=== PATIENT | female | born 1960 | race Caucasian/White ===

== ENCOUNTER 2020-08-06 12:26 | Outpatient (REF) | payer BC, SELFPAY ==
[2020-08-06 14:00] LABS: Hematocrit 36.1 % (37-47); Hemoglobin 11.4 g/dl (12.0-16.0); Mean Corpuscular HGB Conc 31.6 g/dl (31.0-35.0); Mean Corpuscular Hemoglobin 28.4 pg (27.0-33.0); Mean Corpuscular Volume 89.8 fL (80-98); Mean Platelet Volume 11.4 fL (9.4-12.3); Platelet Count 251 X10*3/uL (160-400); Red Blood Count 4.02 X10*6/uL (4.20-5.50); Red Cell Distribution Width 13.4 % (11.0-16.0); White Blood Count 7.4 X10*3/uL (4.8-10.8)
[2020-08-06 14:21] LABS: Estimated Average Glucose 189 mg/dL; Hemoglobin A1c % 8.2 %
[2020-08-06 14:30] LABS: Alanine Aminotransferase 15 U/L (0-31); Albumin Level 4.4 g/dL (3.5-5.0); Alkaline Phosphatase 100 U/L (39-117); Anion Gap 13 (12-20); Aspartate Amino Transferase 14 U/L (5-31); Bilirubin Total 0.3 mg/dL (0.0-1.0); Blood Urea Nitrogen 22 mg/dL (9-16); Calcium 9.3 mg/dL (8.4-10.2); Carbon Dioxide 27 mmol/L (22-29); Chloride 105 mmol/L (96-108); Cholesterol 132 mg/dL; Estimated Glomerular Filt Rate > 60; Glucose Fasting 103 mg/dL (60-99); HDL Cholesterol 49 mg/dL; LDL Cholesterol Calculated 54 mg/dl; Potassium 4.3 mmol/l (3.3-5.1); Sodium 141 mmol/L (135-145); Triglycerides 145 mg/dL
[2020-08-06 14:49] LABS: Thyroid Stimulating Hormone 0.94 uIU/mL (0.32-4.0)
== END 2020-08-06 12:27 | disposition home or self-care (01) ==
LOC: HO.HMGCLDS 12:26
PROVIDERS: PCP Internal Medicine; Visit Provider Internal Medicine
DX: E11.9 Type 2 diabetes mellitus without complications (principal); I10 Essential (primary) hypertension; E78.5 Hyperlipidemia, unspecified
CPT/HCPCS: 36415; 80053; 80061; 83036; 84443; 85027

== ENCOUNTER → 2020-08-10 12:59 | Outpatient (BNVA) | payer BC, SELFPAY | PROVIDERS: PCP Internal Medicine; Visit Provider Internal Medicine Cardiovascular Disease | DX: I10 Essential (primary) hypertension (principal) | CPT/HCPCS: 93005 ==

== ENCOUNTER 2020-09-11 12:36 | Outpatient (REF) | payer BC, SELFPAY ==
[2020-09-11 12:50] VITALS: BMI 29.7
[2020-09-11 12:53] VITALS: BP 139/72; PULSE 97; RESP 16; TEMP 37.1; O2SAT 97
[2020-09-11 13:34] VITALS: BP 112/67; PULSE 81; RESP 16; O2SAT 96
--- NOTE | 2020-09-11 13:40 | PM.OP ---
Brief Operative Note Date of Service: 09/11/20 Pre-op diagnosis: CVA Post-op diagnosis: same Procedure: Placement of implantable loop recorder Implants: Saint Sean confirm device. Patient brought to the minor surgery suite and laid on the examination table in supine position. The patient's precordial area was then prepped and draped in a sterile fashion. Patient was then given 2% lidocaine with epinephrine intradermally and subcutaneously. A [employer] Sean implantable loop recorder was then implanted using Seldinger technique in the subcutaneous tissue. Measured R-wave of 0.2 mV at the end Surgeon: Say Stovall MD Anesthesia: local Estimated blood loss (mL): 1 Pathology: none sent Condition: stable Disposition: same day
== END 2020-09-11 12:37 | disposition home or self-care (01) ==
LOC: HO.MS 12:36
PROVIDERS: PCP Internal Medicine; Visit Provider Internal Medicine Cardiovascular Disease
PROC: (CPT 33285; principal; 2020-09-11 13:00)
DX: I63.9 Cerebral infarction, unspecified (principal); I10 Essential (primary) hypertension; E11.9 Type 2 diabetes mellitus without complications; G47.33 Obstructive sleep apnea (adult) (pediatric); J45.909 Unspecified asthma, uncomplicated
CPT/HCPCS: 33285; C1764

== ENCOUNTER → 2020-09-21 10:03 | Outpatient (BNVA) | payer BC, SELFPAY | PROVIDERS: PCP Internal Medicine; Visit Provider Nurse Practitioner Family ==

== ENCOUNTER → 2020-10-26 15:09 | Outpatient (BNVA) | payer BC, SELFPAY | PROVIDERS: Visit Provider Internal Medicine Cardiovascular Disease ==

== ENCOUNTER 2020-12-07 10:38 | Outpatient (REF) | payer BC, SELFPAY ==
[2020-12-07 14:09] LABS: Alanine Aminotransferase 18 U/L (0-31); Albumin Level 4.5 g/dL (3.5-5.0); Alkaline Phosphatase 102 U/L (39-117); Anion Gap 16 (12-20); Aspartate Amino Transferase 17 U/L (5-31); Bilirubin Total 0.5 mg/dL (0.0-1.0); Blood Urea Nitrogen 24 mg/dL (9-16); Calcium 9.7 mg/dL (8.4-10.2); Carbon Dioxide 26 mmol/L (22-29); Chloride 103 mmol/L (96-108); Cholesterol 132 mg/dL; Estimated Glomerular Filt Rate > 60; Glucose Fasting 134 mg/dL (60-99); HDL Cholesterol 46 mg/dL; LDL Cholesterol Calculated 53 mg/dl; Potassium 4.1 mmol/L (3.3-5.1); Sodium 141 mmol/L (135-145); Triglycerides 168 mg/dL
[2020-12-07 14:21] LABS: Estimated Average Glucose 177 mg/dL; Hemoglobin A1c % 7.8 %
[2020-12-07 14:40] LABS: Creatinine Urine 233.71 mg/dL
[2020-12-07 14:52] LABS: Microalbum/Creatinine Ratio Ur 809.5 ug/mg cr
== END 2020-12-07 10:39 | disposition home or self-care (01) ==
LOC: HO.HMGCLDS 10:38
PROVIDERS: PCP Internal Medicine; Visit Provider Internal Medicine
DX: I10 Essential (primary) hypertension (principal); E11.9 Type 2 diabetes mellitus without complications; E78.5 Hyperlipidemia, unspecified
CPT/HCPCS: 36415; 80053; 80061; 82043; 83036

== ENCOUNTER 2021-02-17 08:27 | Outpatient (REF) | payer BC, SELFPAY ==
[2021-02-17 11:26] LABS: Hematocrit 35.8 % (37-47); Mean Corpuscular HGB Conc 30.7 g/dl (31.0-35.0); Mean Corpuscular Hemoglobin 27.6 pg (27.0-33.0); Mean Corpuscular Volume 89.9 fL (80-98); Mean Platelet Volume 11.9 fL (9.4-12.3); Platelet Count 213 X10*3/uL (160-400); Red Blood Count 3.98 X10*6/uL (4.20-5.50); Red Cell Distribution Width 13.7 % (11.0-16.0); White Blood Count 7.3 X10*3/uL (4.8-10.8)
[2021-02-17 11:32] LABS: Alanine Aminotransferase 17 U/L (0-31); Albumin Level 4.2 g/dL (3.5-5.0); Alkaline Phosphatase 102 U/L (39-117); Anion Gap 12 (12-20); Aspartate Amino Transferase 17 U/L (5-31); Bilirubin Total 0.4 mg/dL (0.0-1.0); Blood Urea Nitrogen 17 mg/dL (9-16); Calcium 9.6 mg/dL (8.4-10.2); Carbon Dioxide 27 mmol/L (22-29); Chloride 105 mmol/L (96-108); Cholesterol 134 mg/dL; Estimated Glomerular Filt Rate > 60; Glucose Fasting 192 mg/dL (60-99); HDL Cholesterol 47 mg/dL; LDL Cholesterol Calculated 51 mg/dl; Potassium 4.4 mmol/L (3.3-5.1); Sodium 140 mmol/L (135-145); Total Protein 6.6 g/dL (6.5-8.0); Triglycerides 180 mg/dL
[2021-02-17 11:35] LABS: Estimated Average Glucose 177 mg/dL; Hemoglobin A1c % 7.8 %
[2021-02-17 11:44] LABS: Microalbum/Creatinine Ratio Ur 259.3 ug/mg cr
== END 2021-02-17 08:28 | disposition home or self-care (01) ==
LOC: HO.HMGCLDS 08:27
PROVIDERS: PCP Internal Medicine; Visit Provider Internal Medicine
DX: E11.9 Type 2 diabetes mellitus without complications (principal); E78.5 Hyperlipidemia, unspecified; I10 Essential (primary) hypertension
CPT/HCPCS: 36415; 80053; 80061; 82043; 83036; 85027

== ENCOUNTER → 2021-02-18 15:10 | Outpatient (BNVA) | payer BC, SELFPAY | PROVIDERS: PCP Internal Medicine; Referring Provider Internal Medicine; Visit Provider Internal Medicine Cardiovascular Disease ==

== ENCOUNTER 2021-04-05 15:11 | Outpatient (REF) | payer BC, SELFPAY ==
[2021-04-05 16:30] LABS: Hematocrit 33.9 % (37-47); Hemoglobin 10.8 g/dl (12.0-16.0); Mean Corpuscular HGB Conc 31.9 g/dl (31.0-35.0); Mean Corpuscular Hemoglobin 28.3 pg (27.0-33.0); Mean Platelet Volume 11.6 fL (9.4-12.3); Platelet Count 248 X10*3/uL (160-400); Red Blood Count 3.81 X10*6/uL (4.20-5.50); Red Cell Distribution Width 13.9 % (11.0-16.0); White Blood Count 8.1 X10*3/uL (4.8-10.8)
[2021-04-05 16:36] LABS: INTERNATIONAL NORM RATIO 0.9 (0.9-1.1); Prothrombin Time 10.7 SEC (9.9-13.0)
[2021-04-05 16:38] LABS: Partial Thromboplastin Time 34.6 SEC (24.1-38.0)
[2021-04-05 16:50] LABS: Alanine Aminotransferase 20 U/L (0-31); Albumin Level 4.3 g/dL (3.5-5.0); Alkaline Phosphatase 109 U/L (39-117); Anion Gap 14 (12-20); Aspartate Amino Transferase 21 U/L (5-31); Bilirubin Total 0.3 mg/dL (0.0-1.0); Blood Urea Nitrogen 23 mg/dL (9-16); Calcium 9.6 mg/dL (8.4-10.2); Carbon Dioxide 24 mmol/L (22-29); Chloride 106 mmol/L (96-108); Estimated Glomerular Filt Rate > 60; Glucose Random 84 mg/dL (60-115); Potassium 4.1 mmol/L (3.3-5.1); Sodium 140 mmol/L (135-145); Total Protein 6.9 g/dL (6.5-8.0)
== END 2021-04-05 15:12 | disposition home or self-care (01) ==
LOC: HO.HMGCLDS 15:11
PROVIDERS: PCP Internal Medicine; Visit Provider Internal Medicine
DX: E78.5 Hyperlipidemia, unspecified (principal); I10 Essential (primary) hypertension; E11.9 Type 2 diabetes mellitus without complications
CPT/HCPCS: 36415; 80053; 85027; 85610; 85730

== ENCOUNTER 2021-04-22 08:32 | Outpatient (REF) | payer BC, SELFPAY ==
[2021-04-26 04:11] LABS: SARS COV2 IgG Negative (Negative)
== END 2021-04-22 08:33 | disposition home or self-care (01) ==
LOC: HO.HMGCLDS 08:32
PROVIDERS: PCP Internal Medicine; Visit Provider Internal Medicine
DX: Z01.84 Encounter for antibody response examination (principal)
CPT/HCPCS: 36415; 86769

== ENCOUNTER → 2021-09-20 08:13 | Outpatient (BNVA) | payer BC, SELFPAY | PROVIDERS: PCP Internal Medicine; Referring Provider Internal Medicine; Visit Provider Internal Medicine Cardiovascular Disease ==

== ENCOUNTER 2021-09-29 11:19 | Outpatient (REF) | payer BC, SELFPAY ==
[2021-09-29 13:59] LABS: Hematocrit 35.8 % (37.0-47.0); Mean Corpuscular HGB Conc 30.7 g/dl (31.0-35.0); Mean Corpuscular Volume 91.1 fL (80.0-98.0); Mean Platelet Volume 11.5 fL (9.4-12.3); Platelet Count 229 X10*3/uL (160-400); Red Blood Count 3.93 X10*6/uL (4.20-5.50); Red Cell Distribution Width 15.6 % (11.0-16.0); White Blood Count 9.6 X10*3/uL (4.8-10.8)
[2021-09-29 14:12] LABS: Anion Gap 13 (12-20); Blood Urea Nitrogen 17 mg/dL (9-16); Carbon Dioxide 28 mmol/L (22-29); Chloride 105 mmol/L (96-108); Estimated Glomerular Filt Rate > 60; Glucose Random 83 mg/dL (60-115); Potassium 4.4 mmol/L (3.3-5.1); Sodium 142 mmol/L (135-145)
== END 2021-09-29 11:20 | disposition home or self-care (01) ==
LOC: HO.HMGCLDS 11:19
PROVIDERS: PCP Internal Medicine; Visit Provider Internal Medicine Cardiovascular Disease
DX: I48.0 Paroxysmal atrial fibrillation (principal)
CPT/HCPCS: 36415; 80048; 85027

== ENCOUNTER → 2021-10-28 07:38 | Outpatient (REF) | payer BC, SELFPAY ==
--- NOTE | 2021-10-28 07:42 | CA_ITS ---
Transthoracic Echocardiogram Patient (Last, First, Middle): Galilea Hilton A Gender: Female Date of : 1960 Age: 61 Procedure Date: 10/28/2021 Procedure Type: Transthoracic Echocardiogram Location: OP Height: 170.18 cm Weight: 89.81 kg BSA: 2.01 m2 Heart Rate: bpm BP: 120 / 76 mmHg Box Sealing Machine Catcher: JUAN Referring MD: Say Stovall MD Dumpster Operator: Say Stovall MD Symptoms: I48.0 - Paroxysmal atrial fibrillation Study Quality: Fair ECG Rhythm: Sinus Conclusions: - 1. Normal LV systolic function with grade 1 diastolic dysfunction 2. Trivial aortic regurgitation 3. Mild mitral regurgitation 4. Normal RV systolic pressure 5. No gross pericardial effusion Findings Left Ventricle Normal left ventricular size, thickness, and systolic function. The visually estimated ejection fraction is between 60-65%. Spectral Doppler is indicative of an impaired relaxation filling pattern. E/E prime ratio is <8, consistent with normal filling pressures. Right Ventricle Normal right ventricular cavity size and systolic function. Atria Both atria are normal in size. Interatrial shunt cannot be excluded. Aortic Valve Normal aortic valve structure and function. There is no aortic valve stenosis. There is trace (trivial) aortic valve regurgitation. Mitral Valve Normal mitral valve structure and function. There is mild mitral valve regurgitation. There is no mitral valve stenosis. Pulmonic Valve The pulmonic valve was not well visualized. Tricuspid Valve Likely normal tricuspid valve structure and function. There is trace tricuspid valve regurgitation. The right ventricular systolic pressure is normal. The right ventricular systolic pressure is 28 mmHg. Normal right atrial pressure. There is no evidence of pulmonary hypertension. Great Vessels All visible segments of the aorta are normal in size. The pulmonary artery was not well visualized. Venous The inferior vena cava is normal in size and collapses greater than 50% with inspiration. Pericardium/Pleural There is no evidence of pericardial effusion. Prior Study Comparison Changes noted compared to prior study dated: 03/12/2019. RV systolic pressure appears to be normal Measurements 2D Linear Measurements IVSd: 1.00 0.6-0.9/0.6-1.0 cm LVIDd: 4.97 3.9-5.3/4.2-5.9 cm LVIDd Index: 2.47 2.4-3.2/2.2-3.1 cm/m2 LVIDs: 3.24 2.0-3.6 cm LVPWd: 0.92 0.7-1.1 cm LA Diam: 3.40 2.7-3.8/3.0-4.0 cm LAIDs Index: 1.69 1.5-2.3 cm/m2 LV Mass: 212.49 67-162/88-224 g LV Mass Index: 105.72 43-95/49-115 g/m2 LVOT Diam: 2.00 3.0+(-)1.3 cm 2D Systolic Function EF 4C: 58.20 >55% EF 2C: 68.00 >55% EF BiP: 63.40 >55% Mitral Valve MV Pk E: 0.83 MV PK A: 0.81 MV Decel Time: 212.00 E/A: 1.00 E'Lateral: 12.80 E'Medial: 8.27 E/E' Med: 10.00 E/E' Lat: 6.50 PHT: 62.00 MVA PHT: 3.55 Decel Charles: 3.89 Aortic Valve AoV Pk Zen: 1.37 AoV Mn Zen: 0.99 AoV VTI: 0.32 AoV Pk Grad: 8.00 Aov Mn Grad: 4.00 CRYS Cont.VTI: 2.02 LVOT LVOT Pk Zen: 0.91 LVOT Mn Zen: 0.65 LVOT VTI: 0.20 LVOT Pk Grad: 3.00 LVOT Mn Grad: 2.00 LVOT Diam: 2.00 LVOT Area: 3.14 Diastolic Function MV Pk E: 0.83 MV Pk A: 0.81 E/A: 1.00 E'Medial: 8.27 E/E' Med: 10.00 E' Laterial: 12.80 E/E' Lat: 6.50 Right Ventricle TAPSE (mm): 21.70 TVS' Zen: 11.70 Tricuspid Valve TR Pk Zen: 2.51 TR Pk Grad: 25.00 RA Press: 3.00 RVSP: 28.00 Great Vessels Aorta Sinus of Valsalva: 2.74 2.0-3.[address] Ridge: 1.97 1.7-3.4 cm Ao Asc: 3.10 2.1-3.4 cm Ao Arch: 3.00 Updated in Other Vendor System with Status of Final Say Wilman MD electronically signed on 10/29/2021 5:22:46 PM with status of Final
== END ==
LOC: HO.CARD 07:38
PROVIDERS: Visit Provider Internal Medicine Cardiovascular Disease
DX: I48.0 Paroxysmal atrial fibrillation (principal)
CPT/HCPCS: 93306

== ENCOUNTER 2021-12-29 17:02 | Outpatient (REF) | payer BC, SELFPAY ==
--- NOTE | ~2021-12-29 | XR_ITS ---
EXAMINATION: CHEST 2 VIEWS CLINICAL INFORMATION: Positioning choke reamer. . COMPARISON: 08/10/2018. TECHNIQUE: PA and lateral views of the chest obtained. FINDINGS: The lungs are well expanded. No focal infiltrate, effusion, edema, or pneumothorax. Cardiac and mediastinal silhouettes are within normal limits for size. Interval placement of a loop recorder device overlying the left anterior chest. No acute bony abnormality. Bone anchors in the left humeral head noted.. No acute bony abnormality seen XR/XR chest 2V IMPRESSION: New loop recorder device overlying the left anterior chest.
== END 2021-12-29 17:03 | disposition home or self-care (01) ==
LOC: HO.XRAY 17:02
PROVIDERS: PCP Internal Medicine; Visit Provider Radiology Diagnostic Radiology
DX: Z95.818 Presence of other cardiac implants and grafts (principal)
CPT/HCPCS: 71046

== ENCOUNTER 2022-01-06 09:35 | Outpatient (REF) | payer BC, SELFPAY ==
--- NOTE | ~2022-01-06 | MR_ITS ---
EXAMINATION: MR LUMBAR SPINE WITHOUT CONTRAST CLINICAL INFORMATION: 61-year-old with self-reported right-sided the radicular symptoms and difficulty standing. Evaluate for disc herniation, L4 nerve root impingement. COMPARISON: 04/16/2018 MRI. TECHNIQUE: MRI of the lumbar spine was obtained using routine sequences without contrast. FINDINGS: Coronal Alignment: Very slight lower lumbar dextrocurvature noted with slight gwbi-lh-mbjmk lateral listhesis at L4-L5, stable in appearance. Sagittal Alignment: There is 2.5 mm of grade 1 degenerative spondylolisthesis at L3-L4, slightly progressed from the previous exam without spondylolysis. There is slight retrolisthesis at L5-S1 stable in appearance. Lumbosacral Junction: Normal. 5 nft-kbp-pebalvy lumbar-type vertebral bodies. Vertebral Bodies: Vertebral body heights are well maintained. No interval compression fractures. Disc Spaces and Endplates: Natvsrgg-rs-difwnh intervertebral disc space height loss with tiny Schmorl's nodes and disc desiccation at L5-S1 with moderate spondylosis stable in appearance. Ehvr-yd-ttnuqeqn disc space height loss and disc desiccation at L4-L5, with mild spondylosis stable in appearance. Slight disc space height loss at L3-L4 with disc desiccation, noted with mild progression of disc space height loss at this level since previous exam and mild anterolateral spondylosis, similar to the previous study. Small Schmorl's node along the inferior endplate of L1 stable in appearance. Spinal Canal: Mildly prominent epidural fat throughout the lumbar canal similar to the previous exam. Bone Marrow: No significant marrow-replacing process or bone marrow edema. Minor degenerative endplate marrow signal changes along the endplates at L5-S1, stable in appearance. Conus Medullaris: Terminates at L1. Morphology and signal is normal. Intradural Nerve Roots: Crowding of the intradural nerve roots at L3-L4 consistent with spinal stenosis, progressed from previous study. L5-S1: Concentric disc osteophyte complex asymmetric to the right, similar to the previous exam with ctem-dk-vpkspeej bilateral facet hypertrophic degenerative change, right more than left stable in appearance. No significant canal stenosis. Severe right-sided and ablj-km-nngqqjpd left-sided neural foraminal stenosis, stable in appearance, with impingement on the exiting right L5 nerve root unchanged. L4-L5: Concentric disc bulging with bilateral paravertebral/posterolateral disc osteophyte complexes, similar to the previous exam with ligamentum flavum thickening and moderate right-sided and severe left-sided facet arthropathy, unchanged in appearance. No significant central spinal canal stenosis. Mild narrowing of the subarticular zones noted bilaterally, stable in appearance. Moderate right-sided and uhxjiuzn-fd-osiusf left-sided neural foraminal stenosis, stable in appearance, with encroachment on the L4 nerve roots bilaterally, similar to prior study. L3-L4: Slight progression of grade 1 degenerative spondylolisthesis, with unroofing of the posterior disc margin, with superimposed diffuse disc bulging. There is a superimposed broad-based left paracentral to subarticular extruded disc herniation with mild cephalad migration also encroaching on the left neural foramen, increased in size from the previous exam with increased encroachment on the ventral dural sac asymmetric to the left. Ligamentum flavum thickening and severe bilateral facet arthropathy is stable. There is severe central spinal canal stenosis which has progressed from the previous study with marked crowding of the intradural nerve roots and there is severe left subarticular recess stenosis, progressed from previous study. There is rdkd-ik-oinipttw right and moderate left-sided neural foraminal stenosis, progressed bilaterally from previous study, with impingement on the exiting right L3 nerve root on current exam. L2-L3: Minor annular bulging stable in appearance. Minor facet arthrosis noted. No canal or neuroforaminal stenosis. L1-L2: Normal disc contour. No facet arthrosis, canal or neural foraminal stenosis. T12-L1: Small central to left paramedian disc protrusion stable in appearance without canal compromise or cord impingement. No canal or neural foraminal stenosis. Paraspinal/Retroperitoneal: The paravertebral soft tissues appear grossly unremarkable. There is a 1.9 cm simple-appearing exophytic cortical cyst arising from the lower pole of the right kidney, stable in appearance. Other smaller cysts are seen in both kidneys, stable on the right and a new or enlarged one in the mid left kidney. Limited evaluation.?No specific follow up recommended based on the current ACR Best Practice Guidelines.? MR/MR lumbar spine wo con IMPRESSION: 1. Slight progression of grade 1 degenerative spondylolisthesis at L3-L4 with progression of left paramedian to subarticular/foraminal disc herniation at this level and progression of spinal canal stenosis, now severe in degree with progression of left subarticular recess stenosis. Progression of bilateral neural foraminal stenosis also noted with encroachment on the exiting right L3 nerve root with stable severe bilateral facet arthropathy at this level. 2. Disc bulging at L4-L5 is stable in appearance and disc osteophyte complex at L5-S1 also stable in appearance with stable facet arthropathy at these levels and stable severe right-sided neural foraminal stenosis at L5-S1 with right L5 nerve root impingement. Stable neural foraminal stenosis bilaterally at L4-L5, left more than right with encroachment on the exiting L4 nerve root unchanged.
== END 2022-01-06 09:36 | disposition home or self-care (01) ==
LOC: HO.MRI 09:35
PROVIDERS: Visit Provider Physical Medicine & Rehabilitation
DX: M54.16 Radiculopathy, lumbar region (principal)
CPT/HCPCS: 72148

== ENCOUNTER 2022-02-21 06:13 | Outpatient (REF) | payer BC, SELFPAY ==
[2022-02-21 12:08] LABS: Anion Gap 15 (12-20); Blood Urea Nitrogen 24 mg/dL (9-16); Calcium 9.4 mg/dL (8.4-10.2); Carbon Dioxide 26 mmol/L (22-29); Chloride 104 mmol/L (96-108); Cholesterol 128 mg/dL; Estimated Glomerular Filt Rate 50; Glucose Random 99 mg/dL (60-115); HDL Cholesterol 44 mg/dL; LDL Cholesterol Calculated 52 mg/dl; Potassium 3.9 mmol/L (3.3-5.1); Sodium 141 mmol/L (135-145); Triglycerides 163 mg/dL
[2022-02-21 12:25] LABS: Estimated Average Glucose 148 mg/dL; Hemoglobin A1c % 6.8 %
[2022-02-21 12:33] LABS: Creatinine Urine 127.83 mg/dL; Microalbum/Creatinine Ratio Ur 336.3 ug/mg cr
== END 2022-02-21 06:14 | disposition home or self-care (01) ==
LOC: HO.HMGCLDS 06:13
PROVIDERS: PCP Internal Medicine; Visit Provider Internal Medicine
DX: E78.5 Hyperlipidemia, unspecified (principal); I10 Essential (primary) hypertension; E11.9 Type 2 diabetes mellitus without complications
CPT/HCPCS: 36415; 80048; 80061; 82043; 83036

== ENCOUNTER 2022-03-05 13:05 | Outpatient (REF) | payer BC, SELFPAY ==
[2022-03-05 15:35] LABS: Total Volume 24 Hour Urine 1075 mL
[2022-03-05 15:47] LABS: Creatinine, 24Hr Urine 0.9 G/Day (1.0-2.0); Creatinine, mg/dL 87.81; Protein 24 Hr Urine 1387 mg/Day (<150); Protein mg/dL 129 mg/dL
== END 2022-03-05 13:06 | disposition home or self-care (01) ==
LOC: HO.HMGCLDS 13:05
PROVIDERS: PCP Internal Medicine; Visit Provider Internal Medicine
DX: R80.9 Proteinuria, unspecified (principal)
CPT/HCPCS: 84156

== ENCOUNTER → 2022-03-18 08:29 | Outpatient (BNVA) | payer BC, SELFPAY | PROVIDERS: PCP Internal Medicine; Visit Provider Internal Medicine Cardiovascular Disease | DX: I48.0 Paroxysmal atrial fibrillation (principal); I63.9 Cerebral infarction, unspecified | CPT/HCPCS: 93005 ==

== ENCOUNTER 2022-03-22 10:13 | Outpatient (REF) | payer BC, SELFPAY ==
[2022-03-22 14:11] LABS: Anion Gap 15 (12-20); Blood Urea Nitrogen 13 mg/dL (9-16); Calcium 8.9 mg/dL (8.4-10.2); Carbon Dioxide 27 mmol/L (22-29); Chloride 106 mmol/L (96-108); Estimated Glomerular Filt Rate > 60; Glucose Random 89 mg/dL (60-115); Potassium 3.8 mmol/L (3.3-5.1); Sodium 144 mmol/L (135-145)
[2022-03-22 14:50] LABS: Creatinine Urine 93.37 mg/dL; Total Protein Urine Random 65 mg/dL (<12)
[2022-03-24 10:51] LABS: Complement C3 146 mg/dL (83-193)
[2022-03-24 14:56] LABS: Anti Glomerular Basement Memb <1.0 AI
[2022-03-25 10:03] LABS: Prot Elec - Albumin 3.5 g/dL (3.8-4.8); Prot Elec - Alpha1 0.3 g/dL (0.2-0.3); Prot Elec - Alpha2 0.8 g/dL (0.5-0.9); Prot Elec - Beta 1 0.6 g/dL (0.4-0.6); Prot Elec - Beta 2 0.4 g/dL (0.2-0.5); Prot Elec - Gamma 0.7 g/dL (0.8-1.7); Prot Elec - Total Protein 6.2 g/dL (6.1-8.1)
[2022-03-25 12:06] LABS: PEU-Protein Creat Ratio Rand 0.823 (0.024-0.184); PEU-Rand. Prot/Creat Ratio 823 mg/g creat (24-184); PEU-Random Ur. Gamma Globulin 12 %; PEU-Random Urine A1 Globulin 7 %; PEU-Random Urine A2 Globulin 20 %; PEU-Random Urine Albumin 41 %; PEU-Random Urine Beta Globulin 20 %; PEU-Random Urine Creatinine 96 mg/dL (20-275); PEU-Random Urine Protein 79 mg/dL (5-24)
[2022-03-27 11:32] LABS: Anti Nuclear Antibody Screen NEGATIVE (NEGATIVE)
== END 2022-03-22 10:14 | disposition home or self-care (01) ==
LOC: HO.10HDL 10:13
PROVIDERS: Visit Provider Internal Medicine Hypertension Specialist
DX: E11.22 Type 2 diabetes mellitus with diabetic chronic kidney disease (principal); N18.31 Chronic kidney disease, stage 3a
CPT/HCPCS: 80048; 82570; 83520; 84156; 84165; 84166; 84443; 86038; 86039; 86160

== ENCOUNTER 2022-05-25 08:14 | Outpatient (REF) | payer BC, SELFPAY ==
[2022-05-25 12:05] LABS: MANUAL DIFF FLAG NO
[2022-05-25 12:06] LABS: Basophils Percent Auto 0.5 % (0-2); Eosinophils Absolute Auto 0.3 X10*3/uL (0.0-0.4); Eosinophils Percent Auto 5.3 % (0-4); Hematocrit 34.2 % (37.0-47.0); Hemoglobin 10.3 g/dl (12.0-16.0); Imm Gran Abs Auto 0.01 X10*3/uL (0.00-0.03); Imm Gran Pct Auto 0.2 % (0.0-0.4); Lymphocytes Absolute Auto 1.6 X10*3/uL (1.2-4.9); Lymphocytes Percent Auto 27.5 % (20-40); Mean Corpuscular HGB Conc 30.1 g/dl (31.0-35.0); Mean Corpuscular Hemoglobin 27.4 pg (27.0-33.0); Mean Platelet Volume 11.5 fL (9.4-12.3); Monocytes Absolute Auto 0.3 X10*3/uL (0.1-1.2); Monocytes Percent Auto 5.1 % (2-11); Neutrophils Absolute Auto 3.6 x10*3/uL (2.0-8.3); Neutrophils Percent Auto 61.4 % (45-73); Platelet Count 212 X10*3/uL (160-400); Red Blood Count 3.76 X10*6/uL (4.20-5.50); Red Cell Distribution Width 14.6 % (11.0-16.0); White Blood Count 5.9 X10*3/uL (4.8-10.8)
[2022-05-25 12:33] LABS: Creatinine Urine 74.61 mg/dL; Microalbum/Creatinine Ratio Ur 167.5 ug/mg cr
[2022-05-25 12:38] LABS: Estimated Average Glucose 128 mg/dL; Hemoglobin A1c % 6.1 %
[2022-05-25 12:49] LABS: TSH reflex Free T4 1.02 uIU/mL (0.32-4.0)
[2022-05-25 13:16] LABS: Alanine Aminotransferase 16 U/L (0-31); Alkaline Phosphatase 83 U/L (39-117); Anion Gap 16 (12-20); Aspartate Amino Transferase 17 U/L (5-31); Bilirubin Total < 0.2 mg/dL (0.0-1.0); Blood Urea Nitrogen 12 mg/dL (9-16); Calcium 9.2 mg/dL (8.4-10.2); Carbon Dioxide 26 mmol/L (22-29); Chloride 106 mmol/L (96-108); Estimated Glomerular Filt Rate > 60; Glucose Fasting 98 mg/dL (60-99); Potassium 3.7 mmol/L (3.3-5.1); Sodium 144 mmol/L (135-145); Total Protein 6.3 g/dL (6.5-8.0)
== END 2022-05-25 08:15 | disposition home or self-care (01) ==
LOC: HO.HMGCLDS 08:14
PROVIDERS: PCP Internal Medicine; Visit Provider Internal Medicine
DX: E78.5 Hyperlipidemia, unspecified (principal); I10 Essential (primary) hypertension; E11.9 Type 2 diabetes mellitus without complications
CPT/HCPCS: 36415; 80053; 82043; 83036; 84443; 85025

== ENCOUNTER 2022-06-10 09:18 | Outpatient (REF) | payer BC, SELFPAY ==
[2022-06-10 09:43] VITALS: BMI 29.9
[2022-06-10 09:44] VITALS: BP 123/75; PULSE 84; RESP 16; TEMP 37.1; O2SAT 98
[2022-06-10 10:31] VITALS: BP 133/66; PULSE 87; RESP 16; O2SAT 97
--- NOTE | 2022-06-10 11:48 | PM.OP ---
Brief Operative Note Date of Service: 06/10/22 Pre-op diagnosis: Implantable loop recorder in place Post-op diagnosis: same Procedure: After obtaining full informed consent patient was brought to the minor surgery suite. Patient was then laid on the operating table in supine position. Patient's implantable loop recorder was identified and surgical site marked. Patient's area was then prepped and draped in sterile fashion. Patient was then given local anesthesia intradermally and subcutaneously. A small incision was then made over the head of the implantable loop recorder. The implantable loop recorder was then removed with blunt dissection. The wound was then closed with Steri-Strip and pressure dressing applied. Surgeon: Say Stovall MD Anesthesia: local Was an Agronomy Specialist used for this Procedure?: No Estimated blood loss (mL): 2 Pathology: none sent Condition: stable Disposition: same day
== END 2022-06-10 09:19 | disposition home or self-care (01) ==
LOC: HO.MS 09:18
PROVIDERS: PCP Internal Medicine; Visit Provider Internal Medicine Cardiovascular Disease
PROC: (CPT 33286; principal; 2022-06-10 10:00)
DX: Z45.09 Encounter for adjustment and management of other cardiac device (principal); Z95.818 Presence of other cardiac implants and grafts; I48.0 Paroxysmal atrial fibrillation; Z79.01 Long term (current) use of anticoagulants; Z86.73 Personal history of transient ischemic attack (TIA), and cerebral infarction without residual deficits
CPT/HCPCS: 33286

== ENCOUNTER 2022-07-05 08:39 | Outpatient (REF) | payer BC, SELFPAY ==
--- NOTE | ~2022-07-05 | MM_ITS ---
EXAMINATION: BONE DENSITOMETRY CLINICAL INDICATION: Asymptomatic menopausal state. COMPARISON: Baseline BD dated 11/15/2016. TECHNIQUE: Using a [employer] DXA System (software version: 13.1) manufactured by [employer], dual-energy x-ray absorptiometry was performed of the spine and left hip. The images are of good technical quality. Summary results are attached. FINDINGS: AP SPINE L1-L2 (excluding L3 and L4): The data of L1-L4 has been changed to exclude the L3 and L4 vertebral bodies, because mild degenerative changes at these levels may cause overestimation of lumbar spine density. Current: BMD 1.037 g/cm2, Z-score -0.1, T-score -1.1, osteopenia, 1.7% increase from baseline (<5% change is not significant). Baseline: BMD 1.020 g/cm2. LEFT FEMUR, NECK: Current: BMD 0.650 g/cm2, Z-score -1.7, T-score -2.8, osteoporosis. Baseline: BMD 0.981 g/cm2. LEFT FEMUR, TOTAL: Current: BMD 0.737 g/cm2, Z-score -1.4, T-score -2.1, osteopenia, 29.2% decrease from baseline (<5% change is not significant). Baseline: BMD 1.041 g/cm2. IDENTIFIED RISK FACTORS: Early menopause, secondary osteoporosis, low calcium intake. HISTORY OF FRACTURE: None listed. MEDICATIONS: Vitamin D. MM/XR DEXA axial skeleton IMPRESSION: 1. DIAGNOSIS: Osteoporosis based on the lowest T-score value of -2.8 in the femoral neck applying World Health Organization criteria. 2. 10-YEAR FRACTURE RISK PREDICTION, FRAX: According to the guidelines, FRAX calculation should only be performed on patients in the osteopenia bone density category. Therefore, FRAX was not performed on this patient. 3. Treatment Recommendations: NOF guidelines recommend consideration for treatment in postmenopausal women and men age 50 and older presenting with the following: -A hip or vertebral (clinical or morphometric) fracture. -T-score less than or equal to -2.5 at the femoral neck or spine after appropriate evaluation to exclude secondary causes. -Low bone mass at the hip or spine and a 10-year fracture probability by FRAX of greater than or equal to 3% for hip fracture or greater than or equal to 20% for major osteoporotic fracture based on the [place] adapted WHO algorithm. 4. Other Recommendations: All treatment decisions require clinical judgment and consideration of individual patient factors, including patient preferences, comorbidities, previous drug use, risk factors not captured in the FRAX model (e.g. frailty, falls, vitamin D deficiency, increased bone turnover, interval significant decline in bone density) and possible under or overestimation of fracture risk by FRAX. Additional medical evaluation for secondary cause of low bone mineral density may be appropriate. FUTURE SCAN RECOMMENDATION: People with diagnosed cases of osteoporosis or at high risk for fracture should have regular bone mineral density tests. For patients eligible for Medicare, routine testing is allowed once every 2 years. The testing frequency can be increased to one year for patients who have rapidly progressing disease, those who are receiving or discontinuing medical therapy to restore bone mass, or have additional risk factors.
== END 2022-07-05 08:40 | disposition home or self-care (01) ==
LOC: HO.MAMMO 08:39
PROVIDERS: Absent Provider Internal Medicine Hypertension Specialist; PCP Internal Medicine; Visit Provider Internal Medicine
DX: Z13.820 Encounter for screening for osteoporosis (principal); Z78.0 Asymptomatic menopausal state; R80.9 Proteinuria, unspecified
CPT/HCPCS: 77080; 86335

== ENCOUNTER 2022-08-23 08:31 | Outpatient (REF) | payer BC, SELFPAY ==
[2022-08-23 12:20] LABS: Alanine Aminotransferase 15 U/L (0-31); Alkaline Phosphatase 89 U/L (39-117); Anion Gap 14 (12-20); Aspartate Amino Transferase 19 U/L (5-31); Bilirubin Total 0.4 mg/dL (0.0-1.0); Blood Urea Nitrogen 16 mg/dL (9-16); Carbon Dioxide 26 mmol/L (22-29); Chloride 107 mmol/L (96-108); Cholesterol 128 mg/dL; Estimated Glomerular Filt Rate > 60; Glucose Fasting 112 mg/dL (60-99); HDL Cholesterol 42 mg/dL; LDL Cholesterol Calculated 62 mg/dl; Potassium 4.1 mmol/L (3.3-5.1); Sodium 143 mmol/L (135-145); Total Protein 6.3 g/dL (6.5-8.0); Triglycerides 121 mg/dL
[2022-08-23 12:32] LABS: Estimated Average Glucose 128 mg/dL; Hemoglobin A1c % 6.1 %
[2022-08-23 12:41] LABS: Vitamin D 25-OH Total 64.5 ng/mL (>30)
[2022-08-23 12:47] LABS: Creatinine Urine 199.43 mg/dL; Microalbum/Creatinine Ratio Ur 150.9 ug/mg cr
== END 2022-08-23 08:32 | disposition home or self-care (01) ==
LOC: HO.HMGCLDS 08:31
PROVIDERS: PCP Internal Medicine; Visit Provider Internal Medicine
DX: E78.5 Hyperlipidemia, unspecified (principal); I10 Essential (primary) hypertension; I48.0 Paroxysmal atrial fibrillation; E11.21 Type 2 diabetes mellitus with diabetic nephropathy
CPT/HCPCS: 36415; 80053; 80061; 82043; 82306; 83036

== ENCOUNTER 2022-12-01 08:33 | Outpatient (REF) | payer BC, SELFPAY ==
[2022-12-01 11:47] LABS: Hematocrit 36.4 % (37.0-47.0); Hemoglobin 11.5 g/dl (12.0-16.0); Mean Corpuscular HGB Conc 31.6 g/dl (31.0-35.0); Mean Corpuscular Hemoglobin 27.3 pg (27.0-33.0); Mean Corpuscular Volume 86.3 fL (80.0-98.0); Mean Platelet Volume 11.2 fL (9.4-12.3); Platelet Count 240 X10*3/uL (160-400); Red Blood Count 4.22 X10*6/uL (4.20-5.50); Red Cell Distribution Width 15.3 % (11.0-16.0); White Blood Count 5.3 X10*3/uL (4.8-10.8)
[2022-12-01 11:55] LABS: Alanine Aminotransferase 14 U/L (0-31); Albumin Level 4.1 g/dL (3.5-5.0); Alkaline Phosphatase 105 U/L (39-117); Anion Gap 12 (12-20); Aspartate Amino Transferase 18 U/L (5-31); Bilirubin Total 0.5 mg/dL (0.0-1.0); Blood Urea Nitrogen 15 mg/dL (9-16); Calcium 9.4 mg/dL (8.4-10.2); Carbon Dioxide 28 mmol/L (22-29); Chloride 107 mmol/L (96-108); Estimated Glomerular Filt Rate > 60; Glucose Fasting 131 mg/dL (60-99); Potassium 4.3 mmol/L (3.3-5.1); Sodium 143 mmol/L (135-145); Total Protein 6.4 g/dL (6.5-8.0)
[2022-12-01 12:15] LABS: Creatinine Urine 234.04 mg/dL; Microalbum/Creatinine Ratio Ur 135.4 ug/mg cr
[2022-12-01 12:22] LABS: Estimated Average Glucose 134 mg/dL; Hemoglobin A1c % 6.3 %
== END 2022-12-01 08:34 | disposition home or self-care (01) ==
LOC: HO.HMGCLDS 08:33
PROVIDERS: PCP Internal Medicine; Visit Provider Internal Medicine
DX: E11.9 Type 2 diabetes mellitus without complications (principal); I10 Essential (primary) hypertension; E78.5 Hyperlipidemia, unspecified
CPT/HCPCS: 36415; 80053; 82043; 83036; 85027

== ENCOUNTER 2023-03-09 07:06 | Outpatient (REF) | payer BC, SELFPAY ==
[2023-03-09 11:41] LABS: Estimated Average Glucose 131 mg/dL; Hemoglobin A1c % 6.2 %
[2023-03-09 11:57] LABS: Alanine Aminotransferase 16 U/L (0-31); Albumin Level 3.9 g/dL (3.5-5.0); Alkaline Phosphatase 97 U/L (39-117); Anion Gap 12 (12-20); Aspartate Amino Transferase 18 U/L (5-31); Bilirubin Total 0.3 mg/dL (0.0-1.0); Blood Urea Nitrogen 15 mg/dL (9-16); Calcium 9.6 mg/dL (8.4-10.2); Carbon Dioxide 27 mmol/L (22-29); Chloride 108 mmol/L (96-108); Cholesterol 108 mg/dL; Estimated Glomerular Filt Rate > 60; Glucose Fasting 97 mg/dL (60-99); HDL Cholesterol 44 mg/dL; LDL Cholesterol Calculated 44 mg/dl; Potassium 3.5 mmol/L (3.3-5.1); Sodium 143 mmol/L (135-145); Total Protein 6.6 g/dL (6.5-8.0); Triglycerides 103 mg/dL
== END 2023-03-09 07:07 | disposition home or self-care (01) ==
LOC: HO.HMGCLDS 07:06
PROVIDERS: PCP Internal Medicine; Visit Provider Internal Medicine
DX: E11.9 Type 2 diabetes mellitus without complications (principal); I10 Essential (primary) hypertension; E78.5 Hyperlipidemia, unspecified
CPT/HCPCS: 36415; 80053; 80061; 83036

== ENCOUNTER 2023-03-17 08:27 | Outpatient (AMB) | payer BC, SELFPAY ==
--- NOTE | 2023-03-17 08:42 | A.OFFPC_ITS ---
Vital Signs 03/17/23 08:45 Height 5 ft 7 in Weight 171 lb BMI 26.8 BP 108/66 Blood Pressure Location Lt brachial Position Sitting Pulse 86 Pulse Source Pulse Oximeter Pulse Oximetry (%) 98 Oxygen Delivery Method Room Air Intake Visit Reasons: PE Intake Note: Pt is here today for PE. Allergies vancomycin [VANCOMYCIN] Allergy (Intermediate, Verified 03/17/23 08:46) ITCHING empagliflozin [Jardiance] Allergy (Unknown, Verified 03/17/23 08:46) yeast infection levofloxacin Allergy (Unknown, Verified 03/17/23 08:46) tendon rupture linagliptin [Tradjenta] Allergy (Unknown, Verified 03/17/23 08:46) yeast infection penicillin G [Penicillin G] Allergy (Unknown, Verified 03/17/23 08:46) HIVES penicillin V Allergy (Unknown, Verified 03/17/23 08:46) unknown Tobacco use date assessed: 08/24/22 Dental Screening Dental Screen Date: 03/17/23 Did you have a dental visit in the last 12 months?: Yes Did you have a dental problem in the last 6 months where you did not have access to dental care?: No Was dental information given to patient?: Patient has dentist HPI PE HPI Details Pt presents for PE. Pt will have R knee replacement surgery in May in [place]. [facility] Medical History Annual physical exam Asthma Carotid stenosis Cataract Cornea disorder CVA (cerebral vascular accident) DM type 2 (diabetes mellitus, type 2) Hammertoe of right foot HTN (hypertension) Hyperlipidemia JERICHO (obstructive sleep apnea) Paroxysmal atrial fibrillation Ptosis of both upper eyelids Status post placement of implantable loop recorder Surgical History H/O bilateral breast reduction surgery H/O rotator cuff surgery H/O shoulder surgery History of arthroscopic knee surgery Family History Father No problems noted. Mother No problems noted. Social History Housing: House Alcohol intake: current Alcohol intake frequency: a few times a month Patient Tobacco Use Status: Former Tobacco user Quit Date: 32 years ago e-Cigarette/Vaping Use: Never Used Current occupational status: employed Cognitive needs: No Hearing needs: No Vision needs: No Questionnaire Thrive Questionnaire Date Thrive assessed: 08/24/22 JEZ-7 AMB Questionnaire JEZ-7 Date JEZ - 7 assessed: 08/24/22 Source: Developed by Drs. Hadley Arshad, Adwoa Hayes, Jelani Jackson and colleagues, with an educational shaji from [employer]. Review of Systems Const All systems reviewed & are unremarkable except as noted in HPI and below Reports no additional complaints Eyes Reports no additional complaints ENT Reports no additional complaints Card Reports no additional complaints Resp Reports no additional complaints GI Reports no additional complaints Physical exam (Primary Care) Vital Signs: Last Vital Signs Pulse 86 03/17/23 08:45 BP 108/66 03/17/23 08:45 Pulse Ox 98 03/17/23 08:45 Oxygen Delivery Method Room Air 03/17/23 08:45 BMI result Body Mass Index 26.8 Tobacco/Smoking Status: Tobacco use Status Tobacco use date assessed 08/24/22 03/17/23 08:43 Patient Tobacco Use Status Former Tobacco user 03/17/23 08:43 e-Cigarette/Vaping Use Never Used 03/17/23 08:43 Thrive Assessment: Date of Thrive Assessment Date Thrive assessed 08/24/22 03/17/23 08:43 Const General: no acute distress HENMT Head: Yes normal to inspection Ears: hearing grossly normal bilaterally Mouth: Normal oral and palatal mucosa present Eyes General: appearance normal, both eyes and all related structures Neck Neck: Yes supple Resp Effort & Inspection: normal respiratory effort Auscultation: clear to auscultation bilaterally Cardio Rhythm: regular rhythm Heart sounds: S1 normal heart sound present and S2 normal heart sound present GI Inspection: Yes normal to inspection Palpation (GI): Soft to palpation Percussion: Yes normal to percussion Auscultation: normal bowel sounds Extrem Other: Diabetic foot exam: skin is intact monofilament and vibration sensation intact bilaterally Assessment and Plan Assessment & Plan (1) Diabetic nephropathy associated with type 2 diabetes mellitus: Code(s): E11.21 - Type 2 diabetes mellitus with diabetic nephropathy Plan: Add Farxiga 5 mg a day continue losartan (2) HTN (hypertension): Code(s): I10 - Essential (primary) hypertension (3) Hyperlipidemia: Code(s): E78.5 - Hyperlipidemia, unspecified Plan: Continue statin (4) Paroxysmal atrial fibrillation: Comment: Infrequent paroxysmal AFib asymptomatic Code(s): I48.0 - Paroxysmal atrial fibrillation Plan: Continue Eliquis (5) Annual physical exam: Code(s): Z00.00 - Encounter for general adult medical examination without abnormal findings Plan: Well-balanced diet and regular physical activity discussed with the patient. she is up to date with mammogram and colonoscopy (6) DM type 2 (diabetes mellitus, type 2): Code(s): E11.9 - Type 2 diabetes mellitus without complications Plan: A1c is 6.2, ADA diet eating regular 3 meals with snacks in between discussed with the patient. She will try Ozempic instead of Trulicity will continue insulin and metformin. Farxiga will be added. If fasting blood glucose drops below 70 patient was advised to decrease Lantus by 6 units. Follow-up in 3 months with a fasting labs before Orders: Orders Microalbumin, Random (w Creat) Today E11.21 - Type 2 diabetes mellitus with diabetic nephropathy Comprehensive [place]. Panel Fast 3 Months E11.21 - Type 2 diabetes mellitus with diabetic nephropathy, E78.5 - Hyperlipidemia, unspecified, I10 - Essential (primary) hypertension Hemoglobin A1c 3 Months E11.21 - Type 2 diabetes mellitus with diabetic nephropathy, E78.5 - Hyperlipidemia, unspecified, I10 - Essential (primary) hypertension Lipid Panel 3 Months E11.21 - Type 2 diabetes mellitus with diabetic nephropathy, E78.5 - Hyperlipidemia, unspecified, I10 - Essential (primary) hypertension Microalbumin, Random (w Creat) 3 Months E11.21 - Type 2 diabetes mellitus with diabetic nephropathy, E78.5 - Hyperlipidemia, unspecified, I10 - Essential (primary) hypertension Complete Blood Count Auto Diff 3 Months E11.21 - Type 2 diabetes mellitus with d iabetic nephropathy, E78.5 - Hyperlipidemia, unspecified, I10 - Essential (primary) hypertension Medications: New semaglutide (Ozempic) 2 mg (0.75 mL) subcut QWEEK 9 mL 3RF dapagliflozin propanediol (Farxiga) 5 mg PO DAILY 90 tabs 1RF Coding Level of Care Code Est Pt Prev Care [id number]([id number]) Diagnoses Diabetic nephropathy associated with type 2 diabetes mellitus E11.21 HTN (hypertension) I10 Hyperlipidemia E78.5 Paroxysmal atrial fibrillation I48.0 Annual physical exam Z00.00 DM type 2 (diabetes mellitus, type 2) E11.9
[2023-03-17 08:45] VITALS: BP 108/66; PULSE 86; O2SAT 98; BMI 26.8
== END 2023-03-17 09:30 | disposition home or self-care (01) ==
PROVIDERS: Visit Provider Internal Medicine
DX: Z00.00 Encounter for general adult medical examination without abnormal findings (principal); E11.21 Type 2 diabetes mellitus with diabetic nephropathy; I10 Essential (primary) hypertension; I48.0 Paroxysmal atrial fibrillation; E78.5 Hyperlipidemia, unspecified
CPT/HCPCS: 99396

== ENCOUNTER 2023-03-17 09:22 | Outpatient (REF) | payer BC, SELFPAY ==
[2023-03-17 13:09] LABS: Creatinine Urine 99.77 mg/dL; Microalbum/Creatinine Ratio Ur 484.1 ug/mg cr (<30)
== END 2023-03-17 09:23 | disposition home or self-care (01) ==
LOC: HO.HMGCLDS 09:22
PROVIDERS: PCP Internal Medicine; Visit Provider Internal Medicine
DX: E11.21 Type 2 diabetes mellitus with diabetic nephropathy (principal)
CPT/HCPCS: 82043

== ENCOUNTER 2023-05-27 09:13 | Outpatient (REF) | payer BC, SELFPAY ==
[2023-05-27 11:06] LABS: MANUAL DIFF FLAG NO
[2023-05-27 11:18] LABS: Basophils Percent Auto 0.6 % (0-2); Eosinophils Absolute Auto 0.3 X10*3/uL (0.0-0.4); Eosinophils Percent Auto 5.1 % (0-4); Hematocrit 36.7 % (37.0-47.0); Hemoglobin 11.6 g/dl (12.0-16.0); Imm Gran Abs Auto 0.02 X10*3/uL (0.00-0.03); Imm Gran Pct Auto 0.3 % (0.0-0.4); Lymphocytes Absolute Auto 1.8 X10*3/uL (1.2-4.9); Lymphocytes Percent Auto 26.8 % (20-40); Mean Corpuscular HGB Conc 31.6 g/dl (31.0-35.0); Mean Corpuscular Hemoglobin 29.1 pg (27.0-33.0); Mean Platelet Volume 11.5 fL (9.4-12.3); Monocytes Absolute Auto 0.4 X10*3/uL (0.1-1.2); Monocytes Percent Auto 5.5 % (2-11); Neutrophils Absolute Auto 4.2 x10*3/uL (2.0-8.3); Neutrophils Percent Auto 61.7 % (45-73); Platelet Count 213 X10*3/uL (160-400); Red Blood Count 3.99 X10*6/uL (4.20-5.50); Red Cell Distribution Width 13.6 % (11.0-16.0); White Blood Count 6.7 X10*3/uL (4.8-10.8)
[2023-05-27 11:28] LABS: Estimated Average Glucose 120 mg/dL; Hemoglobin A1c % 5.8 % (<6.0)
[2023-05-27 11:43] LABS: Alanine Aminotransferase 16 U/L (0-31); Albumin Level 4.1 g/dL (3.5-5.0); Alkaline Phosphatase 77 U/L (39-117); Anion Gap 11 (12-20); Aspartate Amino Transferase 17 U/L (5-31); Bilirubin Total 0.3 mg/dL (0.0-1.0); Blood Urea Nitrogen 17 mg/dL (9-16); Calcium 9.9 mg/dL (8.4-10.2); Carbon Dioxide 27 mmol/L (22-29); Chloride 106 mmol/L (96-108); Cholesterol 94 mg/dL (<200); Estimated Glomerular Filt Rate > 60; Glucose Fasting 110 mg/dL (60-99); HDL Cholesterol 38 mg/dL (>40); LDL Cholesterol Calculated 40 mg/dL (<100); Potassium 3.4 mmol/L (3.3-5.1); Sodium 141 mmol/L (135-145); Total Protein 6.6 g/dL (6.5-8.0); Triglycerides 83 mg/dL (<150)
[2023-05-27 11:55] LABS: Creatinine Urine 134.02 mg/dL
[2023-05-27 12:08] LABS: Microalbum/Creatinine Ratio Ur 419.3 ug/mg cr (<30)
== END 2023-05-27 09:14 | disposition home or self-care (01) ==
LOC: HO.HMGCLDS 09:13
PROVIDERS: PCP Internal Medicine; Visit Provider Internal Medicine
DX: E11.21 Type 2 diabetes mellitus with diabetic nephropathy (principal); I10 Essential (primary) hypertension; E78.5 Hyperlipidemia, unspecified
CPT/HCPCS: 36415; 80053; 80061; 82043; 82570; 83036; 85025

== ENCOUNTER 2023-05-30 11:56 | Outpatient (AMB) | payer BC, SELFPAY ==
--- NOTE | 2023-05-30 12:08 | A.OFFPC_ITS ---
Vital Signs 05/30/23 12:10 Weight 164 lb BP 116/70 Blood Pressure Location Lt brachial Position Sitting Pulse 73 Pulse Source Pulse Oximeter Pulse Oximetry (%) 97 Oxygen Delivery Method Room Air Intake Visit Reasons: Pre op 06/27/23, Right knee replacement Allergies vancomycin [VANCOMYCIN] Allergy (Intermediate, Verified 05/30/23 12:12) ITCHING empagliflozin [Jardiance] Allergy (Unknown, Verified 05/30/23 12:12) yeast infection levofloxacin Allergy (Unknown, Verified 05/30/23 12:12) tendon rupture linagliptin [Tradjenta] Allergy (Unknown, Verified 05/30/23 12:12) yeast infection penicillin G [Penicillin G] Allergy (Unknown, Verified 05/30/23 12:12) HIVES penicillin V Allergy (Unknown, Verified 05/30/23 12:12) unknown Medication List - Last Reconciled 05/30/23 by Valarie Hudson MD albuterol sulfate 90 mcg/actuation 1 inh inhalation QID apixaban (Eliquis) 5 mg PO BID 90 days flash glucose sensor (FreeStyle Reid 2 Sensor kit) As directed fluconazole 150 mg PO Q3D 2 doses fluticasone propion-salmeterol 250-50 mcg/dose (Advair Diskus) 1 inh inhalation BID insulin degludec (Tresiba FlexTouch U-100 insulin) 20 units (0.2 mL) subcut BEDTIME 90 days losartan 50 mg PO DAILY metformin 1,000 mg PO BID pantoprazole 40 mg PO DAILY pen needle, diabetic (BD Ultra-Fine Short Pen Needle) Use to inject insulin once daily rosuvastatin 40 mg PO DAILY semaglutide (Ozempic) 2 mg (0.75 mL) subcut QWEEK sertraline 25 mg PO DAILY Tobacco use date assessed: 08/24/22 HPI Pre op 06/27/23, Right knee replacement HPI Details Patient presents for a preop for right knee replacement surgery. Type 2 diabetes hypertension paroxysmal AFib and hyperlipidemia, are stable on current medications. She reports fasting glucose readings between 90-120 occasionally gets lows at night to 60's. [facility] Medical History Paroxysmal atrial fibrillation Ptosis of both upper eyelids Hammertoe of right foot Annual physical exam Cornea disorder Carotid stenosis Status post placement of implantable loop recorder Cataract JERICHO (obstructive sleep apnea) CVA (cerebral vascular accident) Asthma Hyperlipidemia HTN (hypertension) DM type 2 (diabetes mellitus, type 2) Surgical History H/O rotator cuff surgery H/O bilateral breast reduction surgery History of arthroscopic knee surgery H/O shoulder surgery Family History Father No problems noted. Mother No problems noted. Social History Housing: House Alcohol intake: current Alcohol intake frequency: a few times a month Patient Tobacco Use Status: Former Tobacco user Quit Date: 32 years ago e-Cigarette/Vaping Use: Never Used Current occupational status: employed Cognitive needs: No Hearing needs: No Vision needs: No Questionnaire Thrive Questionnaire Date Thrive assessed: 08/24/22 AUDIT C Alcohol Use Questionnaire (AUDIT-C) 1. How often do you have a drink containing alcohol?: Monthly or less 2. How many drinks containing alcohol do you have on a typical day when you are drinking?: 1 or 2 3. How often do you have six or more drinks on one occasion?: Never Total Score: 1 JEZ-7 AMB Questionnaire JEZ-7 Date JEZ - 7 assessed: 08/24/22 Feeling nervous, anxious, or on edge: 0 = Not at all Not being able to stop or control worryin = Not at all Worrying too much about different things: 0 = Not at all Trouble relaxin = Not at all Being so restless that it is hard to sit still: 0 = Not at all Becoming easily annoyed or irritable: 0 = Not at all Feeling afraid as if something awful might happen: 0 = Not at all Total JEZ-7 score (0-4 normal; 5-9 mild; 10-14 moderate; 15-21 severe): 0 Source: Developed by Drs. Hadley Arshad, Adwoa Hayes, Jelani Jackson and colleagues, with an educational shaji from [employer] Review of Systems Const All systems reviewed & are unremarkable except as noted in HPI and below Reports no additional complaints Eyes Reports no additional complaints ENT Reports no additional complaints Card Reports no additional complaints Resp Reports no additional complaints GI Reports no additional complaints Reports no additional complaints Physical exam (Primary Care) Vital Signs: Last Vital Signs Pulse 73 05/30/23 12:10 BP 116/70 05/30/23 12:10 Pulse Ox 97 05/30/23 12:10 Oxygen Delivery Method Room Air 05/30/23 12:10 Tobacco/Smoking Status: Tobacco use Status Tobacco use date assessed 08/24/22 05/30/23 12:09 Patient Tobacco Use Status Former Tobacco user 05/30/23 12:09 e-Cigarette/Vaping Use Never Used 05/30/23 12:09 Thrive Assessment: Date of Thrive Assessment Date Thrive assessed 08/24/22 05/30/23 12:09 Const General: no acute distress HENMT Face and sinus: Yes normal facial exam Eyes General: appearance normal, both eyes and all related structures Resp Effort & Inspection: normal respiratory effort Auscultation: clear to auscultation bilaterally Cardio Rhythm: regular rhythm Heart sounds: S1 normal heart sound present and S2 normal heart sound present GI Inspection: Yes normal to inspection Palpation (GI): Soft to palpation Assessment and Plan Assessment & Plan (1) HTN (hypertension): Code(s): I10 - Essential (primary) hypertension Plan: Continue current medications (2) Paroxysmal atrial fibrillation: Comment: Infrequent paroxysmal AFib asymptomatic Code(s): I48.0 - Paroxysmal atrial fibrillation Plan: Continue Eliquis and beta dmitriy and follow-up with Cardiology (3) DM type 2 (diabetes mellitus, type 2): Comment: Intolerant to Farxiga, caused recurrent candidiasis Code(s): E11.9 - Type 2 diabetes mellitus without complications Plan: A1c is 5.8, ADA diet regular physical activity discussed with the patient. Tresiba will be decreased to 20 units because of nighttime lows and patient will continue Ozempic and metformin. Follow-up in 4 months with a fasting labs befo re (4) Hyperlipidemia: Code(s): E78.5 - Hyperlipidemia, unspecified Plan: Continue Crestor (5) Osteoarthritis of right knee: Code(s): M17.11 - Unilateral primary osteoarthritis, right knee Plan: Patient is medically cleared for knee replacement surgery Orders: Orders Complete Blood Count Auto Diff 4 Months E11.9 - Type 2 diabetes mellitus without complications, E78.5 - Hyperlipidemia, unspecified, I10 - Essential (primary) hypertension, I48.0 - Paroxysmal atrial fibrillation Comprehensive Davis. Panel Fast 4 Months E11.9 - Type 2 diabetes mellitus without complications, E78.5 - Hyperlipidemia, unspecified, I10 - Essential (primary) hypertension, I48.0 - Paroxysmal atrial fibrillation Basic Metabolic Panel 06/02/23 I10 - Essential (primary) hypertension Magnesium 06/02/23 I10 - Essential (primary) hypertension Hemoglobin A1c 4 Months E11.9 - Type 2 diabetes mellitus without complications, E78.5 - Hyperlipidemia, unspecified, I10 - Essential (primary) hypertension, I48.0 - Paroxysmal atrial fibrillation Lipid Panel 4 Months E11.9 - Type 2 diabetes mellitus without complications, E78.5 - Hyperlipidemia, unspecified, I10 - Essential (primary) hypertension, I48.0 - Paroxysmal atrial fibrillation Medications: New potassium chloride ER 10 mEq PO DAILY 30 tabs 0RF Changed From sertraline 50 mg PO DAILY 90 tabs 3RF To sertraline 25 mg PO DAILY From insulin degludec (Tresiba FlexTouch U-100 insulin) 30 units (0.3 mL) subcut BEDTIME 90 days 27 mL 3RF To insulin degludec (Tresiba FlexTouch U-100 insulin) 20 units (0.2 mL) subcut BEDTIME 90 days 18 mL 3RF Coding Level of Care Code Est Pt Level 4 (02431) Diagnoses HTN (hypertension) I10 Paroxysmal atrial fibrillation I48.0 DM type 2 (diabetes mellitus, type 2) E11.9 Hyperlipidemia E78.5 Osteoarthritis of right knee M17.11
[2023-05-30 12:10] VITALS: BP 116/70; PULSE 73; O2SAT 97
== END 2023-05-30 12:36 | disposition home or self-care (01) ==
PROVIDERS: PCP Internal Medicine; Visit Provider Internal Medicine
DX: I10 Essential (primary) hypertension (principal); I48.0 Paroxysmal atrial fibrillation; E11.9 Type 2 diabetes mellitus without complications; E78.5 Hyperlipidemia, unspecified; M17.11 Unilateral primary osteoarthritis, right knee
CPT/HCPCS: 99214

== ENCOUNTER 2023-06-01 13:07 | Outpatient (AMB) | payer BC, SELFPAY ==
[2023-06-01 13:13] VITALS: BP 122/76; PULSE 83; BMI 25.7
--- NOTE | 2023-06-01 13:13 | A.OFFVIS_ITS ---
Intake Vital Signs 06/01/23 13:13 Height 5 ft 7 in Weight 164 lb BMI 25.7 BP 122/76 Blood Pressure Location Lt brachial Position Sitting Pulse 83 Intake Visit Reasons: 1 year follow up Intake Note: 1 year follow-up with ekg feeling good Condenser Tube Tender Required: No Allergies vancomycin [VANCOMYCIN] Allergy (Intermediate, Verified 05/30/23 12:12) ITCHING empagliflozin [Jardiance] Allergy (Unknown, Verified 05/30/23 12:12) yeast infection levofloxacin Allergy (Unknown, Verified 05/30/23 12:12) tendon rupture linagliptin [Tradjenta] Allergy (Unknown, Verified 05/30/23 12:12) yeast infection penicillin G [Penicillin G] Allergy (Unknown, Verified 05/30/23 12:12) HIVES penicillin V Allergy (Unknown, Verified 05/30/23 12:12) unknown Medication List - Last Reconciled 06/01/23 by Say Stovall MD albuterol sulfate 90 mcg/actuation 1 inh inhalation QID apixaban (Eliquis) 5 mg PO BID 90 days dapagliflozin propanediol (Farxiga) 5 mg PO DAILY flash glucose sensor (FreeStyle Reid 2 Sensor kit) As directed fluconazole 150 mg PO Q3D 2 doses fluticasone propion-salmeterol 250-50 mcg/dose (Advair Diskus) 1 inh inhalation BID insulin degludec (Tresiba FlexTouch U-100 insulin) 20 units (0.2 mL) subcut BEDTIME 90 days losartan 50 mg PO DAILY metformin 1,000 mg PO BID pantoprazole 40 mg PO DAILY pen needle, diabetic (BD Ultra-Fine Short Pen Needle) Use to inject insulin once daily potassium chloride ER 10 mEq PO DAILY rosuvastatin 40 mg PO DAILY sertraline 25 mg PO DAILY HPI HPI Comments History of Present Illness Details Bonnie comes for follow-up. She has been doing well overall. She has not had any cardiac symptoms to report although she has to undergo total knee replacement a right knee in [place] in June. She has limited exercise activity is related to the same. She denies any chest pain or shortness of breath. She says her overall risk factors are well optimized blood pressure is well optimized. She has retired and is currently taking it easy. Denies any heart failure symptoms. Denies any prolonged palpitation irregular heartbeat. No bleeding issues or neurologic events. Last LDL was well optimized. [facility] History (Updated 06/01/23 @ 13:41 by Say Stovall MD) Status post placement of implantable loop recorder Paroxysmal atrial fibrillation Ptosis of both upper eyelids Hammertoe of right foot Annual physical exam Cornea disorder Carotid stenosis Cataract JERICHO (obstructive sleep apnea) CVA (cerebral vascular accident) Asthma Hyperlipidemia HTN (hypertension) DM type 2 (diabetes mellitus, type 2) Surgical History H/O rotator cuff surgery H/O bilateral breast reduction surgery History of arthroscopic knee surgery H/O shoulder surgery Family History Father No problems noted. Mother No problems noted. Social History Housing: House Alcohol intake: current Alcohol intake frequency: a few times a month Patient Tobacco Use Status: Former Tobacco user Quit Date: 32 years ago e-Cigarette/Vaping Use: Never Used Current occupational status: employed Cognitive needs: No Hearing needs: No Vision needs: No Review of Systems Const Denies chills, Denies fatigue, Denies fever(s), Denies frequent falls, Denies weakness, Denies weight gain and Denies weight loss ENT Denies dizziness Card Denies chest pain, Denies leg edema, Denies lightheadedness, Denies palpitations, Denies dyspnea, Denies dyspnea on exertion, Denies orthopnea and Denies other (loss of consciousness) Resp Denies cough, Denies dyspnea and Denies dyspnea on exertion GI Denies hematochezia and Denies change in stool character Musc Denies abnormal gait, Denies muscle weakness, Denies numbness, Denies radiating pain into limb and Denies tingling Neuro Denies abnormal gait, Denies dizziness, Denies frequent falls, Denies numbness, Denies tingling and Denies weakness Endo Denies fatigue and Denies palpitations Physical Exam Vital Signs: Last Vital Signs Pulse 83 06/01/23 13:13 BP 122/76 06/01/23 13:13 BMI result Body Mass Index 25.7 Const General: cooperative, comfortable, alert, awake and well groomed Nutritional Appearance: overweight Orientation/consciousness: patient oriented x3 Limitations: no limitations Neck Neck: Yes trachea midline, Yes supple and Yes no JVD Resp Effort & Inspection: normal respiratory effort Auscultation: clear to auscultation bilaterally Cardio Jugular venous distension: no JVD Rate: regular rate Rhythm: regular rhythm Heart sounds: S1 normal heart sound present and S2 normal heart sound present GI Auscultation: normal bowel sounds Neuro General: patient oriented x3 and no focal motor deficits Extrem General: Yes no clubbing, cyanosis or edema Psych Appearance: grossly normal Office Procedures EKG Details: EKG shows normal sinus rhythm with left anterior fascicular block at 83 beats per minute otherwise normal EKG [id number], Complete Assessment & Plan Assessment & Plan (1) Preoperative cardiovascular examination: Code(s): Z01.810 - Encounter for preprocedural cardiovascular examination Plan: Preoperative cardiovascular risk stratification this elderly woman with multiple risk factors for coronary artery disease including prior CVA to undergo intermediate risk surgery under general anesthesia with reduced exercise capacity. Would suggest 0 vasodilating myocardial perfusion imaging to further assess for perioperative risk. This is within normal limits, risk of perioperative cardiovascular morbidity and mortality is low. This was discussed with her. She understands and agrees. Given her normal renal function Eliquis can be held 48 hours prior to surgery to reduce risk of intraoperative bleeding and resumed as soon as possible as per surgeon's discretion. (2) Paroxysmal atrial fibrillation: Comment: Infrequent paroxysmal AFib asymptomatic Code(s): I48.0 - Paroxysmal atrial fibrillation Plan: Paroxysmal atrial fibrillation which was noted on implantable loop recorder monitoring. With her prior history of embolic CVA she was felt to be high risk including all the other risk factor she has. CHADSVASc score of 7. Continue full oral anticoagulation, currently on Eliquis 5 mg b.i.d.. Semi annual renal function test should be pursued. Avoidance of stimulants was discussed advised to call me with any new symptoms. Continue aggressive risk factor modification including aggressive blood pressure control. (3) CVA (cerebral vascular accident): Comment: 02/2019 lacunar L frontal, R hand weakness resolved Code(s): I63.9 - Cerebral infarction, unspecified Plan: Prior CVA which is felt to be embolic and subsequently diagnosed with atrial fibrillation as above. Although she also had nonobstructive carotid artery disease. She has multiple risk factors for atherosclerosis. Continue aggressive risk factor modification. Blood pressure is well optimized continue aggressive diabetes management goal hemoglobin A1c less than 7%. LDL is extremely well optimized on high-intensity statin therapy. Continue the same. Follow up in the clinic in 1 year's time, sooner p.r.n.. Thank you for allowing me to partake in her care Orders: Orders CA lexiscan stress w clarissa Today Z01.810 - Encounter for preprocedural cardiovascular examination Coding Level of Care Code Est Pt Level 4 (78782) Diagnoses Preoperative cardiovascular examination Z01.810 Paroxysmal atrial fibrillation I48.0 CVA (cerebral vascular accident) I63.9 CPT Codes EKG - CPT: 79231-[id number], Complete ([id number])
== END 2023-06-01 13:41 | disposition home or self-care (01) ==
PROVIDERS: PCP Internal Medicine; Referring Provider Internal Medicine; Visit Provider Internal Medicine Cardiovascular Disease
DX: Z01.810 Encounter for preprocedural cardiovascular examination (principal); I48.0 Paroxysmal atrial fibrillation; I63.9 Cerebral infarction, unspecified
CPT/HCPCS: 93010; 99214

== ENCOUNTER → 2023-06-01 13:07 | Outpatient (BNVA) | payer BC, SELFPAY | PROVIDERS: PCP Internal Medicine; Referring Provider Internal Medicine; Visit Provider Internal Medicine Cardiovascular Disease | DX: Z01.810 Encounter for preprocedural cardiovascular examination (principal); I10 Essential (primary) hypertension; I44.4 Left anterior fascicular block; I48.0 Paroxysmal atrial fibrillation; I63.9 Cerebral infarction, unspecified; Z95.818 Presence of other cardiac implants and grafts | CPT/HCPCS: 93005 ==

== ENCOUNTER → 2023-06-14 08:13 | Outpatient (REF) | payer BC, SELFPAY ==
--- NOTE | ~2023-06-14 | NM_ITS ---
Lexiscan Myocardial perfusion study Indication: Preoperative evaluation, assess for ischemia Technique: The patient was brought in for a Lexiscan perfusion study on 06/14/2023 and was injected 0.4 mg of Lexiscan intravenously. Within a minute of this injection 25 mCi of sestamibi was given intravenously. Images were obtained using the SPECT gamma camera interlaced with the gating device. Images were obtained in supine position. Resting perfusion study was performed on 06/20/2023. Patient was administered 25 mCi of sestamibi intravenously at rest. Images were then obtained in supine position. Images were processed with the software and compared side to side in short axis, horizontal long axis and vertical long axis views. Total DLP 92mGy-cm. Findings: Raw acquisition reviewed. The stress perfusion study showed no significant perfusion defects. Both uncorrected as well as CT attenuation corrected images were reviewed. The gated study shows normal LV systolic function with calculated LVEF of 57%. LV cavity is normal in size. The gated study shows normal wall thickening and contraction of segments. Resting study shows no significant perfusion defects. Gating at rest reveals normal wall motion with ejection fraction at 67%. The findings are consistent with no clear reversible or fixed perfusion defects. NM/NM clarissa perf SPECT rest & str Impression: 1. Myocardial perfusion imaging study shows normal myocardial perfusion. 2. Gated LVEF is 57% during stress and 67% during rest. 3. Transient ischemic dilatation not present. EKG component of the test reported separately.
--- NOTE | 2023-06-14 08:18 | CA_ITS ---
Acquisition Time: 2023-06-14 08:41:12 Total Exercise Time: 00:02:00 Test Indications: Pre-Op Evaluation AFIB Medications: ALBUTEROL ELIQUIS FARXIGA ADVAIR LOSARTAN METFORMIN KCL ROSUVASTATIN PANTOPRAZOLE Protocol: LEXISCAN Max HR: 133 BPM 85% of Pred: 155 BPM Max BP: 118/068 mmHG Max Work Load: 1.0 METS Pharmacological stress test with Lexiscan injection while sitting without anginal sympotoms, with isolated PVCs, with normtensive response to injection, with nondiagnoisitic EKGs. Amionophylline 75mg IVP given to reverse Lexiscan. Nuclear images pending. Test reviewed with Dr. Spears. Referred By: Say Stovall Overread By: Aria Martinez
== END ==
LOC: HO.CARD 08:13
PROVIDERS: PCP Internal Medicine; Visit Provider Internal Medicine Cardiovascular Disease
DX: Z01.810 Encounter for preprocedural cardiovascular examination (principal)
CPT/HCPCS: 78452; 93017; A9500; J0280; J2785

== ENCOUNTER → 2023-06-14 08:18 | Outpatient (BNV) | payer BC, SELFPAY | PROVIDERS: PCP Internal Medicine; Visit Provider Nurse Practitioner | DX: I48.91 Unspecified atrial fibrillation (principal); Z01.810 Encounter for preprocedural cardiovascular examination | CPT/HCPCS: 78452; 93016; 93018 ==

== ENCOUNTER 2023-10-17 08:44 | Outpatient (REF) | payer MEDICARE, SELFPAY ==
--- NOTE | ~2023-10-17 | MM_ITS ---
EXAMINATION: MM SCREENING DIGITAL BREAST TOMOSYNTHESIS, BILATERAL CLINICAL INFORMATION: Screening. Asymptomatic. The patient is status post breast reduction. COMPARISON: Mammography: This study is compared with prior exams dating back to 2018. TECHNIQUE: Digital breast tomosynthesis is performed in both the craniocaudal and mediolateral oblique views along with computer-aided detection (CAD). Synthesized 2D images are generated from the tomosynthesis. FINDINGS: There are scattered areas of fibroglandular density (ACR BI-RADS breast composition Category b). There are no significant masses, abnormal calcifications, or other abnormalities. Bilateral post reduction changes are present. MM/MM tomosynthesis screening BI IMPRESSION: No mammographic evidence of malignancy. ASSESSMENT: BI-RADS BI-RADS 2 - Benign Findings RECOMMENDATION: Routine annual mammography screening. 1 year F/U This examination should not preclude the clinical evaluation of a suspicious palpable abnormality. This patient's information was entered into a reminder system with a target due date for their next mammogram.
== END 2023-10-17 08:45 | disposition home or self-care (01) ==
LOC: HO.MAMMO 08:44
PROVIDERS: PCP Internal Medicine; Visit Provider Internal Medicine
DX: Z12.31 Encounter for screening mammogram for malignant neoplasm of breast (principal)
CPT/HCPCS: 77063; 77067

== ENCOUNTER → 2023-10-17 08:45 | Outpatient (BNV) | payer MEDICARE, SELFPAY | PROVIDERS: PCP Internal Medicine; Visit Provider Radiology Diagnostic Radiology | DX: Z12.31 Encounter for screening mammogram for malignant neoplasm of breast (principal) | CPT/HCPCS: 77063; 77067 ==

== ENCOUNTER 2023-10-18 07:23 | Outpatient (REF) | payer MEDICARE, SELFPAY ==
[2023-10-18 10:17] LABS: MANUAL DIFF FLAG NO
[2023-10-18 10:23] LABS: Basophils Percent Auto 0.5 % (0-2); Eosinophils Absolute Auto 0.3 X10*3/uL (0.0-0.4); Eosinophils Percent Auto 4.6 % (0-4); Hematocrit 37.4 % (37.0-47.0); Hemoglobin 11.9 g/dl (12.0-16.0); Imm Gran Abs Auto 0.02 X10*3/uL (0.00-0.03); Imm Gran Pct Auto 0.4 % (0.0-0.4); Lymphocytes Absolute Auto 1.8 X10*3/uL (1.2-4.9); Lymphocytes Percent Auto 31.2 % (20-40); Mean Corpuscular HGB Conc 31.8 g/dl (31.0-35.0); Mean Corpuscular Hemoglobin 28.1 pg (27.0-33.0); Mean Corpuscular Volume 88.4 fL (80.0-98.0); Mean Platelet Volume 11.9 fL (9.4-12.3); Monocytes Absolute Auto 0.3 X10*3/uL (0.1-1.2); Monocytes Percent Auto 5.9 % (2-11); Neutrophils Absolute Auto 3.2 x10*3/uL (2.0-8.3); Neutrophils Percent Auto 57.4 % (45-73); Platelet Count 206 X10*3/uL (160-400); Red Blood Count 4.23 X10*6/uL (4.20-5.50); Red Cell Distribution Width 14.6 % (11.0-16.0); White Blood Count 5.6 X10*3/uL (4.8-10.8)
[2023-10-18 11:00] LABS: Estimated Average Glucose 111 mg/dL; Hemoglobin A1c % 5.5 % (<6.0)
[2023-10-18 11:11] LABS: Alanine Aminotransferase 23 U/L (0-31); Alkaline Phosphatase 73 U/L (39-117); Anion Gap 13 (12-20); Aspartate Amino Transferase 23 U/L (5-31); Bilirubin Total 0.4 mg/dL (0.0-1.0); Blood Urea Nitrogen 11 mg/dL (9-16); Calcium 9.6 mg/dL (8.4-10.2); Carbon Dioxide 29 mmol/L (22-29); Chloride 105 mmol/L (96-108); Cholesterol 100 mg/dL (<200); Estimated Glomerular Filt Rate > 60; Glucose Fasting 71 mg/dL (60-99); HDL Cholesterol 43 mg/dL (>40); LDL Cholesterol Calculated 42 mg/dL (<100); Potassium 3.6 mmol/L (3.3-5.1); Sodium 143 mmol/L (135-145); Total Protein 6.6 g/dL (6.5-8.0); Triglycerides 78 mg/dL (<150)
== END 2023-10-18 07:24 | disposition home or self-care (01) ==
LOC: HO.HMGCLDS 07:23
PROVIDERS: PCP Internal Medicine; Visit Provider Internal Medicine
DX: I48.0 Paroxysmal atrial fibrillation (principal); I10 Essential (primary) hypertension; E11.9 Type 2 diabetes mellitus without complications; E78.5 Hyperlipidemia, unspecified
CPT/HCPCS: 36415; 80053; 80061; 83036; 85025

== ENCOUNTER 2023-10-24 09:26 | Outpatient (AMB) | payer MEDICARE, SELFPAY ==
[2023-10-24 09:29] VITALS: BP 118/66; PULSE 90; O2SAT 97; BMI 23.3
--- NOTE | 2023-10-24 09:29 | MHC.PC.OV ---
Vital Signs 10/24/23 09:29 Height 5 ft 7 in Weight 149 lb BMI 23.3 BP 118/66 Blood Pressure Location Lt brachial Position Sitting Pulse 90 Pulse Source Pulse Oximeter Pulse Oximetry (%) 97 Oxygen Delivery Method Room Air Intake Visit Reasons: 3 Month follow up - see comments Intake Note: Pt is here today for 3 months follow up visit. Allergies vancomycin [VANCOMYCIN] Allergy (Intermediate, Verified 10/24/23 09:35) ITCHING empagliflozin [Jardiance] Allergy (Unknown, Verified 10/24/23 09:35) yeast infection levofloxacin Allergy (Unknown, Verified 10/24/23 09:35) tendon rupture linagliptin [Tradjenta] Allergy (Unknown, Verified 10/24/23 09:35) yeast infection penicillin G [Penicillin G] Allergy (Unknown, Verified 10/24/23 09:35) HIVES penicillin V Allergy (Unknown, Verified 10/24/23 09:35) unknown Medication List - Last Reconciled 10/24/23 by Valarie Hudson MD apixaban (Eliquis) 5 mg PO BID 90 days CPAP (CPAP Machine/Device) CPAP with mask, tubing, filters, water chamber, heated humidifier on [id number] flash glucose sensor (FreeStyle Reid 2 Sensor kit) As directed fluconazole 150 mg PO Q3D 2 doses fluticasone propion-salmeterol 250-50 mcg/dose (Advair Diskus) 1 inh inhalation BID FreeStyle Reid 3 Sensor (blood-glucose sensor) As directed to test sugars 3-4 times per day NS losartan 50 mg PO DAILY metformin 1,000 mg PO BID Ozempic (semaglutide) 2 mg (0.75 mL) subcut QWEEK NS pantoprazole 40 mg PO DAILY pen needle, diabetic (BD Ultra-Fine Short Pen Needle) Use to inject insulin once daily rosuvastatin 20 mg orally daily; sertraline 25 mg PO DAILY Ventolin HFA 90 mcg/actuation (albuterol sulfate) 1 inh inhalation QID NS Tobacco use date assessed: 10/24/23 Fall risk assessment: No Falls in past year Last assessed Fall Risk: 10/24/23 Dental Screening Dental Screen Date: 10/24/23 Did you have a dental visit in the last 12 months?: Yes Did you have a dental problem in the last 6 months where you did not have access to dental care?: No Was dental information given to patient?: Patient has dentist HPI 3 Month follow up - see comments HPI Details Patient presents for the follow-up. She had a right knee replacement surgery in June and recovered well. Type 2 diabetes hypertension hyperlipidemia and chronic asthma are well controlled on current medications. COUNTS INCLUDE 234 BEDS AT THE [facility] Medical History Status post placement of implantable loop recorder Paroxysmal atrial fibrillation Ptosis of both upper eyelids Hammertoe of right foot Annual physical exam Cornea disorder Carotid stenosis Cataract JERICHO (obstructive sleep apnea) CVA (cerebral vascular accident) Asthma Hyperlipidemia HTN (hypertension) DM type 2 (diabetes mellitus, type 2) Surgical History H/O rotator cuff surgery H/O bilateral breast reduction surgery History of arthroscopic knee surgery H/O shoulder surgery Family History Father No problems noted. Mother No problems noted. Social History Housing: House Alcohol intake: current Alcohol intake frequency: a few times a month Patient Tobacco Use Status: Former Tobacco user Quit Date: 32 years ago e-Cigarette/Vaping Use: Never Used Current occupational status: employed Cognitive needs: No Hearing needs: No Vision needs: No Questionnaire PHQ-9 Over the last 2 weeks, how often have you been bothered by any of the following problems? 1. Little interest or pleasure in doing things: not at all 2. Feeling down, depressed, or hopeless: not at all 3. Trouble falling or staying asleep, or sleeping too much: not at all 4. Feeling tired or having little energy: not at all 5. Poor appetite or overeating: not at all 6. Feeling bad about yourself - or that you are a failure or have let yourself or your family down: not at all 7. Trouble concentrating on things, such as reading the newspaper or watching television: not at all 8. Moving or speaking so slowly that other people could have noticed. Or the opposite - being so fidgety or restless that you have been moving around a lot more than usual: not at all 9. Thoughts that you would be better off or of hurting yourself in some way: not at all Total score: 0 Depression Screening Interpretation: Negative Depression Screening Done: Yes 75146 - PHQ-9 Billing: Yes Source: Developed by Drs. Hadley Arshad, Adwoa Hayes, Jelani Jackson and colleagues, with an educational shaji from [employer]. Thrive Questionnaire Date Thrive assessed: 10/24/23 I am a: Patient What is your living situation today?: I have a steady place to live Within the past 12 months, did the food you bought not last and you didn't have the money to get more?: Never true Within the past 12 months, did you worry whether your food would run out before you got money to buy more?: Never true Do you have trouble paying for medicines?: No Do you have trouble getting transportation to medical appointments?: No Do you have trouble paying your heating and electricity bill?: No Do you have trouble taking care of your child, family member or friend?: No Do you have trouble with day-to-day activities such as bathing, preparing meals, shopping, managing finances, etc.?: No Are you currently unemployed and looking for a job?: No Are you interested in more education?: No Please select the resources that you would like help with: None THRIVE Score: 0 AUDIT C Alcohol Use Questionnaire (AUDIT-C) 1. How often do you have a drink containing alcohol?: 2-4 times a month 2. How many drinks containing alcohol do you have on a typical day when you are drinking?: 1 or 2 3. How often do you have six or more drinks on one occasion?: Never Total Score: 2 JEZ-7 AMB Questionnaire JEZ-7 Date JEZ - 7 assessed: 10/24/23 Feeling nervous, anxious, or on edge: 0 = Not at all Not being able to stop or control worryin = Not at all Worrying too much about different things: 0 = Not at all Trouble relaxin = Not at all Being so restless that it is hard to sit still: 0 = Not at all Becoming easily annoyed or irritable: 0 = Not at all Feeling afraid as if something awful might happen: 0 = Not at all Total JEZ-7 score (0-4 normal; 5-9 mild; 10-14 moderate; 15-21 severe): 0 Source: Developed by Drs. Hadley Arshad, Adwoa Hayes, Jelani Jackson and colleagues, with an educational shaji from [employer]. Review of Systems Const All systems reviewed & are unremarkable except as noted in HPI and below Reports no additional complaints ENT Reports no additional complaints Card Reports no additional complaints Resp Reports no additional complaints GI Reports no additional complaints Physical exam (Primary Care) Vital Signs: Last Vital Signs Pulse 90 10/24/23 09:29 BP 118/66 10/24/23 09:29 Pulse Ox 97 10/24/23 09:29 Oxygen Delivery Method Room Air 10/24/23 09:29 BMI result Body Mass Index 23.3 Tobacco/Smoking Status: Tobacco use Status Tobacco use date assessed 10/24/23 10/24/23 09:37 Patient Tobacco Use Status Former Tobacco user 10/24/23 09:37 e-Cigarette/Vaping Use Never Used 10/24/23 09:37 PHQ-9: PHQ-9 Score PHQ-9: Total score 0 10/24/23 10:03 Depression Screening Interpretation: Negative Thrive Assessment: Date of Thrive Assessment Date Thrive assessed 10/24/23 10/24/23 09:38 Const General: no acute distress HENMT Head: Yes normal to inspection Neck Neck: Yes supple Resp Effort & Inspection: normal respiratory effort Auscultation: clear to auscultation bilaterally Cardio Rhythm: regular rhythm Heart sounds: S1 normal heart sound present and S2 normal heart sound present GI Inspection: Yes normal to inspection Palpation (GI): Soft to palpation Percussion: Yes normal to percussion Auscultation: normal bowel sounds Assessment and Plan Assessment & Plan (1) Proteinuria: Code(s): R80.9 - Proteinuria, unspecified Plan: Urine microalbumin will be checked if there is no improvement adding Farxiga discussed with the patient (2) Diabetic nephropathy associated with type 2 diabetes mellitus: Code(s): E11.21 - Type 2 diabetes mellitus with diabetic nephropathy Plan: Continue [id number] topical treatment (3) Paroxysmal atrial fibrillation: Comment: Infrequent paroxysmal AFib asymptomatic Code(s): I48.0 - Paroxysmal atrial fibrillation Plan: On Eliquis follow-up with the Cardiology (4) HTN (hypertension): Code(s): I10 - Essential (primary) hypertension Plan: Continue losartan (5) DM type 2 (diabetes mellitus, type 2): Comment: Intolerant to Farxiga, caused recurrent candidiasis Code(s): E11.9 - Type 2 diabetes mellitus without complications Plan: A1c is 5.5, patient denies hypoglycemia. She was advised to decrease metformin to 1000 mg daily and continue Tresiba and Ozempic. Farxiga will be added if there is still significant amount of microalbuminuria. (6) Hyperlipidemia: Code(s): E78.5 - Hyperlipidemia, unspecified Plan: LDL is low 40s crestor will be decreased to 20 mg a day and lipid profile checked in 3 month Orders: Orders Microalbumin, Random (w Creat) Today R80.9 - Proteinuria, unspecified Hemoglobin A1c 3 Months E11.9 - Type 2 diabetes mellitus without complications, E78.5 - Hyperlipidemia, unspecified, I10 - Essential (primary) hypertension, R80.9 - Proteinuria, unspecified Microalbumin, Random (w Creat) 3 Months E11.9 - Type 2 diabetes mellitus without complications, E78.5 - Hyperlipidemia, unspecified, I10 - Essential (primary) hypertension, R80.9 - Proteinuria, unspecified Comprehensive [place]. Panel Fast 3 Months E11.9 - Type 2 diabetes mellitus without complications, E78.5 - Hyperlipidemia, unspecified, I10 - Essential (primary) hypertension, R80.9 - Proteinuria, unspecified Complete Blood Count Auto Diff 3 Months E11.9 - Type 2 diabetes mellitus without complications, E78.5 - Hyperlipidemia, unspecified, I10 - Essential (primary) hypertension, R80.9 - Proteinuria, unspecified Lipid Panel 3 Months E11.9 - Type 2 diabetes mellitus without complications, E78.5 - Hyperlipidemia, unspecified, I10 - Essential (primary) hypertension, R80.9 - Proteinuria, unspecified Medications: Changed From rosuvastatin 40 mg PO DAILY 90 tabs 3RF To rosuvastatin 20 mg orally daily; 90 tabs 3RF Refilled insulin degludec (Tresiba FlexTouch U-100 insulin) 20 units (0.2 mL) subcut BEDTIME 90 days 18 mL 3RF Discontinued potassium chloride ER Discontinued Reason: Doctor's Order 10 mEq PO DAILY 90 tabs 0RF Coding Level of Care Code Est Pt Level 4 (12418) Diagnoses Proteinuria R80.9 Diabetic nephropathy associated with type 2 diabetes mellitus E11.21 Paroxysmal atrial fibrillation I48.0 HTN (hypertension) I10 DM type 2 (diabetes mellitus, type 2) E11.9 Hyperlipidemia E78.5
== END 2023-10-24 10:09 | disposition home or self-care (01) ==
PROVIDERS: PCP Internal Medicine; Visit Provider Internal Medicine
DX: E11.21 Type 2 diabetes mellitus with diabetic nephropathy (principal); I48.0 Paroxysmal atrial fibrillation; E11.69 Type 2 diabetes mellitus with other specified complication; R80.9 Proteinuria, unspecified; I10 Essential (primary) hypertension; E78.5 Hyperlipidemia, unspecified
CPT/HCPCS: 99214

== ENCOUNTER 2024-02-08 08:32 | Outpatient (REF) | payer MEDICARE, SELFPAY ==
[2024-02-08 10:10] LABS: MANUAL DIFF FLAG NO
[2024-02-08 10:15] LABS: Basophils Absolute Auto 0.1 X10*3/uL (0.0-0.2); Basophils Percent Auto 0.8 % (0-2); Eosinophils Absolute Auto 0.4 X10*3/uL (0.0-0.4); Eosinophils Percent Auto 5.3 % (0-4); Hematocrit 36.6 % (37.0-47.0); Hemoglobin 11.8 g/dl (12.0-16.0); Imm Gran Abs Auto 0.02 X10*3/uL (0.00-0.03); Imm Gran Pct Auto 0.3 % (0.0-0.4); Lymphocytes Absolute Auto 1.6 X10*3/uL (1.2-4.9); Lymphocytes Percent Auto 23.9 % (20-40); Mean Corpuscular HGB Conc 32.2 g/dl (31.0-35.0); Mean Corpuscular Hemoglobin 29.8 pg (27.0-33.0); Mean Corpuscular Volume 92.4 fL (80.0-98.0); Mean Platelet Volume 11.6 fL (9.4-12.3); Monocytes Absolute Auto 0.3 X10*3/uL (0.1-1.2); Monocytes Percent Auto 4.7 % (2-11); Neutrophils Absolute Auto 4.3 x10*3/uL (2.0-8.3); Platelet Count 201 X10*3/uL (160-400); Red Blood Count 3.96 X10*6/uL (4.20-5.50); White Blood Count 6.6 X10*3/uL (4.8-10.8)
[2024-02-08 10:39] LABS: Alanine Aminotransferase 21 U/L (0-31); Alkaline Phosphatase 69 U/L (39-117); Anion Gap 15 (12-20); Aspartate Amino Transferase 21 U/L (5-31); Bilirubin Total 0.4 mg/dL (0.0-1.0); Blood Urea Nitrogen 16 mg/dL (9-16); Calcium 9.7 mg/dL (8.4-10.2); Carbon Dioxide 25 mmol/L (22-29); Chloride 106 mmol/L (96-108); Cholesterol 102 mg/dL (<200); Estimated Glomerular Filt Rate > 60; Glucose Fasting 76 mg/dL (60-99); HDL Cholesterol 47 mg/dL (>40); LDL Cholesterol Calculated 44 mg/dL (<100); Potassium 4.1 mmol/L (3.3-5.1); Sodium 142 mmol/L (135-145); Total Protein 6.5 g/dL (6.5-8.0); Triglycerides 56 mg/dL (<150)
[2024-02-08 10:40] LABS: Estimated Average Glucose 111 mg/dL; Hemoglobin A1c % 5.5 % (<6.0)
[2024-02-08 10:44] LABS: Creatinine Urine 256.77 mg/dL; Microalbum/Creatinine Ratio Ur 174.8 ug/mg cr (<30)
== END 2024-02-08 08:33 | disposition home or self-care (01) ==
LOC: HO.HMGCLDS 08:32
PROVIDERS: PCP Internal Medicine; Visit Provider Internal Medicine
DX: R80.9 Proteinuria, unspecified (principal); E78.5 Hyperlipidemia, unspecified; I10 Essential (primary) hypertension; E11.9 Type 2 diabetes mellitus without complications
CPT/HCPCS: 36415; 80053; 80061; 82043; 82570; 83036; 85025

== ENCOUNTER 2024-02-09 10:52 | Outpatient (AMB) | payer MEDICARE, SELFPAY ==
[2024-02-09 10:54] VITALS: BP 110/66; PULSE 84; O2SAT 98; BMI 23.0
--- NOTE | 2024-02-09 10:54 | A.OFFPC_ITS ---
Vital Signs 02/09/24 10:54 Height 5 ft 7 in Weight 147 lb BMI 23.0 BP 110/66 Blood Pressure Location Rt brachial Position Sitting Pulse 84 Pulse Source Pulse Oximeter Pulse Oximetry (%) 98 Oxygen Delivery Method Room Air Intake Visit Reasons: Follow up on DM Intake Note: Pt is here today for a follow up visit on labs /DM. Allergies vancomycin [VANCOMYCIN] Allergy (Intermediate, Verified 02/09/24 10:56) ITCHING empagliflozin [Jardiance] Allergy (Unknown, Verified 02/09/24 10:56) yeast infection levofloxacin Allergy (Unknown, Verified 02/09/24 10:56) tendon rupture linagliptin [Tradjenta] Allergy (Unknown, Verified 02/09/24 10:56) yeast infection penicillin G [Penicillin G] Allergy (Unknown, Verified 02/09/24 10:56) HIVES penicillin V Allergy (Unknown, Verified 02/09/24 10:56) unknown Medication List - Last Reconciled 02/09/24 by Valarie Hudson MD apixaban (Eliquis) 5 mg PO BID 90 days CPAP (CPAP Machine/Device) CPAP with mask, tubing, filters, water chamber, heated humidifier on [id number] flash glucose sensor (FreeStyle Reid 2 Sensor kit) As directed fluconazole 150 mg PO Q3D 2 doses fluticasone propion-salmeterol 250-50 mcg/dose (Advair Diskus) 1 inh inhalation BID FreeStyle Reid 3 Sensor (blood-glucose sensor) As directed to test sugars 3-4 times per day NS insulin degludec (Tresiba FlexTouch U-100 insulin) 20 units (0.2 mL) subcut BEDTIME 90 days losartan 50 mg PO DAILY metformin 1,000 mg PO BID Ozempic (semaglutide) 2 mg (0.75 mL) subcut QWEEK NS pantoprazole 40 mg PO DAILY pen needle, diabetic (BD Ultra-Fine Short Pen Needle) Use to inject insulin once daily rosuvastatin 20 mg PO DAILY sertraline 25 mg PO DAILY Ventolin HFA 90 mcg/actuation (albuterol sulfate) 1 inh inhalation QID NS Tobacco use date assessed: 02/09/24 Dental Screening Dental Screen Date: 02/09/24 Did you have a dental visit in the last 12 months?: Yes Did you have a dental problem in the last 6 months where you did not have access to dental care?: No Was dental information given to patient?: Patient has dentist HPI Follow up on DM HPI Details Patient presents for follow-up of type 2 diabetes hypertension hyperlipidemia paroxysmal AFib stable on current medications. [facility] Medical History Status post placement of implantable loop recorder Paroxysmal atrial fibrillation Ptosis of both upper eyelids Hammertoe of right foot Annual physical exam Cornea disorder Carotid stenosis Cataract JERICHO (obstructive sleep apnea) CVA (cerebral vascular accident) Asthma Hyperlipidemia HTN (hypertension) DM type 2 (diabetes mellitus, type 2) Surgical History H/O rotator cuff surgery H/O bilateral breast reduction surgery History of arthroscopic knee surgery H/O shoulder surgery Family History Father No problems noted. Mother No problems noted. Social History Housing: House Alcohol intake: current Alcohol intake frequency: a few times a month Patient Tobacco Use Status: Former Tobacco user e-Cigarette/Vaping Use: Never Used service: No Current occupational status: employed Cognitive needs: No Hearing needs: No Vision needs: No Questionnaire PHQ-9 Over the last 2 weeks, how often have you been bothered by any of the following problems? 1. Little interest or pleasure in doing things: not at all 2. Feeling down, depressed, or hopeless: not at all 3. Trouble falling or staying asleep, or sleeping too much: not at all 4. Feeling tired or having little energy: not at all 5. Poor appetite or overeating: not at all 6. Feeling bad about yourself - or that you are a failure or have let yourself or your family down: not at all 7. Trouble concentrating on things, such as reading the newspaper or watching television: not at all 8. Moving or speaking so slowly that other people could have noticed. Or the opposite - being so fidgety or restless that you have been moving around a lot more than usual: not at all 9. Thoughts that you would be better off or of hurting yourself in some way: not at all Total score: 0 Depression Screening Interpretation: Negative Depression Screening Done: Yes Source: Developed by Drs. Hadley Arshad, Adwoa Hayes, Jelani Jackson and colleagues, with an educational shaji from [employer]. Thrive Questionnaire Date Thrive assessed: 02/09/24 I am a: Patient What is your living situation today?: I have a steady place to live Within the past 12 months, did the food you bought not last and you didn't have the money to get more?: Never true Within the past 12 months, did you worry whether your food would run out before you got money to buy more?: Never true Do you have trouble paying for medicines?: No Do you have trouble getting transportation to medical appointments?: No Do you have trouble paying your heating and electricity bill?: No Do you have trouble taking care of your child, family member or friend?: No Do you have trouble with day-to-day activities such as bathing, preparing meals, shopping, managing finances, etc.?: No Are you currently unemployed and looking for a job?: No Are you interested in more education?: No Please select the resources that you would like help with: Housing/Detention Currently or been in a relationship where the following occur: No concerns reported THRIVE Score: 0 AUDIT C Alcohol Use Questionnaire (AUDIT-C) 1. How often do you have a drink containing alcohol?: Monthly or less 2. How many drinks containing alcohol do you have on a typical day when you are drinking?: 1 or 2 3. How often do you have six or more drinks on one occasion?: Never Total Score: 1 JEZ-7 AMB Questionnaire JEZ-7 Date JEZ - 7 assessed: 02/09/24 Feeling nervous, anxious, or on edge: 0 = Not at all Not being able to stop or control worryin = Not at all Worrying too much about different things: 0 = Not at all Trouble relaxin = Not at all Being so restless that it is hard to sit still: 0 = Not at all Becoming easily annoyed or irritable: 0 = Not at all Feeling afraid as if something awful might happen: 0 = Not at all Total JEZ-7 score (0-4 normal; 5-9 mild; 10-14 moderate; 15-21 severe): 0 Source: Developed by Drs. Hadley Arshad, Adwoa Hayes, Jelani Jackson and colleagues, with an educational shaji from [employer]. Review of Systems Const All systems reviewed & are unremarkable except as noted in HPI and below Eyes Reports no additional complaints ENT Reports no additional complaints Card Reports no additional complaints Resp Reports no additional complaints GI Reports no additional complaints Reports no additional complaints Physical exam (Primary Care) Vital Signs: Last Vital Signs Pulse 84 02/09/24 10:54 BP 110/66 02/09/24 10:54 Pulse Ox 98 02/09/24 10:54 Oxygen Delivery Method Room Air 02/09/24 10:54 BMI result Body Mass Index 23.0 Tobacco/Smoking Status: Tobacco use Status Tobacco use date assessed 02/09/24 02/09/24 11:08 Patient Tobacco Use Status Former Tobacco user 02/09/24 10:55 e-Cigarette/Vaping Use Never Used 02/09/24 10:55 PHQ-9: PHQ-9 Score PHQ-9: Total score 0 02/09/24 11:21 Depression Screening Interpretation: Negative Thrive Assessment: Date of Thrive Assessment Date Thrive assessed 02/09/24 02/09/24 11:11 Currently or been in a relationship where the following occur: No concerns reported Const General: no acute distress HENMT Face and sinus: Yes normal facial exam Eyes General: appearance normal, both eyes and all related structures Neck Neck: Yes supple Resp Effort & Inspection: normal respiratory effort Auscultation: clear to auscultation bilaterally Cardio Rhythm: regular rhythm Heart sounds: S1 normal heart sound present and S2 normal heart sound present GI Inspection: Yes normal to inspection Assessment and Plan Assessment & Plan (1) DM type 2 (diabetes mellitus, type 2): Comment: Intolerant to Farxiga, caused recurrent candidiasis Code(s): E11.9 - Type 2 diabetes mellitus without complications Plan: A1c is 5.5. Patient denies hypoglycemia. She will continue same medications ADA diet regular exercise (2) HTN (hypertension): Code(s): I10 - Essential (primary) hypertension Plan: Continue current medications (3) Hyperlipidemia: Code(s): E78.5 - Hyperlipidemia, unspecified Plan: Decrease Crestor to 20 mg a day and take lipid profile in 3 months. patient lost 70 lb (4) CVA (cerebral vascular accident): Comment: 02/2019 lacunar L frontal, R hand weakness resolved Code(s): I63.9 - Cerebral infarction, unspecified Plan: Continue statin and (5) Paroxysmal atrial fibrillation: Comment: Infrequent paroxysmal AFib asymptomatic Code(s): I48.0 - Paroxysmal atrial fibrillation Plan: Continue Eliquis follow-up with the Cardiology Orders: Orders TSH reflex Free T4 3 Months E11.9 - Type 2 diabetes mellitus without complications, E78.5 - Hyperlipidemia, unspecified, I10 - Essential (primary) hypertension, I48.0 - Paroxysmal atrial fibrillation, I63.9 - Cerebral infarction, unspecified Lipid Panel 3 Months E11.9 - Type 2 diabetes mellitus without complications, E78.5 - Hyperlipidemia, unspecified, I10 - Essential (primary) hypertension, I48.0 - Paroxysmal atrial fibrillation, I63.9 - Cerebral infarction, unspecified Microalbumin, Random (w Creat) 3 Months E11.9 - Type 2 diabetes mellitus without complications, E78.5 - Hyperlipidemia, unspecified, I10 - Essential (primary) hypertension, I48.0 - Paroxysmal atrial fibrillation, I63.9 - Cerebral infarction, unspecified Comprehensive [place]. Panel Fast 3 Months E11.9 - Type 2 diabetes mellitus without complications, E78.5 - Hyperlipidemia, unspecified, I10 - Essential (primary) hypertension, I48.0 - Paroxysmal atrial fibrillation, I63.9 - Cerebral infarction, unspecified Complete Blood Count Auto Diff 3 Months E11.9 - Type 2 diabetes mellitus without complications, E78.5 - Hyperlipidemia, unspecified, I10 - Essential (primary) hypertension, I48.0 - Paroxysmal atrial fibrillation, I63.9 - Cerebral infarction, unspecified Hemoglobin A1c 3 Months E11.9 - Type 2 diabetes mellitus without complications, E78.5 - Hyperlipidemia, unspecified, I10 - Essential (primary) hypertension, I48.0 - Paroxysmal atrial fibrillation, I63.9 - Cerebral infarction, unspecified Medications: New rosuvastatin 20 mg PO DAILY 90 tabs 3RF Discontinued rosuvastatin Discontinued Reason: Doctor's Order 20 mg orally daily; 90 tabs 3RF Coding Level of Care Code Est Pt Level 4 (40474) Diagnoses DM type 2 (diabetes mellitus, type 2) E11.9 HTN (hypertension) I10 Hyperlipidemia E78.5 CVA (cerebral vascular accident) I63.9 Paroxysmal atrial fibrillation I48.0
== END 2024-02-09 11:53 | disposition home or self-care (01) ==
PROVIDERS: PCP Internal Medicine; Visit Provider Internal Medicine
DX: E11.9 Type 2 diabetes mellitus without complications (principal); I48.0 Paroxysmal atrial fibrillation; Z86.73 Personal history of transient ischemic attack (TIA), and cerebral infarction without residual deficits; I10 Essential (primary) hypertension; E78.5 Hyperlipidemia, unspecified
CPT/HCPCS: 99214

== ENCOUNTER 2024-05-11 09:10 | Outpatient (REF) | payer MEDICARE, SELFPAY | END 2024-05-11 09:11 | disposition home or self-care (01) | LOC: HO.LAB 09:10 | PROVIDERS: PCP Internal Medicine | DX: N30.01 Acute cystitis with hematuria (principal) | CPT/HCPCS: 81003; 87086; 99212 ==

== ENCOUNTER 2024-05-11 09:10 | Outpatient (AMB) | payer MEDICARE, SELFPAY ==
[2024-05-11 09:41] VITALS: BP 110/62; PULSE 75; TEMP 36.8; O2SAT 98; BMI 23.5
--- NOTE | 2024-05-11 09:41 | AM.OFFWIN_ITS ---
Intake Vital Signs 05/11/24 09:41 Height 5 ft 7 in Weight 150 lb BMI 23.5 BP 110/62 Blood Pressure Location Lt brachial Position Sitting Pulse 75 Pulse Source Pulse Oximeter Temp 98.2 F Temp Source Oral Pulse Oximetry (%) 98 Oxygen Delivery Method Room Air Intake Visit Reasons: EP-Hematuria Intake Note: Pt is here today c/o blood in her urine Patient Tobacco Use Status: Former Tobacco user Allergies vancomycin [VANCOMYCIN] Allergy (Intermediate, Verified 05/11/24 09:50) ITCHING empagliflozin [Jardiance] Allergy (Unknown, Verified 05/11/24 09:50) yeast infection levofloxacin Allergy (Unknown, Verified 05/11/24 09:50) tendon rupture linagliptin [Tradjenta] Allergy (Unknown, Verified 05/11/24 09:50) yeast infection penicillin G [Penicillin G] Allergy (Unknown, Verified 05/11/24 09:50) HIVES penicillin V Allergy (Unknown, Verified 05/11/24 09:50) unknown HPI HPI Comments History of Present Illness Details She presents to office with concern UTi + hematuria last night First time it has happened No other symptoms of UTI associated No fever, chills, dysuria, frequency, urgency, back/flank pain Years ago + urine infection No fatigue Hx stoke on elquis [facility] Medical History Status post placement of implantable loop recorder Paroxysmal atrial fibrillation Ptosis of both upper eyelids Hammertoe of right foot Annual physical exam Cornea disorder Carotid stenosis Cataract JERICHO (obstructive sleep apnea) CVA (cerebral vascular accident) Asthma Hyperlipidemia HTN (hypertension) DM type 2 (diabetes mellitus, type 2) Surgical History H/O rotator cuff surgery H/O bilateral breast reduction surgery History of arthroscopic knee surgery H/O shoulder surgery Family History Father No problems noted. Mother No problems noted. Social History Housing: House Alcohol intake: current Alcohol intake frequency: a few times a month Patient Tobacco Use Status: Former Tobacco user e-Cigarette/Vaping Use: Never Used service: No Current occupational status: employed Cognitive needs: No Hearing needs: No Vision needs: No Review of Systems Const Denies chills and Denies fever(s) Card Denies chest pain Resp Denies cough GI Denies abdominal pain Reports hematuria, Denies dysuria and Denies urinary urgency Musc Denies back pain Physical Exam Vital Signs: Last Vital Signs Temp 98.2 F 05/11/24 09:41 Pulse 75 05/11/24 09:41 BP 110/62 05/11/24 09:41 Pulse Ox 98 05/11/24 09:41 Oxygen Delivery Method Room Air 05/11/24 09:41 BMI result Body Mass Index 23.5 General: Non-toxic, NAD. Speaking full sentences. Skin: Warm dry throughout Respiratory: No respiratory distress Cardiac: No tachycardia MSK: Sitting upright Neurology: A/O. No aphasia or facial droop. Gait without abnormality Psych: Good mood and affect Results AMB Urinalysis, Automated UA Leukoctes 500 Aron/uL Last Edit by Cheyenne Cerna CMA on 05/11/24 09:51 UA Nitrite Positive Last Edit by Cheyenne Cerna CMA on 05/11/24 09:51 UA Urobilinogen 1 mg/dL Last Edit by Cheyenne Cerna CMA on 05/11/24 09:51 UA Protein 100 mg/dL Last Edit by Cheyenne Cerna CMA on 05/11/24 09:51 UA pH 6.0 Last Edit by Cheyenne Cerna CMA on 05/11/24 09:51 UA Blood 200 Omero/uL Last Edit by Cheyenne Cerna CMA on 05/11/24 09:51 UA Specific [place] 1.025 Last Edit by Cheyenne Cerna CMA on 05/11/24 09:51 UA Ketone Positive Last Edit by Cheyenne Cerna CMA on 05/11/24 09:51 UA Bilirubin 1 mg/dL Last Edit by Cheyenne Cerna CMA on 05/11/24 09:51 UA Glucose 0 mg/dL Last Edit by Cheyenne Cerna CMA on 05/11/24 09:51 Results Reviewed Results Reviewed: Laboratory Last Values Urine pH (Auto) 6.0 05/11/24 09:50 Specific [place] (Auto) 1.025 05/11/24 09:50 Urine Protein (Auto) 100 mg/dL 05/11/24 09:50 Glucose (UA)(Auto) 0 mg/dL 05/11/24 09:50 Urine Ketones (Auto) Positive 05/11/24 09:50 Urine Blood (Auto) 200 Omero/uL 05/11/24 09:50 Urine Nitrite (Auto) Positive 05/11/24 09:50 Urine Bilirubin (Auto) 1 mg/dL 05/11/24 09:50 Urine Urobilinogen (Auto) 1 mg/dL 05/11/24 09:50 Leukocyte Esterase (Auto) 500 Aron/uL 05/11/24 09:50 Assessment & Plan Assessment & Plan (1) Urinary tract infection: Code(s): N39.0 - Urinary tract infection, site not specified Qualifiers: Urinary tract infection type: acute cystitis Hematuria presence: with hematuria Qualified Code(s): N30.01 - Acute cystitis with hematuria Plan: Patient seen and evaluated. U/a: + leuks nitrates, protein, blood, ketones. Negative glucose Culture sent macrobid to pharmacy Increase fluids F/U with PCP next week Patient gave verbal understanding and had no additional questions or concerns at time of discharge All questions answered Orders: Orders Urine Culture Today N39.0 - Urinary tract infection, site not specified AMB Urinalysis Automated Today Z13.9 - Encounter for screening, unspecified Medications: New nitrofurantoin monohyd/m-cryst 100 mg (Macrobid) must administer with a meal/food 100 mg PO BID 14 caps 0RF Coding Level of Care Code Est Pt Level 3 (88194) Diagnoses Acute cystitis with hematuria N30.01 Urinary tract infection type: acute cystitis Hematuria presence: with hematuria
== END 2024-05-11 10:47 | disposition home or self-care (01) ==
PROVIDERS: PCP Internal Medicine; Visit Provider Physician Assistant
DX: Z13.9 Encounter for screening, unspecified (principal); N30.01 Acute cystitis with hematuria

== ENCOUNTER 2024-05-14 07:43 | Outpatient (REF) | payer MEDICARE, SELFPAY ==
[2024-05-14 10:11] LABS: MANUAL DIFF FLAG NO
[2024-05-14 10:20] LABS: Basophils Absolute Auto 0.1 X10*3/uL (0.0-0.2); Basophils Percent Auto 0.8 % (0-2); Eosinophils Absolute Auto 0.5 X10*3/uL (0.0-0.4); Eosinophils Percent Auto 7.9 % (0-4); Hematocrit 35.2 % (37.0-47.0); Hemoglobin 11.1 g/dl (12.0-16.0); Imm Gran Abs Auto 0.08 X10*3/uL (0.00-0.03); Imm Gran Pct Auto 1.3 % (0.0-0.4); Lymphocytes Absolute Auto 1.8 X10*3/uL (1.2-4.9); Lymphocytes Percent Auto 29.9 % (20-40); Mean Corpuscular HGB Conc 31.5 g/dl (31.0-35.0); Mean Corpuscular Hemoglobin 29.8 pg (27.0-33.0); Mean Corpuscular Volume 94.6 fL (80.0-98.0); Mean Platelet Volume 11.5 fL (9.4-12.3); Monocytes Absolute Auto 0.3 X10*3/uL (0.1-1.2); Monocytes Percent Auto 5.7 % (2-11); Neutrophils Absolute Auto 3.3 x10*3/uL (2.0-8.3); Neutrophils Percent Auto 54.4 % (45-73); Platelet Count 203 X10*3/uL (160-400); Red Blood Count 3.72 X10*6/uL (4.20-5.50); Red Cell Distribution Width 13.7 % (11.0-16.0)
[2024-05-14 10:30] LABS: Creatinine Urine 138.34 mg/dL
[2024-05-14 10:47] LABS: Microalbum/Creatinine Ratio Ur 477.8 ug/mg cr (<30)
[2024-05-14 11:01] LABS: Alanine Aminotransferase 25 U/L (0-31); Alkaline Phosphatase 62 U/L (39-117); Anion Gap 12 (12-20); Aspartate Amino Transferase 27 U/L (5-31); Bilirubin Total 0.4 mg/dL (0.0-1.0); Blood Urea Nitrogen 14 mg/dL (9-16); Calcium 9.4 mg/dL (8.4-10.2); Carbon Dioxide 27 mmol/L (22-29); Chloride 109 mmol/L (96-108); Cholesterol 114 mg/dL (<200); Estimated Glomerular Filt Rate > 60; Glucose Fasting 97 mg/dL (60-99); HDL Cholesterol 51 mg/dL (>40); LDL Cholesterol Calculated 51 mg/dL (<100); Potassium 4.2 mmol/L (3.3-5.1); Sodium 144 mmol/L (135-145); Total Protein 6.2 g/dL (6.5-8.0); Triglycerides 61 mg/dL (<150)
[2024-05-14 11:02] LABS: Estimated Average Glucose 108 mg/dL; Hemoglobin A1c % 5.4 % (<6.0); Total Hemoglobin (HGBA1C) 3401.2593 umol/L
[2024-05-14 11:03] LABS: TSH reflex Free T4 0.96 uIU/mL (0.32-4.0)
== END 2024-05-14 07:44 | disposition home or self-care (01) ==
LOC: HO.HMGCLDS 07:43
PROVIDERS: PCP Internal Medicine; Visit Provider Internal Medicine
DX: I63.9 Cerebral infarction, unspecified (principal); I48.0 Paroxysmal atrial fibrillation; E11.9 Type 2 diabetes mellitus without complications; I10 Essential (primary) hypertension; E78.5 Hyperlipidemia, unspecified
CPT/HCPCS: 36415; 80053; 80061; 82043; 82570; 83036; 84443; 85025

== ENCOUNTER 2024-05-16 11:54 | Outpatient (AMB) | payer MEDICARE, SELFPAY ==
--- NOTE | 2024-05-16 12:01 | A.OFFPC_ITS ---
Vital Signs 05/16/24 12:03 Height 5 ft 7 in Weight 147 lb BMI 23.0 BP 116/74 Blood Pressure Location Lt brachial Position Sitting Pulse 94 Pulse Source Pulse Oximeter Pulse Oximetry (%) 97 Oxygen Delivery Method Room Air Intake Visit Reasons: PE Intake Note: Pt is here today for PE. Pt needs a hard copy of script for Eliquis. Pt checked her glucose now and it 89. Allergies vancomycin [VANCOMYCIN] Allergy (Intermediate, Verified 05/11/24 09:50) ITCHING empagliflozin [Jardiance] Allergy (Unknown, Verified 05/11/24 09:50) yeast infection levofloxacin Allergy (Unknown, Verified 05/11/24 09:50) tendon rupture linagliptin [Tradjenta] Allergy (Unknown, Verified 05/11/24 09:50) yeast infection penicillin G [Penicillin G] Allergy (Unknown, Verified 05/11/24 09:50) HIVES penicillin V Allergy (Unknown, Verified 05/11/24 09:50) unknown Medication List - Last Reconciled 05/16/24 by Valarie Hudson MD apixaban (Eliquis) 5 mg PO BID 90 days CPAP (CPAP Machine/Device) CPAP with mask, tubing, filters, water chamber, heated humidifier on [id number] flash glucose sensor (FreeStyle Reid 2 Sensor kit) As directed fluticasone propion-salmeterol 250-50 mcg/dose (Advair Diskus) 1 inh inhalation BID FreeStyle Reid 3 Sensor (blood-glucose sensor) As directed to test sugars 3-4 times per day NS insulin degludec (Tresiba FlexTouch U-100 insulin) 20 units (0.2 mL) subcut BEDTIME 90 days losartan 50 mg PO DAILY metformin 1,000 mg PO BID nitrofurantoin monohyd/m-cryst 100 mg (Macrobid) 100 mg PO BID Ozempic (semaglutide) 2 mg (0.75 mL) subcut QWEEK NS pantoprazole 40 mg PO DAILY pen needle, diabetic (BD Ultra-Fine Short Pen Needle) Use to inject insulin once daily rosuvastatin 20 mg PO DAILY sertraline 25 mg PO DAILY Ventolin HFA 90 mcg/actuation (albuterol sulfate) 1 inh inhalation QID NS Tobacco use date assessed: 02/09/24 Fall risk assessment: No Falls in past year Last assessed Fall Risk: 05/16/24 Dental Screening Dental Screen Date: 02/09/24 HPI PE HPI Details Pt presents for PE. [facility] [place] Medical History Status post placement of implantable loop recorder Paroxysmal atrial fibrillation Ptosis of both upper eyelids Hammertoe of right foot Annual physical exam Cornea disorder Carotid stenosis Cataract JERICHO (obstructive sleep apnea) CVA (cerebral vascular accident) Asthma Hyperlipidemia HTN (hypertension) DM type 2 (diabetes mellitus, type 2) Surgical History H/O rotator cuff surgery H/O bilateral breast reduction surgery History of arthroscopic knee surgery H/O shoulder surgery Family History Father No problems noted. Mother No problems noted. Social History Housing: House Alcohol intake: current Alcohol intake frequency: a few times a month Patient Tobacco Use Status: Former Tobacco user e-Cigarette/Vaping Use: Never Used service: No Current occupational status: employed Cognitive needs: No Hearing needs: No Vision needs: No Questionnaire Thrive Questionnaire Date Thrive assessed: 02/09/24 I am a: Patient What is your living situation today?: I have a steady place to live Within the past 12 months, did the food you bought not last and you didn't have the money to get more?: Never true Within the past 12 months, did you worry whether your food would run out before you got money to buy more?: Never true Do you have trouble paying for medicines?: No Do you have trouble getting transportation to medical appointments?: No Do you have trouble paying your heating and electricity bill?: No Do you have trouble taking care of your child, family member or friend?: No Do you have trouble with day-to-day activities such as bathing, preparing meals, shopping, managing finances, etc.?: No Are you currently unemployed and looking for a job?: No Are you interested in more education?: No Please select the resources that you would like help with: None Currently or been in a relationship where the following occur: No concerns reported THRIVE Score: 0 JEZ-7 AMB Questionnaire JEZ-7 Date JEZ - 7 assessed: 02/09/24 Source: Developed by DrsBecky Arshad, Adwoa Hayes, Jelani Jackson and colleagues, with an educational shaji from [employer]. Review of Systems Const All systems reviewed & are unremarkable except as noted in HPI and below Reports no additional complaints Eyes Reports no additional complaints ENT Reports no additional complaints Card Reports no additional complaints Resp Reports no additional complaints GI Reports no additional complaints Reports no additional complaints Physical exam (Primary Care) Vital Signs: Last Vital Signs Pulse 94 05/16/24 12:03 BP 116/74 05/16/24 12:03 Pulse Ox 97 05/16/24 12:03 Oxygen Delivery Method Room Air 05/16/24 12:03 BMI result Body Mass Index 23.0 Tobacco/Smoking Status: Tobacco use Status Tobacco use date assessed 02/09/24 05/16/24 12:05 Patient Tobacco Use Status Former Tobacco user 05/16/24 12:05 e-Cigarette/Vaping Use Never Used 05/16/24 12:05 Thrive Assessment: Date of Thrive Assessment Date Thrive assessed 02/09/24 05/16/24 12:05 Currently or been in a relationship where the following occur: No concerns reported Const General: no acute distress HENMT Ears: hearing grossly normal bilaterally Face and sinus: Yes normal facial exam Eyes General: appearance normal, both eyes and all related structures Resp Effort & Inspection: normal respiratory effort Auscultation: clear to auscultation bilaterally Cardio Rhythm: regular rhythm Heart sounds: S1 normal heart sound present and S2 normal heart sound present GI Inspection: Yes normal to inspection Palpation (GI): Soft to palpation Percussion: Yes normal to percussion Extrem Other: DM foot exam: Skin is intact monofilament exam normal bilaterally General: Yes no clubbing, cyanosis or edema Coding Level of Care Code Est Pt Prev Care >65y(07293) Diagnoses DM type 2 (diabetes mellitus, type 2) E11.9 HTN (hypertension) I10 Hyperlipidemia E78.5 Diabetic nephropathy associated with type 2 diabetes mellitus E11.21 Paroxysmal atrial fibrillation I48.0 Assessment & Plan Assessment & Plan (1) DM type 2 (diabetes mellitus, type 2): Comment: Intolerant to Farxiga and Jardiance, caused recurrent candidiasis Code(s): E11.9 - Type 2 diabetes mellitus without complications Category: Medical Plan: A1c is 5.4, continue current medications ADA diet regular exercise, follow-up in 4 months with a fasting labs before (2) HTN (hypertension): Code(s): I10 - Essential (primary) hypertension Category: Medical Plan: Continue current medications increase losartan to 75 mg daily for microalbumi amalia. (3) Hyperlipidemia: Code(s): E78.5 - Hyperlipidemia, unspecified Category: Medical Plan: Continue statin (4) Diabetic nephropathy associated with type 2 diabetes mellitus: Comment: Intolerant to SGLT 2 INHIBITORS Code(s): E11.21 - Type 2 diabetes mellitus with diabetic nephropathy Category: Medical Plan: Increase losartan from 50 mg to 75 mg and will monitor microalbumin (5) Paroxysmal atrial fibrillation: Comment: Infrequent paroxysmal AFib asymptomatic Code(s): I48.0 - Paroxysmal atrial fibrillation Category: Medical Plan: Anticoagulated on Eliquis follow-up with Cardiology Orders: Orders Comprehensive Paulina. Panel Fast 4 Months E11.21 - Type 2 diabetes mellitus with diabetic nephropathy, E78.5 - Hyperlipidemia, unspecified, I48.0 - Paroxysmal atrial fibrillation Lipid Panel 4 Months E11.21 - Type 2 diabetes mellitus with diabetic nephropathy, E78.5 - Hyperlipidemia, unspecified, I48.0 - Paroxysmal atrial fibrillation Microalbumin, Random (w Creat) 1 Month E11.9 - Type 2 diabetes mellitus without complications, E78.5 - Hyperlipidemia, unspecified, I10 - Essential (primary) hypertension Complete Blood Count Auto Diff 4 Months E11.21 - Type 2 diabetes mellitus with diabetic nephropathy, E78.5 - Hyperlipidemia, unspecified, I48.0 - Paroxysmal atrial fibrillation Hemoglobin A1c 4 Months E11.21 - Type 2 diabetes mellitus with diabetic nephropathy, E78.5 - Hyperlipidemia, unspecified, I48.0 - Paroxysmal atrial fibrillation Microalbumin, Random (w Creat) 4 Months E11.21 - Type 2 diabetes mellitus with diabetic nephropathy, E78.5 - Hyperlipidemia, unspecified, I48.0 - Paroxysmal atrial fibrillation Medications: New blood-glucose sensor (Retroficiency G7 Sensor device) As directed 2 ea 5RF losartan take with Losartan 50 mg 25 mg PO DAILY 90 tabs 0RF Refilled apixaban (Eliquis) 5 mg PO BID 180 tabs 3RF 90 days I48.0 - Paroxysmal atrial fibrillation
[2024-05-16 12:03] VITALS: BP 116/74; PULSE 94; O2SAT 97; BMI 23.0
== END 2024-05-16 12:31 | disposition home or self-care (01) ==
PROVIDERS: PCP Internal Medicine; Visit Provider Internal Medicine
DX: Z00.00 Encounter for general adult medical examination without abnormal findings (principal); E11.69 Type 2 diabetes mellitus with other specified complication; E11.21 Type 2 diabetes mellitus with diabetic nephropathy; I48.0 Paroxysmal atrial fibrillation; E78.5 Hyperlipidemia, unspecified; I10 Essential (primary) hypertension

== ENCOUNTER → 2024-05-16 11:54 | Outpatient (BNVA) | payer MEDICARE, SELFPAY | PROVIDERS: PCP Internal Medicine; Visit Provider Internal Medicine | DX: Z00.01 Encounter for general adult medical examination with abnormal findings (principal); E11.21 Type 2 diabetes mellitus with diabetic nephropathy; E78.5 Hyperlipidemia, unspecified; I10 Essential (primary) hypertension; I48.0 Paroxysmal atrial fibrillation | CPT/HCPCS: 99397 ==

== ENCOUNTER 2024-05-23 08:01 | Outpatient (AMB) | payer MEDICARE, SELFPAY ==
[2024-05-23 08:03] VITALS: BP 112/60; PULSE 74; O2SAT 97
--- NOTE | 2024-05-23 08:03 | AM.OFFWIN_ITS ---
Intake Vital Signs 05/23/24 08:03 Weight 151 lb BP 112/60 Blood Pressure Location Rt brachial Position Sitting Pulse 74 Pulse Source Pulse Oximeter Pulse Oximetry (%) 97 Oxygen Delivery Method Room Air Intake Visit Reasons: EP UTI symptoms, lower abd cramp/pain Intake Note: Patient here for blood still present after finishing antibiotics. She states she has been having bad abdominal pain and cramping and lower back pain. Patient Tobacco Use Status: Former Tobacco user Allergies vancomycin [VANCOMYCIN] Allergy (Intermediate, Verified 05/23/24 08:08) ITCHING empagliflozin [Jardiance] Allergy (Unknown, Verified 05/23/24 08:08) yeast infection levofloxacin Allergy (Unknown, Verified 05/23/24 08:08) tendon rupture linagliptin [Tradjenta] Allergy (Unknown, Verified 05/23/24 08:08) yeast infection penicillin G [Penicillin G] Allergy (Unknown, Verified 05/23/24 08:08) HIVES penicillin V Allergy (Unknown, Verified 05/23/24 08:08) unknown Do you need a note to return to daycare/school/sports/work: No HPI HPI Comments History of Present Illness Details This is a 64-year-old female with past medical history of insulin- dependent diabetes, hyperlipidemia, hypertension and atrial fibrillation currently anticoagulated on Eliquis presenting for evaluation of hematuria. Patient was initially seen on May 11 and treated with Macrobid for a presumed urinary tract infection however the urine culture was negative. Patient states that the hematuria has persisted and she now has has low pelvic pain since Monday. Patient has been taking Tylenol only without relief of her discomfort. Patient denies having any fevers, chills, urinary frequency, dysuria or dyspareunia. Patient's previous abdominal surgeries include C- section only. [facility] Medical History Status post placement of implantable loop recorder Paroxysmal atrial fibrillation Ptosis of both upper eyelids Hammertoe of right foot Annual physical exam Cornea disorder Carotid stenosis Cataract JERICHO (obstructive sleep apnea) CVA (cerebral vascular accident) Asthma Hyperlipidemia HTN (hypertension) DM type 2 (diabetes mellitus, type 2) Surgical History H/O rotator cuff surgery H/O bilateral breast reduction surgery History of arthroscopic knee surgery H/O shoulder surgery Family History Father No problems noted. Mother No problems noted. Social History Housing: House Alcohol intake: current Alcohol intake frequency: a few times a month Patient Tobacco Use Status: Former Tobacco user e-Cigarette/Vaping Use: Never Used service: No Current occupational status: employed Cognitive needs: No Hearing needs: No Vision needs: No Review of Systems Const All systems reviewed & are unremarkable except as noted in HPI and below Reports as per HPI, Denies chills and Denies fever(s) Eyes Reports no additional complaints GI Reports no additional complaints Denies difficulty voiding, Denies dysuria, Reports pelvic pain, Denies urinary urgency and Reports other (Hematuria) Musc Reports no additional complaints Skin/Breast Reports system reviewed and no additional complaints, except as documented Neuro Reports no additional complaints Psych Reports no additional complaints Endo Reports no additional complaints Physical Exam Vital Signs: Last Vital Signs Pulse 74 05/23/24 08:03 BP 112/60 05/23/24 08:03 Pulse Ox 97 05/23/24 08:03 Oxygen Delivery Method Room Air 05/23/24 08:03 Const General: cooperative, healthy appearing, comfortable, no acute distress, well developed, alert, awake and Physically active Nutritional Appearance: average body habitus Orientation/consciousness: patient oriented x3 Limitations: no limitations GI Palpation (GI): Soft to palpation and nontender Auscultation: normal bowel sounds General: Yes Bimanual renal exam normal bilaterally, No bladder normal to palpation (Mild discomfort to palpation, no guarding) and Yes no CVA tenderness Bimanual exam- vagina & uterus: No bladder normal to palpation (Mild discomfort to palpation, no guarding) Back/Spine/Pelvis Back: no CVA tenderness Neuro General: patient oriented x3 Psych Appearance: grossly normal Mental Status: mental status grossly normal Insight: Good insight present (Psych) Judgement: Good judgement present (Psych) Results AMB Urinalysis, Automated UA Leukoctes 15 Aron/uL Last Edit by RISA Bryant on 05/23/24 08:2 4 UA Nitrite Negative Last Edit by RISA Bryant on 05/23/24 08:24 UA Urobilinogen 0.2 mg/dL Last Edit by Gentry Rivera [facility] on 05/23/24 08:24 UA Protein 15 mg/dL Last Edit by Gentry Rivera [facility] on 05/23/24 08:24 UA pH 6.0 Last Edit by Gentry Rivera [facility] on 05/23/24 08:24 UA Blood 200 Omero/uL Last Edit by Gentry Rivera [facility] on 05/23/24 08:24 UA Specific [place] 1.015 Last Edit by Gentry Rivera [facility] on 05/23/24 08:24 UA Ketone Negative Last Edit by Gentry Rivera [facility] on 05/23/24 08:24 UA Bilirubin 0 mg/dL Last Edit by Gentry Rivera [facility] on 05/23/24 08:24 UA Glucose 0 mg/dL Last Edit by Gentry Rivera [facility] on 05/23/24 08:24 Results Reviewed Results Reviewed: Urinalysis reveals hematuria only. Assessment & Plan Assessment & Plan (1) Hematuria: Comment: This patient's presentation is discussed with Dr. Hudson; urine culture and laboratories will be deferred at this time an ultrasound examination is pending. Code(s): R31.9 - Hematuria, unspecified Qualifiers: Hematuria type: gross Qualified Code(s): R31.0 - Gross hematuria Plan: Renal and bladder ultrasound at 9:[address] Hudson will contact the patient directly with the results of this study. Orders: Orders AMB Urinalysis Automated Today Z13.9 - Encounter for screening, unspecified Coding Level of Care Code Est Pt Level 3 (40826) Diagnoses Gross hematuria R31.0 Hematuria type: gross Time Spent (min) 20
== END 2024-05-23 08:52 | disposition home or self-care (01) ==
PROVIDERS: PCP Internal Medicine; Visit Provider Physician Assistant
DX: R31.0 Gross hematuria (principal); Z13.9 Encounter for screening, unspecified

== ENCOUNTER → 2024-05-23 08:01 | Outpatient (BNVA) | payer MEDICARE, SELFPAY | PROVIDERS: PCP Internal Medicine; Visit Provider Physician Assistant ==

== ENCOUNTER 2024-05-23 09:25 | Outpatient (REF) | payer MEDICARE, SELFPAY ==
--- NOTE | ~2024-05-23 | US_ITS ---
EXAMINATION: US RETROPERITONEAL COMPLETE (RENAL) CLINICAL INFORMATION: Hematuria; history of kidney stone. COMPARISON: Abdominal ultrasound dated 11/25/2009. TECHNIQUE: Real-time imaging of the kidneys and bladder. FINDINGS: RIGHT KIDNEY: 10.7 x 5.0 x 5.0 cm (SAG x AP x TRV). The kidney is normal in size, contour, and echogenicity. Renal cortical thickness is normal. No focal soft tissue lesions. At the lower pole, a 2.1 cm nonobstructing calculus is seen. No hydronephrosis. At the interpolar aspect, 1.0 cm and 0.6 cm benign, simple cysts are seen. The former is lobulated. At the lower pole, a 2.1 cm benign, simple cyst is seen. These require no imaging follow-up. LEFT KIDNEY: 10.3 x 5.5 x 4.9 cm (SAG x AP x TRV). The kidney is normal in size, contour, and echogenicity. Renal cortical thickness is normal. No focal parenchymal solid lesions. The the interpolar aspect, a 3 mm nonobstructing calculus is seen. At the lower pole, a 2 mm nonobstructing calculus is seen. There is mild hydronephrosis and proximal hydroureter. At the interpolar aspect, a 1.1 cm benign, simple cyst is seen. This requires no imaging follow-up. BLADDER: Well distended, without mass or calculus. There is mild dependent debris within the urinary bladder. Bilateral ureteral jets are demonstrated. Prevoid bladder volume is 361 mL. Postvoid bladder volume is 9 mL. US/US retroperitoneal comp IMPRESSION: 1. There is mild left hydronephrosis and proximal hydroureter. 2. There are nonobstructing bilateral renal calculi. 3. Mild debris is seen within the urinary bladder, for which correlation with the patient's most recent urinalysis is recommended. Electronically signed by: Ben Quijano MD 05/23/2024 11:11 PM EDT
== END 2024-05-23 09:26 | disposition home or self-care (01) ==
LOC: HO.HMGCX 09:25
PROVIDERS: PCP Internal Medicine; Visit Provider Internal Medicine
DX: R31.9 Hematuria, unspecified (principal); R31.0 Gross hematuria; Z13.9 Encounter for screening, unspecified
CPT/HCPCS: 76770; 81003; 99212

== ENCOUNTER 2024-06-04 08:32 | Outpatient (AMB) | payer MEDICARE, SELFPAY ==
[2024-06-04 08:37] VITALS: BP 110/60; PULSE 83; BMI 23.8
--- NOTE | 2024-06-04 08:37 | A.OFFVIS_ITS ---
Vital Signs 06/04/24 08:37 Height 5 ft 7 in Weight 151 lb 10.848 oz BMI 23.8 BP 110/60 Blood Pressure Location Lt brachial Position Sitting Pulse 83 Pulse Source Monitor Intake Visit Reasons: 1 year fu Intake Note: 1 yr f/up Bariatric Physician Required: No Accompanied by: Self / Same As Patient Allergies vancomycin [VANCOMYCIN] Allergy (Intermediate, Verified 05/23/24 08:08) ITCHING empagliflozin [Jardiance] Allergy (Unknown, Verified 05/23/24 08:08) yeast infection levofloxacin Allergy (Unknown, Verified 05/23/24 08:08) tendon rupture linagliptin [Tradjenta] Allergy (Unknown, Verified 05/23/24 08:08) yeast infection penicillin G [Penicillin G] Allergy (Unknown, Verified 05/23/24 08:08) HIVES penicillin V Allergy (Unknown, Verified 05/23/24 08:08) unknown Medication List - Last Reconciled 06/04/24 by Say Stovall MD apixaban (Eliquis) 5 mg PO BID 90 days blood-glucose sensor (Trivop G7 Sensor device) As directed CPAP (CPAP Machine/Device) CPAP with mask, tubing, filters, water chamber, heated humidifier on 5-11ooP4H flash glucose sensor (FreeStyle Reid 2 Sensor kit) As directed fluticasone propion-salmeterol 250-50 mcg/dose (Advair Diskus) 1 inh inhalation BID FreeStyle Reid 3 Sensor (blood-glucose sensor) As directed to test sugars 3-4 times per day NS insulin degludec (Tresiba FlexTouch U-100 insulin) 20 units (0.2 mL) subcut BEDTIME 90 days losartan 50 mg PO DAILY losartan 25 mg PO DAILY metformin 1,000 mg PO BID Ozempic (semaglutide) 2 mg (0.75 mL) subcut QWEEK NS pantoprazole 40 mg PO DAILY pen needle, diabetic (BD Ultra-Fine Short Pen Needle) Use to inject insulin once daily rosuvastatin 20 mg PO DAILY sertraline 25 mg PO DAILY Ventolin HFA 90 mcg/actuation (albuterol sulfate) 1 inh inhalation QID NS HPI Comments Details: Galilea comes for follow-up. She said over the last 2 months she has been notic ing when she exerts herself she gets central retrosternal chest burning. Symptoms then subside after resting. He has not had any symptoms at rest. She otherwise he has been doing well. She is currently on Ozempic and has lost significant amount of weight. She does not use his CPAP at nighttime. Her hemoglobin A1c and blood pressures been very well controlled. She has not had any recurrent episodes of atrial fibrillation. LDL was extremely well controlled and her Crestor was reduced. She denies any prolonged palpitation irregular heartbeat. No lightheadedness, syncope. No heart failure symptoms. [facility] Medical History Failed total right knee replacement Status post placement of implantable loop recorder Paroxysmal atrial fibrillation Ptosis of both upper eyelids Hammertoe of right foot Annual physical exam Cornea disorder Carotid stenosis Cataract JERICHO (obstructive sleep apnea) CVA (cerebral vascular accident) Asthma Hyperlipidemia HTN (hypertension) DM type 2 (diabetes mellitus, type 2) Surgical History H/O rotator cuff surgery H/O bilateral breast reduction surgery History of arthroscopic knee surgery H/O shoulder surgery Family History Father No problems noted. Mother No problems noted. Social History Housing: House Alcohol intake: current Alcohol intake frequency: a few times a month Patient Tobacco Use Status: Former Tobacco user e-Cigarette/Vaping Use: Never Used service: No Current occupational status: employed Cognitive needs: No Hearing needs: No Vision needs: No Review of Systems Const Denies chills, Denies fatigue, Denies fever(s), Denies frequent falls, Denies weakness, Denies weight gain and Denies weight loss ENT Denies dizziness Card Denies chest pain, Denies leg edema, Denies lightheadedness, Denies palpitations, Denies dyspnea and Denies dyspnea on exertion Resp Denies cough, Denies dyspnea and Denies dyspnea on exertion GI Denies hematochezia Musc Denies abnormal gait, Denies muscle weakness, Denies numbness, Denies radiating pain into limb and Denies tingling Neuro Denies abnormal gait, Denies dizziness, Denies frequent falls, Denies numbness, Denies tingling and Denies weakness Endo Denies fatigue and Denies palpitations Physical Exam Vital Signs: Last Vital Signs Pulse 83 06/04/24 08:37 BP 110/60 06/04/24 08:37 BMI result Body Mass Index 23.8 Const General: cooperative, comfortable, alert, awake and well groomed Nutritional Appearance: overweight Orientation/consciousness: patient oriented x3 Limitations: no limitations Neck Neck: Yes trachea midline, Yes supple and Yes no JVD Resp Effort & Inspection: normal respiratory effort Auscultation: clear to auscultation bilaterally Cardio Jugular venous distension: no JVD Rate: regular rate Rhythm: regular rhythm Heart sounds: S1 normal heart sound present and S2 normal heart sound present GI Auscultation: normal bowel sounds Neuro General: patient oriented x3 and no focal motor deficits Extrem General: Yes no clubbing, cyanosis or edema Psych Appearance: grossly normal Office Procedures EKG Details: EKG shows normal sinus rhythm with left anterior fascicular block 22388-[id number], Complete Assessment & Plan Assessment & Plan (1) Chest pain on exertion: Code(s): R07.9 - Chest pain, unspecified Plan: Patient complains of concerning symptoms of exertional chest burning which resolved with resting. No symptoms rest. Given her multiple risk factors obstructive CAD needs to be ruled out. Will suggest a stress echocardiogram to further assess for it. Further treatment based on the findings. May need further evaluation with coronary angiography by CT scan if need be. (2) Paroxysmal atrial fibrillation: Comment: Infrequent paroxysmal AFib asymptomatic Code(s): I48.0 - Paroxysmal atrial fibrillation Category: Medical Plan: Paroxysmal atrial fibrillation noted on implantable loop recorder after diagnosis of stroke. She has not had any obvious clinical recurrence at this point time. High risk for recurrent thromboembolic complication have strongly recommend to continue oral anticoagulation therapy, currently on Eliquis. Continue aggressive risk factor modification. Target goal LDL less than 55 mg/dL. Blood pressure is well optimized. Target goal blood pressure less than 130/84. Continue aggressive diabetes management. Recommend repeat sleep study to make sure she does not have any residual sleep apnea. (3) HTN (hypertension): Code(s): I10 - Essential (primary) hypertension Category: Medical Plan: Hypertension which is well optimized. Continue current medical therapy with losartan. Encouraged to continue to participate in aggressive lifestyle modification. Low-salt diet was discussed advised to monitor blood pressure at home maintain a log. Goal LDL less than 55 mg/dL as mentioned above. Maintain activity level as tolerated. Will follow up in the clinic in 1 year's time, sooner p.r.n.. Thank you for allowing me to partake in his care Orders: Orders CA echo stress exercise Today R07.9 - Chest pain, unspecified Coding Level of Care Code Est Pt Level 4 (25761) Complex EM visit Add On G2211 Diagnoses Chest pain on exertion R07.9 Paroxysmal atrial fibrillation I48.0 HTN (hypertension) I10 CPT Codes EKG - CPT: 04651-[id number], Complete ([id number])
== END 2024-06-04 09:05 | disposition home or self-care (01) ==
PROVIDERS: PCP Internal Medicine; Visit Provider Internal Medicine Cardiovascular Disease
DX: R07.9 Chest pain, unspecified (principal); I48.0 Paroxysmal atrial fibrillation; I10 Essential (primary) hypertension
CPT/HCPCS: 93010; 99214; G2211

== ENCOUNTER → 2024-06-04 08:32 | Outpatient (BNVA) | payer MEDICARE, SELFPAY | PROVIDERS: PCP Internal Medicine; Visit Provider Internal Medicine Cardiovascular Disease | DX: I48.0 Paroxysmal atrial fibrillation (principal); I10 Essential (primary) hypertension; R07.9 Chest pain, unspecified; Z79.899 Other long term (current) drug therapy | CPT/HCPCS: 93005; 99212 ==

== ENCOUNTER → 2024-06-11 12:32 | Outpatient (REF) | payer MEDICARE, SELFPAY ==
--- NOTE | 2024-06-11 12:35 | CA_ITS ---
Acquisition Time: 2024-06-11 12:56:33 Total Exercise Time: 00:03:45 Test Indications: CP, AFIB Medications: SEE H Protocol: NEEL Max HR: 164 BPM 106% of Pred: 154 BPM Max BP: 160/062 mmHG Max Work Load: 4.6 METS Exercise Stress Test with exercise 3 mins 45 secs of Neel Protocol held at stage 1 due to reaching 105% MPHR at 3 min of exercise, with report of 6/10 burning discomfort of chest- base of throat, with occasional PVCs and frequent PACs early recovery, with normotensive response to exercise. No EKG changes meeting criteria for ischemia. Echo images obtained by tech at rest and immediately post peak exercise. Definity used. In recovery burning chest pain resolved. Test reviewed with Dr. Stovall. Referred By: Say Stovall Overread By: MARIA DEL ROSARIO VILLEDA
== END ==
LOC: HO.CARD 12:32
PROVIDERS: PCP Internal Medicine; Visit Provider Internal Medicine Cardiovascular Disease
DX: R07.9 Chest pain, unspecified (principal)
CPT/HCPCS: 93350; Q9957

== ENCOUNTER → 2024-06-11 12:35 | Outpatient (BNV) | payer MEDICARE, SELFPAY | PROVIDERS: PCP Internal Medicine; Visit Provider Nurse Practitioner Family | DX: I42.8 Other cardiomyopathies (principal); R93.1 Abnormal findings on diagnostic imaging of heart and coronary circulation; R07.9 Chest pain, unspecified; I49.1 Atrial premature depolarization; I49.3 Ventricular premature depolarization | CPT/HCPCS: 93016; 93018; 93350; 93352 ==

== ENCOUNTER 2024-06-19 07:40 | Outpatient (REF) | payer MEDICARE, SELFPAY ==
[2024-06-19 10:12] LABS: Hemoglobin 11.2 g/dl (12.0-16.0); Mean Corpuscular Volume 93.8 fL (80.0-98.0); Mean Platelet Volume 11.3 fL (9.4-12.3); Platelet Count 198 X10*3/uL (160-400); Red Blood Count 3.73 X10*6/uL (4.20-5.50); Red Cell Distribution Width 12.8 % (11.0-16.0)
[2024-06-19 10:13] LABS: INTERNATIONAL NORM RATIO 1.2 (0.9-1.1); Prothrombin Time 14.4 SEC (10.9-12.4)
[2024-06-19 10:24] LABS: Anion Gap 13 (12-20); Blood Urea Nitrogen 15 mg/dL (9-16); Calcium 8.9 mg/dL (8.4-10.2); Carbon Dioxide 28 mmol/L (22-29); Chloride 106 mmol/L (96-108); Estimated Glomerular Filt Rate > 60; Glucose Random 88 mg/dL (60-115); Potassium 3.9 mmol/L (3.3-5.1); Sodium 143 mmol/L (135-145)
[2024-06-19 10:32] LABS: Creatinine Urine 143.24 mg/dL; Microalbum/Creatinine Ratio Ur 102.6 ug/mg cr (<30)
== END 2024-06-19 07:41 | disposition home or self-care (01) ==
LOC: HO.HMGCLDS 07:40
PROVIDERS: PCP Internal Medicine; Visit Provider Internal Medicine Cardiovascular Disease
DX: I65.29 Occlusion and stenosis of unspecified carotid artery (principal); E11.9 Type 2 diabetes mellitus without complications; I10 Essential (primary) hypertension; E78.5 Hyperlipidemia, unspecified
CPT/HCPCS: 36415; 80048; 82043; 82570; 85027; 85610

== ENCOUNTER 2024-06-26 09:05 | Outpatient (REF) | payer MEDICARE, SELFPAY ==
--- NOTE | ~2024-06-26 | MR_ITS ---
EXAMINATION: MRI of abdomen. CLINICAL INFORMATION: Gross hematuria. COMPARISON: Ultrasound examination of kidneys on 05/23/2024 TECHNIQUE: Examination was performed in a high field strength MRI scanner. Multiplanar multiphasic imaging of the abdomen was performed without IV contrast enhancement. Multiphasic Axial T1 weighted fat suppressed images of the upper abdomen were obtained after IV injection of 7.5 mL Gadavist. Coronal T1 weighted fat-suppressed images of the abdomen were obtained following the dynamic axial series. FINDINGS: LIVER: The liver shows no focal lesion. The calculated hepatic fat percentage is 0.1%, compatible with normal. HEPATOBILIARY: Gallbladder is normal without filling defects. Common bile duct is not dilated. PANCREAS: No focal pancreatic lesion with abnormal signal can be seen. SPLEEN: Spleen is normal in size without focal lesion. ADRENAL: Bilateral adrenal glands are normal in shape and size. KIDNEYS: Bilateral kidneys are normal in size with bilateral renal cortical simple cysts, with the largest cyst protruding from posterior inferior right renal pole measuring 2.2 cm in diameter. Left mid renal cortical simple cyst measuring 1.3 cm in diameter is also present, for which no follow-up imaging is recommended. Delayed images show normal excretion of contrast into bilateral renal pelvises, calyces and proximal ureters without abnormal dilatation or filling defects. There are L3-L4 interbody fusion, posterior fixation with bilateral transpedicular screws and vertical bars. Advanced L5-S1 degenerative lumbar disc disease is present. MR/MR abdomen wo/w con IMPRESSION: 1. Bilateral renal cortical simple cysts are found, for which no follow-up imaging is recommended. No solid renal mass lesion could be identified. 2. No evidence of gallstones or hepatobiliary duct dilatation. 3. No focal liver mass lesion could be found. 4. No focal pancreatic lesion is found. EXAMINATION: MRI pelvis . CLINICAL INFORMATION: Gross hematuria. TECHNIQUE: Examination was performed in a high field strength MRI scanner. Pre-contrast multiplanar multisequence MR imaging of the pelvis was performed without IV contrast enhancement. Post-contrast coronal, axial T1 weighted fat suppressed images of the pelvis were obtained after IV injection of 7.5 mL Gadavist. FINDINGS: Urinary bladder is well filled with urine. Uterus is anteverted and unremarkable. No adnexal lesion could be seen. Pelvic fat plane is clean. No pelvic ascites is seen. No abnormally enlarged iliac or inguinal lymph nodes are found. The pelvis and bilateral hips are intact. Bilateral femoral heads and necks show normal signal without focal lesion. No abnormal joint effusion can be seen. The visualized bony pelvis show normal signal. Bilateral sacroiliac joints also appear unremarkable. IMPRESSION: 1. Normal MRI scan of the pelvis. 2. No focal mass lesion could be seen in the urinary bladder. Electronically signed by: Dorcas Corado MD 06/27/2024 11:06 AM GINETTE
[2024-06-26] MEDS: gadobutroL 7.5 ML VIAL IVPUSH (10:21)
--- OUTSIDE RECORDS SUMMARY | 2024-07-02 16:43 | XMS_ITS | Continuity of Care Document ---
Author Organization [facility] Address [address] [place] [address]- Care Team Providers Care Catering Administrative Assistant Name Role Phone Valarie Hudson MD Primary Care Physician [phone] Encounter 06/04/24 - 06/11/24 [facility] [address], [address] [place], [place] [address] Attending Physician: Miguelangel Ag MD Admitting Physician: Miguelangel Ag MD Referring Physician: Miguelangel Ag MD Encounter Type: OutPatient One Time Allergies, Adverse Reactions, Alerts Substance Criticality Severity Reaction Reaction Severity Status penicillins rash Allergy to penicillin Active Vancomycin Hydrochloride intense itching Vancomycin allergy Active Medications Advair Diskus 250 mcg-50 mcg inhalation powder 1, puffs, Inhalation, 2 times a day, Refills 0, Maintenance, 08/02/16 2:44:36 PM EST Start Date: 08/02/16 Status: Ordered Repeat number: 1 albuterol CFC free 90 mcg/inh inhalation aerosol 2, puffs, Inhalation, Every 4 hours, PRN, # 18 Gm, Refills 0, Maintenance, 09/11/19 1:37:00 PM EST, Aerosol Start Date: 09/11/19 Status: Ordered Quantity: 18.0 Unit: g Repeat number: 1 Crestor 40 mg oral tablet 1 tablet = 40 mg, By Mouth, Daily at bedtime, # 30 tablet, 0 Refills, Maintenance, 09/11/19 1:43:00 PM EST, Tablet Start Date: 09/11/19 Status: Ordered Quantity: 30.0 Unit: tablet Repeat number: 1 gabapentin 600 mg oral tablet 1 tablet = 600 mg, By Mouth, 3 times a day, # 90 tablet, 0 Refills, Maintenance, 09/11/19 1:44:00 PMEST, Tablet Start Date: 09/11/19 Status: Ordered Quantity: 90.0 Unit: tablet Repeat number: 1 Losartan = 50 mg, By Mouth, Daily in AM, 0 Refills, Maintenance, 10/29/18 10:38:24 AM EDT Start Date: 10/29/18 Status: Ordered Repeat number: 1 Metformin = 1,000 mg, By Mouth, 2 times a day, 0 Refills, Maintenance, 10/18/13 4:10:06 PM EDT Start Date: 10/18/13 Status: Ordered Repeat number: 1 oxyCODONE 5 mg oral tablet 5 mg, 1, tablet, By Mouth, Every 4 hours, PRN, # 42 tablet, Refills 0, Tot. Refills 0, Maintenance,as needed for pain, 09/05/22 2:22:00 PM EST, Route to Pharmacy Electronically, [facility], Partial fill upon patient request if the prescription is for a schedule II opioid drug., 170, cm, 09/05/22 6:41:00 EST, Height, 86, kg, 09/02/22 12:06:00 EST, Dry Weight Start Date: 09/05/22 Status: Ordered Quantity: 42.0 Unit: tablet Repeat number: 1 pantoprazole 40 mg oral delayed release tablet 1 tablet = 40 mg, By Mouth, Daily in AM, # 90 tablet, 0 Refills, Maintenance, 09/11/19 1:43:00 PM EST, EC Tablet Start Date: 09/11/19 Status: Ordered Quantity: 90.0 Unit: tablet Repeat number: 1 sertraline 50 mg oral tablet 1 tablet = 50 mg, By Mouth, Daily in AM, # 30 tablet, 0 Refills, Maintenance, 09/11/19 1:43:00 PM EST, Tablet Start Date: 09/11/19 Status: Ordered Quantity: 30.0 Unit: tablet Repeat number: 1 tiZANidine 4 mg oral tablet 4 mg, 1, tablet, By Mouth, 3 times a day, # 90 tablet, Refills 0, Tot. Refills 0, Maintenance, 09/05/22 2:21:00 PM EST, Route to Pharmacy Electronically, [facility], Partial fill upon patient request if the prescription is for a schedule II opioid drug., 170, cm, 09/05/22 6:41:00 EST, Height, 86, kg, 09/02/22 12:06:00 EST, Dry Weight Start Date: 09/05/22 Status: Ordered Quantity: 90.0 Unit: tablet Repeat number: 1 Tresiba 100 units/mL subcutaneous solution Start Date: 09/12/19 Status: Ordered Repeat number: 1 Trulicity Pen 1.5 mg/0.5 mL subcutaneous solution 0.5 mL = 1.5 mg, Subcutaneous Injection, Every week, 0 Refills, Maintenance, 09/11/19 1:45:00 PM EST, Solution Start Date: 09/11/19 Status: Ordered Repeat number: 1 Problem List Condition Confirmation Course Effective Dates Status Health St atus Informant Stroke Confirmed Active Chest pain Confirmed Active Diabetes Confirmed Active GERD (gastroesophageal reflux disease) Confirmed Active Hypertension Confirmed Active Results Radiology Reports * Exam Date Time Procedure Performing Provider Status 06/03/24 3:[address] Abd/Pelvis W/O + W/ IV Contrast Rahul Brooks; Modified Notes: (CT Abd/Pelvis W/O + W/ IV Contrast) Reason For Exam: hematuria RESULT: CT Abd/Pelvis W/O + W/ IV Contrast CT Abd/Pelvis W/O + W/ IV Contrast Reason: hematuria TECHNIQUE: Spiral CT through the abdomen and pelvis with and without IV contrast, formatted in 3 planes. Urogram protocol was used with a 10 minute delayed sequence obtained for ureteral evaluation. 100 cc of Isovue 300 was administered intravenously. This study was performed without oral contrast. Weight-based protocol using automatic tube modulation was used to optimize exposure parameters. COMPARISON: None FINDINGS: [place] Support Worker View Findings, Lines and Tubes: Posterolateral and interbody lumbar fusion hardware at L3-4. Visualized Chest: Included lung bases are clear. No basilar pleural effusion. Liver: No evidence of focal parenchymal lesion or surface contour abnormality. Gallbladder: Mild diffuse gallbladder wall thickening. No evidence of calcified gallstone. Bile ducts: No biliary ductal dilation. Spleen: Within normal limits in size without focal abnormality Pancreas: Within normal limits in CT appearance. No evidence of peripancreatic collection. Adrenal glands: No suspicious nodule Kidneys and ureters: Evaluation is limited due to streak artifact emanating from lumbar spine orthopedic hardware. Exophytic finding at the lower pole of the right kidney measuring 1.8 cm in diameteris incompletely evaluated. Cysts at the anterior interpolar cortex and upper pole cortex of the right kidney measuring 0.9 and 0.7 cm. Mild wall thickening of the left distal ureter and mild fullness of the left renal collecting system. Nonobstructing renal calculi measuring 0.4 and 0.3 cm on the right and left respectively. Bladder: Within normal limits. No evidence of outwardly convex mass or calculus. Reproductive organs: Unremarkable. Stomach, small bowel, and large bowel: Detailed evaluation is suboptimal without enteral opacification and distention. The stomach is mildly distended with ingested or inspissated contents. Small andlarge bowel loops are normal in caliber. Mild amount retained stool throughout the colon and rectum. No evidence of pericolonic fat stranding. Appendix: Not visualized with certainty. No secondary evidence of acute appendicitis. Peritoneum and retroperitoneum: No ascites or pneumoperitoneum. No omental or mesenteric lesions. Lymph nodes: No enlarged lymph nodes. Blood vessels: Moderate atherosclerotic vascular calcification. No aortic aneurysm. Abdominal and pelvic wall: No acute abnormality Bones: No acute abnormality.Posterolateral and interbody fusion hardware at the L3-4 level. Degenerative endplate ridging at L3-4 and L4-5. IMPRESSION: Mild wall thickening of the left distal ureter and mild fullness of the left renal collecting system. In the setting of hematuria, urothelial neoplasm cannot be excluded and urology consultation is recommended Kidneys are partially obscured due to artifact emanating from orthopedic hardware. Exophytic finding at the lower pole the right kidney (1.8 cm) is therefore incompletely evaluated. Further evaluation with ultrasound or MRI is recommended Small nonobstructing renal calculi bilaterally Mild diffuse gallbladder wall thickening. Further evaluation with right upper quadrant ultrasound is recommended. An actionable message (Yellow) has been communicated via the [employer] system on 06/04/2024 10:50 AM, Message ID [id number]. WSN: [id number] Ordering Physician: Miguelangel Ag Dictated By: Cassie Arguelles MD, Dariel Moralez Dictated Date/Time: 06/04/24 10:50 a Reviewed By: Dariel Matthews Jr, MD Signed By: Dariel Matthews Jr, MD Signed Date/Time: 06/04/24 10:50 am Transcribed By: CHARAN Transcribed Date/Time: 06/04/24 10:26 am Social History Social History Type Response Smoking Status Never smoker entered on: 08/04/14 Sex Sex Representation Female (finding) Patient Care team information Care Team Personnel Name: Valarie Hudson MD Position: [facility] Physician - Primary Care Member Role: PCP Address: [address] [place] [id number] Telecom: Care Team Related Persons Name: PONCE MELO Name: NEVAEH LONDONO Insurance Providers Guarantor name: KAE LONDONO Health Plan Information #: 1 Payer: NA Member Number: [id number] Policy Number: NA Group Number: ELLIE Health Plan Information #: 2 Payer: NA Member Number: [id number] Policy Number: ELLIE Group Number: [id number]
--- OUTSIDE RECORDS SUMMARY | 2024-07-02 16:43 | XMS_ITS | Data Portability ---
Author Organization [place] [facility] Kirt Suarez [place] Address [address] [place] [address] Care Team Providers Care Geospatial Analyst Name Role Phone SOL MCNAMARA Primary Care Provider [phone] SOL MCNAMARA Referring Provider Assessment Encounter Date Assessment Date Assessment LastModified by Organization Details LastModified Time 06/27/2024 06/27/2024 She likely has a degenerative lateral meniscus tear. We discussed the nature of this injury at length today. My recommendations were to monitor her symptoms, trial Tylenol, diagnostic versus therapeutic cortisone injections, viscosupplementation or physical therapy for initial management. Patient is unwilling to try conservative measures and is requesting an MRI. We discussed that this is likely not going to change her management at this time. The order was placed, she understands that this has a possibility of being denied. She can follow-up with our arthroplasty team in 2 weeks to review results and further management. [email or web address] Not available 06/27/2024 09:18:50 Plan of Treatment Reminders Order Date Submit Date Provider Last Modified By Organization Details Last Modified Time Details Appointments ESTABLISH ED/AONE REFERRAL 2023 02:00P M MONICA CASTANEDA PA-C Not available Not available Not available Lab None recorded. Referral None recorded. Procedures None recorded. Surgeries None recorded. Imaging XR, knee, 3 view 2023 024 [email or web address] [facility], [address], [place], [address], 06/27/2024 09:15:43 MRI, knee, w/o contrast - r.o lateral meniscus tear 2023 024 [email or web address] Not available 06/27/2024 12:27:43 Medication Orders None recorded. Patient TargetsNo targets recorded. 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 Prior arthroplasty of the contralateral knee is stable [email or web address] Not available 06/27/2024 09:19:09 Reason for Referral None Reported. Procedures Surgical History Date Name Laterality Status Provider Name and Address Organization Details Recorded Time total knee replacement completed [facility], [facility] 06/27/2024 08:54:55 Shoulder Surgery completed [facility], [facility] 06/27/2024 08:55:11 lumbar spinal fusion completed [facility] 06/27/2024 08:55:28 Imaging Results None recorded. Procedure Notes None recorded. Medical Equipment None Reported. Allergies Allergen ID Allergen Name Allergen Category Reaction Reaction Severity Criticality Documentation Date Start Date Code Code System Note Provider Name and Address Organization Details Recorded Time Medicinal product containin g penicilli n and acting as antibacte rial agent (product) medicatio n Not available Not available Not available 06/27/2024 83867 05 SNOMED Crystal Saldana [facility], [facility], P 4 08:53:10 Vancocin medicatio n Not available Not available Not available 06/27/202481846 8 RxNorm Crystal Saldana null, [facility] [place], [facility] 4 08:53:22 Levaquin medicatio n Not available Not available Not available 06/27/202453184 2 RxNorm Crystal Saldana null, [facility] [place], [facility] 4 08:53:30 Vitals Date Recorded Body height Body mass index (BMI) Body weight Provider Name and Address Organization Details Last Updated DateTime 06/27/2024 170.18 cm 23.5 kg/m2 01140.[address] [facility] 06/27/2024 08:53:40 Social History Question Answer Notes LastModified by Organizat ion Details LastModified Time Tobacco Smoking Status Former Smoker Carey Saldana null, [place] [facility] 06/27/2024 08:54:12 What Is Your Level Of Alcohol Consumption? None [email or web address] Information not available 06/27/2024 Do You Use Any Illicit Or Recreational Drugs? No [email or web address] Information not available 06/27/2024 Do You Or Have You Ever Used Any Other Forms Of Tobacco Or Nicotine? No [email or web address] Information not available 06/27/2024 Sex: Unknown Functional Status None recorded. Mental Status None recorded. Family History Relationship Description Onset Age of this Age Resolved Age Notes LastModified by Organization Details LastModified Time Mother History of cancer of unknown primary site [email or web address] Not available 11/2023 08:54:35 Father Diabetes mellitus [email or web address] Not available 2023 08:54:42 Medical History Condition Response Diabetes Y Stroke Y Hypertension Y Gynecological HistoryNo gynecological history recorded. Obstetrics History GPAL:G 0 P 0 0 0 0 Past Encounters Encounter ID Performer Location Encounter Start Date Encounter Closed Date Diagnosis/Indication Diagnosis SNOMED-CT Code Diagnosis ICD10 Code [id number] Henrique Escobar MD [facility] [address] [place] [id number] 06/27/2024 08:39:30 06/27/2024 09:15:42 Pain of left knee region 6762605048 82212 M25.562 Health Concerns Section Related Observation LastModified by Organization Detai ls LastModified Time None Recorded Concern Status LastModified by Organization Details LastModified Time None Recorded Advance Directives Directive None Recorded Payers Encounter Date Sequence Insurance Name Policy Number Policy Mercedes Covered Member ID Mercedes Member ID Guarantor Name 06/27/2024 1 [place]/ [place]ANT[place] - PPO) [id number] Galilea Hilton [id number] Galilea Hilton Notes Date Note Type Note Provider Name and Address Organization Details Recorded Time 06/27/2024 text/html Galilea Hilton is a 64 year old female who presents as a walk in patient today for evaluation of her left knee. There has been no known injury. Her pain began approximately 3 weeks ago. She has previously been treated for her right knee for a meniscus tear and subsequently underwent a right knee arthroplasty in [place]. Her current pain is localized to her lateral knee. This pain is aching and sharp. She has pain with extension of the knee. This pain is moderate and overall worsening. Prior treatments include ice only. She is a retired nurse. She has a medical history significant for asthma, type 2 diabetes on metformin, hypertension and a prior stroke. She is on Eliquis 5 mg twice daily. She is on Ozempic weekly. NOMAN SHARIF PA-C [address], [place], [address], [place] [facility] 06/27/2024 09:19:40 OBGyn Episode No OBEpisode recorded.
--- OUTSIDE RECORDS SUMMARY | 2024-07-02 16:44 | XMS_ITS ---
Author Name [facility] Organization Unknown Allergies Allergen Reaction Severity Comment Documented Date Source Statu s LEVAQUIN ENS_AONECT VANCOCIN ENS_AONECT PENICILLINS ENS_AONECT
== END 2024-06-26 09:06 | disposition home or self-care (01) ==
LOC: HO.MRI 09:05
PROVIDERS: PCP Internal Medicine; Visit Provider Urology
DX: R31.0 Gross hematuria (principal)
CPT/HCPCS: 72197; 74183; A9585

== ENCOUNTER → 2024-07-02 23:59 | Outpatient (BNV) | payer MEDICARE, SELFPAY | PROVIDERS: PCP Internal Medicine; Visit Provider Internal Medicine Cardiovascular Disease | DX: I20.89 Other forms of angina pectoris (principal) | CPT/HCPCS: 93458; 99152 ==

== ENCOUNTER → 2024-07-23 13:55 | Outpatient (REF) | payer MEDICARE, SELFPAY ==
--- OUTSIDE RECORDS SUMMARY | 2024-07-23 13:57 | XMS_ITS | Data Portability ---
Author Organization [place] [facility] Kirt Suarez [place] Address [address] [place] [address] Care Team Providers Care Forest Nursery Worker Name Role Phone SOL MCNAMARA Primary Care Provider [phone] SOL MCNAMARA Referring Provider [phone] Assessment Encounter Date Assessment Date Assessment LastModified [...] weeks to review results and further management. [email or web address] Not available 06/27/2024 09:18:50 Plan of Treatment Reminders Order Date Submit Date Provider Last Modified By Organization Details Last Modified Time Details Appointments None record ed. Lab None record ed. Referral None record ed. Procedures None record ed. Surgeries None record ed. Imaging XR, knee, 3 view 024 06/27/20 24 [email or web address] 252 [facility], [address], [address], [place], [address], 4 09:15:43 Medication Orders None record ed. Patient TargetsNo targets recorded. Patient Instructions Encounter Date Encounter Id Patient Instructions Last Modified By Organization Details Last Modified Time 06/27/2024 [id number] X-rays of the le ft knee were obtained on 06/27/2024 which demonstrates tricompartmental degenerative changes most severe at her patellofemoral compartment and medial compartment. Prior arthroplasty of the contralateral knee is stable [email or web address] Not available 06/27/2024 09:19:09 Reason for Referral None Reported. Procedures Surgical History Date Name Laterality Status Provider Name and Address Organization Details Recorded Time [facility] 08:54:55 Shoulder Surgery completed [facility], [facility] 06/27/2024 08:55:11 lumbar spinal fusion completed [facility], 06/27/2024 08:55:28 Imaging Results None recorded. Procedure Notes None recorded. Medical Equipment None Reported. Allergies Allergen ID Allergen Name Allergen Category Reaction Reaction Severity Criticality Documentation Date Start Date Code Code System Note Provider Name and Address Organization Details Recorded Time Medicinal product containin g penicilli n and acting as antibacte rial agent (product) medicatio n Not available Not available Not available 06/27/2024 70927 05 SNOMED Crystal Les null, [facility], P 4 08:53:10 Vancocin medicatio n Not available Not available Not available 06/27/202420381 8 RxNorm Crystal Saldana null, [facility], [facility] 4 08:53:22 Levaquin medicatio n Not available Not available Not available 06/27/202431625 2 RxNorm Crystal Saldana null, [place] [facility], P 4 08:53:30 Vitals Date Recorded Body height Body mass index (BMI) Body weight Provider Name and Address Organization Details Last Updated DateTime 06/27/2024 170.18 cm 23.5 kg/m2 52420.86 g Crystal Les [facility], P 06/27/2024 08:53:40 Social History Question Answer Notes LastModified by Organizat ion Details LastModified Time Tobacco Smoking Status Former Smoker Carey Saldana null, [facility], P 06/27/2024 08:54:12 What Is Your Level Of Alcohol Consumption? None [email or web address] Information not available 06/27/2024 Do You Use Any Illicit Or Recreational Drugs? No [email or web address] Information not available 06/27/2024 Do You Or Have You Ever Used Any Other Forms Of Tobacco Or Nicotine? No Information not available 06/27/2024 Sex: Unknown Functional Status None recorded. Mental Status None recorded. Family History Relationship Description Onset Age of this Age Resolved Age Notes LastModified by Organization Details LastModified Time Mother History of cancer of unknown primary site [email or web address] Not available 11/2023 08:54:35 Father Diabetes mellitus [email or web address] Not available 2023 08:54:42 Medical History Condition Response Diabetes Y Stroke Y Hypertension Y Gynecological HistoryNo gynecological history recorded. Obstetrics History GPAL:G 0 P 0 0 0 0 Past Encounters Encounter ID Performer Location Encounter Start Date Encounter Closed Date Diagnosis/Indication Diagnosis SNOMED-CT Code Diagnosis ICD10 Code [id number] Henrique Escobar MD Replaced by [facility] [address] [place] [phone] 06/27/2024 08:39:30 06/27/2024 09:15:42 Pain of left knee region 2402092779 95111 M25.562 Health Concerns Section Related Observation LastModified by Organization Detai ls LastModified Time None Recorded Concern Status LastModified by Organization Details LastModified Time None Recorded Advance Directives Directive None Recorded Payers Encounter Date Sequence Insurance Name Policy Number Policy Mercedes Covered Member ID Mercedes Member ID Guarantor Name 06/27/2024 1 [place] - [place]) [id number] Galilea Hilton [id number] Galilea Hilton Notes Date Note Type [...] subsequently underwent a right knee arthroplasty in [place]. Her current pain is localized to her [...] NOMAN SHARIF PA-C [address], [place], [address], [place] [facility], [facility] 06/27/2024 09:19:40 OBGyn Episode No OBEpisode recorded.
--- OUTSIDE RECORDS SUMMARY | 2024-07-23 13:57 | XMS_ITS | Continuity of Care Document ---
Author Organization [facility] ter Address [address] [place] [id number]- Care Team Providers Care Satellite Dish Repairer Name Role Phone Valarie Hudson MD Primary Care Physician [phone] [facility] [id number] Date(s): 07/02/24 - 07/02/[address] [address] Discharge Disposition: A-D/C Home Attending Physician: Rosalino Spears MD Admitting Physician: Rosalino Spears MD Referring Physician: Say Stovall MD Encounter Type: Disch Daystay Allergies, Adverse Reactions, Alerts Substance Criticality Severity [...] 2:22:00 PM EST, Route to Pharmacy Electronically, [facility], Partial fill upon patient request [...] 2:21:00 PM EST, Route to Pharmacy Electronically, [facility], Partial fill upon patient request [...] reflux disease) Confirmed Active Hypertension Confirmed Active Vital Signs Most recent to oldest [Reference Range]: 1 2 3 Height 170 cm (07/02/24 10:00 AM) Weight 70.0 kg (07/02/24 10:00 AM) Oxygen Saturation [94-100 %] 99 % (07/02/24 2:14 PM) 99 % (07/02/24 1:44 PM) 100 % (07/02/24 1:14 PM) Pulse Rate [55-90 bpm] 66 bpm (07/02/24 10:00 AM) Body Mass Index [18.5-24.99 kg/m2] 24.22 kg/m2 (07/02/24 10:00 AM) Blood Pressure [90-138/55-84 mm Hg] 112/63mm Hg (07/02/24 2:00 PM) 122/61mm Hg (07/02/24 1:30 PM) 111/68mm Hg (07/02/24 1:00 PM) Respiratory Rate [16-30 br/min] 13 br/min *L* (07/02/24 2:14 PM) 15 br/min *L* (07/02/24 1:44 PM) 21 br/min (07/02/24 1:14 PM) Temperature [96.8-100.4 DegF] 97.4 DegF (07/02/24 10:00 AM) Mode of Delivery (Oxygen) Room air (07/02/24 2:00 PM) Room air (07/02/24 1:30 PM) Room air (07/02/24 1:00 PM) Blood pressure sites Arm, right (07/02/24 2:00 PM) Arm, left (07/02/24 1:30 PM) Arm, left (07/02/24 1:00 PM) Temperature Route Temporal (07/02/24 10:00 AM) Dry Weight 70.0 kg (07/02/24 10:00 AM) Weight Obtained Via Standing scale (07/02/24 10:00 AM) Dry Weight Obtained Via Standing scale (07/02/24 10:00 AM) Social History Social History Type Response Smoking Status Never smoker entered on: 08/04/14 Sex Sex Representation Female (finding) Note * Event Display: Hemodynamic Procedure Report Authored Date: * Event Display: Hemodynamic Procedure Report Authored Date: * Shelly Renee RN: PERFORM Event Display: Discharge/Transfer Note Hospital Authored Date: [id number] Nursing Discharge Note Entered On: 07/02/2024 16:38 EST Performed On: 07/02/2024 15:31 EST by Shelly Renee RN Nursing Discharge Note 2 Discharge Time : 07/02/2024 15:31 EST Discharge Level of Care at Discharge : Home/Halfway/Foster Care Patient Left Unit Via : Wheelchair Patient Accompanied Off Unit with : Significant other DC Instructions Provided & Signed by Pt : Yes Patient Understands D/C Instructions : Yes Patient Instructions Discharge Signed : Yes Did Pt have Specialty Bed or Wound Vac : No Shelly Renee RN - 07/02/2024 16:37 EST * Shelly Renee RN: PERFORM Event Display: Patient Education/Instruction Authored Date: [id number] Inpatient Adult Discharge Instructions. [address] [address] Name: KAE LONDONO : 1960?? Visit: 07/02/2024 09:32?? Current Date: 07/02/2024 11:40 ?? Account: [id number]?? Inpatient Adult Discharge Instructions We would like to thank you for allowing us to assist you with your healthcare needs. The following includes patient education materials and information regarding your injury/illness. Our entire staffstrives to provide an excellent experience for our patients and their families. PLEASE ENSURE YOU FOLLOW-UP PER THE INSTRUCTIONS BELOW! ?? YOUR OPINION IS IMPORTANT TO US! Please complete the survey you may receive by mail or email. Your feedback will be used to make improvements to the healthcare experiences of our patients and their families. Surveys are administered by [employer]. ?? If further treatment with your primary care physician or another doctor is recommended, it is important for you to keep the appointment. Call your primary care physician or return to the Emergency Department immediately if your condition worsens, fails to improve, or new symptoms develop. If you need to find a doctor, you can call [facility] [employer] Link for a referral at [phone] or toll free at [phone] or log in to [email or web address] ?? [facility], in keeping with [facility] guidance, no longer requires face masks for staff, patientsor visitors in most situations. Similiar to time spent indoors at other locations, there is the chance that you were exposed to repiratory viruses during your time with us (such as flu or COVID-19). If you develop symptoms concerning for a viral respiratory infection, please seek testing (and treatment if indicated) from your medical provider or home test kit. ?? You can view and manage your care through the patient portal or by using a health care khang of your choosing. [employer] is a website that allows you to securely view your medical information including your hospital discharge summary, office visit summaries, medications and follow-up visits. You can also request appointments, renew medications, and request access to your medical information using a health care khang of your choosing, or just ask a question. You can enroll at [email or web address] or register during your next office visit. You have been discharged from [facility], Patient Care Unit: [facility]??. If you have any questions regarding these instructions, including results of studies pending, afteryou leave, please call us and we will be happy to assist you 13/02. [facility] Nursing Unit Direct Phone Number, for 13/02 contact and results of studies pending [facility] [address] [place] [address] Your Care Team Attending Physician Rosalino Spears MD?? Consulting Providers Rosalino Spears MD?? Discharging Providers Rosalino Spears MD Tests Performed Below is a partial list of the tests performed during your hospitalization. You may have had other tests and procedures not included in this list. Please discuss all test results with your provider. GLUCOSE POC Glucose POC?? Primary Care Provider Valarie Hudson MD? Advance Directive Health Care Proxy on File No Discharge Vitals Temperature: 97.4 DegF Height: 170 cm Pulse Rate: 66 bpm Weight: 70 kg Respiratory Rate: 18 br/min Body Mass Index: 24.22 kg/m2 Systolic Blood Pressure: 134 mm Hg Body surface area: 1.82 Diastolic Blood Pressure: 74 mm Hg ?? Oxygen Saturation: 97 % ?? Studies Pending All studies ordered during this hospital stay have been completed unless listed below. Please discuss all pending results with your provider listed above in these instructions. ?? No incomplete studies found?? What to do next Instructions From Your Doctor ?? Orders?? Daystay Protocol, ??07/02/24 10:55:00 EST?? You Need to Schedule the Following Appointments Follow Up with??Clementine Stovall DDS When:??Within 2 to 3 weeks Discharge Medications KAE LONDONO :1960 Visit Date:07/02/2024 Medications: Please continue your medications until treatment is completed or stopped by your provider. Medications not listed below should be discontinued. Discuss any questions related to medications with your provider. What How Much When Instructions Next Dose Unchanged Albuterol (albuterol CFC free 90 mcg/ inh inhalation aerosol) 2 puff(s) Inhalation Every 4 hours as needed for for wheezing as prescribed Unchanged dulaglutide (Trulicity Pen 1.5 mg/ 0.5 mL subcutaneous solution) 0.5 Milliliter Subcutaneous Injection Every week as prescribed Unchanged Fluticasone-Salmeterol (Advair Diskus 250 mcg-50 mcg inhalation powder) 1 puff(s) Inhalation Twice a day as prescribed Unchanged Gabapentin (gabapentin 600 mg oral tablet) 1 tab(s) Oral 3 times a day as prescribed Unchanged insulin degludec (Tresiba 100 units/ mL subcutaneous solution) as prescribed Unchanged Losartan 50 Milligram Oral Daily in the morning as prescribed Unchanged Metformin 1,000 Milligram Oral Twice a day as prescribed Unchanged Oxycodone (oxyCODONE 5 mg oral tablet) 1 tab(s) Oral Every 4 hours as needed for as needed for pain as prescribed Unchanged Pantoprazole (pantoprazole 40 mg oral delayed release tablet) 1 tab(s) Oral Daily in the morning as prescribed Unchanged Rosuvastatin (Crestor 40 mg oral tablet) 1 tab(s) Oral Daily at Bedtime as prescribed Unchanged Sertraline (sertraline 50 mg oral tablet) 1 tab(s) Oral Daily in the morning as prescribed Unchanged Tizanidine (tiZANidine 4 mg oral tablet) 1 tab(s) Oral 3 times a day as prescribed Prescription Given During Visit No new medications prescribed at time of discharge.?? Laboratory Results Below is a partial list of the most recent Laboratory test results done prior to this discharge. You may have had other tests and procedures not included in this list. Please discuss all test resultswith your provider. GLUCOSE POC (07/02/2024) ???Glucose, POC - 126 mg/dL You will be contacted within 72 hours with your results. Allergies (NKA means No Known Allergies) Vancomycin Hydrochloride??(intense itching, Vancomycin allergy) penicillins??(rash, Allergy to penicillin) Problems Active Problems??(5) Chest pain?? Diabetes?? GERD (gastroesophageal reflux disease)?? Hypertension?? Stroke?? Education Materials Below is the list of Educational Leaflet Providered with your Discharge Instructions. Valuables and Belongings I fully understand and agree that [facility] accepts no responsibility for all my personal property including clothing, toilet articles, radios, jewelry, dentures, hearing aids, rings, money, or any other property that is in my possession or is brought to me after admission. I understand certain valuables may be placed in a hospital safe for a short period of time. I understand that the hospital is not liable for loss or damage due to accident, fire, or other natural occurrence while said property is in the safe. I accept full responsibility for any personal property that I keep with me, and will not hold the hospital responsible in case of loss or disappearance. I acknowledge that i have been encouraged to send valuables and belongings home. ?? Review of Valuable and Belonging List: With patient Date for Pt to Sign Valuables/Belongings: 07/02/24 10:27:00 ?? Valuables & Belongings ?? Clothes Electronic devices Jewelry Monetary Items Personal devices Miscellaneous Medications (Valuables) Valuables at Bedside Jacket, Pants, Shirt, Shoes, Undergarments ? Purse ? Valuables Sent Home ? Valuables Sent to Security ? Valuables Sent to Locker ? Other Discharge Information ? Pulmonary Rehab Status?? Pulmonary Rehab Discharge Status?? Respiratory Rate: 18 br/min ? Common Emergency Awareness Tips IS IT A STROKE? Act FAST and Check for these signs: FACE Does the face look uneven? ARM Does one arm drift down? SPEECH Does their speech sound strange? TIME Call at any sign of stroke ?? Heart Attack Signs Chest discomfort: Most heart attacks involve discomfort in the center of the chest and lasts more than a few minutes, or goes away and comes back. It can feel like uncomfortable pressure, squeezing, fullness or pain. Discomfort in upper body: Symptoms can include pain or discomfort in one or both arms, back, neck, jaw or stomach. Shortness of breath: With or without discomfort. Other signs: Breaking out in a cold sweat, nausea, or lightheaded. Remember, MINUTES DO MATTER. If you experience any of these heart attack warning signs, call to get immediate medical attention! ?? Smoking can increase your chances of developing chronic health problems and can cause harmful effects to other family members in your house. If you smoke, you are strongly encouraged to quit. Please call [facility] [employer] at [phone] or [phone] ([phone]) or log in to [email or web address] for referrals to smoking cessation programs. ?? 939 Suicide & Crisis Lifeline is available 13/02 if you or someone you know needs to find a reason to keep living. By calling 949 you'll be connected to a skilled, trained counselor at a crisis center in your area. INPATIENT DISCHARGE INSTRUCTIONS SIGNATURE PAGE KAE LONDONO Location:[facility] Registration Date and Time:07/02/2024 09:32 EST Primary Care Physician: Becca VILLATORO, Valarie, Attending Physician: Regan VILLATORO, Rosalino, I BRYKAE, have received the above patient education materials/instructions and have verbalized understanding. If ambulance or transport services are being used I further acknowledge being givena choice of service. ?? If you need to contact me, please call me at this number: . Patient/Catalyst Impregnator Name: Patient/Catalyst Impregnator Signature: Relationship to Patient: Witness Name/Signature: Date: * Shelly Renee RN: PERFORM Event Display: Patient Education Leaflets Authored Date: [id number] Understanding Transradial Cardiac Catheterization ?? 35699 Understanding Transradial Cardiac Catheterization Cardiac catheterization (cardiac cath) is a common, non-surgical procedure. During the procedure, your doctor will insert a long, thin tube (catheter) into an artery and move it up into your heart. Transradial means the catheter is inserted into an artery in the wrist (the radial artery) rather than the groin (the femoral artery). This procedure can be used to diagnose and treat certain heart problems. Why do I need a transradial cardiac cath? You may need a cardiac cath if signs indicate a problem with your heart. These may include: ??? Symptoms of chest pain, tightness, or heaviness (known as angina). This is a common symptom of blocked heart arteries, known as coronary artery disease. ??? Symptoms of weakness, dizziness, trouble breathing, or swollen legs or feet. These may be symptoms of a problem with a heart valve or the heart muscle. ??? Other test results show heart problems. Tests may include stress tests, heart scans, and echocardiography. During a cardiac cath, your doctor can see the condition of the coronary arteries and heart valves.They can also check how well the heart pumps and the flow of blood through the heart. Your doctor can also measure pressures and take blood samples. And, if needed, they can open blocked arteries. This can help reduce symptoms of angina. Cardiac cath is often done using a catheter inserted into an artery in the groin. During transradial cardiac cath, the catheter is inserted into an artery in the wrist. This can mean less bleeding and a faster recovery. Some people may have blockages in the groin arteries as well as in the heart arteries, making it hard to reach the heart. The transradial approach can be used to get around this problem.? What happens during a transradial cardiac cath? The procedure is done in the hospital or a surgery center. First, an IV line is put in your arm or hand to deliver fluids and medicines. You will likely be given medicine to relax you and make you drowsy. When the procedure starts: ??? You lie on an X-ray table. ??? The skin over the insertion sitein your wrist is numbed. ??? The doctor makes a tiny puncture or incision into the artery in the wrist. They then insert a catheter and threads it through the blood vessel into your heart. ? Thedoctor may inject a contrast fluid through the catheter into the arteries. This fluid makes the arteries show up better on X-rays. ??? Tests may be done to check the condition of your heart and arteries. If needed, the doctor can clear blockages in the arteries or do other repairs. ??? When the doctor is finished, they will remove the catheter and put pressure on the site to prevent bleeding. They could use a special device to reduce how long the pressure needs to be on. Or they could use an inflatable band to keep pressure on the site. Nursing staff will gradually reduce the pressure in the band after your procedure. ??? You will stay for a time to recover, and then go home. If this was anemergency procedure, you will likely stay in the hospital at least overnight. ?? What are the risks of transradial cardiac cath? These include: ??? Bleeding, bruising, infection, or blood clots ??? Damage to the radial artery that may cause injury to the hand ??? Nerve damage to the hand ??? Allergic reaction to the contrast fluid ??? Abnormal heartbeat (arrhythmia) ??? Damage to blood vessels or tissues ??? Kidney damage orfailure ??? The need for emergency heart surgery ??? Heart attack, stroke, or ?? Last Reviewed Date: 2021 ?? [id number] [employer]. All rights reserved. This information is not intended as a substitute for professional medical care. Always follow your healthcare professional's instructions. ?? * Shelly Renee RN: PERFORM Event Display: Patient Education Leaflets Authored Date: [id number] Recovery After Procedural Sedation (Adult) ?? [id number] Recovery After Procedural Sedation (Adult) You have been given medicine by vein to make you sleep during your procedure. This may have included both a pain medicine and sleeping medicine. You may have side effects, such as nausea, fatigue, orunsteadiness for up to 24 hours. You may also feel lightheaded. Home care Follow these guidelines when you get home: ??? For the next 8 or more hours, ask a trusted adult to watch over you. This person should make sure your condition is not getting worse, watch for problems, and keep you safe. ??? Don't drink any alcohol??for the next 24 hours. ??? Don't drive, operate dangerous machinery, or make important business or personal decisions??during the next 24 hours. ??? Take extra care when walking and moving, You may be at a higher risk of falling. ??? Follow any instructions you were given for eating and drinking. ??? Be sure to follow all after-care directions. Note: Your healthcare provider may tell you not to take any medicine by mouth for pain or sleep in the next 4 hours. These medicines may react with the medicines you were given in the hospital. This could cause a much stronger response than usual. ?? Follow-up care Follow up with your healthcare provider as advised. ?? When to seek medical advice Have someone call your healthcare provider or seek medical care right away if any of these occur: ??? Drowsiness gets worse ??? Weakness or dizziness gets worse ??? Repeated vomiting ??? Your speech is slurred, and others cannot understand you. ??? Severe or ongoing pain from the procedure that's not eased by the pain medicine (if prescribed) ??? Fever ??? New rash ?? Call 911 Have someone call 911 if you develop any of these symptoms: ??? Trouble breathing ??? Trouble swallowing ??? Chest pain ??? Loss of consciousness or you can't be awakened ?? Last Reviewed Date: 2023 ?? [id number] [employer]. All rights reserved. This information is not intended as a substitute for professional medical care. Always follow your healthcare professional's instructions. ?? * Shelly Renee RN: PERFORM Event Display: Patient Education Leaflets Authored Date: [id number] Bleeding or Hematoma After Cardiac Catheterization ?? [id number] Bleeding or Hematoma After Cardiac Catheterization You recently had cardiac catheterization. A catheter was put into your body through a puncture of an artery in your groin or arm. You now have bleeding from this site. When bleeding occurs, it may drip or spurt from the site. Or it may collect in a lump (hematoma) under the skin. This often requires urgent evaluation in an emergency room. First put direct pressure on the site and call 911 or havesomeone take you to the emergency room. In the emergency room, more pressure will be put on the site to stop bleeding. You may be sent home if the bleeding can be controlled and you are feeling well enough. To prevent repeat bleeding, take some precautions at home. If the bleeding starts again, follow the advice below. Home care For the next 48 hours: ??? Don't do any strenuous activity. ??? Don't climb any stairs if possible ??? Don't lift anythinggreater than 5 pounds. ??? If the puncture site is in your arm or wrist, don't lie on that arm. ???If your puncture site is in the groin, don't??strain at bowel movements. ??? Don't scrub the site when bathing. It's fine to get it wet after your healthcare provider says it's OK, but don't scrub itor massage it. Don't take a tub bath for 3 days after the procedure. ??? Don't drive for the next 48 hours If bleeding happens again, call 911. Take the following steps to stop the bleeding until help arrives: ??? Lie on your back. ??? Place a clean cloth or gauze pad over the puncture site. Then hold firm pressure right on the site. Or have someone else apply firm pressure using the??gauze pad or??washcloth. ??? Keep your arm straight and raised above the level of your heart if the site is in your arm or wrist. If the site is in your groin, have someone else hold pressure on the site. ??? Don't press too hard! If you press too hard, your leg and foot (or arm and hand) will not get blood flow and??the skin under your toenails or fingernails may turn white. The skin should look pink, like the toen ails on your other foot. When you (or someone) presses on the toenail it will turn white, but when you stop pressing on the nail it will turn pink again. This is called capillary refill. If there is someone with you, they can check it. ??? If your toes, foot, or leg start feeling numb, tingly, orcold, ease up on the pressure, you are probably pressing too hard. ??? As soon as emergency care arrives, they will take over your care. ?? Follow-up care Follow up with your healthcare provider, or as advised. Ask your healthcare provider for a contact number to call. ?? Call 911 Call 911 if any of these occur: ??? Chest pain or pressure ??? Any bleeding from the site ??? Feeling weak or faint ??? Trouble breathing ??? Lump (hematoma) is??quickly getting larger ??? Coolness, numbness, tingling, or skin color changes in the leg or arm with the puncture site ?? When to seek medical advice Call your healthcare provider right away??if any of these occur: ??? Increased pain, redness, swelling, or drainage from the puncture site ??? Nausea or vomiting ??? Fever of 100.4??F (38??C) or higher, or as directed by your provider ?? Last Reviewed Date: 2021 ?? [id number] [employer]. All rights reserved. This information is not intended as a substitute for professional medical care. Always follow your healthcare professional's instructions. ?? History and physical note * Event Display: History and Physical Hospital Authored Date: EKG study * Event Display: ECG 12-Lead Authored Date: Please click on pdf link to open report * Event Display: ECG 12-Lead Authored Date: Ventricular Rate: 61 BPM Atrial Rate: 61 BPM P-R Interval: 170 ms QRS Duration: 100 ms Q-T Interval: 404 ms QTC Calculation(Bazett): 406 ms P Kyle: 69 degrees R Kyle: -54 degrees T Kyle: 38 degrees Normal sinus rhythm Left anterior fascicular block Abnormal ECG When compared with ECG of 23-Aug-2022 11:18, No significant change was found Confirmed by Samir Morley ([id number]) on 07/02/2024 12:40:20 PM [place]: Samir Morley Patient Care team information Care Team Personnel Name: Valarie Hudson MD Position: [facility] Physician - Primary Care Member Role: PCP Address: [address] Telecom: Care Team Related Persons Name: LORIE PONCE Name: NEVAEH LONDONO Insurance Providers Guarantor name: KAE LONDONO Health Plan Information #: 1 Payer: NA Member Number: [id number] Policy Number: NA Group Number: [id number] Health Plan Information #: 2 Payer: NA Member Number: [id number] Policy Number: NA Group Number: [id number]
--- OUTSIDE RECORDS SUMMARY | 2024-07-23 13:57 | XMS_ITS | Continuity of Care Document ---
Author Organization [place] [facility] Kirt Suarez [facility]ONE [facility] Address [address] [place] [address] Care Team Providers Care Bake Room Worker Name Role Phone SOL MCNAMARA Primary Care Provider [phone] SOL MCNAMARA Referring Provider Assessment Encounter Date [...] weeks to review results and further management. [email or web address] Not available 06/27/2024 09:18:50 Plan of Treatment Reminders Order Date Submit Date Provider Last Modified By Organization Details Last Modified Time Details Appointments None record ed. Lab None record ed. Referral None record ed. Procedures None record ed. Surgeries None record ed. Imaging XR, knee, 3 view 024 06/27/20 24 [email or web address] 252 [facility], [address], [place], [address], 4 09:15:43 Medication Orders None record ed. Patient TargetsNo targets recorded. 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 Prior arthroplasty of the contralateral knee is stable [email or web address] Not available 06/27/2024 09:19:09 Reason for Referral None Reported. Procedures Surgical History Date Name Laterality Status Provider Name and Address Organization Details Recorded Time [facility] 08:54:55 Shoulder Surgery completed [facility], P 06/27/2024 08:55:11 lumbar spinal fusion completed [facility], P 06/27/2024 08:55:28 Imaging Results None [...] Not available Not available Not available 06/27/2024 08078 05 SNOMED Crystal Saldana null, [facility], P 4 08:53:10 Vancocin medicatio n Not available Not available Not available 06/27/202496234 8 RxNorm Crystal Saldana null, [facility], P 4 08:53:22 Levaquin medicatio n Not available Not available Not available 06/27/202486572 2 RxNorm Crystal Saldana null, [facility], [facility] 4 08:53:30 Vitals Date Recorded Body height Body mass index (BMI) Body weight Provider Name and Address Organization Details Last Updated DateTime 06/27/2024 170.18 cm 23.5 kg/m2 17672.86 g Crystal Les [facility], P 06/27/2024 08:53:40 Social History Question Answer Notes LastModified by Organizat ion Details LastModified Time Tobacco Smoking Status Former Smoker Crystal Saldana null, [facility] 06/27/2024 08:54:12 What Is Your Level Of Alcohol Consumption? None Information not available 06/27/2024 Do You Use Any Illicit Or Recreational Drugs? No [email or web address] Information not available 06/27/2024 Do You Or Have You Ever Used Any Other Forms Of Tobacco Or Nicotine? No [email or web address] Information not available 06/27/2024 Sex: Unknown Functional Status None recorded. Mental Status None recorded. Family History Relationship Description Onset Age of this Age Resolved Age Notes LastModified by Organization Details LastModified Time Mother History of cancer of unknown primary site [email or web address] Not available 11/2023 08:54:35 Father Diabetes mellitus [email or web address] Not available 2023 08:54:42 Medical History Condition Response Diabetes Y Stroke Y Hypertension Y Gynecological HistoryNo gynecological history recorded. Obstetrics History GPAL:G 0 P 0 0 0 0 Past Encounters Encounter ID Performer Location Encounter Start Date Encounter Closed Date Diagnosis/Indication Diagnosis SNOMED-CT Code Diagnosis ICD10 Code [id number] Henrique Escobar MD [facility] [address] [place] [id number] 06/27/2024 08:39:30 06/27/2024 09:15:42 Pain of left knee region [id number] 83860 M25.562 Health Concerns Section Related Observation LastModified by Organization Detai ls LastModified Time None Recorded Concern Status LastModified by Organization Details LastModified Time None Recorded Payers Encounter Date Sequence Insurance Name Policy Number Policy Mercedes Covered Member ID Mercedes Member ID Guarantor Name 06/27/2024 1 [place]ANT[place] - [place]PO) [id number] Galilea Hilton [id number] Galilea Hilton Notes Date Note Type [...] subsequently underwent a right knee arthroplasty in [place]. Her current pain is localized to her [...] NOMAN SHARIF PA-C [address], [place], [address], [place] [facility], [facility] 06/27/2024 09:19:40 OBGyn Episode No OBEpisode recorded.
--- NOTE | 2024-07-23 14:01 | CA_ITS ---
Transthoracic Echocardiogram Patient (Last, First, Middle): Galilea Hilton A Gender: Female Date of : 1960 Age: 64 Procedure Date: 07/23/2024 Procedure Type: Transthoracic Echocardiogram Location: OP Height: 170.18 cm Weight: 68.49 kg BSA: 1.79 m2 Heart Rate: 76 bpm BP: 110 / 60 mmHg Informatics Developer: REZA Referring MD: Say Stovall MD Billing And Accounting Staff Assistant: Say Stovall MD Symptoms: R07.9 - Chest pain, unspecified Study Quality: Adequate ECG Rhythm: Sinus Conclusions: - 1. Normal LV ejection fraction of 65-70% with grade 1 diastolic dysfunction 2. Calcific aortic and mitral valve changes noted with mild aortic regurgitation 3. Normal RV systolic pressure 4. No gross pericardial effusion Findings Left Ventricle Normal left ventricular size, thickness, and systolic function. The visually estimated ejection fraction is between 65-70%. Spectral Doppler is indicative of an impaired relaxation filling pattern. E/E prime ratio is <8, consistent with normal filling pressures. Evidence suggests grade I (mild) diastolic dysfunction. Right Ventricle Normal right ventricular cavity size and systolic function. Atria Both atria are normal in size. There is a mobile atrial septum noted. Interatrial shunt cannot be excluded. Aortic Valve There is mild calcification of the aortic valve. There is no aortic valve stenosis. There is mild aortic valve regurgitation. Mitral Valve There is mild anterior and moderate posterior mitral leaflet thickening. There is moderate mitral annular calcification. There is trace mitral valve regurgitation. There is no mitral valve stenosis. Pulmonic Valve The pulmonic valve is likely normal. There is trace pulmonic valve regurgitation. Tricuspid Valve Normal tricuspid valve structure. There is trace tricuspid valve regurgitation. The right ventricular systolic pressure is normal. The right ventricular systolic pressure is 24 mmHg. Normal right atrial pressure. There is no evidence of pulmonary hypertension. Great Vessels All visible segments of the aorta are normal in size. The pulmonary artery was not well visualized. There is no dilatation of the ascending aorta measuring 3.10 cm. Moderate plaque is seen in the arch. Venous The inferior vena cava is normal in size and collapses greater than 50% with inspiration. Pericardium/Pleural There is no evidence of pericardial effusion. Prior Study Comparison No significant change compared to prior study dated: 06/11/2024. Measurements 2D Linear Measurements IVSd: 0.89 0.6-0.9/0.6-1.0 cm LVIDd: 4.58 3.9-5.3/4.2-5.9 cm LVIDd Index: 2.56 2.4-3.2/2.2-3.1 cm/m2 LVIDs: 2.89 2.0-3.6 cm LVPWd: 0.53 0.7-1.1 cm LA Diam: 3.40 2.7-3.8/3.0-4.0 cm LAIDs Index: 1.90 1.5-2.3 cm/m2 LV Mass: 124.84 67-162/88-224 g LV Mass Index: 69.74 43-95/49-115 g/m2 LVOT Diam: 2.00 3.0+(-)1.3 cm 2D Systolic Function EF 4C: 76.30 >55% EF 2C: 67.70 >55% EF BiP: 72.90 >55% Mitral Valve MV Pk E: 0.62 MV PK A: 0.75 MV Decel Time: 255.00 E/A: 0.80 E'Lateral: 7.83 E'Medial: 9.68 E/E' Med: 6.40 E/E' Lat: 7.90 PHT: 75.00 MVA PHT: 2.93 Decel Hardeman: 2.43 Aortic Valve AoV Pk Zen: 1.65 AoV Pk Grad: 11.00 CRYS: 2.23 AI Pk Zen: 3.91 AI Hardeman: 2.01 LVOT LVOT Pk Zen: 1.24 LVOT Mn Zen: 0.85 LVOT VTI: 0.23 LVOT Pk Grad: 6.00 LVOT Mn Grad: 3.00 LVOT Diam: 2.00 LVOT Area: 3.14 Diastolic Function MV Pk E: 0.62 MV Pk A: 0.75 E/A: 0.80 E'Medial: 9.68 E/E' Med: 6.40 E' Laterial: 7.83 E/E' Lat: 7.90 Right Ventricle TAPSE (mm): 24.00 TVS' Zen: 11.90 Tricuspid Valve TR Pk Zen: 2.27 TR Pk Grad: 21.00 RA Press: 3.00 RVSP: 24.00 Great Vessels Aorta Sinus of Valsalva: 2.60 2.0-3.5 cm Ao Asc: 3.10 2.1-3.4 cm Pulmonary Valve PV Pk Zen: 1.11 Peak PV Grad: 5.00 Updated in Other Vendor System with Status of Final Say Stovall MD electronically signed on 07/23/2024 5:43:23 PM with status of Final
== END ==
LOC: HO.CARD 13:55
PROVIDERS: PCP Internal Medicine; Visit Provider Internal Medicine Cardiovascular Disease
DX: R07.9 Chest pain, unspecified (principal)
CPT/HCPCS: 93306

== ENCOUNTER → 2024-07-23 14:01 | Outpatient (BNV) | payer MEDICARE, SELFPAY | PROVIDERS: PCP Internal Medicine; Visit Provider Internal Medicine Cardiovascular Disease | DX: I35.1 Nonrheumatic aortic (valve) insufficiency (principal); I35.8 Other nonrheumatic aortic valve disorders; I34.81 Nonrheumatic mitral (valve) annulus calcification | CPT/HCPCS: 93306 ==

== ENCOUNTER 2024-07-25 08:13 | Outpatient (AMB) | payer MEDICARE, SELFPAY ==
[2024-07-25 08:16] VITALS: BP 100/62; PULSE 72; BMI 24.2
--- NOTE | 2024-07-25 08:16 | A.OFFVIS_ITS ---
Vital Signs 07/25/24 08:16 Height 5 ft 7 in Weight 154 lb 12.232 oz BMI 24.2 BP 100/62 Blood Pressure Location Lt brachial Position Sitting Pulse 72 Pulse Source Pulse Oximeter Intake Visit Reasons: s/p cath 07/02 Meter Changes Records Clerk Required: No Allergies vancomycin [VANCOMYCIN] Allergy (Intermediate, Verified 07/25/24 08:18) ITCHING empagliflozin [Jardiance] Allergy (Unknown, Verified 07/25/24 08:18) yeast infection levofloxacin Allergy (Unknown, Verified 07/25/24 08:18) tendon rupture linagliptin [Tradjenta] Allergy (Unknown, Verified 07/25/24 08:18) yeast infection penicillin G [Penicillin G] Allergy (Unknown, Verified 07/25/24 08:18) HIVES penicillin V Allergy (Unknown, Verified 07/25/24 08:18) unknown Medication List - Last Reconciled 07/25/24 by Cindy Deshpande NP-C apixaban (Eliquis) 5 mg PO BID 90 days blood-glucose sensor (ams AG G7 Sensor device) As directed CPAP (CPAP Machine/Device) CPAP with mask, tubing, filters, water chamber, heated humidifier on [id number] flash glucose sensor (FreeStyle Reid 2 Sensor kit) As directed fluticasone propion-salmeterol 250-50 mcg/dose (Advair Diskus) 1 inh inhalation BID FreeStyle Reid 3 Sensor (blood-glucose sensor) As directed to test sugars 3-4 times per day NS insulin degludec (Tresiba FlexTouch U-100 insulin) 20 units (0.2 mL) subcut BEDTIME 90 days losartan 50 mg PO DAILY metformin 1,000 mg PO BID metoprolol succinate ER (Toprol XL) 50 mg PO DAILY Ozempic (semaglutide) 2 mg (0.75 mL) subcut QWEEK NS pantoprazole 40 mg PO DAILY pen needle, diabetic (BD Ultra-Fine Short Pen Needle) Use to inject insulin once daily rosuvastatin 20 mg PO DAILY sertraline 25 mg PO DAILY Ventolin HFA 90 mcg/actuation (albuterol sulfate) 1 inh inhalation QID NS HPI HPI s/p cath 07/02: Details: Galilea is a 64-year-old female past medical history of hypertension, hyperlipidemia, diabetes, sleep apnea, asthma, CVA, PAF, who recently reported chest burning with exertion. She underwent a stress echocardiogram which was abnormal leading to cardiac catheterization showing normal coronary arteries. Today she reports she has been doing well since her cardiac catheterization procedure. Her right radial catheterization site is healing well. If she over exerts at times she will notice a burning feeling in her chest along with shortness of breath. She has not been doing any exertional activities recently. No chest discomfort with normal ADLs. No shortness of breath with day-to-day activities, PND, orthopnea or edema. No palpitations, lightheadedness, presyncope, syncope, falls. Compliant with meds. [facility] Medical History Failed total right knee replacement Status post placement of implantable loop recorder Paroxysmal atrial fibrillation Ptosis of both upper eyelids Hammertoe of right foot Annual physical exam Cornea disorder Carotid stenosis Cataract JERICHO (obstructive sleep apnea) CVA (cerebral vascular accident) Asthma Hyperlipidemia HTN (hypertension) DM type 2 (diabetes mellitus, type 2) Surgical History H/O rotator cuff surgery H/O bilateral breast reduction surgery History of arthroscopic knee surgery H/O shoulder surgery Family History Father No problems noted. Mother No problems noted. Social History Housing: House Alcohol intake: current Alcohol intake frequency: a few times a month Patient Tobacco Use Status: Former Tobacco user e-Cigarette/Vaping Use: Never Used service: No Current occupational status: employed Cognitive needs: No Hearing needs: No Vision needs: No Review of Systems Const All systems reviewed & are unremarkable except as noted in HPI and below ENT Denies dizziness Card Denies chest pain, Denies chest pain at rest, Denies chest pain with activity, Denies rapid heart rate, Denies pedal edema, Denies edema, Denies leg edema, Denies lightheadedness, Denies palpitations, Denies dyspnea, Reports dyspnea on exertion and Denies orthopnea Resp Denies cough, Denies dyspnea and Reports dyspnea on exertion GI Denies hematochezia and Denies change in stool character Musc Denies abnormal gait, Denies limited range of motion, Denies muscle cramps, Denies muscle weakness, Denies numbness, Denies radiating pain into limb, Denies stiffness and Denies tingling Neuro Denies abnormal gait, Denies dizziness, Denies numbness and Denies tingling Endo Denies palpitations Physical Exam Vital Signs: Last Vital Signs Pulse 72 07/25/24 08:16 BP 100/62 07/25/24 08:16 BMI result Body Mass Index 24.2 Const General: cooperative, healthy appearing, comfortable and no acute distress Orientation/consciousness: patient oriented x3 Neck Neck: Yes normal visual inspection and Yes no JVD Resp Effort & Inspection: normal respiratory effort Auscultation: clear to auscultation bilaterally, no rales, no rhonchi and no wheezes Cardio Jugular venous distension: no JVD Rate: regular rate Rhythm: regular rhythm Heart sounds: S1 normal heart sound present, S2 normal heart sound present, no murmurs and no rubs Neuro General: patient oriented x3 Extrem General: Yes normal to inspection, No no pedal edema and No calf tenderness Psych Appearance: grossly normal Mental Status: mental status grossly normal Speech and movement: Normal speech and movement present Assessment & Plan Assessment & Plan (1) Chest discomfort: Code(s): R07.89 - Other chest pain Category: Medical Plan: Report of burning type chest discomfort with exertional activities. Also shortness of breath with exertion. She has cardiac risk factors of hypertension, hyperlipidemia, diabetes. EKG done 06/04/2024 shows sinus rhythm with left anterior fascicular block, rate 88. An echocardiogram had been done 10/28/2021 showing EF 60 65%, grade 1 diastolic dysfunction, mild MR. A stress echocardiogram was done on 06/11/2024 with exercise 3 minutes and 45 seconds with report of chest burning, no EKG changes of ischemia, echo evidence of ischemia in the left circumflex and RCA territory. She did undergo cardiac catheterization on 07/02/2024 showing normal coronary arteries. Her chest burning is noncardiac. Test results reviewed with her in detail. Stress echo is false-positive. Signs and symptoms of true angina reviewed. Discussed deconditioning as a possible source of her symptoms. She will start to increase physical activity as tolerated. Continue cardiac risk factor modification including good blood pressure, blood sugar and cholesterol control. Continue rosuvastatin with ideal LDL goal less than 70. We discussed having her stop metoprolol but she notes better heart rate control since taking it. Will have her continue on metoprolol and losartan. Blood pressure 100/62, asymptomatic today. Cardiology follow-up May 2025 as previously planned. (2) Abnormal stress test: Code(s): R94.39 - Abnormal result of other cardiovascular function study Category: Medical Plan: As above, false-positive (3) S/P cardiac cath: Comment: 07/02/2024, normal coronary arteries Code(s): Z98.890 - Other specified postprocedural states Category: Surgical Plan: Right radial catheterization site healing well (4) Paroxysmal atrial fibrillation: Comment: Infrequent paroxysmal AFib asymptomatic Code(s): I48.0 - Paroxysmal atrial fibrillation Category: Medical Plan: Episode PAF noted on loop recorder. She had prior CVA and loop recorder placed to evaluate for presence of AF. She does not notice any heart palpitations. Clinically she is in sinus rhythm today. She is on metoprolol now. She is on Eliquis for anticoagulation. No bleeding issues reported. Recommend CBC, BMP, twice yearly (5) HTN (hypertension): Code(s): I10 - Essential (primary) hypertension Category: Medical Plan: Well controlled at this time, no med changes made (6) CVA (cerebral vascular accident): Comment: 02/2019 lacunar L frontal, R hand weakness resolved Code(s): I63.9 - Cerebral infarction, unspecified Category: Medical Plan: As above Plan Time spent on chart review, documentation, interview and assessment Coding Level of Care Code Est Pt Level 4 (99061) Complex EM visit Add On G2211 Diagnoses Chest discomfort R07.89 Abnormal stress test R94.39 S/P cardiac cath Z98.890 Paroxysmal atrial fibrillation I48.0 HTN (hypertension) I10 CVA (cerebral vascular accident) I63.9 Time Spent (min) 28
--- OUTSIDE RECORDS SUMMARY | 2024-07-25 08:16 | XMS_ITS | Data Portability ---
Author Organization [place] [facility] Kirt Suarez [facility]ONE [place] Address [address] [place] [address] Care Team Providers Care Aerophysics Engineer Name Role Phone SOL MCNAMARA Primary Care Provider SOL MCNAMARA Referring Provider Assessment Encounter Date [...] weeks to review results and further management. [email or web address] Not available 06/27/2024 09:18:50 Plan of Treatment Reminders Order Date Submit Date Provider Last Modified By Organization Details Last Modified Time Details Appointments None record ed. Lab None record ed. Referral None record ed. Procedures None record ed. Surgeries None record ed. Imaging XR, knee, 3 view 024 06/27/20 24 [email or web address] 252 [facility], [address], [address], [place], [address], 4 09:15:43 Medication Orders None record ed. Patient TargetsNo targets recorded. 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 Prior arthroplasty of the contralateral knee is stable [email or web address] Not available 06/27/2024 09:19:09 Reason for Referral None Reported. Procedures Surgical History Date Name Laterality Status Provider Name and Address Organization Details Recorded Time [facility] 08:54:55 Shoulder Surgery completed [facility], P 06/27/2024 08:55:11 lumbar spinal fusion completed [facility], 06/27/2024 08:55:28 Imaging Results None recorded. Procedure Notes None recorded. Medical Equipment None Reported. Allergies Allergen ID Allergen Name Allergen Category Reaction Reaction Severity Criticality Documentation Date Start Date Code Code System Note Provider Name and Address Organization Details Recorded Time Medicinal product containin g penicilli n and acting as antibacte rial agent (product) medicatio n Not available Not available Not available 06/27/2024 02799 05 SNOMED Crystal Les null, [facility], P 4 08:53:10 Vancocin medicatio n Not available Not available Not available 06/27/202418605 8 RxNorm Crystal Saldana null, [facility], [facility] 4 08:53:22 Levaquin medicatio n Not available Not available Not available 06/27/202455726 2 RxNorm Crystal Saldana null, [place] [facility], P 4 08:53:30 Vitals Date Recorded Body height Body mass index (BMI) Body weight Provider Name and Address Organization Details Last Updated DateTime 06/27/2024 170.18 cm 23.5 kg/m2 29612.86 g Crystal Les [facility], P 06/27/2024 08:53:40 Social History Question Answer Notes LastModified by Organizat ion Details LastModified Time Tobacco Smoking Status Former Smoker Carey Saldana null, [facility], P 06/27/2024 08:54:12 What Is Your Level Of Alcohol Consumption? None [email or web address] Information not available 06/27/2024 Do You Use Any Illicit Or Recreational Drugs? No [email or web address] Information not available 06/27/2024 Do You Or Have You Ever Used Any Other Forms Of Tobacco Or Nicotine? No [email or web address] Information not available 06/27/2024 Sex: Unknown Functional Status None recorded. Mental Status None recorded. Family History Relationship Description Onset Age of this Age Resolved Age Notes LastModified by Organization Details LastModified Time Mother History of cancer of unknown primary site [email or web address] Not available 11/2023 08:54:35 Father Diabetes mellitus [email or web address] Not available 2023 08:54:42 Medical History Condition Response Diabetes Y Stroke Y Hypertension Y Gynecological HistoryNo gynecological history recorded. Obstetrics History GPAL:G 0 P 0 0 0 0 Past Encounters Encounter ID Performer Location Encounter Start Date Encounter Closed Date Diagnosis/Indication Diagnosis SNOMED-CT Code Diagnosis ICD10 Code [id number] Henrique Escobar MD [facility] [address] [place] [phone] 9 06/27/2024 08:39:30 06/27/2024 09:15:42 Pain of left knee region [id number] 66809 M25.562 Health Concerns Section Related Observation LastModified by Organization Detai ls LastModified Time None Recorded Concern Status LastModified by Organization Details LastModified Time None Recorded Advance Directives Directive None Recorded Payers Encounter Date Sequence Insurance Name Policy Number Policy Mercedes Covered Member ID Mercedes Member ID Guarantor Name 06/27/2024 1 [place] - [place]) [id number] Galilea Hilton [id number] Galilea Hilton Notes Date Note Type [...] subsequently underwent a right knee arthroplasty in [place]. Her current pain is localized to her [...] NOMAN SHARIF PA-C [address], [place], [address], [place] [facility], [facility] 06/27/2024 09:19:40 OBGyn Episode No OBEpisode recorded.
--- OUTSIDE RECORDS SUMMARY | 2024-07-25 08:16 | XMS_ITS | Continuity of Care Document ---
Author Organization [place] [facility] Kirt Suarez [facility] Address [address] [place] [address] Care Team Providers Care Ceramic Design Engineer Name Role Phone SOL MCNAMARA Primary [...] weeks to review results and further management. [email or web address] Not available 06/27/2024 09:18:50 Plan of Treatment Reminders Order Date Submit Date Provider Last Modified By Organization Details Last Modified Time Details Appointments None record ed. Lab None record ed. Referral None record ed. Procedures None record ed. Surgeries None record ed. Imaging XR, knee, 3 view 024 06/27/20 24 [email or web address] 252 [facility], [address], [address], [place], [address], 4 09:15:43 Medication Orders None record ed. Patient TargetsNo targets recorded. 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 Prior arthroplasty of the contralateral knee is stable Not available 06/27/2024 09:19:09 Reason for Referral None Reported. Procedures Surgical History Date Name Laterality Status Provider Name and Address Organization Details Recorded Time [facility] 08:54:55 Shoulder Surgery completed [facility], P 06/27/2024 08:55:11 lumbar spinal fusion completed [facility], P 06/27/2024 08:55:28 Imaging Results None [...] Not available Not available Not available 06/27/2024 82959 05 SNOMED Crystal Saldana null, [facility], P 4 08:53:10 Vancocin medicatio n Not available Not available Not available 06/27/202473304 8 RxNorm Crystal Saldana null, [facility], P 4 08:53:22 Levaquin medicatio n Not available Not available Not available 06/27/202472629 2 RxNorm Crystal Saldana null, [facility], P 4 08:53:30 Vitals Date Recorded Body height Body mass index (BMI) Body weight Provider Name and Address Organization Details Last Updated DateTime 06/27/2024 170.18 cm 23.5 kg/m2 87677.86 g Crystal Les [facility], P 06/27/2024 08:53:40 Social History Question Answer Notes LastModified by Organizat ion Details LastModified Time Tobacco Smoking Status Former Smoker Crystal Saldana null, [facility] 06/27/2024 08:54:12 What Is Your Level Of Alcohol Consumption? None [email or web address] Information not available 06/27/2024 Do You Use Any Illicit Or Recreational Drugs? No [email or web address] Information not available 06/27/2024 Do You Or Have You Ever Used Any Other Forms Of Tobacco Or Nicotine? No Information not available 06/27/2024 Sex: Unknown Functional Status None recorded. Mental Status None recorded. Family History Relationship Description Onset Age of this Age Resolved Age Notes LastModified by Organization Details LastModified Time Mother History of cancer of unknown primary site [email or web address] Not available 11/2023 08:54:35 Father Diabetes mellitus Not available 2023 08:54:42 Medical History Condition Response Diabetes Y Stroke Y Hypertension Y Gynecological HistoryNo gynecological history recorded. Obstetrics History GPAL:G 0 P 0 0 0 0 Past Encounters Encounter ID Performer Location Encounter Start Date Encounter Closed Date Diagnosis/Indication Diagnosis SNOMED-CT Code Diagnosis ICD10 Code [id number] Henrique Escobar MD [facility] [address] [place] [phone] 06/27/2024 08:39:30 06/27/2024 09:15:42 Pain of left knee region [id number] 89553 M25.562 Health Concerns Section Related Observation LastModified by Organization Detai ls LastModified Time None Recorded Concern Status LastModified by Organization Details LastModified Time None Recorded Payers Encounter Date Sequence Insurance Name Policy Number Policy Mercedes Covered Member ID Mercedes Member ID Guarantor Name 06/27/2024 1 [place] - [place]) [id number] Galilea Hilton [id number] Galilea Hilton Notes Date Note Type [...] subsequently underwent a right knee arthroplasty in [place]. Her current pain is localized to her [...] NOMAN SHARIF PA-C [address], [place], [address], [place] [facility], [facility] 06/27/2024 09:19:40 OBGyn Episode No OBEpisode recorded.
== END 2024-07-25 08:41 | disposition home or self-care (01) ==
PROVIDERS: PCP Internal Medicine; Visit Provider Nurse Practitioner Family
DX: R07.89 Other chest pain (principal); R94.39 Abnormal result of other cardiovascular function study; Z98.890 Other specified postprocedural states; I48.0 Paroxysmal atrial fibrillation; I10 Essential (primary) hypertension; I63.9 Cerebral infarction, unspecified
CPT/HCPCS: 99214; G2211

== ENCOUNTER → 2024-07-25 08:13 | Outpatient (BNVA) | payer MEDICARE, SELFPAY | PROVIDERS: PCP Internal Medicine; Visit Provider Nurse Practitioner Family | DX: R07.89 Other chest pain (principal); R94.39 Abnormal result of other cardiovascular function study; I48.0 Paroxysmal atrial fibrillation; I10 Essential (primary) hypertension; Z86.73 Personal history of transient ischemic attack (TIA), and cerebral infarction without residual deficits; Z98.890 Other specified postprocedural states | CPT/HCPCS: 99212 ==

== ENCOUNTER 2024-07-26 09:00 | Outpatient (REF) | payer MEDICARE, SELFPAY ==
--- NOTE | ~2024-07-26 | MM_ITS ---
EXAMINATION: Dual-Energy X-ray Absorptiometry - Bone Density Study HISTORY: Estrogen deficiency TECHNIQUE: Provesica Dual energy absorptiometry (DEXA) of the lumbar spine, total left hip, and femoral neck was performed. COMPARISON: Comparison is made with the prior examination dated 07/05/2022. FINDINGS: The bone mineral density of the lumbar spine from L1-L2 is 1.073 with a T-score of -0.8, and a Z-score of 0.3. This represents a BMD change of 3.5% compared to the prior exam. This is not statistically significant. The bone mineral density of the left total hip is 0.939 with a T-score of -0.5, and a Z-score of 0.3. This represents BMD change of 27.9% compared to the prior exam. This is statistically significant. The bone mineral density of the left femoral neck is 0.905 with a T-score of -1.0, and a Z-score of 0.2. This represents BMD change of 37.5% compared to the prior exam. FRACTURE RISK: The FRAX index suggests a ten year probability of major osteoporotic fracture of 8.0%, and of hip fracture 0.6%. MM/XR DEXA axial skeleton IMPRESSION: Based on bone mineral density, the diagnosis is consistent with normal bone mineral density. All bone density values are in grams per centimeter squared. At this facility, the least significant change in BMD with 95% confidence is 0.022 at the lumbar spine, 0.027 at the hip, and 0.023 at the distal 1/3 radius. Electronically signed by: Hadley Joshi MD 07/30/2024 09:46 AM [facility] [place]
== END 2024-07-26 09:01 | disposition home or self-care (01) ==
LOC: HO.MAMMO 09:00
PROVIDERS: PCP Internal Medicine; Visit Provider Internal Medicine
DX: Z78.0 Asymptomatic menopausal state (principal)
CPT/HCPCS: 77080

== ENCOUNTER → 2024-07-26 09:15 | Outpatient (BNV) | payer MEDICARE, SELFPAY | PROVIDERS: PCP Internal Medicine; Visit Provider Radiology Diagnostic Radiology | DX: Z78.0 Asymptomatic menopausal state (principal) | CPT/HCPCS: 77080 ==

== ENCOUNTER → 2024-07-29 08:54 | Outpatient (REF) | payer MEDICARE, SELFPAY ==
--- OUTSIDE RECORDS SUMMARY | 2024-07-29 09:20 | XMS_ITS | Data Portability ---
Author Organization [place] [facility] Kirt Suarez [address] Address [address] [place] [address] Care Team Providers Care Compensation Coordinator Name Role Phone SOL MCNAMARA Primary Care Provider SOL MCNAMARA Referring Provider [phone] Assessment Encounter Date Assessment Date Assessment LastModified [...] weeks to review results and further management. [email or web address] Not available 06/27/2024 09:18:50 Plan of Treatment Reminders Order Date Submit Date Provider Last Modified By Organization Details Last Modified Time Details Appointments None record ed. Lab None record ed. Referral None record ed. Procedures None record ed. Surgeries None record ed. Imaging XR, knee, 3 view 024 06/27/20 24 [email or web address] [address] [facility], [address], [place], [address], 4 09:15:43 Medication Orders None record ed. Patient TargetsNo targets recorded. Patient Instructions Encounter Date Encounter Id Patient Instructions Last Modified By Organization Details Last Modified Time 06/27/2024 [id number] X-rays of the le ft knee were obtained on 06/27/2024 which demonstrates tricompartmental degenerative changes most severe at her patellofemoral compartment and medial compartment. Prior arthroplasty of the contralateral knee is stable [email or web address] Not available 06/27/2024 09:19:09 Reason for Referral None Reported. Procedures Surgical History Date Name Laterality Status Provider Name and Address Organization Details Recorded Time [facility] 08[facility]:55 Shoulder Surgery completed [facility] 06/27/2024 08:55:11 lumbar spinal fusion completed [facility], 06/27/2024 08:55:28 Imaging Results None recorded. [...] Not available Not available Not available 06/27/2024 [id number] 05 SNOMED Crystal Les null, [facility], P 4 08:53:10 Vancocin medicatio n Not available Not available Not available 06/27/202491208 8 RxNorm Crystal Saldana null, [facility] 4 08:53:22 Levaquin medicatio n Not available Not available Not available 06/27/202460934 2 RxNorm Crystal Saldana null, [place] [facility], [facility] 4 08:53:30 Vitals Date Recorded Body height Body mass index (BMI) Body weight Provider Name and Address Organization Details Last Updated DateTime 06/27/2024 170.18 cm 23.5 kg/m2 96454.86 g Crystal Les [facility], P 06/27/2024 08:53:40 Social History Question Answer Notes LastModified by Organizat ion Details LastModified Time Tobacco Smoking Status Former Smoker Carey Saldana null, [facility], P 06/27/2024 08:54:12 What Is Your Level Of Alcohol Consumption? None [email or web address] Information not available 06/27/2024 Do You Use Any Illicit Or Recreational Drugs? No [email or web address] Information not available 06/27/2024 Do You Or Have You Ever Used Any Other Forms Of Tobacco Or Nicotine? No Information not available 06/27/2024 Sex: Unknown Functional Status None recorded. Mental Status None recorded. Family History Relationship Description Onset Age of this Age Resolved Age Notes LastModified by Organization Details LastModified Time Mother History of cancer of unknown primary site [email or web address] Not available 11/2023 08:54:35 Father Diabetes mellitus [email or web address] Not available 2023 08:54:42 Medical History Condition Response Diabetes Y Stroke Y Hypertension Y Gynecological HistoryNo gynecological history recorded. Obstetrics History GPAL:G 0 P 0 0 0 0 Past Encounters Encounter ID Performer Location Encounter Start Date Encounter Closed Date Diagnosis/Indication Diagnosis SNOMED-CT Code Diagnosis ICD10 Code Diagnosis Note [id number] Henrique Escobar MD [facility] [address] [place] [id number] 06/27/2024 08:39:30 06/27/2024 09:15:42 Pain of left knee region 2314967522 74356 M25.562 Health Concerns Section Related Observation LastModified by Organization Detai ls LastModified Time None Recorded Concern Status LastModified by Organization Details LastModified Time None Recorded Advance Directives Directive None Recorded Payers Encounter Date Sequence Insurance Name Policy Number Policy Mercedes Covered Member ID Mercedes Member ID Guarantor Name 06/27/2024 1 [place]/ [place]ANTAGE - PPO) [id number] Galilea Hilton [id number] Galilea Hilton Notes Date Note Type [...] subsequently underwent a right knee arthroplasty in [place]. Her current pain is localized to her [...] NOMAN SHARIF PA-C [address], [place], [address], [place] [facility], [facility] 06/27/2024 09:19:40 OBGyn Episode No OBEpisode recorded.
--- OUTSIDE RECORDS SUMMARY | 2024-07-29 09:20 | XMS_ITS | Continuity of Care Document ---
Author Organization [place] [facility] Kirt Suarez [facility] Address [address] [place] [address] Care Team Providers Care Roll Operator Name Role Phone SOL MCNAMARA Primary Care [...] weeks to review results and further management. [email or web address] Not available 06/27/2024 09:18:50 Plan of Treatment Reminders Order Date Submit Date Provider Last Modified By Organization Details Last Modified Time Details Appointments None record ed. Lab None record ed. Referral None record ed. Procedures None record ed. Surgeries None record ed. Imaging XR, knee, 3 view 024 06/27/20 24 [email or web address] [address] [facility], [address], [place], [address], 4 09:15:43 Medication Orders None record ed. Patient TargetsNo targets recorded. Patient Instructions Encounter Date Encounter Id Patient Instructions Last Modified By Organization Details Last Modified Time 06/27/2024 [id number] X-rays of the le ft knee were obtained on 06/27/2024 which demonstrates tricompartmental degenerative changes most severe at her patellofemoral compartment and medial compartment. Prior arthroplasty of the contralateral knee is stable [email or web address] Not available 06/27/2024 09:19:09 Reason for Referral None Reported. Procedures Surgical History Date Name Laterality Status Provider Name and Address Organization Details Recorded Time [facility] 06/27/2024 08:54:55 Shoulder Surgery completed [facility], P 06/27/2024 08:55:11 lumbar spinal fusion completed [facility], P 06/27/2024 08:55:28 Imaging Results None [...] Not available Not available Not available 06/27/2024 [id number] 05 SNOMED Crystal Saldana null, [facility], P 4 08:53:10 Vancocin medicatio n Not available Not available Not available 06/27/202413070 8 RxNorm Crystal Saldana null, [facility], P 4 08:53:22 Levaquin medicatio n Not available Not available Not available 06/27/202466692 2 RxNorm Crystal Saldana null, [facility], P 4 08:53:30 Vitals Date Recorded Body height Body mass index (BMI) Body weight Provider Name and Address Organization Details Last Updated DateTime 06/27/2024 170.18 cm 23.5 kg/m2 56470.86 g Crystal Les [facility], P 06/27/2024 08:53:40 Social History Question Answer Notes LastModified by Organizat ion Details LastModified Time Tobacco Smoking Status Former Smoker Crystal Saldana null, [facility] 06/27/2024 08:54:12 What Is Your Level Of Alcohol Consumption? None [email or web address] Information not available 06/27/2024 Do You Use Any Illicit Or Recreational Drugs? No [email or web address] Information not available 06/27/2024 Do You Or Have You Ever Used Any Other Forms Of Tobacco Or Nicotine? No [email or web address] Information not available 06/27/2024 Sex: Unknown Functional Status None recorded. Mental Status None recorded. Family History Relationship Description Onset Age of this Age Resolved Age Notes LastModified by Organization Details LastModified Time Mother History of cancer of unknown primary site [email or web address] Not available 11/2023 08:54:35 Father Diabetes mellitus [email or web address] Not available 2023 08:54:42 Medical History Condition Response Diabetes Y Stroke Y Hypertension Y Gynecological HistoryNo gynecological history recorded. Obstetrics History GPAL:G 0 P 0 0 0 0 Past Encounters Encounter ID Performer Location Encounter Start Date Encounter Closed Date Diagnosis/Indication Diagnosis SNOMED-CT Code Diagnosis ICD10 Code Diagnosis Note [id number] Henrique Escobar MD [facility] [address] [place] [phone] 06/27/2024 08:39:30 06/27/2024 09:15:42 Pain of left knee region [id number] 80079 M25.562 Health Concerns Section Related Observation LastModified by Organization Detai ls LastModified Time None Recorded Concern Status LastModified by Organization Details LastModified Time None Recorded Payers Encounter Date Sequence Insurance Name Policy Number Policy Mercedes Covered Member ID Mercedes Member ID Guarantor Name 06/27/2024 1 [place] - [place]) [id number] Galilea Hilton [id number] Galilea Hilton Notes Date Note Type [...] subsequently underwent a right knee arthroplasty in [place]. Her current pain is localized to her [...] NOMAN SHARIF PA-C [address], [place], [address], [place] [facility], [facility] 06/27/2024 09:19:40 OBGyn Episode No OBEpisode recorded.
== END ==
LOC: HO.SL 08:54
PROVIDERS: PCP Internal Medicine; Visit Provider Internal Medicine
DX: G47.33 Obstructive sleep apnea (adult) (pediatric) (principal)
CPT/HCPCS: 95806

== ENCOUNTER → 2024-07-29 09:07 | Outpatient (BNV) | payer MEDICARE, SELFPAY | PROVIDERS: PCP Internal Medicine; Visit Provider Internal Medicine | DX: R06.83 Snoring (principal); G47.10 Hypersomnia, unspecified | CPT/HCPCS: 95806 ==

== ENCOUNTER 2024-09-13 07:52 | Outpatient (REF) | payer MEDICARE, SELFPAY ==
--- OUTSIDE RECORDS SUMMARY | 2024-09-13 07:54 | XMS_ITS | Clinical Summary ---
Author Organization [facility] Address [address] [place] [address] Phone Care Team Providers Care Pre Billing Specialist Name Role Phone Unavailable Primary Care Provider Unavailabl e Allergies Active Allergy Reactions Criticality Noted Date Comments Empagliflozin 03/17/2022 Levofloxacin 03/17/2022 Penicillins Other (see comments),Hives 03/24/2017 Other reaction(s): rash Linagliptin 03/17/2022 Vancomycin Itching,Other (see comments) 03/24/2017 Other reaction(s): intense itching Itching only on the head Medications albuterol HFA (PROVENTIL HFA;VENTOLIN HFA) 108 (90 Base) MCG/ACT inhaler Inhale 2 puffs 4 (four) times a day Active apixaban (ELIQUIS) 5 MG tablet Take 5 mg by mouth in the morning and 5 mg in the evening. Active Dulaglutide (Trulicity) 1.5 MG/0.5ML solution pen-injector Inject 3 mg under the skin per week Active Fluticasone-Tyler meterol 250-50 MCG/ACT aerosol powder Inhale Active folic acid (FOLVITE) 1 MG tablet Take 2 mg by mouth 1 (one) time each day Active gabapentin (NEURONTIN) 600 MG tablet Take 600 mg by mouth in the morning and 600 mg in the evening and 600 mg before bedtime. Active insulin degludec (TRESIBA FLEX TOUCH) 100 UNIT/ML injection Inject 45 Units under the skin every night Active losartan (COZAAR) 50 MG tablet Take 50 mg by mouth 1 (one) time each day Active metFORMIN (GLUCOPHAGE) 1000 MG tablet Take 1,000 mg by mouth in the morning and 1,000 mg in the evening. Take with meals. Active pantoprazole (PROTONIX) 40 MG EC tablet Take 40 mg by mouth 1 (one) time each day before breakfast Do not crush, chew, or split. Active rosuvastatin (CRESTOR) 40 MG tablet Take 40 mg by mouth 1 (one) time each day Active sertraline (ZOLOFT) 50 MG tablet Take 50 mg by mouth 1 (one) time each day Active Active Problems Problem Noted Date Diagnosed Date Hypertensive disorder 03/17/2022 Proteinuria 03/17/2022 Resolved Problems Problem Noted Date Diagnosed Date Resolved Date Cerebrovascular accident 03/17/2022 Chest pain 03/17/2022 03/17/2022 Diabetes mellitus 03/17/2022 03/17/2022 Gastroesophageal reflux disease 03/17/2022 03/17/2022 Obese class I 03/17/2022 03/17/2022 Arthritis of knee 02/21/2020 03/17/2022 Partial thickness rotator cuff tear 09/20/2018 03/17/2022 Full thickness rotator cuff tear 11/24/2017 03/17/2022 Calcific tendinitis of left shoulder 07/11/2017 03/17/2022 Pain of knee region 04/26/2017 03/17/20 Family History Relation Status Comments Father Mother Social History Tobacco Use Types Packs/Day Years Used Date Smoking Tobacco: Never Smokeless Tobacco: Never Tobacco Cessation:Counseling Given: Not Answered Alcohol Use Standard Drinks/Week Comments Never 0 (1 standard drink = 0.6 oz pur e alcohol) Comments Unknown Sex and Gender Information Value Date Recorded Sex Assigned at Not on file Legal Sex Female 3:58 PM EDT Gender Identity Not on file Sexual Orientation Not on file Last Filed Vital Signs Vital Sign Reading Time Taken Comments Blood Pressure 120/58 06/27/2022 2:28 PM EST Pulse 93 06/27/2022 2:28 PM EST Temperature - - Respiratory Rate - - Oxygen Saturation 97% 06/27/2022 2:28 PM EST Inhaled Oxygen Concentration - - Weight 85.3 kg (188 lb) 06/27/2022 2:28 PM EST Height - - Body Mass Index - - Plan of Treatment Health Maintenance Due Date Last Done Comments Breast Cancer Screening 1960 Pneumococcal Vaccine: 65+ Ye ars (1 of 2 - PCV) 1964 Colorectal Cancer Screening: Annual FOBT 2007 Colorectal Cancer Screening: Colonoscopy 2007 Colorectal Cancer Screening: Sigmoidoscopy 2007 Influenza Vaccine (#1) 2024 Hepatitis B Vaccine Aged Out No longe r eligible based on patient's age to complete this topic Insurance
--- OUTSIDE RECORDS SUMMARY | 2024-09-13 07:54 | XMS_ITS | Encounter Summary ---
Author Organization [facility] Address [address] [place] [address] Care Team Providers Care Paediatric Thoracic Physician Name Role Phone Valarie Hudson MD Primary Care Provider [phone] Encounter Details Date Type Department Care Team (Late st Contact Info) Description 05/29/2024 Lab Requisition [facility] - Main Lab [address] [facility] [place] [phone] Miguelangel Ag MD [address] [place], [place] [id number] Gross hematuria Social History Tobacco Use Types Packs/Day Years Used Date Smoking Tobacco: Never Smokeless Tobacco: Never Comments Unknown Sex and Gender Information Value Date Recorded Sex Assigned at Female 06/08/2024 8:04 PM EST Legal Sex Female 5:50 PM EST Gender Identity Female 06/08/2024 8:04 PM EST Sexual Orientation Straight 06/08/2024 8: 04 PM EST documented as of this encounter Plan of Treatment Not on file documented as of this encounter Procedures Procedure Name Priority Date/Time Associated Diagnosis Comments AP OUTSIDE CONSULT Routine 05/27/2024 Gross hematuria documented in this encounter Results * Anatomic pathology outside consult (05/27/2024) Final Diagnosis Urine, Voided: Negative for high grade urothelial carcinoma. Acute inflammation present. 05/31/2024 9:45 AM EST [facility] Clinical Information Gross hematuria 05/31/2024 9:45 AM EST [facility] Gross Description A. Urine, Voided, : 1 TP cyto with Reflex FISH if Atypical/Susp 05/31/2024 9:45 AM EST [facility] Disclaimer Unless otherwise specified, all tissue is 10% NB formalin fixed and paraffin embedded. 05/31/2024 9:45 AM EST [facility] Tissue Urine specimen from urethra / Unknown 05/27/2024 05/29/2024 11:35 AM EST us Miguelangel Ag MD LAB PATHOLOGY ORDERAB LES Final Result [facility] [address] [place] [address], documented in this encounter Visit Diagnoses Diagnosis Gross hematuria documented in this encounter Care Teams Paediatric Thoracic Physician Relationship Specialty Start Date End Date Valarie Hudson MD PCP - General Automation Controls Engineer 05/14/19 documented as of this encounter
--- OUTSIDE RECORDS SUMMARY | 2024-09-13 07:54 | XMS_ITS | Data Portability ---
Author Organization [place] [facility] Kirt Suarez AONE Macy Address [address] [place] [address] Care Team Providers Care Project Administrator Name Role Phone SOL MCNAMARA Primary Care [...] weeks to review results and further management. [email or web address] Not available 06/27/2024 09:18:50 Plan of Treatment Reminders Order Date Submit Date Provider Last Modified By Organization Details Last Modified Time Details Appointments None record ed. Lab None record ed. Referral None record ed. Procedures None record ed. Surgeries None record ed. Imaging XR, knee, 3 view 024 06/27/20 24 [facility], [address], [place], [address], 09:13:02 Medication Orders None record ed. Patient TargetsNo targets recorded. Patient Instructions Encounter Date Encounter Id Patient Instructions Last Modified By Organization Details Last Modified Time 06/27/2024 [id number] X-rays of the le ft knee were obtained on 06/27/2024 which demonstrates tricompartmental degenerative changes most severe at her patellofemoral compartment and medial compartment. Prior arthroplasty of the contralateral knee is stable [email or web address] Not available 06/27/2024 09:19:09 Reason for Referral None Reported. Results Created Date Observation Date Name Description Value Unit Range Abnormal Flag Note LastModifiedBy Organization Detail LastModifiedTime 07/31/19 25 07/30/2024 XR, knee, 3 view No observ ation record ed. [address] Mri [facility] [address] [place], [address], 07/31/2024 11:06:12 Result Notes None recorded. Procedures Surgical History Date Name Laterality Status Provider Name and Address Organization Details Recorded Time total knee replacement completed [facility] 06/27/2024 08:54:55 Shoulder Surgery completed [place] [facility] 06/27/2024 08:55:11 lumbar spinal fusion completed [facility] 06/27/2024 08:55:28 Imaging Results Imaging Date Name Status LastModified by Organiz ation Details LastModified Time 07/30/2024 XR, knee, 3 view completed [address] [facility] [address] [place], [address], 07/31/2024 11:06:12 Procedure Notes None recorded. Medical Equipment None Reported. Allergies Allergen ID Allergen Name Allergen Category Reaction Reaction Severity Criticality Documentation Date Start Date Code Code System Note Provider Name and Address Organization Details Recorded Time Product containin g penicilli n (product) medicatio n Not available Not available Not available 06/27/2024 94606 8001 SNOMED Crystal Saldana null, [facility] 4 08:53:10 Vancocin medicatio n Not available Not available Not available 06/27/202495076 8 RxNorm Crystal Saldana null, [facility] 4 08:53:22 Levaquin medicatio n Not available Not available Not available 06/27/2024 92061 2 RxNorm Carey Saldana null, [place] [facility] 08:53:30 Vitals Date Recorded Body height Body mass index (BMI) Body weight Provider Name and Address Organization Details Last Updated DateTime 06/27/2024 170.18 cm 23.5 kg/m2 [address]954.[address] [facility] 06/27/2024 08:53:40 Social History Question Answer Notes LastModified by Organizat ion Details LastModified Time Tobacco Smoking Status Former Smoker Carey riddle, [place] [facility] 06/27/2024 08:54:12 What Is Your Level Of Alcohol Consumption? None [email or web address] Information not available 06/27/2024 Do You Use Any Illicit Or Recreational Drugs? No [email or web address] Information not available 06/27/2024 Do You Or Have You Ever Used Any Other Forms Of Tobacco Or Nicotine? No [email or web address] Information not available 06/27/2024 Sex: Unknown Functional Status None recorded. Mental Status None recorded. Family History Relationship Description Onset Age of this Age Resolved Age Notes LastModified by Organization Details LastModified Time Mother History of cancer of unknown primary site [email or web address] Not available 11/2023 08:54:35 Father Diabetes mellitus [email or web address] Not available 2023 08:54:42 Medical History Condition Response Diabetes Y Stroke Y Hypertension Y Gynecological HistoryNo gynecological history recorded. Obstetrics History GPAL:G 0 P 0 0 0 0 Past Encounters Encounter ID Performer Location Encounter Start Date Encounter Closed Date Diagnosis/Indication Diagnosis SNOMED-CT Code Diagnosis ICD10 Code Diagnosis Note [id number] MD VERONICA Anderson [facility] [address] [address] 06/27/2024 08:39:30 06/27/2024 09:15:42 Pain of left knee region 5725176618 17242 M25.562 Health Concerns Section Related Observation LastModified by Organization Detai ls LastModified Time None Recorded Concern Status LastModified by Organization Details LastModified Time None Recorded Advance Directives Directive None Recorded Payers Encounter Date Sequence Insurance Name Policy Number Policy Mercedes Covered Member ID Mercedes Member ID Guarantor Name 06/27/2024 1 [id number]/ [place]ANTAGE - PPO) [id number] Galilea Hilton [id number] Galilea Hilton Notes Date Note Type [...] subsequently underwent a right knee arthroplasty in [place]. Her current pain is localized to her [...] NOMAN SHARIF PA-C [address], [place], [address], [facility] 06/27/2024 09:19:40 OBGyn Episode No OBEpisode recorded.
--- OUTSIDE RECORDS SUMMARY | 2024-09-13 07:54 | XMS_ITS | Clinical Summary ---
Author Organization [address] [facility] Address [address] [place] [address] Phone Care Team Providers Care Tool Repairer Bench Name Role Phone Valarie Hudson MD Primary Care Provider [phone] Encounters Date Type Department Care Team Description 07/30/2024 10:15 AM EST - 07/30/2024 11:59 PM EST Hospital Encounter [facility] Xray [address] [place] [phone] Pain in left knee Discharge Disposition: Home or Self Care from Last 3 Months Surgical History Surgery Date Site/Laterality Comments SECTION PROCEDURE: SECTION SHOULDER SURGERY PROCEDURE:SHOULDER SURGERY BREAST SURGERY PROCEDURE:REDUCTION MAMMAPLASTY KNEE SURGERY PROCEDURE:KNEE SURGERY Medical History Medical History Date Comments Depression DX:Depression Hypertension DX:Hypertension GERD (gastroesophageal reflux disease) DX:GERD (gastroesophageal reflux disease) High cholesterol DX:High cholest sherwin Stroke (CMS/HCC) DX:Stroke (HCC) Asthma DX:Asthma Diabetes mellitus ([facility]/HCC) DX:D iabetes mellitus (HCC) Family History Medical History Relation Name Comments Coronary artery disease Father Diabetes Father Hypertension Father Cancer Mother Coronary artery disease Mother Hypertension Mother Relation Name Status Comments Father Mother Social History Tobacco Use Types Packs/Day Years Used Date Smoking Tobacco: Never Smokeless Tobacco: Never Comments Unknown Sex and Gender Information Value Date Recorded Sex Assigned at Female 06/08/2024 8:04 PM EST Legal Sex Female 5:50 PM EST Gender Identity Female 06/08/2024 8:04 PM EST Sexual Orientation Straight 06/08/2024 8: 04 PM EST Obstetrics History Plan of Treatment Health Maintenance Due Date Last Done Comments Breast Cancer Screening 1958 Diabetes: Annual Foot Exam 1968 Diabetes: Annual Retina Eye Exam 1968 DTaP,Tdap,and Td Vaccines (1 - Tdap) 1977 Pneumococcal Vaccine: 50+ Ye ars (1 of 1 - PCV) 2008 Zoster Vaccines (1 of 2) 2008 Diabetes: Annual GFR (Glomer ular Filtration Rate) 06/11/2020 06/11/2019 Cholesterol Screening (Lipid Panel) 06/25/2022 Colorectal Cancer Screening: Colonoscopy 06/25/2022 Depression Screening 06/25/2022 Hepatitis C Screening 06/25/2022 Osteoporosis Screening (Bone Density Screening) 06/25/2022 Social Influencers of Health Screening 06/25/2022 Falls Risk Assessment 2023 COVID-19 Vaccine ( - 2023-2 5 season) 2024 Influenza Vaccine (#1) 2024 Diabetes: Annual Urine Albumin-Creatinine Ratio (uACR) 07/30/2024 Diabetes: Blood Sugar Contro l Test (HGBA1C) 07/30/2024 Hypertension/CHF/CAD Annual BMP Blood Test 07/30/2024 06/11/2019 RSV Immunization Patients 60 + Years Old (1 - 1-dose 75+ series) 2033 HIB Vaccines Aged Out No longer eligi ble based on patient's age to complete this topic HPV Vaccines Aged Out No longer eligi ble based on patient's age to complete this topic Hepatitis A Vaccines Aged Out No long er eligible based on patient's age to complete this topic Hepatitis B Vaccines Aged Out No long er eligible based on patient's age to complete this topic IPV Vaccines Aged Out No longer eligi ble based on patient's age to complete this topic MMR Vaccines Aged Out No longer eligi ble based on patient's age to complete this topic Meningococcal ACWY Vaccine Aged Out N o longer eligible based on patient's age to complete this topic Meningococcal B Vacine Aged Out No lo nger eligible based on patient's age to complete this topic RSV Immunization Patients Un giancarlo 20 months Aged Out No longer eligible b ased on patient's age to complete this topic Varicella Vaccines Aged Out No longer eligible based on patient's age to complete this topic Procedures Procedure Name Priority Date/Time Associated Diagnosis Comments XR KNEE 4+ VIEWS LEFT Routine 07/30/2024 10:36 AM EST Pain in left knee from Last 3 Months Results * XR Knee 4+ Views Left (07/30/2024 10:36 AM EST) Anatomical Region Laterality Modality Lower Extremities, Knee Left [facility] 07/31/2024 8:54 AM EST Impressions 07/31/2024 8:55 AM EST No acute findings. There is evidence of moderate osteoarthritis. Code 23389 -------- FINAL REPORT -------- Dictated By: Toni Tan Dictated Date: 07/31/2024 08:54 ET Assigned Physician: Toni Tan Reviewed and Electronically Signed By: Toni Tan Signed Date: 07/31/2024 08:55 ET Workstation ID: [id number] Transcribed By: Self Edit Transcribed Date: 07/31/2024 08:54 ET Narrative 07/31/2024 8:55 AM EST HISTORY: The patient is a 64-year-old female with left knee pain following a fall. FINDINGS: AP, lateral, tunnel, and skyline views of the left knee are obtained. The study demonstrates no fracture or dislocation. There is narrowing of the medial compartment of the femoral-tibial joint space as well as narrowing of the patellar-femoral joint space. There is peaking of the medial tibial spine. Very small osteophytes arise from the upper and lower poles of the patella. These findings are consistent with moderate osteoarthritis. No joint effusion is seen. Extensive atherosclerotic arterial ossifications are noted. Procedure Note Toni Tan MD - 07/31/2024 HISTORY: The patient is a 64-year-old female with left knee pain followinga fall. FINDINGS: AP, lateral, tunnel, and skyline views of the left knee areobtained. The study demonstrates no fracture or dislocation. There isnarrowing of the medial compartment of the femoral-tibial joint space aswell as narrowing of the patellar-femoral joint space. There is peaking ofthe medial tibial spine. Very small osteophytes arise from the upper andlower poles of the patella. These findings are consistent with moderateosteoarthritis. No joint effusion is seen. Extensive atheroscleroticarterial ossifications are noted. IMPRESSION: No acute findings. There is evidence of moderate osteoarthritis. Code 84041 -------- FINAL REPORT -------- Dictated By: Toni Tan Dictated Date: 07/31/2024 08:54 ET Assigned Physician: Toni Tan Reviewed and Electronically Signed By: Toni Tan Signed Date: 07/31/2024 08:55 ET Workstation ID: [id number] Transcribed By: Self Edit Transcribed Date: 07/31/2024 08:54 ET Steven NATHAN IMG XR PROCEDURES Final Result from Last 3 Months Insurance [facility] Care Teams Tool Repairer Bench Relationship Specialty Start Date End Date Valarie Hudson MD PCP - General Natural Remedy Consultant 05/14/19
--- OUTSIDE RECORDS SUMMARY | 2024-09-13 07:54 | XMS_ITS | Clinical Summary ---
Author Organization [facility] Address [address] [place] [address] Care Team Providers Care Underwriting Specialist Name Role Phone Unavailable Primary Care Provider Unavailabl e Social History Tobacco Use Types Packs/Day Years Used Date Smoking Tobacco: Never Assessed Sex and Gender Information Value Date Recorded Sex Assigned at Not on file Gender Identity Not on file Sexual Orientation Not on file Plan of Treatment Health Maintenance Due Date Last Done Comments Hepatitis C Virus Screening 1958 DTaP/Tdap/Td Vaccines (1 - Tdap) 1977 Pneumococcal Vaccines 50+ (1 of 1 - PCV) 2008 Zoster (Shingles) Vaccine (1 of 2) 2008 COVID-19 Vaccine ( - 2023-2 5 season) 2024 RSV Vaccine 60 years and old er and Patients (1 - 1-dose 75+ series) 2033 Hepatitis B Vaccines Aged Out No long er eligible based on patient's age to complete this topic
--- OUTSIDE RECORDS SUMMARY | 2024-09-13 07:54 | XMS_ITS | Clinical Summary ---
Author Organization [facility] Address [address] [place] [address] Care Team Providers Care Anesthesia Assistant Name Role Phone Valarie Hudson MD Primary Care Provider [phone] Allergies Active Allergy Reactions Criticality Noted Date Comments Penicillins 03/24/2017 Vancomycin 03/24/2017 Medications Medication Sig Dispensed Refills Start Date End Date Status atorvastatin (LIPITOR) tablet 40 mg 2 01/14/2017 Active metFORMIN (GLUCOPHAGE) tablet 1000 mg TAKE 1 T BY MOUTH TWICE DAILY WITH MEALS 1 02/11/2017 Active pantoprazole (PROTONIX) 40 MG tablet 2 01/20/2017 Active sertraline (ZOLOFT) 50 MG tablet TK 1 T PO D 3 02/08/2017 Active JANUVIA 100 MG tablet 2 01/14/2017 Active valsartan (DIOVAN) tablet 160 mg TK 1 T PO ONCE D 0 02/20/2017 Activ e VENTOLIN HFA 108 (90 BASE) MCG/ACT inhaler USE 2 INHALATIONS BY MOUTH NEEDED EVERY 4 HOURS 2 04/30/2017 Active glyBURIDE (DIABETA) 5 MG tablet TK 1 T PO ONCE A DAY 3 04/25/2017 Active gabapentin (NEURONTIN) 600 MG tablet TK 1 T PO TID 2 09/16/2018 Active losartan (COZAAR) tablet 50 mg TK 1 T PO D 1 08/04/2018 Active ADVAIR DISKUS 500-50 MCG/DOSE DISKUS USE 1 INHALATION PO 2 TIMES D 0 08/10/2018 Active clopidogrel (PLAVIX) 75 MG tablet TK 1 T PO QD 0 04/04/2019 Active TRULICITY 1.5 MG/0.5ML SOPN 3 04/30/2019 Active fluconazole (DIFLUCAN) 150 MG tablet TK 1 T PO 1 TIME FOR 1 DAY 2 02/23/2019 Active folic acid (FOLVITE) tablet 1 mg TK 2 TS PO QD 2 04/10/2019 Active TRADJENTA 5 MG tablet TK 1 T PO QD 3 03/27/2019 Active montelukast (SINGULAIR) 10 MG tablet Take 10 mg by mouth daily. 2 02/07/2019 Active aspirin EC 325 MG tablet Take 325 mg by mouth. 0 Active Insulin Degludec 200 UNIT/ML SOPN Inject 20 Units under the skin. 0 Active rosuvastatin (CRESTOR) tablet 40 mg TAKE 1 TABLET BY MOUTH ONCE A DAY GENERIC EQUIVALENT FOR CRESTOR 0 01/08/2020 Active TRESIBA FLEXTOUCH 100 UNIT/ML SOPN 0 07/06/2020 Active ibuprofen 600 MG tablet Take 1 tablet (600 mg total) by mouth every 6 (six) hours as needed for pain. Take with food 30 tablet 0 04/29/2021 Active oxyCODONE (ROXICODONE) 5 MG immediate release tablet Take 1 tablet (5 mg total) by mouth every 6 (six) hours as needed for pain. Do not take until after surgery 20 tablet 0 04/29/2021 Active B-D ULTRAFINE III SHORT PEN 31G X 8 MM MISC USE DIRECTED ONCE DAILY 0 03/17/2021 Active erythromycin (ROMYCIN) ophthalmic ointment 0 02/26/2021 Activ e Continuous Blood Gluc Sensor (FreeStyle Reid 14 Day Sensor) MISC USE DIRECTED. CHANGE EVERY 14 DAYS. 0 04/13/2021 Active Active Problems Problem Noted Date Diagnosed Date Postop check 10/07/2020 Patellofemoral arthritis of right knee 0 Incomplete tear of left rotator cuff 09/20/2018 Complete tear of left rotator cuff 11/24/2017 Calcific tendinitis of left shoulder 07/11/2017 Acute pain of right knee 04/26/2017 Family History Medical History Relation Name Comments Coronary artery disease Father Diabetes Father Hypertension Father Cancer Mother Coronary artery disease Mother Hypertension Mother Relation Name Status Comments Father Mother Social History Tobacco Use Types Packs/Day Years Used Date Smoking Tobacco: Never Smokeless Tobacco: Never Sex and Gender Information Value Date Recorded Sex Assigned at Not on file Gender Identity Not on file Sexual Orientation Not on file Job Start Date Occupation Industry Not on file Not on file Not on file Last Filed Vital Signs Vital Sign Reading Time Taken Comments Blood Pressure - - Pulse - - Temperature 36.7 ??C (98.1 ??F) 06/03/2021 8:46 AM ES T Respiratory Rate - - Oxygen Saturation - - Inhaled Oxygen Concentration - - Weight 86.2 kg (190 lb) 07/15/2021 8:36 AM EST Height 170.2 cm (5' 7 ) 07/15/2021 8:36 AM EST Body Mass Index 29.76 07/15/2021 8:36 AM EST Plan of Treatment Health Maintenance Due Date Last Done Comments Hepatitis C Screening 1960 COVID-19 Vaccine (#1) 1958 Depression Screening 1970 BMI Counseling 1976 Preventative Health Evaluation 1976 DTap / Tdap / Td (1 - Tdap) 1977 Colon Cancer Screening (Colonoscopy) 2003 Breast Cancer Screening (Mammogram) 2008 Shingrix-Zoster Vaccine (1 of 2) 2008 Fall Risk Assessment 2023 Osteoporosis Screening (DEXA Scan) 2023 Pneumococcal Vaccine (1 of 1 - PCV) 2023 Influenza Vaccine (#1) 2024 RSV Adult > 60+ Yrs or Pregn ant (1 - 1-dose 75+ series) 2033 Hepatitis B Vaccines Aged Out No long er eligible based on patient's age to complete this topic RSV Ped < 20 months Aged Out No longe r eligible based on patient's age to complete this topic Care Teams Anesthesia Assistant Relationship Specialty Start Date End Date Valarie Hudson MD [address] [place] [address] PCP - General Sow Farm Barn Technician 05/14/19
[2024-09-13 10:00] LABS: MANUAL DIFF FLAG NO
[2024-09-13 10:02] LABS: Basophils Percent Auto 0.8 % (0-2); Eosinophils Absolute Auto 0.3 X10*3/uL (0.0-0.4); Hematocrit 35.5 % (37.0-47.0); Hemoglobin 11.6 g/dl (12.0-16.0); Imm Gran Abs Auto 0.01 X10*3/uL (0.00-0.03); Imm Gran Pct Auto 0.2 % (0.0-0.4); Lymphocytes Absolute Auto 1.8 X10*3/uL (1.2-4.9); Mean Corpuscular HGB Conc 32.7 g/dl (31.0-35.0); Mean Corpuscular Hemoglobin 29.4 pg (27.0-33.0); Mean Corpuscular Volume 90.1 fL (80.0-98.0); Monocytes Absolute Auto 0.3 X10*3/uL (0.1-1.2); Monocytes Percent Auto 6.8 % (2-11); Neutrophils Absolute Auto 2.5 x10*3/uL (2.0-8.3); Neutrophils Percent Auto 50.2 % (45-73); Platelet Count 194 X10*3/uL (160-400); Red Blood Count 3.94 X10*6/uL (4.20-5.50); Red Cell Distribution Width 13.7 % (11.0-16.0)
[2024-09-13 10:10] LABS: Estimated Average Glucose 117 mg/dL; Hemoglobin A1C 120.6403 umol/L; Hemoglobin A1c % 5.7 % (<6.0); Total Hemoglobin (HGBA1C) 3070.0041 umol/L
[2024-09-13 10:21] LABS: Alanine Aminotransferase 19 U/L (0-31); Albumin Level 3.9 g/dL (3.5-5.0); Alkaline Phosphatase 66 U/L (39-117); Anion Gap 12 (12-20); Aspartate Amino Transferase 24 U/L (5-31); Bilirubin Total 0.5 mg/dL (0.0-1.0); Blood Urea Nitrogen 14 mg/dL (9-16); Calcium 9.2 mg/dL (8.4-10.2); Carbon Dioxide 26 mmol/L (22-29); Chloride 107 mmol/L (96-108); Cholesterol 110 mg/dL (<200); Estimated Glomerular Filt Rate > 60; Glucose Fasting 105 mg/dL (60-99); HDL Cholesterol 46 mg/dL (>40); LDL Cholesterol Calculated 48 mg/dL (<100); Potassium 3.7 mmol/L (3.3-5.1); Sodium 141 mmol/L (135-145); Total Protein 6.7 g/dL (6.5-8.0); Triglycerides 80 mg/dL (<150)
[2024-09-13 11:22] LABS: Creatinine Urine 135.88 mg/dL; Microalbum/Creatinine Ratio Ur 33.1 ug/mg cr (<30)
== END 2024-09-13 07:53 | disposition home or self-care (01) ==
LOC: HO.HMGCLDS 07:52
PROVIDERS: PCP Internal Medicine; Visit Provider Internal Medicine
DX: E11.21 Type 2 diabetes mellitus with diabetic nephropathy (principal); I48.0 Paroxysmal atrial fibrillation; E78.5 Hyperlipidemia, unspecified
CPT/HCPCS: 36415; 80053; 80061; 82043; 82570; 83036; 85025

== ENCOUNTER 2024-09-20 09:40 | Outpatient (AMB) | payer MEDICARE, SELFPAY ==
--- NOTE | 2024-09-20 09:47 | MHC.PC.OV ---
Vital Signs 09/20/24 09:48 Height 5 ft 7 in Weight 154 lb BMI 24.1 BP 120/70 Blood Pressure Location Lt brachial Position Sitting Respiration 18 Pulse 83 Pulse Source Pulse Oximeter Temp 98.8 F Temp Source Oral Pulse Oximetry (%) 98 Oxygen Delivery Method Room Air Intake Visit Reasons: 4 months f/up Intake Note: Pt is here today for a follow up visit on DM. Allergies vancomycin [VANCOMYCIN] Allergy (Intermediate, Verified 09/20/24 09:56) ITCHING empagliflozin [Jardiance] Allergy (Unknown, Verified 09/20/24 09:56) yeast infection levofloxacin Allergy (Unknown, Verified 09/20/24 09:56) tendon rupture linagliptin [Tradjenta] Allergy (Unknown, Verified 09/20/24 09:56) yeast infection penicillin G [Penicillin G] Allergy (Unknown, Verified 09/20/24 09:56) HIVES penicillin V Allergy (Unknown, Verified 09/20/24 09:56) unknown Medication List - Last Reconciled 09/20/24 by Valarie Hudson MD apixaban (Eliquis) 5 mg PO BID blood-glucose sensor (Dexcom G7 Sensor device) As directed blood-glucose sensor (FreeStyle Reid 3 Plus Sensor device) Test blood sugar 4 times per day, change sensor every 15 days CPAP (CPAP Machine/Device) CPAP with mask, tubing, filters, water chamber, heated humidifier on [id number] flash glucose sensor (FreeStyle Reid 2 Sensor kit) As directed fluticasone propion-salmeterol 250-50 mcg/dose (Advair Diskus) 1 inh inhalation BID FreeStyle Reid 3 Sensor (blood-glucose sensor) As directed to test sugars 3-4 times per day NS insulin degludec (Tresiba FlexTouch U-100 insulin) 20 units (0.2 mL) subcut BEDTIME 90 days losartan 50 mg PO DAILY metformin 1,000 mg PO BID metoprolol succinate ER 50 mg PO DAILY Ozempic (semaglutide) 2 mg (0.75 mL) subcut QWEEK NS pantoprazole 40 mg PO DAILY pen needle, diabetic (BD Ultra-Fine Short Pen Needle) Use to inject insulin once daily rosuvastatin 20 mg PO DAILY sertraline 25 mg PO DAILY Ventolin HFA 90 mcg/actuation (albuterol sulfate) 1 inh inhalation QID NS Tobacco use date assessed: 09/20/24 Fall risk assessment: No Falls in past year Last assessed Fall Risk: 09/20/24 Dental Screening Dental Screen Date: 09/20/24 Did you have a dental visit in the last 12 months?: Yes Did you have a dental problem in the last 6 months where you did not have access to dental care?: No Was dental information given to patient?: Patient has dentist HPI 4 months f/up HPI Details Patient presents for the follow-up of type 2 diabetes hypertension hyperlipidemia, stable on medications. [facility] Medical History (Updated 09/20/24 @ 10:26 by Valarie Hudson MD) Failed total right knee replacement Status post placement of implantable loop recorder Paroxysmal atrial fibrillation Ptosis of both upper eyelids Hammertoe of right foot Annual physical exam Cornea disorder Carotid stenosis Cataract JERICHO (obstructive sleep apnea) CVA (cerebral vascular accident) Asthma Hyperlipidemia HTN (hypertension) DM type 2 (diabetes mellitus, type 2) Surgical History H/O rotator cuff surgery H/O bilateral breast reduction surgery History of arthroscopic knee surgery H/O shoulder surgery Family History Father No problems noted. Mother No problems noted. Social History Housing: House Alcohol intake: current Alcohol intake frequency: a few times a month Patient Tobacco Use Status: Former Tobacco user e-Cigarette/Vaping Use: Never Used service: No Current occupational status: employed Cognitive needs: No Hearing needs: No Vision needs: No Questionnaire PHQ-9 Over the last 2 weeks, how often have you been bothered by any of the following problems? 1. Little interest or pleasure in doing things: not at all 2. Feeling down, depressed, or hopeless: not at all 3. Trouble falling or staying asleep, or sleeping too much: not at all 4. Feeling tired or having little energy: not at all 5. Poor appetite or overeating: not at all 6. Feeling bad about yourself - or that you are a failure or have let yourself or your family down: not at all 7. Trouble concentrating on things, such as reading the newspaper or watching television: not at all 8. Moving or speaking so slowly that other people could have noticed. Or the opposite - being so fidgety or restless that you have been moving around a lot more than usual: not at all 9. Thoughts that you would be better off or of hurting yourself in some way: not at all Total score: 0 Depression Screening Interpretation: Negative Depression Screening Done: Yes 41997 - PHQ-9 Billing: Yes Source: Developed by Drs. Hadley Arshad, Adwoa Hayes, Jelani Jackson and colleagues, with an educational shaji from [employer] Thrive Questionnaire Date Thrive assessed: 09/20/24 I am a: Patient What is your living situation today?: I have a steady place to live Within the past 12 months, did the food you bought not last and you didn't have the money to get more?: Never true Within the past 12 months, did you worry whether your food would run out before you got money to buy more?: Never true Do you have trouble paying for medicines?: No Do you have trouble getting transportation to medical appointments?: No Do you have trouble paying your heating and electricity bill?: No Do you have trouble taking care of your child, family member or friend?: No Do you have trouble with day-to-day activities such as bathing, preparing meals, shopping, managing finances, etc.?: No Are you currently unemployed and looking for a job?: No Are you interested in more education?: No Please select the resources that you would like help with: None Currently or been in a relationship where the following occur: No concerns reported THRIVE Score: 0 AUDIT C Alcohol Use Questionnaire (AUDIT-C) 1. How often do you have a drink containing alcohol?: Monthly or less 2. How many drinks containing alcohol do you have on a typical day when you are drinking?: 1 or 2 3. How often do you have six or more drinks on one occasion?: Never Total Score: 1 JEZ-7 AMB Questionnaire JEZ-7 Date JEZ - 7 assessed: 09/20/24 Feeling nervous, anxious, or on edge: 0 = Not at all Not being able to stop or control worryin = Not at all Worrying too much about different things: 0 = Not at all Trouble relaxin = Not at all Being so restless that it is hard to sit still: 0 = Not at all Becoming easily annoyed or irritable: 0 = Not at all Feeling afraid as if something awful might happen: 0 = Not at all Total JEZ-7 score (0-4 normal; 5-9 mild; 10-14 moderate; 15-21 severe): 0 Source: Developed by Drs. Hadley Arshad, Adwoa Hayes, Jelani Jackson and colleagues, with an educational shaji from [employer] JEZ-7 Assessment Billing JEZ-7 Assessment Tool: JEZ-7 Assessment 68956 Review of Systems Const All systems reviewed & are unremarkable except as noted in HPI and below Eyes Reports no additional complaints ENT Reports no additional complaints Card Reports no additional complaints Resp Reports no additional complaints GI Reports no additional complaints Reports no additional complaints Physical exam (Primary Care) Vital Signs: Last Vital Signs Temp 98.8 F 09/20/24 09:48 Pulse 83 09/20/24 09:48 Resp 18 09/20/24 09:48 BP 120/70 09/20/24 09:48 Pulse Ox 98 09/20/24 09:48 Oxygen Delivery Method Room Air 09/20/24 09:48 BMI result Body Mass Index 24.1 Tobacco/Smoking Status: Tobacco use Status Tobacco use date assessed 09/20/24 09/20/24 09:57 Patient Tobacco Use Status Former Tobacco user 09/20/24 09:57 e-Cigarette/Vaping Use Never Used 09/20/24 09:57 PHQ-9: PHQ-9 Score PHQ-9: Total score 0 09/20/24 09:58 Depression Screening Interpretation: Negative Thrive Assessment: Date of Thrive Assessment Date Thrive assessed 09/20/24 09/20/24 09:58 Currently or been in a relationship where the following occur: No concerns reported Const General: no acute distress HENMT Ears: hearing grossly normal bilaterally Throat: Yes posterior oropharynx normal Neck Neck: Yes supple Resp Effort & Inspection: normal respiratory effort Auscultation: clear to auscultation bilaterally Cardio Rhythm: regular rhythm Heart sounds: S1 normal heart sound present and S2 normal heart sound present GI Inspection: Yes normal to inspection Palpation (GI): Soft to palpation Coding Level of Care Code Est Pt Level 4 (06822) Complex EM visit Add On G2211 Diagnoses Diabetic nephropathy associated with type 2 diabetes mellitus E11.21 Paroxysmal atrial fibrillation I48.0 DM type 2 (diabetes mellitus, type 2) E11.9 HTN (hypertension) I10 Hyperlipidemia E78.5 JERICHO (obstructive sleep apnea) G47.33 Additional Codes JEZ-7 Assessment Billing - JEZ-7 Assessment Tool: JEZ-7 Assessment 36531 ([id number]) PHQ-9 - 57537 - PHQ-9 Billing: Yes ([id number]) Assessment & Plan Assessment & Plan (1) Diabetic nephropathy associated with type 2 diabetes mellitus: Comment: Intolerant to SGLT 2 INHIBITORS Code(s): E11.21 - Type 2 diabetes mellitus with diabetic nephropathy Category: Medical Plan: Continue current medications (2) Paroxysmal atrial fibrillation: Comment: Infrequent paroxysmal AFib asymptomatic Code(s): I48.0 - Paroxysmal atrial fibrillation Category: Medical Plan: Anticoagulated on Eliquis (3) DM type 2 (diabetes mellitus, type 2): Comment: Intolerant to Farxiga and Jardiance, caused recurrent candidiasis Code(s): E11.9 - Type 2 diabetes mellitus without complications Category: Medical Plan: A1c is down to 5.7. Continue current medications ADA diet regular exercise follow-up in 3 months (4) HTN (hypertension): Code(s): I10 - Essential (primary) hypertension Category: Medical Plan: cont meds (5) Hyperlipidemia: Code(s): E78.5 - Hyperlipidemia, unspecified Category: Medical Plan: cont statin (6) JERICHO (obstructive sleep apnea): Comment: sleep study after weight loss 07/2024 Code(s): G47.33 - Obstructive sleep apnea (adult) (pediatric) Category: Medical Plan: pt will stop Cpap Orders: Orders Hemoglobin A1c 3 Months E11.21 - Type 2 diabetes mellitus with diabetic nephropathy, E11.9 - Type 2 diabetes mellitus without complications, I48.0 - Paroxysmal atrial fibrillation, R80.9 - Proteinuria, unspecified Lipid Panel 3 Months E11.21 - Type 2 diabetes mellitus with diabetic nephropathy, E11.9 - Type 2 diabetes mellitus without complications, I48.0 - Paroxysmal atrial fibrillation, R80.9 - Proteinuria, unspecified Microalbumin, Random (w Creat) 3 Months E11.21 - Type 2 diabetes mellitus with diabetic nephropathy, E11.9 - Type 2 diabetes mellitus without complications, I48.0 - Paroxysmal atrial fibrillation, R80.9 - Proteinuria, unspecified Comprehensive [place]. Panel Fast 3 Months E11.21 - Type 2 diabetes mellitus with diabetic nephropathy, E11.9 - Type 2 diabetes mellitus without complications, I48.0 - Paroxysmal atrial fibrillation, R80.9 - Proteinuria, unspecified
[2024-09-20 09:48] VITALS: BP 120/70; PULSE 83; RESP 18; TEMP 37.1; O2SAT 98; BMI 24.1
--- OUTSIDE RECORDS SUMMARY | 2024-09-20 10:26 | XMS_ITS | Clinical Summary ---
Author Organization [facility] Address [address] [place] [address] Care Team Providers Care Jukebox Checker Name Role Phone Valarie Hudson MD Primary Care Provider [phone] Allergies Active Allergy Reactions Criticality Noted Date [...] age to complete this topic Care Teams Jukebox Checker Relationship Specialty Start Date End Date Valarie Hudson MD [address] [place] [address] PCP - General Artist Agent 05/14/19
--- OUTSIDE RECORDS SUMMARY | 2024-09-20 10:26 | XMS_ITS | Data Portability ---
Author Organization [facility] Kirt Suarez [facility] [place] Address [address] [place] [address] Care Team Providers Care Lineman Name Role Phone SOL MCNAMARA Primary Care Provider [phone] SOL MCNAMARA Referring Provider [phone] Assessment Encounter Date Assessment Date Assessment LastModified [...] weeks to review results and further management. [email or web address] Not available 06/27/2024 09:18:50 Plan of Treatment Reminders Order Date Submit Date Provider Last Modified By Organization Details Last Modified Time Details Appointments None record ed. Lab None record ed. Referral None record ed. Procedures None record ed. Surgeries None record ed. Imaging XR, knee, 3 view 024 06/27/20 24 [facility], [address], [place], [address], 09:13:02 Medication Orders None record ed. Patient TargetsNo targets recorded. Patient Instructions Encounter Date Encounter Id Patient Instructions Last Modified By Organization Details Last Modified Time 06/27/2024 [id number] X-rays of the le ft knee were obtained on 06/27/2024 which demonstrates tricompartmental degenerative changes most severe at her patellofemoral compartment and medial compartment. Prior arthroplasty of the contralateral knee is stable [email or web address] Not available 06/27/2024 09:19:09 Reason for Referral None Reported. Results Created Date Observation Date Name Description Value Unit Range Abnormal Flag Note LastModifiedBy Organization Detail LastModifiedTime 07/31/19 25 07/30/2024 XR, knee, 3 view No observ ation record ed. [address] [facility] [address] [place], [address], 07/31/2024 11:06:12 Result Notes None recorded. Procedures Surgical History Date Name Laterality Status Provider Name and Address Organization Details Recorded Time total knee replacement completed [employer] [facility] 06/27/2024 08:54:55 Shoulder Surgery completed [facility] [facility] 06/27/2024 08:55:11 lumbar spinal fusion completed [employer] [facility] 06/27/2024 08:55:28 Imaging Results Imaging Date Name Status LastModified by Organiz ation Details LastModified Time 07/30/2024 XR, knee, 3 view completed [address] [facility] [address] [place], [address], 07/31/2024 11:06:12 Procedure Notes None recorded. Medical Equipment None Reported. Allergies Allergen ID Allergen Name Allergen Category Reaction Reaction Severity Criticality Documentation Date Start Date Code Code System Note Provider Name and Address Organization Details Recorded Time Product containin g penicilli n (product) medicatio n Not available Not available Not available 06/27/2024 07006 8001 SNOMED Crystal Saldana null, [place] [facility] 4 08:53:10 Vancocin medicatio n Not available Not available Not available 06/27/202484439 8 RxNorm Crystal Saldana null, [place] [facility] 4 08:53:22 Levaquin medicatio n Not available Not available Not available 06/27/2024 49207 2 RxNorm Carey Saldana null, [place] [facility] 08:53:30 Vitals Date Recorded Body height Body mass index (BMI) Body weight Provider Name and Address Organization Details Last Updated DateTime 06/27/2024 170.18 cm 23.5 kg/m2 11859.[address] [facility] 06/27/2024 08:53:40 Social History Question Answer Notes LastModified by Organizat ion Details LastModified Time Tobacco Smoking Status Former Smoker Carey riddle, [place] [facility] 06/27/2024 08:54:12 What Is Your Level Of Alcohol Consumption? None [email or web address] Information not available 06/27/2024 Do You Use Any Illicit Or Recreational Drugs? No [email or web address] Information not available 06/27/2024 Do You Or Have You Ever Used Any Other Forms Of Tobacco Or Nicotine? No [email or web address] Information not available 06/27/2024 Sex: Unknown Functional Status None recorded. Mental Status None recorded. Family History Relationship Description Onset Age of this Age Resolved Age Notes LastModified by Organization Details LastModified Time Mother History of cancer of unknown primary site Not available 11/2023 08:54:35 Father Diabetes mellitus [email or web address] Not available 2023 08:54:42 Medical History Condition Response Diabetes Y Stroke Y Hypertension Y Gynecological HistoryNo gynecological history recorded. Obstetrics History GPAL:G 0 P 0 0 0 0 Past Encounters Encounter ID Performer Location Encounter Start Date Encounter Closed Date Diagnosis/Indication Diagnosis SNOMED-CT Code Diagnosis ICD10 Code Diagnosis Note [id number] MD VERONICA Anderson [facility] [address] [address] 06/27/2024 08:39:30 06/27/2024 09:15:42 Pain of left knee region [id number] 69950 M25.562 Health Concerns Section Related Observation LastModified by Organization Detai ls LastModified Time None Recorded Concern Status LastModified by Organization Details LastModified Time None Recorded Advance Directives Directive None Recorded Payers Encounter Date Sequence Insurance Name Policy Number Policy Mercedes Covered Member ID Mercedes Member ID Guarantor Name 06/27/2024 1 [place]/ [place]ANTAGE - [place]PO) [id number] Galilea Hilton [id number] Galilea Hilton Notes Date Note Type [...] subsequently underwent a right knee arthroplasty in [place]. Her current pain is localized to her [...] NOMAN SHARIF PA-C [address], [place], [address], [facility] 06/27/2024 09:19:40 OBGyn Episode No OBEpisode recorded.
--- OUTSIDE RECORDS SUMMARY | 2024-09-20 10:26 | XMS_ITS | Encounter Summary ---
Author Organization [facility] Address [address] [place] [address] Care Team Providers Care Duck Operator Name Role Phone Valarie Hudson MD Primary Care Provider [phone] Encounter Details Date Type Department Care Team (Late st Contact Info) Description 05/29/2024 Lab Requisition [facility] - Main Lab [address] [facility] [place] [id number] Miguelangel Ag MD [address] [place], [place] [id number] Gross hematuria Social History Tobacco Use Types [...] inflammation present. 05/31/2024 9:45 AM EST [facility] Clinical Information Gross hematuria 05/31/2024 9:45 AM EST [facility] Gross Description A. Urine, Voided, : 1 TP cyto with Reflex FISH if Atypical/Susp 05/31/2024 9:45 AM EST [facility] Disclaimer Unless otherwise specified, all tissue is 10% NB formalin fixed and paraffin embedded. 05/31/2024 9:45 AM EST [facility] Tissue Urine specimen from urethra / Unknown 05/27/2024 05/29/2024 11:35 AM EST us Miguelangel Ag MD LAB PATHOLOGY ORDERAB LES Final Result [facility] [address] [place] [address], documented in this encounter Visit Diagnoses Diagnosis Gross hematuria documented in this encounter Care Teams Duck Operator Relationship Specialty Start Date End Date Valarie Hudson MD PCP - General Manager Unit 05/14/19 documented as of this encounter
--- OUTSIDE RECORDS SUMMARY | 2024-09-20 10:26 | XMS_ITS | Clinical Summary ---
Author Organization [facility] Address [address] [place] [address] Care Team Providers Care Substation Operator Chief Name Role Phone Unavailable Primary Care Provider [...]
--- OUTSIDE RECORDS SUMMARY | 2024-09-20 10:26 | XMS_ITS | Clinical Summary ---
Author Organization [facility] Address [address] [place] [address] Phone Care Team Providers Care Engineering Lecturer Name Role Phone Unavailable Primary Care Provider [...]
--- OUTSIDE RECORDS SUMMARY | 2024-09-20 10:26 | XMS_ITS | Clinical Summary ---
Author Organization [address] [facility] Address [address] [place] [address] Phone Care Team Providers Care Plate Conditioner Name Role Phone Valarie Hudson MD Primary Care Provider [phone] Encounters Date Type Department Care Team Description 07/30/2024 10:15 AM EST - 07/30/2024 11:59 PM EST Hospital Encounter [facility] Xray [address] [place] [phone] Pain in left knee Discharge Disposition: Home [...] (CMS/HCC) DX:Stroke (HCC) Asthma DX:Asthma Diabetes mellitus ([facility]/HCC) DX:D iabetes mellitus (HCC) Family History Medical [...] Laterality Modality Lower Extremities, [facility] 07/31/2024 8:54 AM EST Impressions 07/31/2024 8:55 AM EST No acute findings. There is evidence of moderate osteoarthritis. Code 97753 -------- FINAL REPORT -------- Dictated By: Toni Tan Dictated Date: 07/31/2024 08:54 ET Assigned Physician: Toni Tan Reviewed and Electronically Signed By: Toni Tan Signed Date: 07/31/2024 08:55 ET Workstation ID: [id number] Transcribed By: Self Edit Transcribed Date: 07/31/2024 [...] There is evidence of moderate osteoarthritis. Code 65254 -------- FINAL REPORT -------- Dictated By: Toni Tan Dictated Date: 07/31/2024 08:54 ET Assigned Physician: Toni Tan Reviewed and Electronically Signed By: Toni Tan Signed Date: 07/31/2024 08:55 ET Workstation ID: [id number] Transcribed By: Self Edit Transcribed Date: 07/31/2024 08:54 ET Steven NATHAN IMG XR PROCEDURES Final Result from Last 3 Months Insurance [facility] Care Teams Plate Conditioner Relationship Specialty Start Date End Date Valarie Hudson MD PCP - General Punch Machine Operator 05/14/19
== END 2024-09-20 10:30 | disposition home or self-care (01) ==
PROVIDERS: PCP Internal Medicine; Visit Provider Internal Medicine
DX: E11.21 Type 2 diabetes mellitus with diabetic nephropathy (principal); I48.0 Paroxysmal atrial fibrillation; I10 Essential (primary) hypertension; E78.5 Hyperlipidemia, unspecified; G47.33 Obstructive sleep apnea (adult) (pediatric)

== ENCOUNTER → 2024-09-20 09:40 | Outpatient (BNVA) | payer MEDICARE, SELFPAY | PROVIDERS: PCP Internal Medicine; Visit Provider Internal Medicine | DX: E11.21 Type 2 diabetes mellitus with diabetic nephropathy (principal); I48.0 Paroxysmal atrial fibrillation; E11.9 Type 2 diabetes mellitus without complications; I10 Essential (primary) hypertension; G47.33 Obstructive sleep apnea (adult) (pediatric); E78.5 Hyperlipidemia, unspecified | CPT/HCPCS: 96127; 99212 ==

== ENCOUNTER 2024-10-29 08:48 | Outpatient (REF) | payer MEDICARE, SELFPAY ==
--- OUTSIDE RECORDS SUMMARY | 2024-10-29 09:21 | XMS_ITS | Clinical Summary ---
Author Organization [facility] Address [address] [place] [address] Care Team Providers Care Cover Maker Name Role Phone Valarie Hudson MD Primary Care Provider [phone] Allergies Active Allergy Reactions Criticality Noted Date [...] age to complete this topic Care Teams Cover Maker Relationship Specialty Start Date End Date Valarie Hudson MD [address] [place] [address] PCP - General Veneer Sorter 05/14/19
--- OUTSIDE RECORDS SUMMARY | 2024-10-29 09:21 | XMS_ITS | Clinical Summary ---
Author Organization [facility] Address [address] [place] [address] Phone Care Team Providers Care Plating And Point Assembly Supervisor Name Role Phone Valarie Hudson MD Primary Care Provider Encounters Date Type Department Care Team Description 09/24/2024 9:11 AM EST - 09/24/2024 11:59 PM EST Hospital Encounter [facility] MRI [address] [place] [id number] Instability of knee joint, left Discharge Disposition: Home or Self Care from Last 3 Months Surgical History Surgery Date Site/Laterality Comments SECTION PROCEDURE: SECTION SHOULDER SURGERY PROCEDURE:SHOULDER SURGERY BREAST SURGERY PROCEDURE:REDUCTION MAMMAPLASTY KNEE SURGERY PROCEDURE:KNEE SURGERY Medical History Medical History Date Comments Depression DX:Depression Hypertension DX:Hypertension GERD (gastroesophageal reflux disease) DX:GERD (gastroesophageal reflux disease) High cholesterol DX:High cholest sherwin Stroke (CMS/HCC) DX:Stroke (HCC) Asthma DX:Asthma Diabetes mellitus (CMS/HCC) DX:D iabetes mellitus (HCC) Family History Medical [...] BMP Blood Test 07/30/2024 06/11/2019 RSV Immunization Adult Patie nts (1 - 1-dose 75+ series) 2033 HIB [...] age to complete this topic Meningococcal B Vaccine Aged Out No l onger eligible based on patient's age to complete this topic RSV Immunization Patients Un giancarlo 20 months Aged Out No longer eligible b ased on patient's age to complete this topic Varicella Vaccines Aged Out No longer eligible based on patient's age to complete this topic Procedures Procedure Name Priority Date/Time Associated Diagnosis Comments MR KNEE WO CONTRAST LEFT Routine 09/24/2024 10:06 AM EST Instability of knee joint, left from Last 3 Months Results * MR Knee wo Contrast Left (09/24/2024 10:06 AM EST) Anatomical Region Laterality Modality Lower Extremities, Knee Left Magnetic Resonance 09/24/2024 1:50 PM EST Impressions 09/24/2024 1:56 PM EST No fracture or ligamentous injury. Meniscal tissue loss at the anterior horn and body of the lateral meniscus which may be due to prior partial meniscectomy and/or complex degenerative tearing. Focal complex degenerative tear of the posterior horn of the medial meniscus. Severe tricompartmental cartilage loss, most pronounced in the patellofemoral compartment. ??Moderate joint effusion with synovitis. -------- FINAL REPORT -------- Dictated By: MORGAN SCHERER Dictated Date: 09/24/2024 13:50 ET Assigned Physician: MORGAN SCHERER Reviewed and Electronically Signed By: MORGAN SCHERER Signed Date: 09/24/2024 13:56 ET Workstation ID: [id number] Transcribed By: Self Edit Transcribed Date: 09/24/2024 13:50 ET Narrative 09/24/2024 1:56 PM EST PROCEDURE: Left knee MRI INDICATION: Knee instability TECHNIQUE: Multiplanar, multisequence MRI of the left knee Without contrast. COMPARISON: ??07/30/2024 radiograph FINDINGS: There is meniscal tissue loss at the anterior horn and body of the lateral meniscus which may be due to prior partial meniscectomy and/or complex degenerative tearing. ??There is surface irregularity and partial-thickness cartilage loss throughout the lateral compartment, most pronounced along lateral tibial plateau. ??There are regions of focal full-thickness fissuring along lateral tibial plateau with subjacent degenerative marrow signal. Focal complex degenerative tear of the posterior horn of the medial meniscus extending to the femoral articular surface. ??Partial-thickness cartilage loss seen along the medial femoral condyle and medial tibial plateau. Patellofemoral alignment is within normal limits. ??Full-thickness cartilage loss seen along the medial patellar facet. ??Near full-thickness cartilage loss seen along the lateral patellar facet, cochlea, and patellar apex. ??Patellar retinacular structures are intact. Anterior cruciate ligament and posterior cruciate ligament are intact. Collateral ligaments are intact. No fracture or suspicious marrow replacing lesion. Extensor mechanism is intact. Biceps femoris, iliotibial band, and popliteal tendon are intact. Medial tendons are intact. Moderate joint effusion with synovitis. ??No Maddox's cyst or soft tissue mass. Procedure Note Morgan Scherer MD - 09/24/2024 PROCEDURE: Left knee MRI INDICATION: Knee instability TECHNIQUE: Multiplanar, multisequence MRI of the left knee Withoutcontrast. COMPARISON: 07/30/2024 radiograph FINDINGS: There is meniscal tissue loss at the anterior horn and body of the lateralmeniscus which may be due to prior partial meniscectomy and/or complexdegenerative tearing. There is surface irregularity and partial-thicknesscartilage loss throughout the lateral compartment, most pronounced alonglateral tibial plateau. There are regions of focal full-thicknessfissuring along lateral tibial plateau with subjacent degenerative marrowsignal. Focal complex degenerative tear of the posterior horn of the medialmeniscus extending to the femoral articular surface. Partial-thicknesscartilage loss seen along the medial femoral condyle and medial tibialplateau. Patellofemoral alignment is within normal limits. Full-thicknesscartilage loss seen along the medial patellar facet. Near full-thicknesscartilage loss seen along the lateral patellar facet, cochlea, andpatellar apex. Patellar retinacular structures are intact. Anterior cruciate ligament and posterior cruciate ligament are intact. Collateral ligaments are intact. No fracture or suspicious marrow replacing lesion. Extensor mechanism is intact. Biceps femoris, iliotibial band, and popliteal tendon are intact. Medial tendons are intact. Moderate joint effusion with synovitis. No Maddox's cyst or soft tissuemass. IMPRESSION: No fracture or ligamentous injury. Meniscal tissue loss at the anterior horn and body of the lateral meniscuswhich may be due to prior partial meniscectomy and/or complex degenerativetearing. Focal complex degenerative tear of the posterior horn of the medialmeniscus. Severe tricompartmental cartilage loss, most pronounced in thepatellofemoral compartment. Moderate joint effusion with synovitis. -------- FINAL REPORT -------- Dictated By: MORGAN SCHERER Dictated Date: 09/24/2024 13:50 ET Assigned Physician: MORGAN SCHERER Reviewed and Electronically Signed By: MORGAN SCHERER Signed Date: 09/24/2024 13:56 ET Workstation ID: [id number] Transcribed By: Self Edit Transcribed Date: 09/24/2024 13:50 ET Steven NATHAN IMG MRI PROCEDURES Final Result from Last 3 Months Insurance [facility] Care Teams Plating And Point Assembly Supervisor Relationship Specialty Start Date End Date Valarie Hudson MD PCP - General Caustic Plant Worker 05/14/19
--- OUTSIDE RECORDS SUMMARY | 2024-10-29 09:21 | XMS_ITS | Encounter Summary ---
Author Organization [facility] Address [address] [place] [address] Care Team Providers Care Instantizer Operator Name Role Phone Valarie Hudson MD Primary Care Provider [phone] Encounter Details Date Type Department Care Team (Late st Contact Info) Description 05/29/2024 Lab Requisition [facility] Main Lab [address] [facility] [place] [id number] Miguelangel Ag MD [address] [place], [place] [id number] Gross hematuria Social History Tobacco Use Types [...] inflammation present. 05/31/2024 9:45 AM EST [facility] Clinical Information Gross hematuria 05/31/2024 9:45 AM EST [facility] Gross Description A. Urine, Voided, : 1 TP cyto with Reflex FISH if Atypical/Susp 05/31/2024 9:45 AM EST [facility] Disclaimer Unless otherwise specified, all tissue is 10% NB formalin fixed and paraffin embedded. 05/31/2024 9:45 AM EST [facility] Tissue Urine specimen from urethra / Unknown 05/27/2024 05/29/2024 11:35 AM EST us Miguelangel Ag MD LAB PATHOLOGY ORDERAB LES Final Result [facility] [address] [place] [address], documented in this encounter Visit Diagnoses Diagnosis Gross hematuria documented in this encounter Care Teams Instantizer Operator Relationship Specialty Start Date End Date Valarie Hudson MD PCP - General Property Officer 05/14/19 documented as of this encounter
--- OUTSIDE RECORDS SUMMARY | 2024-10-29 09:21 | XMS_ITS | Data Portability ---
Author Organization [facility] Kirt Suarez [facility] [place] Address [address] [place] [address] Care Team Providers Care Personal Caregiver Name Role Phone SOL MCNAMARA Primary Care [...] weeks to review results and further management. [email or web address] Not available 06/27/2024 09:18:50 Plan of Treatment Reminders Order Date Submit Date Provider Last Modified By Organization Details Last Modified Time Details Appointments None record ed. Lab None record ed. Referral None record ed. Procedures None record ed. Surgeries None record ed. Imaging XR, knee, 3 view 024 06/27/20 24 [facility], [address], [place], [address], 09:13:02 Medication Orders None record ed. Patient TargetsNo targets recorded. Patient InstructionsNo instructions recorded. Reason for Referral None Reported. Results Created Date Observation Date Name Description Value Unit Range Abnormal Flag Note LastModifiedBy Organization Detail LastModifiedTime 07/31/19 25 07/30/2024 XR, knee, 3 view No observ ation record ed. [email or web address] [facility] [address] [place] [address], [id number], 07/31/2024 11:06:12 09/25/19 25 09/24/2024 MRI, knee, w/o contr ast No observ ation record ed. [email or web address] [facility] [address] [place] [address], [id number], 09/26/2024 08:44:01 Result Notes None recorded. Procedures Surgical History Date Name Laterality Status Provider Name and Address Organization Details Recorded Time total knee replacement completed [place] [facility] 06/27/2024 08:54:55 Shoulder Surgery completed [place] [facility] 06/27/2024 08:55:11 lumbar spinal fusion completed [place] [facility] 06/27/2024 08:55:28 Imaging Results Imaging Date Name Status LastModified by Organiz ation Details LastModified Time 07/30/2024 XR, knee, 3 view completed [email or web address] [facility] [address] [place] [address], [id number], 07/31/2024 11:06:12 09/24/2024 MRI, knee, w/o contrast completed [email or web address] [facility] [address] [place] [address], [id number], 09/26/2024 08:44:01 Procedure Notes None recorded. Medical Equipment None Reported. Allergies Allergen ID Allergen Name Allergen Category Reaction Reaction Severity Criticality Documentation Date Start Date Code Code System Note Provider Name and Address Organization Details Recorded Time Product containin g penicilli n (product) medicatio n Not available Not available Not available 06/27/2024 29164 8001 SNOMED Crystal Saldana null, [place] [facility] 08:53:10 Vancocin medicatio n Not available Not available Not available 06/27/202486123 8 RxNorm Carey riddle, [place] [facility] 08:53:22 Levaquin medicatio n Not available Not available Not available 06/27/2024 78329 2 RxNorm Carey [place], [place] [facility] 08:53:30 Vitals Date Recorded Body height Body mass index (BMI) Body weight Provider Name and Address Organization Details Last Updated DateTime 06/27/2024 170.18 cm 23.5 kg/m2 [address]00.[address] [place] [facility] 06/27/2024 08:53:40 Social History Question Answer Notes LastModified by Organizat ion Details LastModified Time Tobacco Smoking Status Former Smoker Carey riddle, [place] [facility] 06/27/2024 08:54:12 What Is Your Level Of Alcohol Consumption? None [email or web address] Information not available 06/27/2024 Do You Use Any Illicit Or Recreational Drugs? No [email or web address] Information not available 06/27/2024 Do You Or Have You Ever Used Any Other Forms Of Tobacco Or Nicotine? No Information not available 06/27/2024 Sex: Unknown Functional Status None recorded. Mental Status None recorded. Family History Relationship Description Onset Age of this Age Resolved Age Notes LastModified by Organization Details LastModified Time Mother History of cancer of unknown primary site [email or web address] Not available 11/2023 08:54:35 Father Diabetes mellitus Not available 2023 08:54:42 Medical History Condition Response Diabetes Y Stroke Y Hypertension Y Gynecological HistoryNo gynecological history recorded. Obstetrics History GPAL:G 0 P 0 0 0 0 Past Encounters Encounter ID Performer Location Encounter Start Date Encounter Closed Date Diagnosis/Indication Diagnosis SNOMED-CT Code Diagnosis ICD10 Code Diagnosis Note [id number] [facility] [address] [place] [phone] 06/27/2024 08:39:30 06/27/2024 09:15:42 Pain of left knee region [id number] 34583 M25.562 Health Concerns Section Related Observation LastModified by Organization Detai ls LastModified Time None Recorded Concern Status LastModified by Organization Details LastModified Time None Recorded Advance Directives Directive None Recorded Payers Encounter Date Sequence Insurance Name Policy Number Policy Mercedes Covered Member ID Mercedes Member ID Guarantor Name 06/27/2024 1 [place]/ [place]ANTAGE - [place]PO) [id number] Galilea Hilton [id number] Galilea Hilton Notes Date Note Type [...] subsequently underwent a right knee arthroplasty in [place]. Her current pain is localized to her [...] NOMAN SHARIF PA-C [address], [place], [address], [place] [facility] 06/27/2024 09:19:40 OBGyn Episode No OBEpisode recorded.
--- OUTSIDE RECORDS SUMMARY | 2024-10-29 09:21 | XMS_ITS | Clinical Summary ---
Author Organization [facility] Address [address] [place] [address] Phone Care Team Providers Care Hvac Services Professional Name Role Phone Unavailable Primary Care Provider [...] Colorectal Cancer Screening: Sigmoidoscopy 2007 Influenza Vaccine (Season Ended) 2025 Hepatitis B Vaccine Aged Out No longe r eligible based on patient's age to complete this topic Insurance
--- OUTSIDE RECORDS SUMMARY | 2024-10-29 09:21 | XMS_ITS | Clinical Summary ---
Author Organization [facility] Address [address] [place] [address] Care Team Providers Care Manager Materials Management Name Role Phone Unavailable Primary Care Provider [...]
== END 2024-10-29 08:49 | disposition home or self-care (01) ==
LOC: HO.MAMMO 08:48
PROVIDERS: PCP Internal Medicine; Visit Provider Internal Medicine
DX: Z12.31 Encounter for screening mammogram for malignant neoplasm of breast (principal)
CPT/HCPCS: 77063; 77067

== ENCOUNTER → 2024-10-29 09:00 | Outpatient (BNV) | payer MEDICARE, SELFPAY | PROVIDERS: PCP Internal Medicine; Visit Provider Internal Medicine | DX: Z12.31 Encounter for screening mammogram for malignant neoplasm of breast (principal) | CPT/HCPCS: 77063; 77067 ==

== ENCOUNTER 2024-12-17 07:11 | Outpatient (REF) | payer MEDICARE, SELFPAY ==
--- OUTSIDE RECORDS SUMMARY | 2024-12-17 07:13 | XMS_ITS | Clinical Summary ---
Author Organization [facility] Address [address] [place] [address] Care Team Providers Care Flooring Machine Feeder Name Role Phone Unavailable Primary Care Provider Unavailabl e Social History Tobacco Use Types Packs/Day Years Used Date Smoking Tobacco: Never Assessed Comments Unknown Sex and Gender Information Value Date Recorded Sex Assigned at Not on file Legal Sex Female 9:56 AM EDT Gender Identity Not on file Sexual [...]
[2024-12-17 10:23] LABS: Estimated Average Glucose 120 mg/dL; Hemoglobin A1C 113.7984 umol/L; Hemoglobin A1c % 5.8 % (<6.0); Total Hemoglobin (HGBA1C) 2875.5589 umol/L
[2024-12-17 10:46] LABS: Alanine Aminotransferase 18 U/L (0-31); Alkaline Phosphatase 59 U/L (39-117); Anion Gap 12 (12-20); Aspartate Amino Transferase 26 U/L (5-31); Bilirubin Total 0.5 mg/dL (0.0-1.0); Blood Urea Nitrogen 18 mg/dL (9-16); Carbon Dioxide 25 mmol/L (22-29); Chloride 107 mmol/L (96-108); Cholesterol 105 mg/dL (<200); Estimated Glomerular Filt Rate > 60; Glucose Fasting 86 mg/dL (60-99); HDL Cholesterol 48 mg/dL (>40); LDL Cholesterol Calculated 44 mg/dL (<100); Potassium 3.9 mmol/L (3.3-5.1); Sodium 140 mmol/L (135-145); Total Protein 6.2 g/dL (6.5-8.0); Triglycerides 68 mg/dL (<150)
[2024-12-17 10:48] LABS: Creatinine Urine 100.05 mg/dL; Microalbum/Creatinine Ratio Ur 177.9 ug/mg cr (<30)
== END 2024-12-17 07:12 | disposition home or self-care (01) ==
LOC: HO.HMGCLDS 07:11
PROVIDERS: PCP Internal Medicine; Visit Provider Internal Medicine
DX: E11.21 Type 2 diabetes mellitus with diabetic nephropathy (principal); R80.9 Proteinuria, unspecified; I48.0 Paroxysmal atrial fibrillation; E11.9 Type 2 diabetes mellitus without complications
CPT/HCPCS: 36415; 80053; 80061; 82043; 82570; 83036

== ENCOUNTER 2024-12-19 08:55 | Outpatient (AMB) | payer MEDICARE, SELFPAY ==
--- NOTE | 2024-12-19 08:59 | A.OFFPC_ITS ---
Vital Signs 12/19/24 09:00 Height 5 ft 7 in Weight 154 lb BMI 24.1 BP 104/68 Blood Pressure Location Rt brachial Position Sitting Respiration 18 Pulse 70 Pulse Source Pulse Oximeter Temp 98.1 F Temp Source Oral Pulse Oximetry (%) 99 Oxygen Delivery Method Room Air Intake Visit Reasons: 3 follow up Intake Note: Pt is here today for 3 months follow up visit. Allergies vancomycin [VANCOMYCIN] Allergy (Intermediate, Verified 12/19/24 09:09) ITCHING empagliflozin [Jardiance] Allergy (Unknown, Verified 12/19/24 09:09) yeast infection levofloxacin Allergy (Unknown, Verified 12/19/24 09:09) tendon rupture linagliptin [Tradjenta] Allergy (Unknown, Verified 12/19/24 09:09) yeast infection penicillin G [Penicillin G] Allergy (Unknown, Verified 12/19/24 09:09) HIVES penicillin V Allergy (Unknown, Verified 12/19/24 09:09) unknown Medication List - Last Reconciled 12/19/24 by Valarie Hudson MD apixaban (Eliquis) 5 mg PO BID blood-glucose sensor (Dexcom G7 Sensor device) As directed blood-glucose sensor (FreeStyle Reid 3 Plus Sensor device) Test blood sugar 4 times per day, change sensor every 15 days CPAP (CPAP Machine/Device) CPAP with mask, tubing, filters, water chamber, heated humidifier on [id number] famotidine (Pepcid) 20 mg PO BEDTIME flash glucose sensor (FreeStyle Reid 2 Sensor kit) As directed fluticasone propion-salmeterol 250-50 mcg/dose (Advair Diskus) 1 inh inhalation BID FreeStyle Reid 3 Sensor (blood-glucose sensor) As directed to test sugars 3-4 times per day NS insulin degludec (Tresiba FlexTouch U-100 insulin) 20 units (0.2 mL) subcut BEDTIME 90 days ivermectin 1% (Soolantra) 1 appl topical DAILY losartan 50 mg PO DAILY metformin 1,000 mg PO BID metoprolol succinate ER 50 mg PO DAILY metronidazole 1% (Metrogel) 1 appl topical BEDTIME pantoprazole 40 mg PO DAILY pen needle, diabetic Use to inject insulin once daily rosuvastatin 20 mg PO DAILY sertraline 25 mg PO DAILY tirzepatide (Mounjaro) 12.5 mg (0.5 mL) subcut QWEEK Ventolin HFA 90 mcg/actuation (albuterol sulfate) 1 inh inhalation QID NS Tobacco use date assessed: 12/19/24 Fall risk assessment: No Falls in past year Last assessed Fall Risk: 12/19/24 Dental Screening Dental Screen Date: 09/20/24 HPI 3 follow up HPI Details Patient presents for the follow-up of type 2 diabetes hyperlipidemia hypertension paroxysmal AFib, stable. she is starting 12.5 mg of Mounjaro this week. [facility] Medical History (Updated 12/19/24 @ 10:41 by Valarie Hudson MD) Failed total right knee replacement Status post placement of implantable loop recorder Paroxysmal atrial fibrillation Ptosis of both upper eyelids Hammertoe of right foot Annual physical exam Cornea disorder Carotid stenosis Cataract JERICHO (obstructive sleep apnea) CVA (cerebral vascular accident) Asthma Hyperlipidemia HTN (hypertension) DM type 2 (diabetes mellitus, type 2) Surgical History (Updated 12/19/24 @ 10:41 by Valarie Hudson MD) Hx of colonoscopy H/O rotator cuff surgery H/O bilateral breast reduction surgery History of arthroscopic knee surgery H/O shoulder surgery Family History Father No problems noted. Mother No problems noted. Social History Housing: House Alcohol intake: current Alcohol intake frequency: a few times a month Patient Tobacco Use Status: Former Tobacco user e-Cigarette/Vaping Use: Never Used service: No Current occupational status: employed Cognitive needs: No Hearing needs: No Vision needs: No Questionnaire Thrive Questionnaire Date Thrive assessed: 09/20/24 I am a: Patient What is your living situation today?: I have a steady place to live Within the past 12 months, did the food you bought not last and you didn't have the money to get more?: Never true Within the past 12 months, did you worry whether your food would run out before you got money to buy more?: Never true Do you have trouble paying for medicines?: No Do you have trouble getting transportation to medical appointments?: No Do you have trouble paying your heating and electricity bill?: No Do you have trouble taking care of your child, family member or friend?: No Do you have trouble with day-to-day activities such as bathing, preparing meals, shopping, managing finances, etc.?: No Are you currently unemployed and looking for a job?: No Are you interested in more education?: No Please select the resources that you would like help with: None Currently or been in a relationship where the following occur: No concerns reported THRIVE Score: 0 JEZ-7 AMB Questionnaire JEZ-7 Date JEZ - 7 assessed: 09/20/24 Source: Developed by Drs. Hadley Arshad, Adwoa Hayes, Jelani Jackson and colleagues, with an educational shaji from [employer]. Review of Systems Const All systems reviewed & are unremarkable except as noted in HPI and below Eyes Reports no additional complaints ENT Reports no additional complaints Card Reports no additional complaints Resp Reports no additional complaints GI Reports no additional complaints Reports no additional complaints Physical exam (Primary Care) Vital Signs: Last Vital Signs Temp 98.1 F 12/19/24 09:00 Pulse 70 12/19/24 09:00 Resp 18 12/19/24 09:00 BP 104/68 12/19/24 09:00 Pulse Ox 99 12/19/24 09:00 Oxygen Delivery Method Room Air 12/19/24 09:00 BMI result Body Mass Index 24.1 Tobacco/Smoking Status: Tobacco use Status Tobacco use date assessed 12/19/24 12/19/24 09:10 Patient Tobacco Use Status Former Tobacco user 12/19/24 09:10 e-Cigarette/Vaping Use Never Used 12/19/24 09:07 Thrive Assessment: Date of Thrive Assessment Date Thrive assessed 09/20/24 12/19/24 09:07 Currently or been in a relationship where the following occur: No concerns reported Const General: no acute distress HENMT Head: Yes normal to inspection Eyes General: appearance normal, both eyes and all related structures Resp Effort & Inspection: normal respiratory effort Auscultation: clear to auscultation bilaterally Cardio Rhythm: regular rhythm Heart sounds: S1 normal heart sound present and S2 normal heart sound present GI Inspection: Yes normal to inspection Palpation (GI): Soft to palpation Percussion: Yes normal to percussion Auscultation: normal bowel sounds Coding Level of Care Code Est Pt Level 4 (93561) Complex EM visit Add On G2211 Diagnoses DM type 2 (diabetes mellitus, type 2) E11.9 HTN (hypertension) I10 Hyperlipidemia E78.5 Paroxysmal atrial fibrillation I48.0 Assessment & Plan Assessment & Plan (1) DM type 2 (diabetes mellitus, type 2): Comment: Intolerant to Farxiga and Jardiance, caused recurrent candidiasis Code(s): E11.9 - Type 2 diabetes mellitus without complications Category: Medical Plan: A1c is 5.8, continue ADA diet regular exercise. Patient will increase the dose of Mounjaro to 12.5 this week. She was advised to monitor her blood glucose closely and decrease Tresiba by 4 units for any hypoglycemia of less than 80 (2) HTN (hypertension): Code(s): I10 - Essential (primary) hypertension Category: Medical Plan: Continue current medication (3) Hyperlipidemia: Code(s): E78.5 - Hyperlipidemia, unspecified Category: Medical Plan: Continue statin (4) Paroxysmal atrial fibrillation: Comment: Infrequent paroxysmal AFib asymptomatic, on Eliquis and metoprolol Code(s): I48.0 - Paroxysmal atrial fibrillation Category: Medical Plan: On Eliquis and metoprolol Orders: Orders Hemoglobin A1c 3 Months E11.9 - Type 2 diabetes mellitus without complications, E78.5 - Hyperlipidemia, unspecified, I10 - Essential (primary) hypertension Comprehensive [place]. Panel Fast 3 Months E11.9 - Type 2 diabetes mellitus without complications, E78.5 - Hyperlipidemia, unspecified, I10 - Essential (primary) hypertension Lipid Panel 3 Months E11.9 - Type 2 diabetes mellitus without complications, E78.5 - Hyperlipidemia, unspecified, I10 - Essential (primary) hypertension Microalbumin, Random (w Creat) 3 Months E11.9 - Type 2 diabetes mellitus without complications, E78.5 - Hyperlipidemia, unspecified, I10 - Essential (primary) hypertension Complete Blood Count Auto Diff 3 Months E11.9 - Type 2 diabetes mellitus without complications, E78.5 - Hyperlipidemia, unspecified, I10 - Essential (primary) hypertension Medications: Discontinued tirzepatide (Mounjaro) Discontinued Reason: Doctor's Order 10 mg (0.5 mL) subcut QWEEK 2 mL 2RF E11.9 - Type 2 diabetes mellitus without complications
[2024-12-19 09:00] VITALS: BP 104/68; PULSE 70; RESP 18; TEMP 36.7; O2SAT 99; BMI 24.1
--- OUTSIDE RECORDS SUMMARY | 2024-12-19 09:15 | XMS_ITS | Clinical Summary ---
Author Organization [facility] Address [address] [place] [address] Care Team Providers Care Watchmaking Teacher Name Role Phone Unavailable Primary Care Provider [...]
== END 2024-12-19 09:42 | disposition home or self-care (01) ==
LOC: HO.HMCC 08:56
PROVIDERS: PCP Internal Medicine; Visit Provider Internal Medicine
DX: E11.9 Type 2 diabetes mellitus without complications (principal); I10 Essential (primary) hypertension; E78.5 Hyperlipidemia, unspecified; I48.0 Paroxysmal atrial fibrillation

== ENCOUNTER → 2024-12-19 08:55 | Outpatient (BNVA) | payer MEDICARE, SELFPAY | PROVIDERS: PCP Internal Medicine; Visit Provider Internal Medicine | DX: I10 Essential (primary) hypertension (principal); E11.9 Type 2 diabetes mellitus without complications; E78.5 Hyperlipidemia, unspecified; I48.0 Paroxysmal atrial fibrillation; Z79.01 Long term (current) use of anticoagulants; Z79.4 Long term (current) use of insulin; Z79.899 Other long term (current) drug therapy | CPT/HCPCS: 99212 ==

== ENCOUNTER 2025-01-28 12:31 | Outpatient (AMB) | payer MEDICARE, SELFPAY ==
[2025-01-28 12:33] VITALS: BP 110/66; PULSE 97; RESP 18; TEMP 36.8; O2SAT 98; BMI 22.1
--- NOTE | 2025-01-28 12:33 | MHC.PC.OV ---
Vital Signs 01/28/25 12:33 Height 5 ft 7 in Weight 141 lb BMI 22.1 BP 110/66 Blood Pressure Location Lt brachial Position Sitting Respiration 18 Pulse 97 Pulse Source Pulse Oximeter Temp 98.2 F Temp Source Oral Pulse Oximetry (%) 98 Oxygen Delivery Method Room Air Intake Visit Reasons: med adjustment Intake Note: Pt is here today for a sick visit. Pt c/o dizziness, low BP readings, headaches. Allergies vancomycin (VANCOMYCIN) Allergy (Intermediate, Verified 01/28/25 12:34) ITCHING empagliflozin (Jardiance) Allergy (Unknown, Verified 01/28/25 12:34) yeast infection levofloxacin Allergy (Unknown, Verified 01/28/25 12:34) tendon rupture linagliptin (Tradjenta) Allergy (Unknown, Verified 01/28/25 12:34) yeast infection penicillin G (Penicillin G) Allergy (Unknown, Verified 01/28/25 12:34) HIVES penicillin V Allergy (Unknown, Verified 01/28/25 12:34) unknown Medication List - Last Reconciled 01/28/25 by Valarie Hudson MD apixaban (Eliquis) 5 mg PO BID blood-glucose sensor (Dexcom G7 Sensor device) As directed blood-glucose sensor (FreeStyle Reid 3 Plus Sensor device) Test blood sugar 4 times per day, change sensor every 15 days CPAP (CPAP Machine/Device) CPAP with mask, tubing, filters, water chamber, heated humidifier on 5-40auG8G famotidine (Pepcid) 20 mg PO BEDTIME flash glucose sensor (FreeStyle Reid 2 Sensor kit) As directed fluticasone propion-salmeterol 250-50 mcg/dose (Advair Diskus) 1 inh inhalation BID FreeStyle Reid 3 Sensor (blood-glucose sensor) As directed to test sugars 3-4 times per day NS insulin degludec (Tresiba FlexTouch U-100 insulin) 20 units (0.2 mL) subcut BEDTIME 90 days ivermectin 1% (Soolantra) 1 appl topical DAILY losartan 25 mg PO DAILY metformin 1,000 mg PO BID metoprolol succinate ER 50 mg PO DAILY metronidazole 0.75% 1 appl topical BEDTIME pantoprazole 40 mg PO DAILY pen needle, diabetic Use to inject insulin once daily rosuvastatin 20 mg PO DAILY sertraline 25 mg PO DAILY tirzepatide (Mounjaro) 12.5 mg (0.5 mL) subcut QWEEK Ventolin HFA 90 mcg/actuation (albuterol sulfate) 1 inh inhalation QID NS Tobacco use date assessed: 01/28/25 Fall risk assessment: No Falls in past year Last assessed Fall Risk: 01/28/25 Dental Screening Dental Screen Date: 09/20/24 HPI med adjustment HPI Details Patient presents with complaint of syncope episode 5 days ago after patient stood up felt lightheaded and fainted. She denies any chest pain palpitations change in the vision preceding the episode. She has been monitor her blood pressure at home getting readings 90/60. Patient has stopped taking losartan for 3 days and took a half a tablet of metoprolol last night. Her blood pressure this morning lost the 98/65. Patient denies any further episodes of fainting. She reports headaches frontal for the last few days started before a fall. Patient denies any change in the vision nausea vomiting, weakness in extremities or change in the balance. She reports diabetes well controlled with a blood glucose between 80-120. Patient lost 13 lb in the last 6 weeks on 12.5 mg of Mounjaro. [facility] Medical History Failed total right knee replacement Status post placement of implantable loop recorder Paroxysmal atrial fibrillation Ptosis of both upper eyelids Hammertoe of right foot Annual physical exam Cornea disorder Carotid stenosis Cataract JERICHO (obstructive sleep apnea) CVA (cerebral vascular accident) Asthma Hyperlipidemia HTN (hypertension) DM type 2 (diabetes mellitus, type 2) Surgical History Hx of colonoscopy H/O rotator cuff surgery H/O bilateral breast reduction surgery History of arthroscopic knee surgery H/O shoulder surgery Family History Father No problems noted. Mother No problems noted. Social History Housing: House Alcohol intake: current Alcohol intake frequency: a few times a month Patient Tobacco Use Status: Former Tobacco user e-Cigarette/Vaping Use: Never Used service: No Current occupational status: employed Cognitive needs: No Hearing needs: No Vision needs: No Questionnaire Thrive Questionnaire Date Thrive assessed: 09/10/24 I am a: Patient What is your living situation today?: I have a steady place to live Within the past 12 months, did the food you bought not last and you didn't have the money to get more?: Never true Within the past 12 months, did you worry whether your food would run out before you got money to buy more?: Never true Do you have trouble paying for medicines?: No Do you have trouble getting transportation to medical appointments?: No Do you have trouble paying your heating and electricity bill?: No Do you have trouble taking care of your child, family member or friend?: No Do you have trouble with day-to-day activities such as bathing, preparing meals, shopping, managing finances, etc.?: No Are you currently unemployed and looking for a job?: No Are you interested in more education?: No Please select the resources that you would like help with: None Currently or been in a relationship where the following occur: No concerns reported THRIVE Score: 0 JEZ-7 AMB Questionnaire JEZ-7 Date JEZ - 7 assessed: 09/20/24 Source: Developed by Drs. Hadley Arshad, Adwoa Hayes, Jelani Jackson and colleagues, with an educational shaji from [employer]. Review of Systems Const All systems reviewed & are unremarkable except as noted in HPI and below Eyes Reports no additional complaints ENT Reports no additional complaints Card Reports no additional complaints Resp Reports no additional complaints GI Reports no additional complaints Reports no additional complaints Physical exam (Primary Care) Vital Signs: Last Vital Signs Temp 98.2 F 01/28/25 12:33 Pulse 97 01/28/25 12:33 Resp 18 01/28/25 12:33 BP 110/66 01/28/25 12:33 Pulse Ox 98 01/28/25 12:33 Oxygen Delivery Method Room Air 01/28/25 12:33 BMI result Body Mass Index 22.1 Tobacco/Smoking Status: Tobacco use Status Tobacco use date assessed 01/28/25 01/28/25 12:40 Patient Tobacco Use Status Former Tobacco user 01/28/25 12:40 e-Cigarette/Vaping Use Never Used 01/28/25 12:40 Thrive Assessment: Date of Thrive Assessment Date Thrive assessed 09/10/24 01/28/25 12:40 Currently or been in a relationship where the following occur: No concerns reported Const General: no acute distress HENMT Head: Yes normal to inspection Neck Neck: Yes no lymphadenopathy and Yes supple Resp Effort & Inspection: normal respiratory effort Auscultation: clear to auscultation bilaterally Cardio Rhythm: regular rhythm Heart sounds: S1 normal heart sound present and S2 normal heart sound present GI Inspection: Yes normal to inspection Palpation (GI): Soft to palpation Neuro Cranial nerves: Yes CN's II-XII intact bilaterally Gait exam (Neuro): Normal gait present Motor exam (neuro): 5/5 motor strength present throughout Extrem General: Yes no clubbing, cyanosis or edema Coding Level of Care Code Est Pt Level 4 (34117) Complex EM visit Add On G2211 Diagnoses HTN (hypertension) I10 Paroxysmal atrial fibrillation I48.0 DM type 2 (diabetes mellitus, type 2) E11.9 Assessment & Plan Assessment & Plan (1) HTN (hypertension): Code(s): I10 - Essential (primary) hypertension Category: Medical Plan: The patient has low and patient will hold losartan and take a half a tablet of 25 mg of metoprolol and continue to monitor her blood pressure. (2) Paroxysmal atrial fibrillation: Comment: Infrequent paroxysmal AFib asymptomatic, on Eliquis and metoprolol Code(s): I48.0 - Paroxysmal atrial fibrillation Category: Medical Plan: EKG showed normal sinus rhythm with a heart rate of [address]-T changes. Continue Eliquis (3) DM type 2 (diabetes mellitus, type 2): Comment: Intolerant to Farxiga and Jardiance, caused recurrent candidiasis Code(s): E11.9 - Type 2 diabetes mellitus without complications Category: Medical Plan: Patient has been losing excessive weight on 12.5 mg of Mounjaro. The dose will be decreased to 10 mg weekly. patient will continue insulin, metformin ADA diet follow-up in 2 months with a fasting labs before Orders: Orders Complete Blood Count Auto Diff Today I10 - Essential (primary) hypertension, I48.0 - Paroxysmal atrial fibrillation Comprehensive Met. Panel Today I10 - Essential (primary) hypertension, I48.0 - Paroxysmal atrial fibrillation Medications: New metoprolol succinate ER 25 mg PO DAILY 90 tabs 0RF Discontinued metoprolol succinate ER Discontinued Reason: Doctor's Order 50 mg PO DAILY 90 tabs 3RF losartan Discontinued Reason: Doctor's Order 25 mg PO DAILY 90 tabs 0RF
--- OUTSIDE RECORDS SUMMARY | 2025-01-28 13:16 | XMS_ITS | Clinical Summary ---
Author Organization [facility] Address [address] [place] [address] Phone Care Team Providers Care Converting Operator Name Role Phone Unavailable Primary Care Provider [...] Comments Breast Cancer Screening 1960 Pneumococcal Vaccine: 50+ Ye ars (1 of 2 - PCV) 1977 Colorectal Cancer Screening: Annual FOBT 2007 Colorectal Cancer Screening: Colonoscopy 2007 Colorectal Cancer Screening: Sigmoidoscopy 2007 Influenza Vaccine (#1) 2025 Hepatitis B Vaccine Aged Out No longe r eligible based on patient's age to complete this topic Insurance
--- OUTSIDE RECORDS SUMMARY | 2025-01-28 13:16 | XMS_ITS | Clinical Summary ---
Author Organization [facility] Address [address] [place] [address] Care Team Providers Care Lead Radiation Therapist Name Role Phone Unavailable Primary Care Provider [...]
--- OUTSIDE RECORDS SUMMARY | 2025-01-28 13:17 | XMS_ITS | Clinical Summary ---
Author Organization [facility] Address [address] [place] [address] Care Team Providers Care Senior Project Architect Name Role Phone Valarie Hudson MD Primary Care Provider [phone] Allergies Active Allergy Reactions Criticality Noted Date [...] - - Pulse - - Temperature 36.7 C (98.1 F) 06/03/2021 8:46 AM EST Respiratory Rate - - Oxygen Saturation - [...] 1 - PCV) 2023 Influenza Vaccine (#1) 2025 RSV Adult > 60+ Yrs or Pregn ant (1 - 1-dose 75+ series) 2033 Hepatitis B Vaccines Aged Out No long er eligible based on patient's age to complete this topic RSV Ped < 20 months Aged Out No longe r eligible based on patient's age to complete this topic Care Teams Senior Project Architect Relationship Specialty Start Date End Date Valarie Hudson MD [address] [place] [address] PCP - General Counter Checker 05/14/19
--- OUTSIDE RECORDS SUMMARY | 2025-01-28 13:17 | XMS_ITS | Clinical Summary ---
Author Organization [address] Address [address] [place] [id number] Phone Care Team Providers Care Qc Lab Technician Name Role Phone Valarie Hudson MD Primary Care Provider [phone] Surgical History Surgery Date Site/Laterality Comments SECTION PROCEDURE: SECTION SHOULDER SURGERY PROCEDURE:SHOULDER SURGERY BREAST SURGERY PROCEDURE:REDUCTION MAMMAPLASTY KNEE SURGERY PROCEDURE:KNEE SURGERY Medical History Medical History Date Comments Depression DX:Depression Hypertension DX:Hypertension GERD (gastroesophageal reflux disease) DX:GERD (gastroesophageal reflux disease) High cholesterol DX:High cholest sherwin Stroke ([facility] V24, [facility] V28) DX:Stroke ([facility]) Asthma DX:Asthma Diabetes mellitus ([facility] V 24, [facility] V28) DX:Diabetes mellitus ([facility]) Family History Medical History Relation Name Comments [...] Vaccine ( - 2023-2 5 season) 2024 Diabetes: Annual Urine Albumin-Creatinine Ratio (uACR) 07/30/2024 Diabetes: Blood Sugar Contro l Test (HGBA1C) 07/30/2024 Hypertension/CHF/CAD Annual BMP Blood Test 07/30/2024 06/11/2019 Influenza Vaccine (#1) 2025 RSV Immunization Adult Patie nts (1 - [...] patient's age to complete this topic Insurance [facility] Care Teams Qc Lab Technician Relationship Specialty Start Date End Date Valarie Hudson MD PCP - General Heel Seat Laster 05/14/19
--- OUTSIDE RECORDS SUMMARY | 2025-01-28 13:17 | XMS_ITS | Data Portability ---
Author Organization [place] [facility] Kirt Suarez AONE Kinney Address [address] [place] [address] Care Team Providers Care Hunter Guide Name Role Phone SOL MCNAMARA Primary Care Provider [phone] SOL MCNAMARA Referring Provider [phone] Assessment Encounter Date Assessment Date Assessment LastModified [...] weeks to review results and further management. [email or web address] Not available 06/27/2024 09:18:50 11/18/2024 11/18/2024 Slowly improving left knee pain. She has fairly prominent tricompartmental osteoarthritis, degenerative appearing meniscal tears. We reviewed the natural history of osteoarthritis. The patient understands that symptoms may progress over time requiring further intervention. We discussed in detail available treatment options. We discussed activity modification, especially avoiding impact type activities. We discussed the need for an ongoing maintenance flexibility and strengthening program. This should involve the core musculature, the hip, as well as the quadriceps and hamstrings. Intermittent icing 20 minutes off 3 to 4 times a day with the skin protected may be helpful for control of swelling. [id number] anti-inflammatory medications with appropriate GI precautions or Tylenol may be helpful in controlling intermittent symptoms of pain. An assistive device such as a cane may be helpful in unloading the joint. Supplements may be considered such as chondroitin and glucosamine sulfate. The literature is unclear as to benefit, however, some patients see improvement with these type of supplements. We also discussed other interventions including therapeutic injections. We discussed varieties of injections including cortisone, viscosupplementation, and PRP. We also discussed the possibility of surgical intervention if symptoms persist. We discussed arthroscopic intervention as well as total knee arthroplasty. A decision for surgery is dependent on a variety of factors including patient characteristics, co-morbidities, expectations, and expected outcome. We discussed and reviewed the natural history of meniscus tears. We reviewed the function and anatomy of the meniscus. The menisci are fibrocartilaginous wedge-shaped structures that play many roles in the knee, including transmitting axial loads across the tibiofemoral articulation, increasing joint congruency, contact area and stability, decreasing contact pressures, and contributing to shock absorption, lubrication, and joint proprioception. The essential function of the meniscus in dissipating forces across the joint is enabled by a longitudinal orientation of circumferential collagen fibers which convert compressive forces to circumferential hoop stresses. (Diamante GONZALES) Meniscus tears are common and may or may not be symptomatic. We discussed that clinical symptoms tend to be more important than radiographic findings. We reviewed treatment options. Many meniscus tears can be treated non-surgically and symptoms may respond to a program of activity modification, home exercise/physical therapy, oral medications, bracing, and/or injections. PRP injections may be considered. Surgical intervention with an arthroscopic partial meniscectomy vs repair is considered for persistent symptoms. The majority of meniscal tears are not repairable. I went over my findings with her and her . At this point I do not feel that an arthroscopic intervention would provide meaningful reliable benefit. We discussed alternative conservative treatment options for arthritis as she is not yet ready to consider a knee replacement. We decided on requesting authorization for viscosupplementation. We will see her back to perform the injection. In the interim she will continue with a self-directed home exercise program. She will let symptoms be her guide with regards to activity. PRIOR TK: She likely has a degenerative lateral meniscus [...] weeks to review results and further management. Not available 11/18/2024 09:17:26 12/30/2024 12/30/2024 Symptomatic left knee osteoarthritis. We reviewed treatment options. She desires to move forward with the Euflexxa injection series. First injection performed today. Postinjection instructions reviewed. Icing protocol reviewed. She will let symptoms be her guide with regards to activity. PRIOR: Slowly improving left knee pain. She has fairly prominent tricompartmental osteoarthritis, degenerative appearing meniscal tears. I went over my findings with her and her . At this point I do not feel that an arthroscopic intervention would provide meaningful reliable benefit. We discussed alternative conservative treatment options for arthritis as she is not yet ready to consider a knee replacement. We decided on requesting authorization for viscosupplementation. We will see her back to perform the injection. In the interim she will continue with a self-directed home exercise program. She will let symptoms be her guide with regards to activity. PRIOR TK: She likely has a degenerative lateral meniscus [...] weeks to review results and further management. Not available 12/30/2024 14:34:04 01/14/2025 01/14/2025 She tolerated th e second injection well. Postinjection instructions reviewed. We will see her back for the third. She will continue home exercise program. Icing protocol reviewed. PRIOR: Symptomatic left knee osteoarthritis. We reviewed treatment options. She desires to move forward with the Euflexxa injection series. First injection performed today. Postinjection instructions reviewed. Icing protocol reviewed. She will let symptoms be her guide with regards to activity. PRIOR: Slowly improving left knee pain. She has fairly prominent tricompartmental osteoarthritis, degenerative appearing meniscal tears. I went over my findings with her and her . At this point I do not feel that an arthroscopic intervention would provide meaningful reliable benefit. We discussed alternative conservative treatment options for arthritis as she is not yet ready to consider a knee replacement. We decided on requesting authorization for viscosupplementation. We will see her back to perform the injection. In the interim she will continue with a self-directed home exercise program. She will let symptoms be her guide with regards to activity. PRIOR TK: She likely has a degenerative lateral meniscus [...] weeks to review results and further management. Not available 01/14/2025 13:43:55 01/20/2025 01/20/2025 She tolerated th e third Euflexxa injection well. Postinjection instructions reviewed. She understands the injection series may be repeated at 6-month intervals or longer depending on her response. She will monitor her symptoms. She will continue home exercise program. Icing protocol reviewed. Questions invited and answered. PRIOR: She tolerated the second injection well. Postinjection instructions reviewed. We will see her back for the third. She will continue home exercise program. Icing protocol reviewed. PRIOR: Symptomatic left knee osteoarthritis. We reviewed treatment options. She desires to move forward with the Euflexxa injection series. First injection performed today. Postinjection instructions reviewed. Icing protocol reviewed. She will let symptoms be her guide with regards to activity. PRIOR: Slowly improving left knee pain. She has fairly prominent tricompartmental osteoarthritis, degenerative appearing meniscal tears. I went over my findings with her and her . At this point I do not feel that an arthroscopic intervention would provide meaningful reliable benefit. We discussed alternative conservative treatment options for arthritis as she is not yet ready to consider a knee replacement. We decided on requesting authorization for viscosupplementation. We will see her back to perform the injection. In the interim she will continue with a self-directed home exercise program. She will let symptoms be her guide with regards to activity. PRIOR TK: She likely has a degenerative lateral meniscus [...] weeks to review results and further management. Not available 01/20/2025 09:14:02 Plan of Treatment Reminders Order Date Submit Date Provider Last Modified By Organization Details Last Modified Time Details Appointments None recorded. Lab None recorded. Referral None recorded. Procedures intra-artic ular injection, knee, viscosupple ment (PROC) - Please check insurance for [employer] Author[employer] on, insurance preferred med. Choose One: 1 series Knee Laterality: left 2024 025 [email or web address] Not available 08:21:00 Surgeries None recorded. Imaging XR, knee, 3 view 2023 024 [facility], [address], [place], [address], 5 09:13:02 Medication Orders Euflexxa 10 mg/mL (mw 2.4-3.6 million) intra-artic ular syringe 2024 025 [email or web address] [id number], [address], [place], [address], 5 10:59:51 Euflexxa 10 mg/mL (mw 2.4-3.6 million) intra-artic ular syringe 2024 025 [email or web address] Not available 14:24:35 Euflexxa 10 mg/mL (mw 2.4-3.6 million) intra-artic ular syringe 2024 025 [email or web address] [id number], [address] [place], [address], 14:41:32 Patient TargetsNo targets recorded. Patient InstructionsNo instructions recorded. Reason for Referral None Reported. Results Created Date Observation Date Name Description Value Unit Range Abnormal Flag Note LastModifiedBy Organization Detail LastModifiedTime 07/31/19 25 07/30/2024 XR, knee, 3 view No observ ation record ed. [email or web address] [facility] [address] [place] [address], [address], 07/31/2024 11:06:12 09/25/19 25 09/24/2024 MRI, knee, w/o contr ast No observ ation record ed. [email or web address] [facility] [address] [place], [address], 09/26/2024 08:44:01 Result Notes None recorded. Problems Name Problem SNOMED Code Status Onset Date Resolution Date Notes Provider Name and Address Organization Details Recorded Time Pain of left knee region 7952091895798 09 Active 2024 Bonilla Cisneros MD [address], [place], [address], [place] [facility], P 5 07:55:43 Osteoarthri tis of left knee joint 2285145489521 09 Active 2024 Bonilla Cisneros MD [address], [place], [address], [place] [facility], P 5 07:56:56 Tear of lateral meniscus of knee 198534356 Active 2024 Bonilla Cisneros MD [address], [place], [address], [place] [facility], [facility] 5 06:30:50 Acute meniscal tear, medial 525008806 Active 2024 Bonilla Cisneros MD [address], [place], [address], [place] [facility], [facility] 06:30:50 Problem Notes None recorded. Procedures Surgical History Date Name Laterality Status Provider Name and Address Organization Details Recorded Time 5 Euflexxa Knee Inj w/US completed Bonilla Cisneros MD [address], [place], [address], [place] [facility] 01/20/2025 06:31:09 5 Euflexxa Knee Inj w/US completed Bonilla Cisneros MD [address], [place], [address], [place] [facility] 01/14/2025 06:42:52 5 Euflexxa Knee Inj w/US completed Bonilla Cisneros MD [address], [place], [address], [place] [facility] 12/30/2024 06:43:20 total knee replacement completed Crystal Saldana [place] [facility] 06/27/2024 08:54:55 Shoulder Surgery completed Crystal Saldana [place] [facility], [facility] 06/27/2024 08:55:11 lumbar spinal fusion completed Crystal Sald[place] [facility] 06/27/2024 08:55:28 Imaging Results None recorded. Procedure Notes None recorded. Medical Equipment None Reported. Allergies Allergen ID Allergen Name Allergen Category Reaction Reaction Severity Criticality Documentation Date Start Date Code Code System Note Provider Name and Address Organization Details Recorded Time Product containin g penicilli n (product) medicatio n Not available Not available Not available 06/27/2024 40909 8001 SNOMED Crystal Saldana null, [place] [facility], [facility] 08:53:10 Vancocin medicatio n Not available Not available Not available 06/27/202427080 8 RxNorm Crystal Saldana null, [place] [facility], [facility] 4 08:53:22 Levaquin medicatio n Not available Not available Not available 06/27/2024 97559 2 RxNorm Carey riddle, [place] [facility], [facility] 4 08:53:30 Medications Name Sig Start Date Stop Date Status Note LastModified by Organization Details LastModified Time losartan 50 mg tablet TAKE 1 TABLET BY MOUTH EVERY DAY active Not Available Not Available No t Available clindamycin HCl 300 mg capsule TAKE 2 CAPSULES ONE HOUR PRIOR TO ANY DENTAL WORK/CARLENE DIAZ active Not Available Not Available No t Available ofloxacin 0.3 % eye drops INSTILL 1 DROP INTO LEFT EYE 4 TIMES A DAY 12/24 completed Not Available Not Available Not Available metoprolol succinate ER 50 mg tablet,exte nded release 24 hr TAKE 1 TABLET BY MOUTH DAILY active Not Available Not Available No t Available valacyclovi r 500 mg tablet TAKE 1 TABLET BY MOUTH THREE TIMES A DAY 12/24 completed Not Available Not Available Not Available sulfamethox azole 800 mg-trimetho prim 160 mg tablet PLEASE SEE ATTACHED FOR DETAILED DIRECTION S 12/24 completed Not Available Not Available Not Available pantoprazol e 20 mg tablet,randall yed release 12/27 completed Not Available Not Available Not Available famotidine 20 mg tablet TAKE 1 TABLET BY MOUTH EVERYDAY AT BEDTIME 12/24 completed Not Available Not Available Not Available pantoprazol e 40 mg tablet,randall yed release TAKE 1 TABLET BY MOUTH DAILY active Not Available Not Available No t Available metformin 1,000 mg tablet TAKE 1 TABLET BY MOUTH TWICE A DAY active Not Available Not Available No t Available losartan 25 mg tablet TAKE 1 TABLET BY MOUTH ONCE DAILY WITH LOSARTAN 50 MG 12/27 completed Not Available Not Available Not Available sertraline 25 mg tablet TAKE 1 TABLET BY MOUTH EVERY DAY active Not Available Not Available No t Available metronidazo le 0.75 % topical gel APPLY TO AFFECTED AREA TOPICALLY AT BEDTIME active Not Available Not Available No t Available rosuvastati n 20 mg tablet TAKE 1 TABLET BY MOUTH EVERY DAY active Not Available Not Available No t Available rosuvastati n 40 mg tablet TAKE 1/2 TABLET (20MG) BY MOUTH EVERY DAY 12/30 completed Not Available Not Available Not Available nitrofurant oin monohydrate /macrocryst als 100 mg capsule TAKE 1 CAPSULE ORALLY 2 TIMES A DAY MUST ADMINISTE R WITH A MEAL/FOOD 12/24 completed Not Available Not Available Not Available Euflexxa 10 mg/mL (mw 2.4-3.6 million) intra-artic ular syringe Inject 10 mg by intra-art icular route for 21 days. 2024 active Not Available Not Available Not Avai lable BD Ultra-Fine Short Pen Needle 31 gauge x 5/16 USE TO INJECT INSULIN ONCE DAILY active Not Available Not Available No t Available Eliquis 5 mg tablet TAKE 1 TABLET BY MOUTH TWICE A DAY active Not Available Not Available No t Available Tresiba FlexTouch U-100 insulin 100 unit/mL (3 mL) subcutaneou s pen INJECT 20 UNITS SUBCUTANE OUSLY AT BEDTIME active Not Available Not Available No t Available FreeStyle Reid 2 Sensor kit USE DIRECTED 12/24 completed Not Available Not Available Not Available Ozempic 2 mg/dose (8 mg/3 mL) subcutaneou s pen injector INJECT 2 MG (0.75 ML) SUBCUTANE OUSLY EVERY WEEK 12/24 completed Not Available Not Available Not Available Mounjaro 10 mg/0.5 mL subcutaneou s pen injector Inject 12.5 mg every week by sub-q route. 12/30 completed Not Available Not Available Not Available Mounjaro 12.5 mg/0.5 mL subcutaneou s pen injector INJECT 12.5 MG (0.5 ML) SUBCUTANE OUSLY EVERY WEEK active Not Available Not Available No t Available FreeStyle Reid 3 Plus Sensor device TEST BLOOD SUGAR 4 TIMES PER DAY, CHANGE SENSOR EVERY 15 DAYS active Not Available Not Available No t Available Vitals Date Recorded Body height Body mass index (BMI) Body weight Provider Name and Address Organization Details Last Updated DateTime 11/18/2024 170.18 cm 23.6 kg/m2 [address]9667.[address] [place] [facility] 11/18/2024 08:51:03 Date Recorded Body height Body mass index (BMI) Body weight Provider Name and Address Organization Details Last Updated DateTime 12/30/2024 170.18 cm 23.5 kg/m2 [address]133.[address] [place] [facility] 12/30/2024 14:17:17 Date Recorded Body height Body mass index (BMI) Body weight Provider Name and Address Organization Details Last Updated DateTime 01/20/2025 170.18 cm 23.6 kg/m2 [address]6071.[address] [place] [facility] 01/20/2025 09:00:43 Date Recorded Body height Body mass index (BMI) Body weight Provider Name and Address Organization Details Last Updated DateTime 06/27/2024 170.18 cm 23.5 kg/m2 [address]9535.[address] [place] [facility] 06/27/2024 08:53:40 Social History None recorded. Functional Status Question Answer Note LastModified by Organizat ion Details LastModified Time Do you use any illicit or recreational drugs? No [email or web address] Information not available 06/27/2024 Do you or have you ever used any other forms of tobacco or nicotine? No [email or web address] Information not available 06/27/2024 What is your level of alcohol consumption? None [email or web address] Information not available 06/27/2024 Mental Status None recorded. Family History Relationship Description Onset Age of this Age Resolved Age Notes LastModified by Organization Details LastModified Time Mother History of cancer of unknown primary site [email or web address] Not available 11/2023 08:54:35 Father Diabetes mellitus [email or web address] Not available 2024 08:35:21 Medical History Condition Response Coronary Artery Disease N Gout N Hyperthyroidism N MRSA N Blood Transfusion N Emphysema N Depression N COPD N Hypothyroidism N Pacemaker N Vascular Disease N Gastrointestinal Disease N Anxiety Disorder N Autoimmune disease N Arthritis N Cancer N Stroke Y High Cholesterol Y Neurologic Disorder N Liver Disease N Organ Transplant N Rheumatoid Arthritis N Arrhythmia N Fibromyalgia N Kidney Disease N Allergies/Hayfever Y Adverse Reaction to Anesthesia N Thyroid Problems N Anemia N Brain Injury N Heart Attack (RI) N Osteopenia N Diabetes Y Bleeding Disorder N Seizures/Epilepsy N AIDS/HIV N Congestive Heart Failure (CHF) N Asthma Y Amputation N Reflux/GERD Y Sleep Apnea N Aneurysm N Hepatitis N Heart Disease N Pulmonary Embolism N Hypertension Y Osteoporosis N Gynecological HistoryNo gynecological history recorded. Obstetrics History GPAL:G 0 P 0 0 0 0 Past Encounters Encounter ID Performer Location Encounter Start Date Encounter Closed Date Diagnosis/Indication Diagnosis SNOMED-CT Code Diagnosis ICD10 Code Diagnosis Note [id number] NOMAN SHARIF PA-C Replaced by [facility] [address] [place] [address] 06/27/2024 08:39:30 06/27/2024 09:15:42 Pain of left knee region 5290606932 68653 M25.562 [id number] Bonilla Cisneros MD [address] [address] 11/18/2024 08:35:04 11/18/2024 09:16:57 Osteoarthritis of left knee joint 6296785053 27562 M17.12 Tear of la teral meniscus of knee 220981652 S83.272A Acute meni scal tear, medial 473676005 S83.232A [id number] MD VERONICA Do [address] [address] 01/20/2025 08:58:06 01/20/2025 11:43:52 Osteoarthritis of left knee joint 3237285227 74449 M17.12 Tear of la teral meniscus of knee 158711704 S83.272D Acute meni scal tear, medial 088778021 S83.232D [id number] Bonilla Cisneros MD [address] [address] 12/30/2024 14:08:05 12/30/2024 14:35:36 Osteoarthritis of left knee joint 4098327599 65490 M17.12 Tear of la teral meniscus of knee 398342576 S83.272D Acute meni scal tear, medial 467869269 S83.232D [id number] Bonilla Cisneros MD [address] [address] 01/14/2025 13:11:51 01/14/2025 13:47:40 Osteoarthritis of left knee joint 0107963524 22048 M17.12 Tear of la teral meniscus of knee 586318275 S83.272D Acute meni scal tear, medial 474403478 S83.232D Health Concerns Section Related Observation LastModified by Organization Detai ls LastModified Time None Recorded Concern Status LastModified by Organization Details LastModified Time None Recorded Advance Directives Directive None Recorded Payers None recorded. Notes Date Note Type Note Provider Name [...] subsequently underwent a right knee arthroplasty in [place]. Her current pain is localized to her [...] NOMAN SHARIF PA-C [address], [place], [address], [place] [facility] 06/27/2024 09:19:40 11/18/2024 text/html Patient returns to the office for reevaluation of her left knee. She developed increasing left knee pain in May 2024 without specific trauma. She tried a cortisone injection in the left knee with Steven Amos in June, no change at all in her symptoms. She tells me the whole knee is uncomfortable. Initially she was having difficulty bringing the knee to extension, that has improved. She recently went for an MRI and brings that in today for review. She rates her symptoms as mild, ranging between a 4 to a 6 on a 10 point scale. She describes the pain as dull/aching, shooting, and occasionally radiating to the leg. She does have intermittent pain at rest. PRIOR TK:Galilea Hilton is a 64 year old female who presents as a walk in patient today for evaluation of her left knee. There has been no known injury. Her pain began approximately 3 weeks ago. She has previously been treated for her right knee for a meniscus tear and subsequently underwent a right knee arthroplasty in [place]. Her current pain is localized to her [...] twice daily. She is on Ozempic weekly. Bonilla Cisneros MD [address], [place], [address], [place] [facility] 11/18/2024 12:19:04 12/30/2024 text/html Patient presents for reevaluation of her left knee. No interval change in her symptoms. We now have authorization to proceed with the Euflexxa injections. PRIOR:Patient returns to the office for reevaluation of her left knee. She developed increasing left knee pain in May 2024 without specific trauma. She tried a cortisone injection in the left knee with Steven Amos in June, no change at all in her symptoms. She tells me the whole knee is uncomfortable. Initially she was having difficulty bringing the knee to extension, that has improved. She recently went for an MRI and brings that in today for review. She rates her symptoms as mild, ranging between a 4 to a 6 on a 10 point scale. She describes the pain as dull/aching, shooting, and occasionally radiating to the leg. She does have intermittent pain at rest. PRIOR TK:Galilea Hilton is a 64 year old female who presents as a walk in patient today for evaluation of her left knee. There has been no known injury. Her pain began approximately 3 weeks ago. She has previously been treated for her right knee for a meniscus tear and subsequently underwent a right knee arthroplasty in [place]. Her current pain is localized to her [...] twice daily. She is on Ozempic weekly. MD [address], [place], [address], [place] [facility] 12/30/2024 14:34:48 01/14/2025 text/html She tolerated th e first injection without difficulty. She is actually already starting to feel a bit better. She asked that we proceed with the second injection today. PRIOR:Patient presents for reevaluation of her left knee. No interval change in her symptoms. We now have authorization to proceed with the Euflexxa injections. PRIOR:Patient returns to the office for reevaluation of her left knee. She developed increasing left knee pain in May 2024 without specific trauma. She tried a cortisone injection in the left knee with Steven Amos in June, no change at all in her symptoms. She tells me the whole knee is uncomfortable. Initially she was having difficulty bringing the knee to extension, that has improved. She recently went for an MRI and brings that in today for review. She rates her symptoms as mild, ranging between a 4 to a 6 on a 10 point scale. She describes the pain as dull/aching, shooting, and occasionally radiating to the leg. She does have intermittent pain at rest. PRIOR TK:Galilea Hilton is a 64 year old female who presents as a walk in patient today for evaluation of her left knee. There has been no known injury. Her pain began approximately 3 weeks ago. She has previously been treated for her right knee for a meniscus tear and subsequently underwent a right knee arthroplasty in [place]. Her current pain is localized to her [...] twice daily. She is on Ozempic weekly. Bonilla Cisneros MD [address], [place], [address], [place] [facility] 01/14/2025 13:54:27 01/20/2025 text/html She is here for her third and final Euflexxa injection. No issues with the first two. PRIOR:She tolerated the first injection without difficulty. She is actually already starting to feel a bit better. She asked that we proceed with the second injection today.PRIOR:Patient presents for reevaluation of her left knee. No interval change in her symptoms. We now have authorization to proceed with the Euflexxa injections.PRIOR:Marty erickson returns to the office for reevaluation of her left knee. She developed increasing left knee pain in May 2024 without specific trauma. She tried a cortisone injection in the left knee with Steven Amos in June, no change at all in her symptoms. She tells me the whole knee is uncomfortable. Initially she was having difficulty bringing the knee to extension, that has improved. She recently went for an MRI and brings that in today for review. She rates her symptoms as mild, ranging between a 4 to a 6 on a 10 point scale. She describes the pain as dull/aching, shooting, and occasionally radiating to the leg. She does have intermittent pain at rest.PRIOR TK:Galilea Hilton is a 64 year old female who presents as a walk in patient today for evaluation of her left knee. There has been no known injury. Her pain began approximately 3 weeks ago. She has previously been treated for her right knee for a meniscus tear and subsequently underwent a right knee arthroplasty in [place]. Her current pain is localized to her [...] twice daily. She is on Ozempic weekly. Bonilla Cisneros MD [address], [place], [address], [place] [facility] 01/20/2025 09:14:25 OBGyn Episode No OBEpisode recorded.
--- OUTSIDE RECORDS SUMMARY | 2025-01-28 13:17 | XMS_ITS ---
Author Name [facility] Organization Unknown History of Medication Use Medication Directions Dispensed Refills Start Date End Date Stat us Euflexxa 10 mg/mL (mw 2.4-3.6 million) intra-articular syringe Inject 10 mg by intra-articular route for 21 days. 12/30/2024 active Euflexxa 10 mg/mL (mw 2.4-3.6 million) intra-articular syringe active clindamycin HCl 300 mg capsule TAKE 2 CAPSULES ONE HOUR PRIOR TO ANY DENTAL WORK/CLEANINGS. active Eliquis 5 mg tablet TAKE 1 TABLET (5 MG) ORALLY 2 TIMES A DAY active famotidine 20 mg tablet TAKE 1 TABLET BY MOUTH EVERYDAY AT BEDTIME active Literably Reid 2 Sensor kit USE DIRECTED active losartan 25 mg tablet TAKE 1 TABLET BY MOUTH ONCE DAILY WITH LOSARTAN 50 MG active losartan 50 mg tablet TAKE 1 TABLET BY MOUTH EVERY DAY active metformin 1,000 mg tablet TAKE 1 TABLET BY MOUTH TWICE A DAY active metoprolol succinate ER 50 mg tablet,extended release 24 hr TAKE 1 TABLET BY MOUTH DAILY active metronidazole 0.75 % topical gel APPLY TO AFFECTED AREA TOPICALLY AT BEDTIME active Mounjaro 10 mg/0.5 mL subcutaneous pen injector INJECT 10 MG (0.5 ML) SUBCUTANEOUSLY EVERY WEEK active Mounjaro 12.5 mg/0.5 mL subcutaneous pen injector INJECT 12.5 MG (0.5 ML) SUBCUTANEOUSLY EVERY WEEK active nitrofurantoin monohydrate/macrocryst als 100 mg capsule TAKE 1 CAPSULE ORALLY 2 TIMES A DAY MUST ADMINISTER WITH A MEAL/FOOD active ofloxacin 0.3 % eye drops INSTILL 1 DROP INTO LEFT EYE 4 TIMES A DAY active Ozempic 2 mg/dose (8 mg/3 mL) subcutaneous pen injector INJECT 2 MG (0.75 ML) SUBCUTANEOUSLY EVERY WEEK active pantoprazole 20 mg tablet,delayed release ac tive pantoprazole 40 mg tablet,delayed release TAKE 1 TABLET BY MOUTH DAILY active rosuvastatin 20 mg tablet TAKE 1 TABLET BY MOUTH EVERY DAY active rosuvastatin 40 mg tablet TAKE 1/2 TABLET (20MG) BY MOUTH EVERY DAY active sertraline 25 mg tablet TAKE 1 TABLET BY MOUTH EVERY DAY active sulfamethoxazole 800 mg-trimethoprim 160 mg tablet PLEASE SEE ATTACHED FOR DETAILED DIRECTIONS active Tresiba FlexTouch U-100 insulin 100 unit/mL (3 mL) subcutaneous pen 20 units every day by sub-q route. active valacyclovir 500 mg tablet TAKE 1 TABLET BY MOUTH THREE TIMES A DAY active Allergies Allergen Reaction Severity Comment Documented Date Source Statu s LEVAQUIN ENS_AONECT PENICILLINS E[facility]ECT VANCOCIN E[facility] Problems Problem Status Onset Date Problem Type Date of Resoluti on Source Tear of lateral meniscus of knee active 2024-11-18 ProblemAct [facility] Acute meniscal tear, medial active 2024-11-18 ProblemAct [facility] Pain of left knee region active 2024-11-18 ProblemAct [facility] Osteoarthritis of left knee joint active 2024-11-18 ProblemAct [facility] Encounters Encounter Type Encounter Reason Primary Diagnosis Location Date Ambulatory [facility] [place] 01/23/2025 Ambulatory [facility] [place] 01/18/2025 Ambulatory [facility] [place] 01/14/2025 Ambulatory [facility] [place] 01/10/2025 Ambulatory [facility] [place] 12/18/2024 Ambulatory [facility] [place] 11/19/2024 Ambulatory [facility] [place] 11/17/2024 Ambulatory [facility] [place] 11/17/2024 Ambulatory [facility] [place] 11/17/2024 Ambulatory [facility] [place] 08/08/2024 Ambulatory [facility] [place] 07/18/2024 Ambulatory [facility] [place] 07/18/2024 Ambulatory [facility] [place] 07/13/2024 Ambulatory [facility] [place] 07/11/2024 Ambulatory [facility] [place] 06/28/2024 Ambulatory [facility] [place] 06/27/2024 Ambulatory [facility] [place] 06/27/2024 Ambulatory [facility] [place] 06/27/2024 Ambulatory [facility] [place] 06/27/2024
== END 2025-01-28 14:50 | disposition home or self-care (01) ==
LOC: HO.HMCC 12:32
PROVIDERS: PCP Internal Medicine; Visit Provider Internal Medicine
DX: I10 Essential (primary) hypertension (principal); I48.0 Paroxysmal atrial fibrillation; E11.9 Type 2 diabetes mellitus without complications

== ENCOUNTER 2025-01-28 12:31 | Outpatient (REF) | payer MEDICARE, SELFPAY ==
[2025-01-28 17:26] LABS: MANUAL DIFF FLAG NO
[2025-01-28 17:34] LABS: Hematocrit 35.0 % (37.0-47.0); Hemoglobin 11.7 g/dl (12.0-16.0); Imm Gran Abs Auto 0.02 X10*3/uL (0.00-0.03); Imm Gran Pct Auto 0.3 % (0.0-0.4); Lymphocytes Absolute Auto 2.2 X10*3/uL (1.2-4.9); Mean Corpuscular HGB Conc 33.4 g/dl (31.0-35.0); Mean Corpuscular Hemoglobin 29.5 pg (27.0-33.0); Mean Corpuscular Volume 88.4 fL (80.0-98.0); NRBC Abs Auto 0.000 X10*3/uL (0.0-0.012); NRBC Pct Auto 0.0 /100WBC (0.0-0.2); Platelet Count 218 X10*3/uL (160-400); Red Blood Count 3.96 X10*6/uL (4.20-5.50); White Blood Count 7.0 X10*3/uL (4.8-10.8)
[2025-01-28 17:47] LABS: Alanine Aminotransferase 16 U/L (0-31); Albumin Level 4.4 g/dL (3.5-5.0); Alkaline Phosphatase 60 U/L (39-117); Anion Gap 17 (12-20); Aspartate Amino Transferase 25 U/L (5-31); Blood Urea Nitrogen 23 mg/dL (9-16); Calcium 9.2 mg/dL (8.4-10.2); Carbon Dioxide 23 mmol/L (22-29); Chloride 103 mmol/L (96-108); Estimated Glomerular Filt Rate 60; Potassium 3.8 mmol/L (3.3-5.1); Sodium 139 mmol/L (135-145); Total Protein 6.6 g/dL (6.5-8.0)
== END 2025-01-28 12:32 | disposition home or self-care (01) ==
LOC: HO.HMGCLDS 12:31
PROVIDERS: PCP Internal Medicine; Visit Provider Internal Medicine
DX: I10 Essential (primary) hypertension (principal); I48.0 Paroxysmal atrial fibrillation; E11.9 Type 2 diabetes mellitus without complications; Z79.01 Long term (current) use of anticoagulants; Z79.4 Long term (current) use of insulin; Z79.84 Long term (current) use of oral hypoglycemic drugs; Z79.85 Long-term (current) use of injectable non-insulin antidiabetic drugs
CPT/HCPCS: 36415; 80053; 85025; 99212

== ENCOUNTER 2025-02-05 09:12 | Outpatient (REF) | payer MEDICARE, SELFPAY ==
--- OUTSIDE RECORDS SUMMARY | 2025-02-05 09:32 | XMS_ITS | Clinical Summary ---
Author Organization [facility] Address [address] [place] [address] Care Team Providers Care Mover Name Role Phone Unavailable Primary Care Provider [...]
--- OUTSIDE RECORDS SUMMARY | 2025-02-05 09:32 | XMS_ITS | Clinical Summary ---
Author Organization [facility] Address [address] [place] [address] Phone Care Team Providers Care Packaging Assembler Name Role Phone Unavailable Primary Care Provider [...]
--- OUTSIDE RECORDS SUMMARY | 2025-02-05 09:33 | XMS_ITS | Data Portability ---
Author Organization [place] [facility] Kirt Suarez AONE [place] Address [address] [place] [address] Care Team Providers Care Aeronautical Products Sales Engineer Name Role Phone SOL MCNAMARA Primary Care Provider [phone] SOL MCNAMARA Referring Provider Assessment Encounter Date [...] weeks to review results and further management. [email or web address] Not available 06/27/2024 09:18:50 11/18/2024 11/18/2024 Slowly [...] may be helpful for control of swelling. [id number] anti-inflammatory medications with appropriate GI precautions or [...] Imaging XR, knee, 3 view 2023 024 CHENOA [facility], [address], [place], [address], 5 09:13:02 Medication Orders Euflexxa 10 mg/mL (mw 2.4-3.6 million) intra-artic ular syringe 2024 025 [email or web address] [id number], [address], [place], [address], 5 10:59:51 Euflexxa 10 mg/mL (mw 2.4-3.6 million) intra-artic ular syringe 2024 025 [email or web address] Not available 14:24:35 Euflexxa 10 mg/mL (mw 2.4-3.6 million) intra-artic ular syringe 2024 025 [email or web address] [id number], [address] [place], [address], 14:41:32 Patient TargetsNo targets recorded. Patient InstructionsNo instructions recorded. Reason for Referral None Reported. Results Created Date Observation Date Name Description Value Unit Range Abnormal Flag Note LastModifiedBy Organization Detail LastModifiedTime 07/31/19 25 07/30/2024 XR, knee, 3 view No observ ation record ed. [email or web address] [facility] [address] [place] [address], [address], 07/31/2024 11:06:12 09/25/19 25 09/24/2024 MRI, knee, w/o contr ast No observ ation record ed. [email or web address] [facility] [address] [place], [address], 09/26/2024 08:44:01 Result Notes None recorded. Problems Name Problem SNOMED Code Status Onset Date Resolution Date Notes Provider Name and Address Organization Details Recorded Time Pain of left knee region 7125914971028 09 Active 2024 Bonilla Cisneros MD [address], [place], [address], [place] [facility] 5 07:55:43 Osteoarthri tis of left knee joint 7453883541462 09 Active 2024 Bonilla Cisneros MD [address], [place], [address], [place] [facility] 5 07:56:56 Tear of lateral meniscus of knee 239562673 Active 2024 Bonilla Cisneros MD [address], [place], [address], [place] [facility] 5 06:30:50 Acute meniscal tear, medial 385856468 Active 2024 Bonilla Cisneros MD [address], [place], [address], [place] [facility] 06:30:50 Problem Notes None recorded. Procedures Surgical History Date Name Laterality Status Provider Name and Address Organization Details Recorded Time 5 Euflexxa Knee Inj w/US completed Bonilla Cisneros MD [address], [place], [address], [place] [facility] 01/20/2025 06:31:09 5 Euflexxa Knee Inj w/US completed Bonilla Cisneros MD [address], [place], [address], [place] [facility] 01/14/2025 06:42:52 5 Euflexxa Knee Inj w/US completed Bonilla Cisneros MD [address], [place], [address], [place] [facility] 12/30/2024 06:43:20 total knee replacement completed Crystal Saldana [place] - [facility] 06/27/2024 08:54:55 Shoulder Surgery completed Crystal Saldana [place] - [facility] 06/27/2024 08:55:11 lumbar spinal fusion completed Crystal Saldana [place] - [facility] 06/27/2024 08:55:28 Imaging Results None recorded. Procedure Notes None recorded. Medical Equipment None Reported. Allergies Allergen ID Allergen Name Allergen Category Reaction Reaction Severity Criticality Documentation Date Start Date Code Code System Note Provider Name and Address Organization Details Recorded Time Product containin g penicilli n (product) medicatio n Not available Not available Not available 06/27/2024 14231 8001 SNOMED Crystal Saldana [place], [place] [facility] 08:53:10 Vancocin medicatio n Not available Not available Not available 06/27/202480155 8 RxNorm Crystal Saldana null, [place] - [facility] 4 08:53:22 Levaquin medicatio n Not available Not available Not available 06/27/2024 90385 2 RxNorm Carey riddle, [place] - [facility] 4 08:53:30 Medications Name Sig Start [...] Updated DateTime 11/18/2024 170.18 cm 23.6 kg/m2 [address] [facility] 11/18/2024 08:51:03 Date Recorded Body height Body mass index (BMI) Body weight Provider Name and Address Organization Details Last Updated DateTime 12/30/2024 170.18 cm 23.5 kg/m2 [address]9215.[address] [place] [facility] 12/30/2024 14:17:17 Date Recorded Body height Body mass index (BMI) Body weight Provider Name and Address Organization Details Last Updated DateTime 01/20/2025 170.18 cm 23.6 kg/m2 65296.[address] [place] [facility] 01/20/2025 09:00:43 Date Recorded Body height Body mass index (BMI) Body weight Provider Name and Address Organization Details Last Updated DateTime 06/27/2024 170.18 cm 23.5 kg/m2 51940.[address] [place] [facility] 06/27/2024 08:53:40 Social History None recorded. Functional Status Question Answer Note LastModified by Organizat ion Details LastModified Time Do you use any illicit or recreational drugs? No Information not available 06/27/2024 Do you or have you ever used any other forms of tobacco or nicotine? No [email or web address] Information not available 06/27/2024 What is your level of alcohol consumption? None [email or web address] Information not available 06/27/2024 Mental Status None recorded. Family History Relationship Description Onset Age of this Age Resolved Age Notes LastModified by Organization Details LastModified Time Mother History of cancer of unknown primary site [email or web address] Not available 11/2023 08:54:35 Father Diabetes mellitus [email or web address] Not available 2024 08:35:21 Medical History Condition Response Coronary Artery Disease N Gout N Hyperthyroidism N Blood Transfusion N MRSA N Emphysema N Depression N COPD N [...] Anemia N Brain Injury N Heart Attack ([place]) N Osteopenia N Diabetes Y Bleeding Disorder N Seizures/Epilepsy N AIDS/HIV N Congestive Heart Failure (CHF) N Asthma Y Amputation N Reflux/GERD Y Sleep Apnea N Hepatitis N Aneurysm N Heart Disease N Pulmonary Embolism N Hypertension Y Osteoporosis N Gynecological HistoryNo gynecological history recorded. Obstetrics History GPAL:G 0 P 0 0 0 0 Past Encounters Encounter ID Performer Location Encounter Start Date Encounter Closed Date Diagnosis/Indication Diagnosis SNOMED-CT Code Diagnosis ICD10 Code Diagnosis Note [id number] NOMAN SHARIF PA-C [facility] [address] [place] [address] 06/27/2024 08:39:30 06/27/2024 09:15:42 Pain of left knee region 1177112316 16458 M25.562 [id number] Bonilla Cisneros MD [address] [address] 11/18/2024 08:35:04 11/18/2024 09:16:57 Osteoarthritis of left knee joint 3975182447 95971 M17.12 Tear of la teral meniscus of knee 592160856 S83.272A Acute meni scal tear, medial 922306687 S83.232A [id number] MD VERONICA Do [address] [address] 01/20/2025 08:58:06 01/20/2025 11:43:52 Osteoarthritis of left knee joint 8420286685 01918 M17.12 Tear of la teral meniscus of knee 232568017 S83.272D Acute meni scal tear, medial 558349608 S83.232D [id number] Bonilla Cisneros MD [address] [address] 12/30/2024 14:08:05 12/30/2024 14:35:36 Osteoarthritis of left knee joint 5644114782 13348 M17.12 Tear of la teral meniscus of knee 976354797 S83.272D Acute meni scal tear, medial 925326740 S83.232D [id number] Bonilla Cisneros MD [address] [address] 01/14/2025 13:11:51 01/14/2025 13:47:40 Osteoarthritis of left knee joint 7650235871 28636 M17.12 Tear of la teral meniscus of knee 019347115 S83.272D Acute meni scal tear, medial 646882371 S83.232D Health Concerns Section Related Observation LastModified [...] subsequently underwent a right knee arthroplasty in [place]. Her current pain is localized to her [...] NOMAN SHARIF PA-C [address], [place], [address], [place] [facility] 06/27/2024 09:19:40 11/18/2024 text/html Patient returns [...] subsequently underwent a right knee arthroplasty in [place]. Her current pain is localized to her [...] Bonilla Cisneros MD [address], [place], [address], [place] [facility] 11/18/2024 12:19:04 12/30/2024 text/html Patient presents [...] subsequently underwent a right knee arthroplasty in [place]. Her current pain is localized to her [...] Ozempic weekly. MD [address], [place], [address], [place] [facility] 12/30/2024 14:34:48 01/14/2025 text/html She tolerated [...] subsequently underwent a right knee arthroplasty in [place]. Her current pain is localized to her [...] Bonilla Cisneros MD [address], [place], [address], [place] [facility] 01/14/2025 13:54:27 01/20/2025 text/html She is [...] subsequently underwent a right knee arthroplasty in [place]. Her current pain is localized to her [...] Bonilla Cisneros MD [address], [place], [address], [place] [facility] 01/20/2025 09:14:25 OBGyn Episode No OBEpisode recorded.
--- OUTSIDE RECORDS SUMMARY | 2025-02-05 09:33 | XMS_ITS | Clinical Summary ---
Author Organization [facility] Address [address] [place] [address] Care Team Providers Care Art Framing Manager Name Role Phone Valarie Hudson MD Primary Care Provider Allergies Active Allergy Reactions Criticality Noted Date [...] age to complete this topic Care Teams Art Framing Manager Relationship Specialty Start Date End Date Valarie Hudson MD [address] [facility] [place] [address] PCP - General Pharmacognosist 05/14/19
--- OUTSIDE RECORDS SUMMARY | 2025-02-05 09:33 | XMS_ITS | Clinical Summary ---
Author Organization [address] Address [address] [place] [address] Phone Care Team Providers Care Tank Truck Mechanic Name Role Phone Valarie Hudson MD Primary Care Provider [phone] Surgical History Surgery Date Site/Laterality Comments SECTION PROCEDURE: SECTION SHOULDER SURGERY PROCEDURE:SHOULDER SURGERY BREAST SURGERY PROCEDURE:REDUCTION MAMMAPLASTY KNEE SURGERY PROCEDURE:KNEE SURGERY Medical History Medical History Date Comments Depression DX:Depression Hypertension DX:Hypertension GERD (gastroesophageal reflux disease) DX:GERD (gastroesophageal reflux disease) High cholesterol DX:High cholest sherwin Stroke ([facility] V24, [facility] V28) DX:Stroke ([facility]) Asthma DX:Asthma Diabetes mellitus ([facility] V 24, [facility] V28) DX:Diabetes mellitus ([facility]) Family History Medical History Relation Name Comments [...] patient's age to complete this topic Insurance [facility] Care Teams Tank Truck Mechanic Relationship Specialty Start Date End Date Valarie Hudson MD PCP - General Music Intern 05/14/19
[2025-02-18 20:09] LABS: Cortisol, Free 0.52 mcg/dL
== END 2025-02-05 09:13 | disposition home or self-care (01) ==
LOC: HO.HMGCLDS 09:12
PROVIDERS: PCP Internal Medicine; Visit Provider Internal Medicine
DX: I95.1 Orthostatic hypotension (principal)
CPT/HCPCS: 36415; 82088; 82530; 84244

== ENCOUNTER 2025-02-08 09:54 | Outpatient (REF) | payer MEDICARE, SELFPAY ==
--- NOTE | ~2025-02-08 | CT_ITS ---
CLINICAL HISTORY: R51.9 - Headache, unspecified CT head without contrast Comparison: None Findings: No evidence of acute territorial infarct. There is mild patchy low density in the periventricular and subcortical white matter. Minimal volume loss is noted. No hydrocephalus. No hemorrhage, mass effect, mass lesion or midline shift. No abnormal extra-axial fluid. No calvarial fracture. Paranasal sinuses and mastoid air cells are clear. Impression: No acute intracranial process. Chronic changes as detailed. This document has been electronically signed by: Chris Roa MD on 02/08/2025 11:04:40
--- OUTSIDE RECORDS SUMMARY | 2025-02-08 09:56 | XMS_ITS | Data Portability ---
Author Organization [facility] Kirt Suarez [place] Address [address] [place] [address] Care Team Providers Care Teacher Counselor Name Role Phone SOL MCNAMARA Primary Care Provider [phone] SOL MCNAMARA Referring Provider [phone] Assessment Encounter Date Assessment Date Assessment LastModified [...] weeks to review results and further management. [email or web address] Not available 06/27/2024 09:18:50 11/18/2024 11/18/2024 Slowly [...] may be helpful for control of swelling. [id number] anti-inflammatory medications with appropriate GI precautions or [...] Imaging XR, knee, 3 view 2023 024 [place] [facility], [address], [place], [address], 5 09:13:02 Medication Orders Euflexxa 10 mg/mL (mw 2.4-3.6 million) intra-artic ular syringe 2024 025 [email or web address] [id number], [address] [facility], [place], [address], 5 10:59:51 Euflexxa 10 mg/mL (mw 2.4-3.6 million) intra-artic ular syringe 2024 025 [email or web address] Not available 14:24:35 Euflexxa 10 mg/mL (mw 2.4-3.6 million) intra-artic ular syringe 2024 025 [email or web address] [id number], [address] [place], [address], 14:41:32 Patient TargetsNo targets recorded. Patient InstructionsNo instructions recorded. Reason for Referral None Reported. Results Created Date Observation Date Name Description Value Unit Range Abnormal Flag Note LastModifiedBy Organization Detail LastModifiedTime 07/31/19 25 07/30/2024 XR, knee, 3 view No observ ation record ed. [email or web address] [facility] [address] [place] [address], [address], 07/31/2024 11:06:12 09/25/19 25 09/24/2024 MRI, knee, w/o contr ast No observ ation record ed. [facility] [address] [place], [address], 09/26/2024 08:44:01 Result Notes None recorded. Problems Name Problem SNOMED Code Status Onset Date Resolution Date Notes Provider Name and Address Organization Details Recorded Time Pain of left knee region 9206110456457 09 Active 2024 Bonilla Cisneros MD [address], [place], [address], [place] [facility] 5 07:55:43 Osteoarthri tis of left knee joint 0176018548653 09 Active 2024 Bonilla Cisneros MD [address], [place], [address], [place] [facility], [facility] 5 07:56:56 Tear of lateral meniscus of knee 998889982 Active 2024 Bonilla Cisneros MD [address], [place], [address], [place] [facility], [facility] 5 06:30:50 Acute meniscal tear, medial 839381427 Active 2024 Bonilla Cisneros MD [address], [place], [address], [place] [facility] P 06:30:50 Problem Notes None recorded. Procedures Surgical History Date Name Laterality Status Provider Name and Address Organization Details Recorded Time 5 Euflexxa Knee Inj w/US completed Bonilla Cisneros MD [address], [place], [address], [place] [facility] 01/20/2025 06:31:09 5 Euflexxa Knee Inj w/US completed Bonilla Cisneros MD [address], [place], [address], [facility] 01/14/2025 06:42:52 5 Euflexxa Knee Inj w/US completed Bonilla Cisneros MD [address], [place], [address], [facility] 12/30/2024 06:43:20 total knee replacement completed Crystal Saldana [facility] 06/27/2024 08:54:55 Shoulder Surgery completed Crystal Saldana [facility] 06/27/2024 08:55:11 lumbar spinal fusion completed Crystal Saldana [facility] 06/27/2024 08:55:28 Imaging Results None recorded. Procedure Notes None recorded. Medical Equipment None Reported. Allergies Allergen ID Allergen Name Allergen Category Reaction Reaction Severity Criticality Documentation Date Start Date Code Code System Note Provider Name and Address Organization Details Recorded Time Product containin g penicilli n (product) medicatio n Not available Not available Not available 06/27/2024 61532 8001 SNOMED Crystal Saldana null, [place] [facility] 08:53:10 Vancocin medicatio n Not available Not available Not available 06/27/202414697 8 RxNorm Crystal Saldana null, [place] [facility], [facility] 4 08:53:22 Levaquin medicatio n Not available Not available Not available 06/27/2024 96028 2 RxNorm Carey riddle, [place] [facility], [facility] 4 08:53:30 Medications Name Sig Start [...] Available Not Available No t Available FreeStyle Ried 3 Plus Sensor device TEST BLOOD SUGAR 4 TIMES PER DAY, CHANGE SENSOR EVERY 15 DAYS active Not Available Not Available No t Available Vitals Date Recorded Body height Body mass index (BMI) Body weight Provider Name and Address Organization Details Last Updated DateTime 11/18/2024 170.18 cm 23.6 kg/m2 42917.[address] [facility] 11/18/2024 08:51:03 Date Recorded Body height Body mass index (BMI) Body weight Provider Name and Address Organization Details Last Updated DateTime 12/30/2024 170.18 cm 23.5 kg/m2 [address]9668.[address] [facility] 12/30/2024 14:17:17 Date Recorded Body height Body mass index (BMI) Body weight Provider Name and Address Organization Details Last Updated DateTime 01/20/2025 170.18 cm 23.6 kg/m2 73736.[address] [facility] 01/20/2025 09:00:43 Date Recorded Body height Body mass index (BMI) Body weight Provider Name and Address Organization Details Last Updated DateTime 06/27/2024 170.18 cm 23.5 kg/m2 25413.[address] [facility] 06/27/2024 08:53:40 Social History None recorded. Functional Status Question Answer Note LastModified by Organizat ion Details LastModified Time Do you use any illicit or recreational drugs? No [email or web address] Information not available 06/27/2024 Do you or have you ever used any other forms of tobacco or nicotine? No [email or web address] Information not available 06/27/2024 What is your level of alcohol consumption? None Information not available 06/27/2024 Mental Status None recorded. Family History Relationship Description Onset Age of this Age Resolved Age Notes LastModified by Organization Details LastModified Time Mother History of cancer of unknown primary site [email or web address] Not available 11/2023 08:54:35 Father Diabetes mellitus [email or web address] Not available 2024 08:35:21 Medical History Condition Response Coronary Artery Disease N Gout N Hyperthyroidism N Blood Transfusion N MRSA N Emphysema N COPD N Depression N Hypothyroidism N Pacemaker N Vascular Disease N Gastrointestinal Disease N Anxiety Disorder N Autoimmune disease N Arthritis N Cancer N Stroke Y High Cholesterol Y Neurologic Disorder N Liver Disease N Organ Transplant N Arrhythmia N Rheumatoid Arthritis N Fibromyalgia N Kidney Disease N Allergies/Hayfever Y Adverse Reaction to Anesthesia N Thyroid Problems N Anemia N Brain Injury N Heart Attack (DC) N Osteopenia N Diabetes Y Bleeding Disorder [...] SNOMED-CT Code Diagnosis ICD10 Code Diagnosis Note [id number] NOMAN SHARIF PA-C [facility] [address] [place] [address] 06/27/2024 08:39:30 06/27/2024 09:15:42 Pain of left knee region 0843276530 20748 M25.562 [id number] Bonilla Cisneros MD [address] [address] 11/18/2024 08:35:04 11/18/2024 09:16:57 Osteoarthritis of left knee joint 8351935091 81554 M17.12 Tear of la teral meniscus of knee 166823660 S83.272A Acute meni scal tear, medial 440547949 S83.232A [id number] MD VERONICA Do [address] [address] 01/20/2025 08:58:06 01/20/2025 11:43:52 Osteoarthritis of left knee joint 0811521051 84642 M17.12 Tear of la teral meniscus of knee 644682885 S83.272D Acute meni scal tear, medial 726753848 S83.232D [id number] Bonilla Cisneros MD [address] [address] 12/30/2024 14:08:05 12/30/2024 14:35:36 Osteoarthritis of left knee joint 3669686040 98349 M17.12 Tear of la teral meniscus of knee 853918847 S83.272D Acute meni scal tear, medial 443342281 S83.232D [id number] Bonilla Cisneros MD [address] [address] 01/14/2025 13:11:51 01/14/2025 13:47:40 Osteoarthritis of left knee joint 3723559294 58496 M17.12 Tear of la teral meniscus of knee 490362837 S83.272D Acute meni scal tear, medial 836655613 S83.232D Health Concerns Section Related Observation LastModified [...] subsequently underwent a right knee arthroplasty in [place]. Her current pain is localized to her [...] NOMAN SHARIF PA-C [address], [place], [address], [facility] 06/27/2024 09:19:40 11/18/2024 text/html Patient returns [...] subsequently underwent a right knee arthroplasty in [place]. Her current pain is localized to her [...] Bonilla Cisneros MD [address], [place], [address], [facility] 11/18/2024 12:19:04 12/30/2024 text/html Patient presents [...] subsequently underwent a right knee arthroplasty in [place]. Her current pain is localized to her [...] Ozempic weekly. MD [address], [place], [address], [place] [facility] 12/30/2024 14:34:48 01/14/2025 text/html She tolerated [...] subsequently underwent a right knee arthroplasty in [place]. Her current pain is localized to her [...] Bonilla Cisneros MD [address], [place], [address], [facility] 01/14/2025 13:54:27 01/20/2025 text/html She is [...] subsequently underwent a right knee arthroplasty in [place]. Her current pain is localized to her [...] Bonilla Cisneros MD [address], [place], [address], [facility] 01/20/2025 09:14:25 OBGyn Episode No OBEpisode recorded.
--- OUTSIDE RECORDS SUMMARY | 2025-02-08 09:56 | XMS_ITS | Clinical Summary ---
Author Organization [facility] Address [address] [place] [address] Phone Care Team Providers Care Purifying Plant Operator Name Role Phone Unavailable Primary Care [...]
--- OUTSIDE RECORDS SUMMARY | 2025-02-08 09:56 | XMS_ITS | Encounter Summary ---
Author Organization [facility] Address [address] [place] [address] [place] [phone] Phone Care Team Providers Care Shrimp Pond Laborer Name Role Phone Valarie Hudson MD Primary Care Provider Liudmila Garza MD, PhD Unavailable Say Stovall MD Unavailable [phone] Encounter Details Date Type Department Care Team (Late st Contact Info) Description 06/27/2023 Procedure Pass [facility] PERIOPER[facility]IVE [facility]PT [address] [place] [address] Social History Tobacco Use Types Packs/Day Years Used Date Smoking Tobacco: Former Cigarettes 0.5 15.4 1 - 09/27/1989 Smokeless Tobacco: Never Alcohol Use Standard Drinks/Week Comments Yes 1 (1 standard drink = 0.6 oz pur e alcohol) Education Answer Date Recorded Are you interested in more education? Not on [email or web address] e 11/18/2022 Are you concerned about learning? Not on file 11/18/2022 No 11/18/2022 No 11/18/2022 Digital Access Answer Date Recorded No 12/17/2022 No 12/17/2022 Reliable internet access at home? Not on file 12/17/2022 Device with a working camera? Not on file Intimate Partner Violence Answer Date R ecorded Are you denied basic needs s uch as food, clothing, or medical care? No 06/27/2023 In the past 12 months have y ou been in a relationship with a person who hurts, threatens, or tries to control you? No 06/27/2023 Are you denied basic needs s uch as food, clothing, or medical care? No 06/27/2023 In the past 12 months have y ou been in a relationship with a person who hurts, threatens, or tries to control you? No 06/27/2023 Comments No Sex and Gender Information Value Date Recorded Sex Assigned at Female 04/04/2019 9:35 AM EDT Legal Sex Female 9:28 AM EDT Gender Identity Female 04/04/2019 9:35 AM EDT Sexual Orientation Straight 04/04/2019 9: 35 AM EDT documented as of this encounter Functional Status * Calculated C-SSRS Risk Score (Lifetime/Recent) Answer Date of Assessment Author No Risk Indicated 06/27/2023 6:23 PM Lizzeth Arauz RN * [place] Suicide Severity Rating Scale (Screener/Recent Self-Report) Question Answer Date of Assessment Author 1. Wish to be (Past 1 Month) No 023 6:23 PM Lizzeth Arauz RN 2. Non-Specific Active Suici adrian Thoughts (Past 1 Month) No 06/27/2023 6:23 PM Lizzeth Arauz RN 6. Suicidal Behavior (Lifetime) No 3 6:23 PM Lizzeth Arauz RN documented as of this encounter Plan of Treatment Not on file documented as of this encounter Visit Diagnoses Not on filedocumented in this encounter Care Teams Shrimp Pond Laborer Relationship Specialty Start Date End Date Valarie Hudson MD PCP - General Internal Medicine 04/04/19 Liudmila Khan MD, PhD [address] [place] [id number] [email or web address] Neurology 06/09/23 Say Stovall MD [address] [place] [address] Cardiology 06/09/23 documented as of this encounter Additional Source Comments The information contained in this document represents components of the legal health record. It is not the complete legal health record.[facility]h
--- OUTSIDE RECORDS SUMMARY | 2025-02-08 09:56 | XMS_ITS | Clinical Summary ---
Author Organization [facility] Address [address] [place] [address] Care Team Providers Care Space And Missile Operations Name Role Phone Unavailable Primary Care Provider [...]
--- OUTSIDE RECORDS SUMMARY | 2025-02-08 09:56 | XMS_ITS | Clinical Summary ---
Author Organization [facility] Address [address] [place] [address] Care Team Providers Care Subpoena Server Name Role Phone Valarie Hudson MD Primary Care Provider [phone] Allergies Active Allergy Reactions Criticality Noted Date [...] age to complete this topic Care Teams Subpoena Server Relationship Specialty Start Date End Date Valarie Hudson MD [address] [facility] [place] [address] PCP - General Cotton Factor 05/14/19
--- OUTSIDE RECORDS SUMMARY | 2025-02-08 09:56 | XMS_ITS | Encounter Summary ---
Author Organization [facility] Address [address] [place] [address] Care Team Providers Care Airframe Technical Officer Name Role Phone Valarie Hudson MD Primary Care Provider [phone] Encounter Details Date Type Department Care Team (Late st Contact Info) Description 05/29/2024 Lab Requisition [facility] Main Lab [address] [facility] [place] [id number] Miguelangel Ag MD [address] [place], [place] [id number] Gross hematuria Social History Tobacco Use Types [...] inflammation present. 05/31/2024 9:45 AM EST [facility] Clinical Information Gross hematuria 05/31/2024 9:45 AM EST [facility] Gross Description A. Urine, Voided, : 1 TP cyto with Reflex FISH if Atypical/Susp 05/31/2024 9:45 AM EST [facility] Disclaimer Unless otherwise specified, all tissue is 10% NB formalin fixed and paraffin embedded. 05/31/2024 9:45 AM EST [facility] Tissue Urine specimen from urethra / Unknown 05/27/2024 05/29/2024 11:35 AM EST us Miguelangel Ag MD LAB PATHOLOGY ORDERAB LES Final Result [facility] [address] [place] [address], documented in this encounter Visit Diagnoses Diagnosis Gross hematuria documented in this encounter Care Teams Airframe Technical Officer Relationship Specialty Start Date End Date Valarie Hudson MD PCP - General Fashion Editor 05/14/19 documented as of this encounter
== END 2025-02-08 09:55 | disposition home or self-care (01) ==
LOC: HO.CT 09:54
PROVIDERS: PCP Internal Medicine; Visit Provider Internal Medicine
DX: R51.9 Headache, unspecified (principal)
CPT/HCPCS: 70450

== ENCOUNTER → 2025-02-08 10:23 | Outpatient (BNV) | payer MEDICARE, SELFPAY | PROVIDERS: PCP Internal Medicine; Visit Provider Radiology Vascular & Interventional Radiology | DX: R51.9 Headache, unspecified (principal) | CPT/HCPCS: 70450 ==

== ENCOUNTER 2025-04-16 07:01 | Outpatient (REF) | payer MEDICARE, SELFPAY ==
--- OUTSIDE RECORDS SUMMARY | 2025-04-16 07:03 | XMS_ITS | Data Portability ---
Author Organization [place] [facility] Kirt Suarez [place] Address [address] [place] [address] Care Team Providers Care Media Technician Name Role Phone SOL MCNAMARA Primary Care Provider SOL MCNAMARA Referring Provider [phone] Assessment Encounter Date Assessment Date Assessment LastModified [...] weeks to review results and further management. [email or web address] Not available 06/27/2024 09:18:50 11/18/2024 11/18/2024 Slowly [...] may be helpful for control of swelling. [id number] anti-inflammatory medications with appropriate GI precautions or [...] Imaging XR, knee, 3 view 2023 024 [place] [facility], [address], [place], [address], 5 09:13:02 Medication Orders Euflexxa 10 mg/mL (mw 2.4-3.6 million) intra-artic ular syringe 2024 025 [email or web address] [id number], [id number] [facility], [place], [address], 5 10:59:51 Euflexxa 10 mg/mL (mw 2.4-3.6 million) intra-artic ular syringe 2024 025 [email or web address] Not available 14:24:35 Euflexxa 10 mg/mL (mw 2.4-3.6 million) intra-artic ular syringe 2024 025 [email or web address] [id number], [address] [place], [address], 14:41:32 Patient TargetsNo targets recorded. Patient InstructionsNo instructions recorded. Reason for Referral None Reported. Results Created Date Observation Date Name Description Value Unit Range Abnormal Flag Note LastModifiedBy Organization Detail LastModifiedTime 07/31/19 25 07/30/2024 XR, knee, 3 view No observ ation record ed. [facility] [address] [place] [address], [address], 07/31/2024 11:06:12 09/25/19 25 09/24/2024 MRI, knee, w/o contr ast No observ ation record ed. [email or web address] [facility] [address] [place], [address], 09/26/2024 08:44:01 Result Notes None recorded. Problems Name Problem SNOMED Code Status Onset Date Resolution Date Notes Provider Name and Address Organization Details Recorded Time Problem 94435232 Active No known active problems Not Available [facility] 5 00:39:14 Pain of knee region 3485979990 Active 2016 Acute pain of right knee Not Available [facility] 5 00:39:13 Calcific tendiniti s of left shoulder 19963586678 9108 Active 2016 Calcific tendiniti s of left shoulder Not Available [facility] 5 00:39:14 Full thickness rotator cuff tear 232723710 Active 2017 Complete tear of left rotator cuff Not Available [facility] 5 00:39:13 Partial thickness rotator cuff tear 663497448 Active 2018 Incomplet e tear of left rotator cuff Not Available [facility] 5 00:39:12 Arthritis of knee 532596428 Active 2019 [place] moral arthritis of right knee Not Available [facility] 5 00:39:13 Surgical follow-up 594001555 Active 2020 Postop check Not Available [facility] 5 00:39:12 Pain of left knee region 03325027818 4109 Active [address], [place], [address] , [place] [facility] 5 07:55:43 Osteoarth ritis of left knee joint 92698016468 9109 Active [address] [facility], [place], [address] , [place] [facility] 5 07:56:56 Tear of lateral meniscus of knee 391835786 Active [address] [facility], [place], [address] , [place] [facility] 5 06:30:50 Acute meniscal tear, medial 620236383 Active [address] [facility], [place], [address] , [place] [facility] 5 06:30:50 Problem Notes None recorded. Procedures Surgical History Date Name Laterality Status Provider Name and Address Organization Details Recorded Time 5 Euflexxa Knee Inj w/US completed MD [address], [place], [address], [place] [facility] 01/20/2025 06:31:09 5 Euflexxa Knee Inj w/US completed MD [address] [facility], [place], [address], [place] [facility], [facility] 01/14/2025 06:42:52 5 Euflexxa Knee Inj w/US completed MD [address], [place], [address], [place] [facility], [facility] 12/30/2024 06:43:20 total knee replacement completed Carey Saldana [facility], P 06/27/2024 08:54:55 Shoulder Surgery completed Carey Venegasdley [facility], P 06/27/2024 08:55:11 lumbar spinal fusion [facility] 06/27/2024 08:55:28 Imaging Results None recorded. Procedure Notes None recorded. Medical Equipment None Reported. Allergies Allergen ID Allergen Name Allergen Category Reaction Reaction Severity Criticality Documentation Date Start Date Code Code System Note Provider Name and Address Organization Details Recorded Time Product containin g penicilli n (product) medicatio n Not available Not available Not available 06/27/2024 63760 8001 SNOMED Carey Saldana [facility], [facility], P 4 08:53:10 Vancocin medicatio n Not available Not available Not available 06/27/202408349 8 RxNorm Crystal Les [facility], [facility] 4 08:53:22 Levaquin medicatio n Not available Not available Not available 06/27/2024 62341 2 RxNorm Crystal Les [facility], [facility], P 4 08:53:30 49660 vancomyci n medicatio n Not available Not available Not available 04/15/20252016 40014 RxNorm Not Available [facility] 5 01:28:16 Medications Name Sig Start Date Stop Date Status Note LastModified by Organization Details LastModified Time losartan 50 mg tablet TAKE 1 TABLET BY MOUTH EVERY DAY active Not Available Not Available No t Available atorvastati n 40 mg tablet 2016 active Not Available Not Available Not Avai lable gabapentin 600 mg tablet TK 1 T PO TID 2018 active Not Available Not Available Not Avai lable clindamycin HCl 300 mg capsule TAKE 2 CAPSULES ONE HOUR PRIOR TO ANY DENTAL WORK/CARLENE BERG. active Not Available Not Available No t Available aspirin 325 mg tablet Take 325 mg by mouth. active Not Available Not Available No t Available glyburide 5 mg tablet TK 1 T PO ONCE A DAY 2016 active Not Available Not Available Not Avai lable ofloxacin 0.3 % eye drops INSTILL 1 DROP INTO LEFT EYE 4 TIMES A DAY 12/24 completed Not Available Not Available Not Available fluconazole 150 mg tablet TK 1 T PO 1 TIME FOR 1 DAY 2018 active Not Available Not Available Not Avai lable metoprolol succinate ER 50 mg tablet,exte nded release 24 hr TAKE 1 TABLET BY MOUTH DAILY active Not Available Not Available No t Available bupivacaine HCl 0.5 % (5 mg/mL) injection solution 12/08 completed Not Available Not Available Not Available clopidogrel 75 mg tablet TK 1 T PO QD 2018 active Not Available Not Available Not Avai lable valacyclovi r 500 mg tablet TAKE 1 TABLET BY MOUTH THREE TIMES A DAY 12/24 completed Not Available Not Available Not Available sulfamethox azole 800 mg-trimetho prim 160 mg tablet PLEASE SEE ATTACHED FOR DETAILED DIRECTION S 12/24 completed Not Available Not Available Not Available acetaminoph en 500 mg tablet Take 2 tablets (1,000 mg total) by mouth 3 (three) times a day. 04/30 completed Not Available Not Available Not Available pantoprazol e 20 mg tablet,randall yed release 12/27 completed Not Available Not Available Not Available famotidine 20 mg tablet TAKE 1 TABLET BY MOUTH EVERYDAY AT BEDTIME 12/24 completed Not Available Not Available Not Available pantoprazol e 40 mg tablet,randall yed release TAKE 1 TABLET BY MOUTH DAILY active Not Available Not Available No t Available erythromyci n 5 mg/gram (0.5 %) eye ointment 2020 active Not Available Not Available Not Avai lable methylpredn isolone acetate 40 mg/mL suspension for injection 12/08 completed Not Available Not Available Not Available metformin 1,000 mg tablet TAKE 1 TABLET BY MOUTH TWICE A DAY active Not Available Not Available No t Available losartan 25 mg tablet TAKE 1 TABLET BY MOUTH ONCE DAILY WITH LOSARTAN 50 MG 12/27 completed Not Available Not Available Not Available sertraline 25 mg tablet TAKE 1 TABLET BY MOUTH EVERY DAY active Not Available Not Available No t Available folic acid 1 mg tablet TK 2 TS PO QD 2018 active Not Available Not Available Not Avai lable montelukast 10 mg tablet Take 10 mg by mouth daily. 2018 active Not Available Not Available Not Avai lable ibuprofen 600 mg tablet Take 1 tablet (600 mg total) by mouth every 6 (six) hours as needed for pain. Take with food 2020 active Not Available Not Available Not Avai lable sertraline 50 mg tablet TK 1 T PO D 2016 active Not Available Not Available Not Avai lable metronidazo le 0.75 % topical gel APPLY TO AFFECTED AREA TOPICALLY AT BEDTIME active Not Available Not Available No t Available Ventolin HFA 90 mcg/actuati on aerosol inhaler USE 2 INHALATIO NS BY MOUTH NEEDED EVERY 4 HOURS 2016 active Not Available Not Available Not Avai lable oxycodone 5 mg tablet Take 1 tablet (5 mg total) by mouth every 6 (six) hours as needed for pain. Do not take until after surgery 2020 active Not Available Not Available Not Avai lable valsartan 160 mg tablet TK 1 T PO ONCE D 2016 active Not Available Not Available Not Avai lable rosuvastati n 20 mg tablet TAKE 1 [...] Not Available Not Available Not Avai lable lidocaine (PF) 10 mg/mL (1 %) injection solution 07/07 completed Not Available Not Available Not Available lidocaine (PF) 20 mg/mL (2 %) injection solution 12/08 completed Not Available Not Available Not Available BD Ultra-Fine Short Pen Needle 31 gauge x 5/16 USE TO INJECT INSULIN ONCE DAILY active Not Available Not Available No t Available Januvia 100 mg tablet 2016 active Not Available Not Available Not Avai lable Tradjenta 5 mg tablet TK 1 T PO QD 2018 active Not Available Not Available Not Avai lable Eliquis 5 mg tablet TAKE 1 TABLET BY MOUTH TWICE A DAY active Not Available Not Available No t Available Trulicity 2018 active Not Available Not Available Not Avai lable insulin degludec (U-200) 200 unit/mL (3 mL) subcutaneou s pen Inject 20 Units under the skin. active Not Available Not Available No t Available Tresiba FlexTouch U-100 insulin 100 unit/mL (3 mL) subcutaneou s pen INJECT 20 UNITS SUBCUTANE OUSLY AT BEDTIME active Not Available Not Available No t Available hyaluronate sodium, stabilized 60 mg/3 mL intra-artic ular syringe 08/24 completed Not Available Not Available Not Available FreeStyle Reid 2 Sensor kit USE [...] Updated DateTime 11/18/2024 170.18 cm 23.6 kg/m2 84425.[address] [place] [facility] 11/18/2024 08:51:03 Date Recorded Body height Body mass index (BMI) Body weight Provider Name and Address Organization Details Last Updated DateTime 12/30/2024 170.18 cm 23.5 kg/m2 75230.[address] [place] [facility] 12/30/2024 14:17:17 Date Recorded Body height Body mass index (BMI) Body weight Provider Name and Address Organization Details Last Updated DateTime 01/20/2025 170.18 cm 23.6 kg/m2 57670.[address] [place] [facility] 01/20/2025 09:00:43 Date Recorded Body height Body mass index (BMI) Body weight Provider Name and Address Organization Details Last Updated DateTime 06/27/2024 170.18 cm 23.5 kg/m2 77277.[address] [place] [facility] 06/27/2024 08:53:40 Social History None recorded. Functional Status Question Answer Note LastModified by Organizat ion Details LastModified Time Do you use any illicit or recreational drugs? No [email or web address] Information not available 06/27/2024 Do you or have you ever used any other forms of tobacco or nicotine? No Information not available 06/27/2024 What is your level of alcohol consumption? None [email or web address] Information not available 06/27/2024 Mental Status None recorded. Family History Relationship Description Onset Age of this Age Resolved Age Notes LastModified by Organization Details LastModified Time Mother History of cancer of unknown primary site [email or web address] Not available 11/2023 08:54:35 Father Diabetes mellitus [...] Anemia N Brain Injury N Heart Attack (NH) N Osteopenia N Diabetes Y Bleeding Disorder [...] Diagnosis SNOMED-CT Code Diagnosis ICD10 Code Diagnosis IMO Codes Diagnosis Note [id number] [address] [facility] [address] [facility] [address] [place] [address] 06/27/2024 08:39:30 06/27/2024 09:15:42 Pain of left knee region 0673140693 22192 M25.562 71737587 [id number] MD INDIGO [address] [address] 11/18/2024 08:35:04 11/18/2024 09:16:57 Osteoarthritis of left knee joint 2234457579 00267 M17.12 3593347 Tear of la teral meniscus of knee 481884424 S83.272A 8677060 Acute meni scal tear, medial 500020822 S83.232A 0216779 [id number] MD VERONICA Do [address] [address] 01/20/2025 08:58:06 01/20/2025 11:43:52 Osteoarthritis of left knee joint 5515481704 43662 M17.12 4294118 Tear of la teral meniscus of knee 649028956 S83.272D 1753580 Acute meni scal tear, medial 341694110 S83.232D 9071808 [id number] MD INDIGO [address] [address] 12/30/2024 14:08:05 12/30/2024 14:35:36 Osteoarthritis of left knee joint 3506489474 49216 M17.12 6618994 Tear of la teral meniscus of knee 048825642 S83.272D 8263518 Acute meni scal tear, medial 301336890 S83.232D 8878038 [id number] MD INDIGO [address] [address] 01/14/2025 13:11:51 01/14/2025 13:47:40 Osteoarthritis of left knee joint 7600703111 62283 M17.12 7755336 Tear of la teral meniscus of knee 775030347 S83.272D 5913308 Acute meni scal tear, medial 534563160 S83.232D [id number] Health Concerns Section Related Observation LastModified by [...] subsequently underwent a right knee arthroplasty in [place]. Her current pain is localized to her [...] NOMAN SHARIF PA-C [address], [place], [address], [place] [facility] 06/27/2024 09:19:40 11/18/2024 text/html ROS as noted in the HPI Patient returns to the office for reevaluation [...] subsequently underwent a right knee arthroplasty in [place]. Her current pain is localized to her [...] Bonilla Cisneros MD [address], [place], [address], [place] [facility] 11/18/2024 12:19:04 12/30/2024 text/html ROS as noted in the HPI Patient presents for reevaluation of her left [...] subsequently underwent a right knee arthroplasty in [place]. Her current pain is localized to her [...] Bonilla Cisneros MD [address], [place], [address], [place] [facility], 12/30/2024 14:34:48 01/14/2025 text/html ROS as noted in the HPI She tolerated the first injection without difficulty. She [...] subsequently underwent a right knee arthroplasty in [place]. Her current pain is localized to her [...] Ozempic weekly. MD [address], [place], [address], [place] [facility] 01/14/2025 13:54:27 01/20/2025 text/html ROS as noted in the HPI She is here for her third and [...] subsequently underwent a right knee arthroplasty in [place]. Her current pain is localized to her [...] Bonilla Cisneros MD [address], [place], [address], [place] [facility] 01/20/2025 09:14:25 OBGyn Episode No OBEpisode recorded.
--- OUTSIDE RECORDS SUMMARY | 2025-04-16 07:03 | XMS_ITS | Clinical Summary ---
Author Organization [address] Address [address] [place] [address] Phone Care Team Providers Care Shank Sander Name Role Phone Valarie Hudson MD Primary Care Provider [phone] Surgical History Surgery Date Site/Laterality Comments SECTION PROCEDURE: SECTION SHOULDER SURGERY PROCEDURE:SHOULDER SURGERY BREAST SURGERY PROCEDURE:REDUCTION MAMMAPLASTY KNEE SURGERY PROCEDURE:KNEE SURGERY Medical History Medical History Date Comments Depression DX:Depression Hypertension DX:Hypertension GERD (gastroesophageal reflux disease) DX:GERD (gastroesophageal reflux disease) High cholesterol DX:High cholest sherwin Stroke ([facility] V24, [facility] V28) DX:Stroke ([facility]) Asthma DX:Asthma Diabetes mellitus ([facility] V 24, [facility] V28) DX:Diabetes mellitus ([facility]) Family History Medical History Relation Name Comments [...] Panel) 06/25/2022 Colorectal Cancer Screening: Colonoscopy 06/25/2022 Hepatitis C Screening 06/25/2022 Osteoporosis Screening (Bone Density Screening) 06/25/2022 Social Influencers of Health Screening 06/25/2022 Falls Risk Assessment 2023 Depression Screening 07/24/2024 Diabetes: Annual Urine Albumin-Creatinine Ratio (uACR) 07/30/2024 Diabetes: Blood Sugar Contro l Test (HGBA1C) 07/30/2024 Hypertension/CHF/CAD Annual BMP Blood Test 07/30/2024 06/11/2019 COVID-19 Vaccine (1 - 2023-2 5 season) 2025 Influenza Vaccine (#1) 2025 RSV Immunization Adult [...] patient's age to complete this topic Insurance [facility] Care Teams Shank Sander Relationship Specialty Start Date End Date Valarie Hudson MD PCP - General Zinc Plate Cutter 05/14/19
--- OUTSIDE RECORDS SUMMARY | 2025-04-16 07:03 | XMS_ITS | Clinical Summary ---
Author Organization [facility] Address [address] [place] [address] Phone Care Team Providers Care Fiber Optic Assembler Name Role Phone Unavailable Primary Care [...]
--- OUTSIDE RECORDS SUMMARY | 2025-04-16 07:03 | XMS_ITS | Clinical Summary ---
Author Organization [facility] Address [address] [place] [address] Care Team Providers Care Tax Adjuster Name Role Phone Unavailable Primary Care Provider Unavailabl e Social History Tobacco Use Types Packs/Day Years Used Date Smoking Tobacco: Never Assessed Comments Unknown Sex and Gender Information Value Date Recorded Sex Assigned at Not on file Legal Sex Female 9:56 AM EDT Gender Identity Not on file Sexual Orientation Not on file Plan of Treatment Health Maintenance Due Date Last Done Comments [facility] Planning 1960 Hepatitis C Virus Screening 1960 DTaP/Tdap/Td Vaccines (1 - Tdap) 1977 Pneumococcal Vaccines 50+ (1 of 1 - PCV) 2008 Zoster (Shingles) Vaccine (1 of 2) 2008 COVID-19 Vaccine ( - 2023-2 5 season) 2025 RSV Vaccine 60 years and old er and Patients (1 - 1-dose 75+ series) 2033 Hepatitis B Vaccines Aged Out No long er eligible based on patient's age to complete this topic
--- OUTSIDE RECORDS SUMMARY | 2025-04-16 07:03 | XMS_ITS | Clinical Summary ---
Author Organization [facility] Address [address] [place] [address] Phone Care Team Providers Care Seat Trimmer Name Role Phone Valarie Hudson MD Primary Care Provider [phone] Liudmila Khan MD, PhD Unavailable aSy Stovall MD Unavailable [phone] Allergies Active Allergy Reactions Criticality Noted Date Comments Empagliflozin 03/17/2022 Levofloxacin 03/17/2022 Linagliptin 03/17/2022 Penicillins Hives,Other (See Comments) 03/24/2017 Other reaction(s): rash Vancomycin Itching 06/11/2019 Itching only on the head Medications losartan (COZAAR) 50 MG tablet TK 1 T PO QD 1 9 Active metFORMIN (GLUCOPHAGE) 1000 MG tablet TK 1 T PO BID WC 3 9 Active pantoprazole (PROTONIX) 40 MG tablet Take 40 mg by mouth daily as needed. 2 9 Active rosuvastatin (CRESTOR) 40 MG tablet Take 1 tablet (40 mg total) by mouth nightly at bedtime. 30 tablet 2 9 Active insulin degludec U-200 (TRESIBA FLEXTOUCH) 200 unit/mL (3 mL) InPn injection pen Inject 20 Units under the skin nightly at bedtime. After dinner Active FREESTYLE OCTAVIANO 2 SENSOR kit as directed. 3 Active OZEMPIC 2 mg/dose (8 mg/3 mL) subcutaneous injection pen 3 Active apixaban (ELIQUIS) 2.5 mg Take 1 tablet (2.5 mg total) by mouth 2 (two) times a day for 28 days. 2.5mg twice daily POD 1 and POD 2; Followed by home dose 5mg twice daily on POD 3 56 tablet 3 Active clindamycin (CLEOCIN) 300 MG capsule Take 2 capsules one hour prior to any dental work/cleaning s. 12 capsule 1 5 Active Active Problems Problem Noted Date Diagnosed Date Osteoarthritis of right knee , unspecified osteoarthritis type 06/27/2023 Diabetes 03/02/2023 03/02/2023 GERD (gastroesophageal reflux disease) 3 03/02/2023 Stroke 03/02/2023 03/02/2023 Hypertensive disorder 03/17/2022 03/02/2023 Proteinuria 03/17/2022 03/02/2023 Family History Medical History Relation Comments CV disease Father Diabetes Father Cancer Mother Breast CA Relation Status Comments Father Mother Social History Tobacco Use Types Packs/Day Years Used Date Smoking Tobacco: Former Cigarettes 0.5 15.4 1 - 09/27/1989 Smokeless Tobacco: Never Tobacco Cessation:Counseling Given: Not Answered Alcohol Use Standard Drinks/Week Comments Yes 1 [...] Orientation Straight 04/04/2019 9: 35 AM EDT Last Filed Vital Signs Vital Sign Reading Time Taken Comments Blood Pressure 95/59 06/28/2023 11:58 AM EST Pulse 71 06/28/2023 11:58 AM EST Temperature 36.7 C (98.1 F) 06/28/2023 11:58 AM EST Respiratory Rate 18 06/28/2023 5:00 AM EST Oxygen Saturation 100% 06/28/2023 11:58 AM EST Inhaled Oxygen Concentration - - Weight 73.5 kg (162 lb) 06/27/2023 6:15 PM EST Height 170.2 cm (5' 7 ) 06/27/2023 6:15 PM EST Body Mass Index 25.37 06/27/2023 6:15 PM EST Plan of Treatment Health Maintenance Due Date Last Done Comments Adult Td,Tdap Booster 1958 BLOOD PRESSURE 1958 DEPRESSION SCREENING 1970 SMOKING Hx and SMOKELESS TOBACCO SCREENING 1971 HEPATITIS C SCREENING 1976 PNEUMOCOCCAL VACCINES (50+ years) (1 of 2 - PCV) 1977 COLOGUARD 2003 COLONOSCOPY 2003 COLORECTAL CANCER SCREENING 2003 FIT TEST 2003 FOBT 2003 SIGMOIDOSCOPY 2003 VIRTUAL COLONOSCOPY 2003 ZOSTER VACCINES (1 of 2) 2008 RSV VACCINE (1 - Risk 60-74 years 1-dose series) 2018 HEMOGLOBIN A1C 09/11/2019 06/11/2019 DIABETIC EYE EXAM 03/02/2023 OSTEOPOROSIS SCREENING INITI AL (ONE-TIME) 2023 MAMMOGRAM 03/28/2024 03/28/2022 CREATININE LEVEL 06/28/2024 06/28/2023, 06/11/2019 POTASSIUM LEVEL 06/28/2024 06/28/2023, 06/11/2019 INFLUENZA VACCINE (#1) 2025 COVID-19 VACCINE (2024-2 6 season) 2025 03/20/2021, 02/26/2021 HEPATITIS A VACCINES Aged Out No long er eligible based on patient's age to complete this topic HIB VACCINES Aged Out No longer eligi ble based on patient's age to complete this topic MENINGOCOCCAL VACCINES (ACWY) Aged Out No longer eligible based on patient's age to complete this topic MENINGOCOCCAL VACCINES (B) Aged Out N o longer eligible based on patient's age to complete this topic Medical Devices Implanted Type Area Leasing Representative Device Identifier Shelf Expiration Date Model / Serial / Lot Knee Baseplate Sz 4 Tibial Legion Ti Nonporous Cemented Male Tapered Rt - [id number] Implanted:Qty: 1 on 06/27/2023 by Martin Kam MD at [facility] NODATA Right: Knee CARDONA [id number] 01/11/2033 [id number] / / [id number] Description:The implant type , laterality (when applicable), size, and expiration date have been visually and verbally confirmed by the Surgeon, Circulating RN and Scrub Personnel. Cement Bone Simplex P Tobramycin 41g Powder And 20ml Ampoule Antibiotic Impregnated Full Dose Bx/10ea - [id number] Implanted:Qty: 1 on 06/27/2023 by Martin Kam MD at [facility] STANDARD Right: Knee [employer] [id number] 09/20/2024 6197-9-010 / / [id number] Description:The implant type , laterality (when applicable), size, and expiration date have been visually and verbally confirmed by the Surgeon, Circulating RN and Scrub Personnel. Cement Bone Simplex P Tobramycin 41g Powder And 20ml Ampoule Antibiotic Impregnated Full Dose Bx/10ea - [id number] Implanted:Qty: 1 on 06/27/2023 by Martin Kam MD at [facility] STANDARD Right: Knee [employer] [id number] 05/23/2024 6197-9-010 / / [id number] Description:The implant type , laterality (when applicable), size, and expiration date have been visually and verbally confirmed by the Surgeon, Circulating RN and Scrub Personnel. Knee Insert 9.0mm Size 3 4 Tibial Legion Crosslinked Polyethylene Dished - [id number] Implanted:Qty: 1 on 06/27/2023 by Martin Kam MD at [facility] Right: Knee BRENDAN [id number] 12/12/2032 [id number] / / [id number] Description:The implant type , laterality (when applicable), size, and expiration date have been visually and verbally confirmed by the Surgeon, Circulating RN and Scrub Personnel. Knee Insert 7.5mm 32 Patella Taina Ii Resurfacing - [id number] Implanted:Qty: 1 on 06/27/2023 by Martin Kam MD at [facility] Right: Knee BRENDAN [id number] 07/24/2032 [id number] / / [id number] Description:The implant type , laterality (when applicable), size, and expiration date have been visually and verbally confirmed by the Surgeon, Circulating RN and Scrub Personnel. Knee Implant Sz 4 Component Femoral Legion Oxinium Oxidized Zirconium Narrow Cruciate Retaining Rt N - [id number] Implanted:Qty: 1 on 06/27/2023 by Martin Kam MD at [facility] Right: Knee BRENDAN [id number] 03/13/2033 [id number] / / [id number] Description:The implant type , laterality (when applicable), size, and expiration date have been visually and verbally confirmed by the Surgeon, Circulating RN and Scrub Personnel. Procedures Procedure Name Priority Date/Time Associated Diagnosis Comments BASIC METABOLIC PANEL Routine 06/28/2023 6:03 AM EST HEMOGLOBIN A1C Routine 06/11/2019 2:39 PM EST Arterial ischemic stroke from Last 3 Months or Most Recently Relevant to Health Maintenance Results * (ABNORMAL) Basic metabolic panel (06/28/2023 6:03 AM EST) SODIUM 138 136 - 145 mmol/L [facility] CHLORIDE 104 95 - 106 mmol/L [facility] POTASSIUM 3.8 3.5 - 5.2 mmol/L [facility] CO2 22 20 - 31 mmol/L [facility] BUN 17 9 - 23 mg/dL [facility] CREATININE 0.72 0.50 - 1.30 mg/dL [facility] GLUCOSE 173(H) 74 - 106 mg/dL [facility] CALCIUM 8.7 8.7 - 10.4 mg/dL [facility] EGFR 93 >60 mL/min/1.7 3m2 [facility] Comment:Estimated glomerular filtration rate calculated using the CKD-EPI refit equation. ANION GAP 12 3 - 17 mmol/L [facility] Blood 06/28/2023 6:03 AM EST 06/28/2023 6:46 AM EST us Wilfredo NATHAN LAB BLOOD ORDERABLES Fi nal Result Performing Organization Address City/[facility]/ZIP Co de Phone Number [facility] [address] [place] [address] * (ABNORMAL) Hemoglobin A1c (06/11/2019 2:39 PM EST) HEMOGLOBIN A1C 8.5(H) 4.3 - 6.4 % [facility] CALC MEAN BLD GLUC 197 mg/dL [facility] Comment: There is no established normal range for the CMBG (Calculated Mean Blood Glucose). A hemoglobin A1c < 7% is the recommended target for most people with diabetes. The CMBG for an A1c of 7% is 154 mg/dL. The diagnostic hemoglobin A1c level for diabetes is greater than or equal to 6.5% which is a CMBG greater than or equal to 140 mg/dL. 06/11/2019 2:39 PM EST 06/11/2019 2:53 PM EST us Liudmila Welch MD, PhD LAB BLOOD ORDERAB LES Final Result [facility] [address] [place] [address] from Last 3 Months or Most Recently Relevant to Health Maintenance [place] [address] [place] [address] MEDICARE [place] [address] [place] [address] [address] [place] [place] [address] [place] [address] MED[address] [place] [address] [place] [address] MEDICARE PPO BLUE REPLACEMENT MEDICARE PPO [place] [address] [place] [address] MEDICARE PPO [place] [address] [place] [address] Advance Directives For more information, please contact: [phone] (9AM - 5PM [facility], Monday-Monday) Documents on File Type Date Recorded Patient Astronautical Engineer Expl anation Healthcare Proxy 06/27/2023 10:09 AM Care Teams Seat Trimmer Relationship Specialty Start Date End Date Valarie Hudson MD [address] [facility] [place] [address] PCP - General Internal Medicine 04/04/19 Liudmila Khan MD, PhD [address] [place] [address] [email or web address] Neurology 06/09/23 Say Stovall MD [address] [place] [phone] Cardiology 06/09/23 Additional Source Comments The information contained in this document represents components of the legal health record. It is not the complete legal health record.[facility]
--- OUTSIDE RECORDS SUMMARY | 2025-04-16 07:03 | XMS_ITS | Encounter Summary ---
Author Organization [facility] Address [address] [facility] [address] [place] [address] Phone Care Team Providers Care Lead Painter Name Role Phone Valarie Hudson MD Primary Care Provider [phone] Liudmila Khan MD, PhD Unavailable Say Stovall MD Unavailable Encounter Details Date Type Department Care Team (Late st Contact Info) Description 06/27/2023 Procedure Pass [facility] [address] [place] [address] Social History Tobacco Use Types [...] 06/27/2023 6:23 PM Lizzeth Arauz RN * [place] Suicide Severity Rating Scale (Screener/Recent Self-Report) Question Answer Date of Assessment Author 1. Wish to be (Past 1 Month) No 023 6:23 PM Lizzeth Arauz RN 2. Non-Specific Active Suici adrian Thoughts (Past 1 Month) No 06/27/2023 6:23 PM Lizzeth Arauz RN 6. Suicidal Behavior (Lifetime) No 6:23 PM Lizzeth Arauz RN documented as of this encounter Plan of Treatment Not on file documented as of this encounter Visit Diagnoses Not on filedocumented in this encounter Care Teams Lead Painter Relationship Specialty Start Date End Date Valarie Hudson MD [address] [facility] [place] [address] PCP - General Internal Medicine 04/04/19 Liudmila Khan MD, PhD [address] [place] [address] [email or web address] Neurology 06/09/23 Say Stovall MD [address] [place] [address] [place] [address] Cardiology 06/09/23 documented as of this encounter Additional Source Comments The information contained in this document represents components of the legal health record. It is not the complete legal health record.[facility]
--- OUTSIDE RECORDS SUMMARY | 2025-04-16 07:03 | XMS_ITS | Encounter Summary ---
Author Organization [employer] Address [address] [place] [address] Care Team Providers Care Parking Lot Spotter Name Role Phone Valarie Hudson MD Primary Care Provider [phone] Encounter Details Date Type Department Care Team (Late st Contact Info) Description 05/29/2024 Lab Requisition [facility] - Main Lab [address] [facility] [place] [id number] Miguelangel Ag MD [address] [facility] [address] [place], [place] [id number] Gross hematuria Social History Tobacco Use Types [...] Acute inflammation present. 05/31/2024 9:45 AM EST [facility] Clinical Information Gross hematuria 05/31/2024 9:45 AM EST [facility] Gross Description A. Urine, Voided, : 1 TP cyto with Reflex FISH if Atypical/Susp 05/31/2024 9:45 AM EST [facility] Disclaimer Unless otherwise specified, all tissue is 10% NB formalin fixed and paraffin embedded. 05/31/2024 9:45 AM EST [facility] Tissue Urine specimen from urethra / Unknown 05/27/2024 05/29/2024 11:35 AM EST us Miguelangel Ag MD LAB PATHOLOGY ORDERAB LES Final Result [facility] [address] [place] [address], documented in this encounter Visit Diagnoses Diagnosis Gross hematuria documented in this encounter Care Teams Parking Lot Spotter Relationship Specialty Start Date End Date Valarie Hudson MD PCP - General Last Pattern Grader 05/14/19 documented as of this encounter
--- OUTSIDE RECORDS SUMMARY | 2025-04-16 07:03 | XMS_ITS | Clinical Summary ---
Author Organization [facility] Address [address] [place] [address] Care Team Providers Care Ballistics Laboratory Gunsmith Name Role Phone Valarie Hudson MD Primary Care Provider [phone] Allergies Active Allergy Reactions Criticality Noted Date [...] age to complete this topic Care Teams Ballistics Laboratory Gunsmith Relationship Specialty Start Date End Date Valarie Hudson MD [address] [facility] [place] [address] - General [address] Judge 05/14/19
[2025-04-16 10:34] LABS: MANUAL DIFF FLAG NO
[2025-04-16 10:39] LABS: Hematocrit 33.7 % (37.0-47.0); Hemoglobin 11.2 g/dl (12.0-16.0); Imm Gran Abs Auto 0.02 X10*3/uL (0.00-0.03); Imm Gran Pct Auto 0.4 % (0.0-0.4); Lymphocytes Absolute Auto 1.4 X10*3/uL (1.2-4.9); Mean Corpuscular HGB Conc 33.2 g/dl (31.0-35.0); Mean Corpuscular Hemoglobin 30.4 pg (27.0-33.0); Mean Corpuscular Volume 91.3 fL (80.0-98.0); NRBC Abs Auto 0.000 X10*3/uL (0.0-0.012); NRBC Pct Auto 0.0 /100WBC (0.0-0.2); Platelet Count 209 X10*3/uL (160-400); Red Blood Count 3.69 X10*6/uL (4.20-5.50); White Blood Count 5.2 X10*3/uL (4.8-10.8)
[2025-04-16 10:49] LABS: Alanine Aminotransferase 11 U/L (0-31); Albumin Level 4.3 g/dL (3.5-5.0); Alkaline Phosphatase 55 U/L (39-117); Anion Gap 11 (12-20); Aspartate Amino Transferase 22 U/L (5-31); Blood Urea Nitrogen 19 mg/dL (9-16); Calcium 9.6 mg/dL (8.4-10.2); Carbon Dioxide 27 mmol/L (22-29); Chloride 107 mmol/L (96-108); Cholesterol 118 mg/dL (<200); Estimated Glomerular Filt Rate 55; HDL Cholesterol 46 mg/dL (>40); Potassium 3.8 mmol/L (3.3-5.1); Sodium 141 mmol/L (135-145); Total Protein 6.6 g/dL (6.5-8.0); Triglycerides 94 mg/dL (<150)
[2025-04-16 12:32] LABS: Microalbum/Creatinine Ratio Ur 448.8 ug/mg cr (<30)
== END 2025-04-16 07:02 | disposition home or self-care (01) ==
LOC: HO.HMGCLDS 07:01
PROVIDERS: PCP Internal Medicine; Visit Provider Internal Medicine
DX: I10 Essential (primary) hypertension (principal); E11.9 Type 2 diabetes mellitus without complications; E78.5 Hyperlipidemia, unspecified
CPT/HCPCS: 36415; 80053; 80061; 82043; 82570; 83036; 85025

== ENCOUNTER 2025-04-22 10:34 | Outpatient (AMB) | payer MEDICARE, SELFPAY ==
[2025-04-22 11:02] VITALS: BP 118/66; PULSE 85; RESP 18; TEMP 36.8; O2SAT 98; BMI 22.1
--- NOTE | 2025-04-22 11:02 | MHC.PC.OV ---
Vital Signs 04/22/25 11:02 Height 5 ft 7 in Weight 141 lb BMI 22.1 BP 118/66 Blood Pressure Location Rt brachial Position Sitting Respiration 18 Pulse 85 Pulse Source Pulse Oximeter Temp 98.2 F Temp Source Oral Pulse Oximetry (%) 98 Oxygen Delivery Method Room Air Intake Visit Reasons: 4 months f/up Intake Note: Pt is here today for 4 months follow up visit on labs. Allergies vancomycin (VANCOMYCIN) Allergy (Intermediate, Verified 04/22/25 11:27) ITCHING empagliflozin (Jardiance) Allergy (Unknown, Verified 04/22/25 11:27) yeast infection levofloxacin Allergy (Unknown, Verified 04/22/25 11:27) tendon rupture linagliptin (Tradjenta) Allergy (Unknown, Verified 04/22/25 11:27) yeast infection penicillin G (Penicillin G) Allergy (Unknown, Verified 04/22/25 11:27) HIVES penicillin V Allergy (Unknown, Verified 04/22/25 11:27) unknown Medication List - Last Reconciled 04/22/25 by Valarie Hudson MD apixaban (Eliquis) 5 mg PO BID blood-glucose sensor (Dexcom G7 Sensor device) As directed blood-glucose sensor (FreeStyle Reid 3 Plus Sensor device) Test blood sugar 4 times per day, change sensor every 15 days CPAP (CPAP Machine/Device) CPAP with mask, tubing, filters, water chamber, heated humidifier on [id number] famotidine (Pepcid) 20 mg PO BEDTIME flash glucose sensor (FreeStyle Reid 2 Sensor kit) As directed fluticasone propion-salmeterol 250-50 mcg/dose (Advair Diskus) 1 inh inhalation BID FreeStyle Reid 3 Sensor (blood-glucose sensor) As directed to test sugars 3-4 times per day NS insulin degludec (Tresiba FlexTouch U-100 insulin) 20 units (0.2 mL) subcut BEDTIME 90 days ivermectin 1% (Soolantra) 1 appl topical DAILY metformin 1,000 mg PO BID metoprolol succinate ER 25 mg PO DAILY metronidazole 0.75% 1 appl topical BEDTIME pantoprazole 40 mg PO DAILY pen needle, diabetic Use to inject insulin once daily rosuvastatin 20 mg PO DAILY sertraline 25 mg PO DAILY tirzepatide (Mounjaro) 10 mg (0.5 mL) subcut QWEEK Ventolin HFA 90 mcg/actuation (albuterol sulfate) 1 inh inhalation QID NS Tobacco use date assessed: 04/22/25 Fall risk assessment: No Falls in past year Last assessed Fall Risk: 04/22/25 Dental Screening Dental Screen Date: 09/20/24 HPI 4 months f/up HPI Details Pt presents for f/u DM2, hyperlipid, Pt complains of left-sided neck pain and stiffness for 3 weeks worse when laying down or turning her head to the side. She denies any injury, weakness or numbness in extremities. [facility] Medical History (Updated 04/22/25 @ 20:26 by Valarie Hudson MD) Diabetic nephropathy associated with type 2 diabetes mellitus Failed total right knee replacement Status post placement of implantable loop recorder Paroxysmal atrial fibrillation Ptosis of both upper eyelids Hammertoe of right foot Annual physical exam Cornea disorder Carotid stenosis Cataract JERICHO (obstructive sleep apnea) CVA (cerebral vascular accident) Asthma Hyperlipidemia DM type 2 (diabetes mellitus, type 2) Surgical History Hx of colonoscopy H/O rotator cuff surgery H/O bilateral breast reduction surgery History of arthroscopic knee surgery H/O shoulder surgery Family History Father No problems noted. Mother No problems noted. Social History Housing: House Alcohol intake: current Alcohol intake frequency: a few times a month Patient Tobacco Use Status: Former Tobacco user e-Cigarette/Vaping Use: Never Used service: No Current occupational status: employed Cognitive needs: No Hearing needs: No Vision needs: No Questionnaire PHQ-9 Over the last 2 weeks, how often have you been bothered by any of the following problems? 1. Little interest or pleasure in doing things: not at all 2. Feeling down, depressed, or hopeless: not at all 3. Trouble falling or staying asleep, or sleeping too much: not at all 4. Feeling tired or having little energy: not at all 5. Poor appetite or overeating: not at all 6. Feeling bad about yourself - or that you are a failure or have let yourself or your family down: not at all 7. Trouble concentrating on things, such as reading the newspaper or watching television: not at all 8. Moving or speaking so slowly that other people could have noticed. Or the opposite - being so fidgety or restless that you have been moving around a lot more than usual: not at all 9. Thoughts that you would be better off or of hurting yourself in some way: not at all Total score: 0 Depression Screening Interpretation: Negative Depression Screening Done: Yes Source: Developed by Drs. Hadley Arshad, Adwoa Hayes, Jelani Jackson and colleagues, with an educational shaji from [employer]. Thrive Questionnaire Date Thrive assessed: 09/10/24 I am a: Patient What is your living situation today?: I have a steady place to live Within the past 12 months, did the food you bought not last and you didn't have the money to get more?: Never true Within the past 12 months, did you worry whether your food would run out before you got money to buy more?: Never true Do you have trouble paying for medicines?: No Do you have trouble getting transportation to medical appointments?: No Do you have trouble paying your heating and electricity bill?: No Do you have trouble taking care of your child, family member or friend?: No Do you have trouble with day-to-day activities such as bathing, preparing meals, shopping, managing finances, etc.?: No Are you currently unemployed and looking for a job?: No Are you interested in more education?: No Please select the resources that you would like help with: None Currently or been in a relationship where the following occur: No concerns reported THRIVE Score: 0 JEZ-7 AMB Questionnaire JEZ-7 Date JEZ - 7 assessed: 09/20/24 Feeling nervous, anxious, or on edge: 0 = Not at all Not being able to stop or control worryin = Not at all Worrying too much about different things: 0 = Not at all Trouble relaxin = Not at all Being so restless that it is hard to sit still: 0 = Not at all Becoming easily annoyed or irritable: 0 = Not at all Feeling afraid as if something awful might happen: 0 = Not at all Total JEZ-7 score (0-4 normal; 5-9 mild; 10-14 moderate; 15-21 severe): 0 Source: Developed by Drs. Hadley Arshad, Adwoa Hayes, Jelani Jackson and colleagues, with an educational shaji from [employer]. Review of Systems Const All systems reviewed & are unremarkable except as noted in HPI and below ENT Reports no additional complaints Card Reports no additional complaints Resp Reports no additional complaints GI Reports no additional complaints Reports no additional complaints Physical exam (Primary Care) Vital Signs: Last Vital Signs Temp 98.2 F 04/22/25 11:02 Pulse 85 04/22/25 11:02 Resp 18 04/22/25 11:02 BP 118/66 04/22/25 11:02 Pulse Ox 98 04/22/25 11:02 Oxygen Delivery Method Room Air 04/22/25 11:02 BMI result Body Mass Index 22.1 Tobacco/Smoking Status: Tobacco use Status Tobacco use date assessed 04/22/25 04/22/25 11:27 Patient Tobacco Use Status Former Tobacco user 04/22/25 11:02 e-Cigarette/Vaping Use Never Used 04/22/25 11:02 PHQ-9: PHQ-9 Score PHQ-9: Total score 0 04/22/25 12:02 Depression Screening Interpretation: Negative Thrive Assessment: Date of Thrive Assessment Date Thrive assessed 09/10/24 04/22/25 11:02 Currently or been in a relationship where the following occur: No concerns reported Const General: no acute distress HENMT Head: Yes normal to inspection General nose exam: Normal external nose present Throat: Yes posterior oropharynx normal Eyes General: appearance normal, both eyes and all related structures Neck Neck: Yes supple Resp Effort & Inspection: normal respiratory effort Auscultation: clear to auscultation bilaterally Cardio Rhythm: regular rhythm Heart sounds: S1 normal heart sound present and S2 normal heart sound present GI Inspection: Yes normal to inspection Back/Spine/Pelvis Other: There is slightly decreased range of motion in C-spine paraspinal tenderness in lower cervical region left more than right, upper extremity strength 5/5 bilaterally deep tendon reflexes 2+ bilaterally Coding Level of Care Code Est Pt Level 4 (08671) Diagnoses DM type 2 (diabetes mellitus, type 2) E11.9 Paroxysmal atrial fibrillation I48.0 Diabetic nephropathy associated with type 2 diabetes mellitus E11.21 Neck pain M54.2 Assessment & Plan Assessment & Plan (1) DM type 2 (diabetes mellitus, type 2): Comment: Intolerant to Farxiga and Jardiance, caused recurrent candidiasis Code(s): E11.9 - Type 2 diabetes mellitus without complications Category: Medical Plan: A1c is 5.5, continue Mounjaro and patient will decrease metformin to 1000 mg a day continue to monitor her fasting blood glucose (2) Paroxysmal atrial fibrillation: Comment: Infrequent paroxysmal AFib asymptomatic, on Eliquis and metoprolol Code(s): I48.0 - Paroxysmal atrial fibrillation Category: Medical Plan: cont Eliquis and Metoprolol (3) Diabetic nephropathy associated with type 2 diabetes mellitus: Comment: Intolerant to SGLT 2 INHIBITORS, candidiasis Code(s): E11.21 - Type 2 diabetes mellitus with diabetic nephropathy Category: Medical Plan: restart Losartan, and monitor microalbumin (4) Neck pain: Code(s): M54.2 - Cervicalgia Category: Medical Plan: Prednisone taper and Baclofen, PT recommended but pt declined Orders: Orders Comprehensive [place]. Panel Fast 3 Months E11.9 - Type 2 diabetes mellitus without complications, I10 - Essential (primary) hypertension Hemoglobin A1c 3 Months E11.9 - Type 2 diabetes mellitus without complications, I10 - Essential (primary) hypertension Complete Blood Count Auto Diff 3 Months E11.9 - Type 2 diabetes mellitus without complications, I10 - Essential (primary) hypertension Lipid Panel 3 Months E11.9 - Type 2 diabetes mellitus without complications, I10 - Essential (primary) hypertension Microalbumin, Random (w Creat) 3 Months E11.9 - Type 2 diabetes mellitus without complications, I10 - Essential (primary) hypertension Medications: New baclofen 10 mg PO BEDTIME 30 tabs 0RF prednisone orally daily; 4 tabl qd x3 days.3 tabl qd x 3 days, then 2 tabl qd x 3, then 1 tabl x 3days 30 tabs 0RF Changed From insulin degludec (Tresiba FlexTouch U-100 insulin) 20 units (0.2 mL) subcut BEDTIME 90 days 18 mL 3RF To insulin degludec (Tresiba FlexTouch U-100 insulin) 15 units (0.15 mL) subcut BEDTIME 13.5 mL 3RF 90 days
--- OUTSIDE RECORDS SUMMARY | 2025-04-22 11:47 | XMS_ITS | Clinical Summary ---
Author Organization [address] Address [address] [place] [id number] Phone Care Team Providers Care Greens Laborer Name Role Phone Valarie Hudson MD Primary Care Provider [phone] Surgical History Surgery Date Site/Laterality Comments SECTION PROCEDURE: SECTION SHOULDER SURGERY PROCEDURE:SHOULDER SURGERY BREAST SURGERY PROCEDURE:REDUCTION MAMMAPLASTY KNEE SURGERY PROCEDURE:KNEE SURGERY Medical History Medical History Date Comments Depression DX:Depression Hypertension DX:Hypertension GERD (gastroesophageal reflux disease) DX:GERD (gastroesophageal reflux disease) High cholesterol DX:High cholest sherwin Stroke ([facility] V24, [facility] V28) DX:Stroke ([facility]) Asthma DX:Asthma Diabetes mellitus ([facility] V 24, [facility] V28) DX:Diabetes mellitus ([facility]) Family History Medical History Relation Name Comments [...] Last Done Comments Breast Cancer Screening 1958 Colorectal Cancer Screening: Colonoscopy 1958 Diabetes: Annual Foot Exam 1968 Diabetes: Annual Retina Eye Exam 1968 DTaP,Tdap,and Td Vaccines (1 - Tdap) 1977 Pneumococcal Vaccine: 50+ Ye ars (1 of 1 - PCV) 2008 Zoster Vaccines (1 of 2) 2008 Diabetes: Annual GFR (Glomer ular Filtration Rate) 06/11/2020 06/11/2019 Cholesterol Screening (Lipid Panel) 06/25/2022 Hepatitis C Screening 06/25/2022 Osteoporosis Screening (Bone Density Screening) 06/25/2022 Social Influencers of Health Screening 06/25/2022 Falls Risk Assessment 2023 Depression Screening 07/24/2024 Diabetes: Annual Urine Albumin-Creatinine Ratio (uACR) 07/30/2024 Diabetes: Blood Sugar Contro l Test (HGBA1C) 07/30/2024 Hypertension/CHF/CAD Annual BMP Blood Test 07/30/2024 06/11/2019 COVID-19 Vaccine ( - 2023-2 5 season) 2025 Influenza Vaccine [...] patient's age to complete this topic Insurance [facility] Care Teams Greens Laborer Relationship Specialty Start Date End Date Valarie Hudson MD PCP - General Chef French 05/14/19
--- OUTSIDE RECORDS SUMMARY | 2025-04-22 11:47 | XMS_ITS | Clinical Summary ---
Author Organization [facility] Address [address] [place] [address] Care Team Providers Care Billing Specialist Name Role Phone Unavailable Primary [...]
--- OUTSIDE RECORDS SUMMARY | 2025-04-22 11:47 | XMS_ITS | Encounter Summary ---
Author Organization [employer] Address [address] [place] [address] Care Team Providers Care Health And Fitness Professor Name Role Phone Valarie Hudson MD Primary Care Provider [phone] Encounter Details Date Type Department Care Team (Late st Contact Info) Description 05/29/2024 Lab Requisition [facility] - Main Lab [address] [facility] [place] [phone] Miguelangel Ag MD [address] [facility] [address] [place], [place] [id number] Gross hematuria Social History Tobacco Use Types [...] Acute inflammation present. 05/31/2024 9:45 AM EST [facility] Clinical Information Gross hematuria 05/31/2024 9:45 AM EST [facility] Gross Description A. Urine, Voided, : 1 TP cyto with Reflex FISH if Atypical/Susp 05/31/2024 9:45 AM EST [facility] Disclaimer Unless otherwise specified, all tissue is 10% NB formalin fixed and paraffin embedded. 05/31/2024 9:45 AM EST [facility] Tissue Urine specimen from urethra / Unknown 05/27/2024 05/29/2024 11:35 AM EST us Miguelangel Ag MD LAB PATHOLOGY ORDERAB LES Final Result [facility] [address] [place] [address], documented in this encounter Visit Diagnoses Diagnosis Gross hematuria documented in this encounter Care Teams Health And Fitness Professor Relationship Specialty Start Date End Date Valarie Hudson MD PCP - General Bus Washer 05/14/19 documented as of this encounter
--- OUTSIDE RECORDS SUMMARY | 2025-04-22 11:47 | XMS_ITS | Clinical Summary ---
Author Organization [facility] Address [address] [place] [address] Phone Care Team Providers Care Travograph Operator Name Role Phone Unavailable Primary Care [...]
--- OUTSIDE RECORDS SUMMARY | 2025-04-22 11:47 | XMS_ITS | Encounter Summary ---
Author Organization [facility] Address [address] [facility] [address] [place] [address] Phone Care Team Providers Care Electronic Masking System Operator Name Role Phone Valarie Hudson MD Primary Care Provider [phone] Liudmila Khan MD, PhD Unavailable Say Stovall MD Unavailable [phone] Encounter Details Date Type Department Care Team (Late st Contact Info) Description 06/27/2023 Procedure Pass [facility] PERIOPERATIVE DEPT [address] [place] [address] Social History Tobacco Use Types [...] 06/27/2023 6:23 PM Lizzeth Arauz RN * [place] Suicide Severity Rating Scale (Screener/Recent Self-Report) Question [...] on filedocumented in this encounter Care Teams Electronic Masking System Operator Relationship Specialty Start Date End Date Valarie Hudson MD [address] [facility] [address] [facility] [place] [address] PCP - General Internal Medicine 04/04/19 Liudmila Khan MD, PhD [address] [place] [phone] [email or web address] Neurology 06/09/23 Say Stovall MD [address] [place] [address] [place] [address] Cardiology 06/09/23 documented as of this encounter Additional Source Comments The information contained in this document represents components of the legal health record. It is not the complete legal health record.[facility]
--- OUTSIDE RECORDS SUMMARY | 2025-04-22 11:48 | XMS_ITS | Clinical Summary ---
Author Organization [facility] Address [address] [place] [address] Care Team Providers Care Fudger Name Role Phone Valarie Hudson MD Primary Care Provider [phone] Allergies Active Allergy Reactions Criticality Noted Date [...] age to complete this topic Care Teams Fudger Relationship Specialty Start Date End Date Valarie Hudson MD [address] [facility] [place] [address] PCP - General Pattern Worker 05/14/19
--- OUTSIDE RECORDS SUMMARY | 2025-04-22 11:48 | XMS_ITS | Clinical Summary ---
Author Organization [facility] Address [address] [place] [phone] Phone Care Team Providers Care Building Rental Manager Name Role Phone Valarie Hudson MD Primary Care Provider [phone] Liudmila Khan MD, PhD Unavailable Say Stovall MD Unavailable [phone] Allergies Active Allergy Reactions Criticality Noted Date [...] this topic Medical Devices Implanted Type Area Judicial Administrative Assistant Device Identifier Shelf Expiration Date Model / Serial / Lot Knee Baseplate Sz 4 Tibial Legion Ti Nonporous Cemented Male Tapered Rt - [id number] Implanted:Qty: 1 on 06/27/2023 by Martin Kam MD at [facility] [employer] Right: Knee [employer] [id number] 01/11/2033 [id number] / / [id number] Description:The implant type , laterality (when applicable), size, and expiration date have been visually and verbally confirmed by the Surgeon, Circulating RN and Scrub Personnel. Cement Bone Simplex P Tobramycin 41g Powder And 20ml Ampoule Antibiotic Impregnated Full Dose Bx/10ea - [id number] Implanted:Qty: 1 on 06/27/2023 by Martin Kam MD at [facility] STANDARD Right: Knee [employer] [id number] 09/20/2024 6197-9-010 / / [id number] Description:The implant type , laterality (when applicable), size, and expiration date have been visually and verbally confirmed by the Surgeon, Circulating RN and Scrub Personnel. Cement Bone Simplex P Tobramycin 41g Powder And 20ml Ampoule Antibiotic Impregnated Full Dose Bx/10ea - [id number] Implanted:Qty: 1 on 06/27/2023 by Martin Kam MD at [facility] STANDARD Right: Knee [employer] [id number] 05/23/2024 6197-9-010 / / [id number] Description:The implant type , laterality (when applicable), size, and expiration date have been visually and verbally confirmed by the Surgeon, Circulating RN and Scrub Personnel. Knee Insert 9.0mm Size 3 4 Tibial Legion Crosslinked Polyethylene Dished - [id number] Implanted:Qty: 1 on 06/27/2023 by Martin Kam MD at [facility] Right: Knee BRENDAN [id number] 12/12/2032 [id number] / / [id number] Description:The implant type , laterality (when applicable), size, and expiration date have been visually and verbally confirmed by the Surgeon, Circulating RN and Scrub Personnel. Knee Insert 7.5mm 32 Patella Taina Ii Resurfacing - [id number] Implanted:Qty: 1 on 06/27/2023 by Martin Kam MD at [facility] Right: Knee BRENDAN [id number] 07/24/2032 [id number] / / [id number] Description:The implant type , laterality (when applicable), size, and expiration date have been visually and verbally confirmed by the Surgeon, Circulating RN and Scrub Personnel. Knee Implant Sz 4 Component Femoral Legion Oxinium Oxidized Zirconium Narrow Cruciate Retaining Rt N - [id number] Implanted:Qty: 1 on 06/27/2023 by Martin Kam MD at [facility] Right: Knee BRENDAN [id number] 03/13/2033 [id number] / / [id number] Description:The implant type , laterality (when applicable), [...] EST) SODIUM 138 136 - 145 mmol/L [facility] CHLORIDE 104 95 - 106 mmol/L [facility] POTASSIUM 3.8 3.5 - 5.2 mmol/L [facility] CO2 22 20 - 31 mmol/L [facility] BUN 17 9 - 23 mg/dL [facility] CREATININE 0.72 0.50 - 1.30 mg/dL [facility] GLUCOSE 173(H) 74 - 106 mg/dL [facility] CALCIUM 8.7 8.7 - 10.4 mg/dL [facility] EGFR 93 >60 mL/min/1.[address] [facility] Comment:Estimated glomerular filtration rate calculated using the CKD-EPI refit equation. ANION GAP 12 3 - 17 mmol/L [facility] Blood 06/28/2023 6:03 AM EST 06/28/2023 6:46 AM EST us Wilfredo NATHAN LAB BLOOD ORDERABLES Fi nal Result Performing Organization Address City/[facility]/ZIP Co de Phone Number [facility] [address] [place] [address] * (ABNORMAL) Hemoglobin A1c (06/11/2019 2:39 PM EST) HEMOGLOBIN A1C 8.5(H) 4.3 - 6.4 % [facility] CALC MEAN BLD GLUC 197 mg/dL [facility] Comment: There is no established normal [...] PhD LAB BLOOD ORDERAB LES Final Result [facility] [address] [place] [address] from Last 3 Months or Most Recently Relevant to Health Maintenance [place] [address] [place] [address] MEDICARE PPO [place]UE [place] [address] [place] [address] MEDICARE PPO BLUE [place] [address] [place] [address] MEDICARE PPO BLUE [place] [address] [place] [address] MEDICARE PPO BLUE REPLACEMENT MEDICARE PPO BLUE [place] [address] MEDICARE [place] [address] [place] [address] Advance Directives For more information, please contact: [phone] (9AM - 5PM [facility], Monday-Monday) Documents on File Type Date Recorded Patient Aerophysicist Expl anation Healthcare Proxy 06/27/2023 10:09 AM Care Teams Building Rental Manager Relationship Specialty Start Date End Date Valarie Hudson MD [address] [facility] [place] [address] PCP - General Internal Medicine 04/04/19 Liudmila Khan MD, PhD [address] [place] [phone] [email or web address] Neurology 06/09/23 Say Stovall MD [address] [place] [address] Cardiology 06/09/23 Additional Source Comments The information contained in this document represents components of the legal health record. It is not the complete legal health record.[facility]
== END 2025-04-22 12:17 | disposition home or self-care (01) ==
LOC: HO.HMCC 10:35
PROVIDERS: PCP Internal Medicine; Visit Provider Internal Medicine
DX: E11.21 Type 2 diabetes mellitus with diabetic nephropathy (principal); I48.0 Paroxysmal atrial fibrillation; M54.2 Cervicalgia

== ENCOUNTER → 2025-04-22 10:34 | Outpatient (BNVA) | payer MEDICARE, SELFPAY | PROVIDERS: PCP Internal Medicine; Visit Provider Internal Medicine | DX: E11.21 Type 2 diabetes mellitus with diabetic nephropathy (principal); M54.2 Cervicalgia; M53.82 Other specified dorsopathies, cervical region; I48.0 Paroxysmal atrial fibrillation | CPT/HCPCS: 96127; 99212 ==

== ENCOUNTER → 2025-05-26 08:03 | Outpatient (REF) | payer MEDICARE, SELFPAY ==
--- NOTE | 2025-05-26 08:06 | CA_ITS ---
Transthoracic Echocardiogram Patient (Last, First, Middle): Galilea Hilton A Gender: F Date of : 1960 Age: 65 Procedure Date: 05/26/2025 Procedure Type: Transthoracic Echocardiogram Location: OP Height: 170.18 cm Weight: 63.05 kg BSA: 1.73 m2 Heart Rate: bpm BP: 117 / 60 mmHg Machine Operator Hay Stacker: Referring MD: Say Stovall MD Symptoms: I48.0 - Paroxysmal atrial fibrillation Study Quality: Good ECG Rhythm: Sinus Conclusions: - The left ventricular systolic function is normal. The calculated ejection fraction is 69% by biplane method. - There is mild calcification of the aortic valve. Trace to mild aortic regurgitation. - There is mild mitral annular calcification. Findings Left Ventricle Normal left ventricular cavity size. There is normal left ventricular wall thickness. The left ventricular systolic function is normal. The calculated ejection fraction is 69% by biplane method. There is no evidence of regional wall motion abnormalities. Diastolic function is normal for age. Right Ventricle Normal right ventricular cavity size and systolic function. Atria Both atria are normal in size. Aortic Valve The aortic valve was not well visualized. There is mild calcification of the aortic valve. There is no aortic valve stenosis. Trace to mild aortic regurgitation. Mitral Valve There is mild mitral annular calcification. There is trace mitral valve regurgitation. There is no mitral valve stenosis. Pulmonic Valve The pulmonic valve is likely normal. Tricuspid Valve There is mild tricuspid valve regurgitation. There is no evidence of pulmonary hypertension. Great Vessels The asc aorta is normal in size. Venous The inferior vena cava is normal in size and collapses greater than 50% with inspiration. Pericardium/Pleural There is no evidence of pericardial effusion. Prior Study Comparison No significant change compared to prior study dated: 07/05/2024. Measurements 2D Linear Measurements IVSd: 0.91 0.6-0.9/0.6-1.0 cm LVIDd: 4.14 3.9-5.3/4.2-5.9 cm LVIDd Index: 2.39 2.4-3.2/2.2-3.1 cm/m2 LVIDs: 2.48 2.0-3.6 cm LVPWd: 0.95 0.7-1.1 cm Ao Root: 2.90 2.1-3.5 cm LA Diam: 3.10 2.7-3.8/3.0-4.0 cm LAIDs Index: 1.79 1.5-2.3 cm/m2 LV Mass: 151.41 67-162/88-224 g LV Mass Index: 87.52 43-95/49-115 g/m2 LVOT Diam: 2.00 3.0+(-)1.3 cm 2D Systolic Function EF 4C: 67.90 >55% EF 2C: 68.70 >55% EF BiP: 68.50 >55% Mitral Valve MV VTI: 0.27 MV Pk Zen: 0.95 MV Mn Zen: 0.60 MV Pk Grad: 4.00 MV Mn Grad: 2.00 MV Pk E: 0.91 MV PK A: 1.07 MV Decel Time: 133.00 E/A: 0.80 E'Lateral: 9.79 E'Medial: 10.10 E/E' Med: 9.00 E/E' Lat: 9.30 PHT: 39.00 MVA PHT: 5.64 MVA Continuity: 2.66 Decel Hopkins: 6.81 Aortic Valve AoV Pk Zen: 1.39 AoV Mn Zen: 0.93 AoV VTI: 0.30 AoV Pk Grad: 8.00 Aov Mn Grad: 4.00 CRYS Cont.VTI: 2.39 LVOT LVOT Pk Zen: 0.98 LVOT Mn Zen: 0.63 LVOT VTI: 0.23 LVOT Pk Grad: 4.00 LVOT Mn Grad: 2.00 LVOT Diam: 2.00 LVOT Area: 3.14 Diastolic Function MV Pk E: 0.91 MV Pk A: 1.07 E/A: 0.80 E'Medial: 10.10 E/E' Med: 9.00 E' Laterial: 9.79 E/E' Lat: 9.30 Right Ventricle TAPSE (mm): 23.00 TVS' Zen: 13.00 Tricuspid Valve TR Pk Zen: 2.16 TR Pk Grad: 19.00 RA Press: 3.00 RVSP: 22.00 Great Vessels Aorta Ao Root-2D: 2.90 2.0-3.7 cm Ao Asc: 2.90 2.1-3.4 cm Pulmonary Valve PV Pk Zen: 1.00 Peak PV Grad: 4.00 Updated in Other Vendor System with Status of Final Magdiel Moreno MD electronically signed on 05/26/2025 3:52:03 PM with status of Final
--- OUTSIDE RECORDS SUMMARY | 2025-05-26 08:08 | XMS_ITS | Clinical Summary ---
Author Organization [facility] Address [address] [place] [address] Care Team Providers Care Assistant Food Service Director Name Role Phone Unavailable Primary Care Provider [...] - 2023-2 5 season) 2025 RSV Vaccine 50 years and old er and Patients (1 - 1-dose 75+ series) 2033 Hepatitis B Vaccines Aged Out No long er eligible based on patient's age to complete this topic
--- OUTSIDE RECORDS SUMMARY | 2025-05-26 08:09 | XMS_ITS | Encounter Summary ---
Author Organization [facility] Address [address] [facility] [address] [place] [address] Phone Care Team Providers Care Claims Analyst Name Role Phone Valarie Hudson MD Primary Care Provider [phone] Liudmila Khan MD, PhD Unavailable Say Stovall MD Unavailable [phone] Encounter Details Date Type Department Care Team (Late st Contact Info) Description 06/27/2023 Procedure Pass [facility] PERIOPERATIVE DEPT [address] [place] [address] Social History Tobacco Use Types [...] 06/27/2023 6:23 PM Lizzeth Arauz RN * [place] Suicide Severity Rating Scale (Screener/Recent Self-Report) Question [...] on filedocumented in this encounter Care Teams Claims Analyst Relationship Specialty Start Date End Date Valarie Hudson MD [facility] [place] [address] PCP - General Internal Medicine 04/04/19 Liudmila Khan MD, PhD [address] [place] [address] [email or web address] Neurology 06/09/23 Say Stovall MD [address] [place] [address] Cardiology 06/09/23 documented as of this encounter Additional Source Comments The information contained in this document represents components of the legal health record. It is not the complete legal health record.[facility]
--- OUTSIDE RECORDS SUMMARY | 2025-05-26 08:09 | XMS_ITS | Clinical Summary ---
Author Organization [facility] Address [address] [place] [address] Phone Care Team Providers Care Plate Mounter Name Role Phone Valarie Hudson MD Primary Care Provider [phone] Liudmila Khan MD, PhD Unavailable Say Stovall MD Unavailable Allergies Active Allergy Reactions Criticality Noted Date [...] FOBT 2003 SIGMOIDOSCOPY 2003 VIRTUAL COLONOSCOPY 2003 RSV VACCINE (1 - Risk 50-74 years 1-dose series) 2008 ZOSTER VACCINES (1 of 2) 2008 HEMOGLOBIN A1C 09/11/2019 06/11/2019 DIABETIC EYE EXAM [...] this topic Medical Devices Implanted Type Area Paster Operator Device Identifier Shelf Expiration Date Model / Serial / Lot Knee Baseplate Sz 4 Tibial Legion Ti Nonporous Cemented Male Tapered Rt - [id number] Implanted:Qty: 1 on 06/27/2023 by Martin Kam MD at [facility] NODATA Right: Knee CARDONA [id number] 01/11/2033 [id number] / / [id number] Description:The implant type , laterality (when applicable), size, and expiration date have been visually and verbally confirmed by the Surgeon, Circulating RN and Scrub Personnel. Cement Bone Simplex P Tobramycin 41g Powder And 20ml Ampoule Antibiotic Impregnated Full Dose Bx/10ea - [id number] Implanted:Qty: 1 on 06/27/2023 by Martin Kam MD at [facility] STANDARD Right: Knee [employer] [id number] 09/20/2024 6197-9-010 / / [id number] Description:The implant type , laterality (when applicable), size, and expiration date have been visually and verbally confirmed by the Surgeon, Circulating RN and Scrub Personnel. Cement Bone Simplex P Tobramycin 41g Powder And 20ml Ampoule Antibiotic Impregnated Full Dose Bx/10ea - [id number] Implanted:Qty: 1 on 06/27/2023 by Martin Kam MD at [facility] STANDARD Right: Knee [employer] [id number] 05/23/2024 6197-9-010 / / [id number] Description:The implant type , laterality (when applicable), size, and expiration date have been visually and verbally confirmed by the Surgeon, Circulating RN and Scrub Personnel. Knee Insert 9.0mm Size 3 4 Tibial Legion Crosslinked Polyethylene Dished - [id number] Implanted:Qty: 1 on 06/27/2023 by Martin Kam MD at [facility] Right: Knee BREDNAN [id number] 12/12/2032 [id number] / / [id number] Description:The implant type , laterality (when applicable), size, and expiration date have been visually and verbally confirmed by the Surgeon, Circulating RN and Scrub Personnel. Knee Insert 7.5mm 32 Patella Taina Ii Resurfacing - [id number] Implanted:Qty: 1 on 06/27/2023 by Martin Kam MD at [facility] Right: Knee BRENDAN [id number] 07/24/2032 [id number] / / [id number] Description:The implant type , laterality (when applicable), size, and expiration date have been visually and verbally confirmed by the Surgeon, Circulating RN and Scrub Personnel. Knee Implant Sz 4 Component Femoral Legion Oxinium Oxidized Zirconium Narrow Cruciate Retaining Rt N - [id number] Implanted:Qty: 1 on 06/27/2023 by Martin Kam MD at [facility] Right: Knee BRENDAN [id number] 03/13/2033 [id number] / / [id number] Description:The implant type , laterality (when applicable), size, and expiration date have been visually and verbally confirmed by the Surgeon, Circulating RN and Scrub Personnel. Procedures Procedure Name Priority Date/Time Associated Diagnosis Comments BASIC METABOLIC PANEL (BMP) Routine 06/28/2023 6:03 AM EST HEMOGLOBIN A1C Routine 06/11/2019 2:39 PM EST Arterial ischemic stroke from Last 3 Months or Most Recently Relevant to Health Maintenance Results * (ABNORMAL) Basic metabolic panel (06/28/2023 6:03 AM EST) SODIUM 138 136 - 145 mmol/L [facility] CHLORIDE 104 95 - 106 mmol/L [facility] POTASSIUM 3.8 3.5 - 5.2 mmol/L [facility] CO2 22 20 - 31 mmol/L [facility] BUN 17 9 - 23 mg/dL [facility] CREATININE 0.72 0.50 - 1.30 mg/dL [facility] GLUCOSE 173(H) 74 - 106 mg/dL [facility] CALCIUM 8.7 8.7 - 10.4 mg/dL [facility] EGFR 93 >60 mL/min/1.7 3m2 [facility] Comment:Estimated glomerular filtration rate calculated using the CKD-EPI refit equation. ANION GAP 12 3 - 17 mmol/L [facility] Blood 06/28/2023 6:03 AM EST 06/28/2023 6:46 AM EST us Wilfredo NATHAN LAB BLOOD BKR ORDERABLE S Final Result Performing Organization Address [facility] Co de Phone Number [facility] [address] [place] [address] * (ABNORMAL) Hemoglobin A1c (06/11/2019 2:39 PM EST) HEMOGLOBIN A1C 8.5(H) 4.3 - 6.4 % [facility] CALC MEAN BLD GLUC 197 mg/dL [facility] Comment: There is no established normal [...] us Liudmila Welch MD, PhD LAB BLOOD BKR ORD ERABLES Final Result [facility] [address] [place] [address] from Last 3 Months or Most Recently Relevant to Health Maintenance [place] [address] [place] [address] MEDICARE PPO BLUE REPLAC[place] [address] [place] [address] MEDICARE PPO BLUE [place]PLACEMENT [place] [place] [address] MEDICARE PPO BLUE REPLACEMENT MEDICARE PPO BLUE REPLACEMENT MEDICARE PPO BLUE [place]ACEMENT [place] [place] [address] MEDICARE PPO BLUE REPLACEMENT Advance Directives For more information, please contact: [phone] (9AM - 5PM [facility], Monday-Monday) Documents on File Type Date Recorded Patient Race Relations Professor Expl anation Healthcare Proxy 06/27/2023 10:09 AM Care Teams Plate Mounter Relationship Specialty Start Date End Date Valarie Hudson MD [address] [place] [address] PCP - General Internal Medicine 04/04/19 Liudmila Khan MD, PhD [address] [place] [address] [email or web address] Neurology 06/09/23 Say Stovall MD [address] [place] [address] Cardiology 06/09/23 Additional Source Comments The information contained in this document represents components of the legal health record. It is not the complete legal health record.[facility]
--- OUTSIDE RECORDS SUMMARY | 2025-05-26 08:09 | XMS_ITS | Clinical Summary ---
Author Organization [facility] Address [address] [place] [address] Care Team Providers Care Media Marketing Manager Name Role Phone Valarie Hudson MD Primary Care Provider [phone] Allergies Active Allergy Reactions Criticality Noted Date [...] age to complete this topic Care Teams Media Marketing Manager Relationship Specialty Start Date End Date Valarie Hudson MD [address] [facility] [place] [address] PCP - General Sewage Screen Operator 05/14/19
--- OUTSIDE RECORDS SUMMARY | 2025-05-26 08:09 | XMS_ITS | Data Portability ---
Author Organization [facility] K[facility] Su[facility] Address [address] [place] [address] Care Team Providers Care Public Health Nutritionist Name Role Phone SOL MCNAMARA Primary Care Provider [phone] SOL MCNAMARA Referring Provider Assessment Encounter Date [...] weeks to review results and further management. [email or web address] Not available 06/27/2024 09:18:50 11/18/2024 11/18/2024 Slowly [...] may be helpful for control of swelling. [id number] anti-inflammatory medications with appropriate GI precautions or [...] Imaging XR, knee, 3 view 2023 024 [facility], [address], [place], [address], 5 09:13:02 Medication Orders Euflexxa 10 mg/mL (mw 2.4-3.6 million) intra-artic ular syringe 2024 025 [email or web address] [id number], [address] [facility], [place], [address], 5 10:59:51 Euflexxa 10 mg/mL (mw 2.4-3.6 million) intra-artic ular syringe 2024 025 [email or web address] Not available 14:24:35 Euflexxa 10 mg/mL (mw 2.4-3.6 million) intra-artic ular syringe 2024 025 [email or web address] [id number], [address] [place], [address], 14:41:32 Patient TargetsNo targets recorded. Patient InstructionsNo instructions recorded. Reason for Referral None Reported. Results Created Date Observation Date Name Description Value Unit Range Abnormal Flag Note LastModifiedBy Organization Detail LastModifiedTime 07/31/19 25 07/30/2024 XR, knee, 3 view No observ ation record ed. [email or web address] [facility] [address] [place] [address], [address], 07/31/2024 11:06:12 09/25/19 25 09/24/2024 MRI, knee, w/o contr ast No observ ation record ed. [email or web address] [facility] [address] [place], [address], 09/26/2024 08:44:01 Result Notes None recorded. Problems Name Problem SNOMED Code Status Onset Date Resolution Date Notes Provider Name and Address Organization Details Recorded Time Problem 19588883 Active No known active problems Not Available [facility] 5 00:39:14 Pain of knee region 5051147891 Active 2016 Acute pain of right knee Not Available [facility] 5 00:39:13 Calcific tendiniti s of left shoulder 21434465148 9108 Active 2016 Calcific tendiniti s of left shoulder Not Available [facility] 5 00:39:14 Full thickness rotator cuff tear 141226076 Active 2017 Complete tear of left rotator cuff Not Available [facility] 5 00:39:13 Partial thickness rotator cuff tear 591306021 Active 2018 Incomplet e tear of left rotator cuff Not Available [facility] 5 00:39:12 Arthritis of knee 664264442 Active 2019 [facility] moral arthritis of right knee Not Available [facility] 5 00:39:13 Surgical follow-up 286702675 Active 2020 Postop check Not Available [facility] 5 00:39:12 Pain of left knee region 10855536615 4109 Active [address], [place], [address] , [facility] 5 07:55:43 Osteoarth ritis of left knee joint 94775756358 9109 Active [address] [facility], [place], [address] , [facility] 5 07:56:56 Tear of lateral meniscus of knee 882609608 Active [address] [facility], [place], [address] , [place] [facility] 5 06:30:50 Acute meniscal tear, medial 387406267 Active [address] [facility], [place], [address] , [facility] 5 06:30:50 Problem Notes None recorded. Procedures Surgical History Date Name Laterality Status Provider Name and Address Organization Details Recorded Time 5 Euflexxa Knee Inj w/US completed MD [address], [place], [address], [facility] 01/20/2025 06:31:09 5 Euflexxa Knee Inj w/US completed MD [address] [facility], [place], [address], [facility] 01/14/2025 06:42:52 5 Euflexxa Knee Inj w/US completed MD [address], [place], [address], [place] [facility] 12/30/2024 06:43:20 total knee replacement completed Carey Saldana [facility], P 06/27/2024 08:54:55 Shoulder Surgery completed Carey Venegasdley [facility], P 06/27/2024 08:55:11 [facility]/27/[facility]24 08:55:28 Imaging Results None recorded. Procedure Notes None recorded. Medical Equipment None Reported. Allergies Allergen ID Allergen Name Allergen Category Reaction Reaction Severity Criticality Documentation Date Start Date Code Code System Note Provider Name and Address Organization Details Recorded Time Product containin g penicilli n (product) medicatio n Not available Not available Not available 06/27/2024 31534 8001 SNOMED Carey Saldana [facility], [facility], P 4 08:53:10 Vancocin medicatio n Not available Not available Not available 06/27/202480247 8 RxNorm Crystal Les [facility], [facility] 4 08:53:22 Levaquin medicatio n Not available Not available Not available 06/27/2024 24542 2 RxNorm Crystal Les [facility], [facility], P 4 08:53:30 08563 vancomyci n medicatio n Not available Not available Not available 04/15/20252016 40461 RxNorm Not Available [facility] 5 01:28:16 Medications Name Sig Start [...] Updated DateTime 11/18/2024 170.18 cm 23.6 kg/m2 40526.[address] [facility] 11/18/2024 08:51:03 Date Recorded Body height Body mass index (BMI) Body weight Provider Name and Address Organization Details Last Updated DateTime 12/30/2024 170.18 cm 23.5 kg/m2 22185.[address] [facility] 12/30/2024 14:17:17 Date Recorded Body height Body mass index (BMI) Body weight Provider Name and Address Organization Details Last Updated DateTime 01/20/2025 170.18 cm 23.6 kg/m2 44079.[address] [facility] 01/20/2025 09:00:43 Date Recorded Body height Body mass index (BMI) Body weight Provider Name and Address Organization Details Last Updated DateTime 06/27/2024 170.18 cm 23.5 kg/m2 63504.[address] [facility] 06/27/2024 08:53:40 Social History None recorded. Functional Status Question Answer Note LastModified by Organizat ion Details LastModified Time Do you use any illicit or recreational drugs? No [email or web address] Information not available 06/27/2024 Do you or have you ever used any other forms of tobacco or nicotine? No [email or web address] Information not available 06/27/2024 What is your level of alcohol consumption? None [email or web address] Information not available 06/27/2024 Mental Status None [...] Anemia N Brain Injury N Heart Attack (PR) N Osteopenia N Diabetes Y Bleeding Disorder [...] ICD10 Code Diagnosis IMO Codes Diagnosis Note [id number] HAROON WATERS [facility] [address] [facility] [address] [place] [address] 06/27/2024 08:39:30 06/27/2024 09:15:42 Pain of left knee region 5083967824 31324 M25.562 [id number] MD INDIGO [address] [address] 11/18/2024 08:35:04 11/18/2024 09:16:57 Osteoarthritis of left knee joint 9563566866 44588 M17.12 4852952 Tear of la teral meniscus of knee 920534133 S83.272A 4972846 Acute meni scal tear, medial 331754437 S83.232A 4712089 [id number] MD VERONICA Do [address] [address] 01/20/2025 08:58:06 01/20/2025 11:43:52 Osteoarthritis of left knee joint 5676255491 82110 M17.12 3541657 Tear of la teral meniscus of knee 999907713 S83.272D 0957281 Acute meni scal tear, medial 845564687 S83.232D 4955888 [id number] MD INDIGO [address] [address] 12/30/2024 14:08:05 12/30/2024 14:35:36 Osteoarthritis of left knee joint 4683358767 12220 M17.12 0371026 Tear of la teral meniscus of knee 035765407 S83.272D 1841039 Acute meni scal tear, medial 272235596 S83.232D 3045919 [id number] MD INDIGO [address] [address] 01/14/2025 13:11:51 01/14/2025 13:47:40 Osteoarthritis of left knee joint 6934988125 96574 M17.12 0475324 Tear of la teral meniscus of knee 164497667 S83.272D 3079152 Acute meni scal tear, medial 112464407 S83.232D [id number] Health Concerns Section Related Observation LastModified by [...] subsequently underwent a right knee arthroplasty in [place]. Her current pain is localized to her [...] Ozempic weekly. NOMAN SHARIF PA-C [address], [place], [address], [facility] 06/27/2024 09:19:40 11/18/2024 text/html ROS as [...] subsequently underwent a right knee arthroplasty in [place]. Her current pain is localized to her [...] twice daily. She is on Ozempic weekly. oBnilla Cisneros MD [address], [place], [address], [facility] 11/18/2024 12:19:04 12/30/2024 text/html ROS as [...] subsequently underwent a right knee arthroplasty in [place]. Her current pain is localized to her [...] Bonilla Cisneros MD [address], [place], [address], [facility], 12/30/2024 14:34:48 01/14/2025 text/html ROS as noted [...] subsequently underwent a right knee arthroplasty in [place]. Her current pain is localized to her [...] Ozempic weekly. MD [address], [place], [address], [place] [facility] 01/14/2025 13:54:27 01/20/2025 text/html ROS as [...] subsequently underwent a right knee arthroplasty in [place]. Her current pain is localized to her [...] Bonilla Cisneros MD [address], [place], [address], [facility] 01/20/2025 09:14:25 OBGyn Episode No OBEpisode recorded.
--- OUTSIDE RECORDS SUMMARY | 2025-05-26 08:09 | XMS_ITS | Clinical Summary ---
Author Organization [address] Address [address] [place] [address] Phone Care Team Providers Care Element Setter Name Role Phone Valarie Hudson MD Primary Care Provider [phone] Surgical History Surgery Date Site/Laterality Comments SECTION PROCEDURE: SECTION SHOULDER SURGERY PROCEDURE:SHOULDER SURGERY BREAST SURGERY PROCEDURE:REDUCTION MAMMAPLASTY KNEE SURGERY PROCEDURE:KNEE SURGERY Medical History Medical History Date Comments Depression DX:Depression Hypertension DX:Hypertension GERD (gastroesophageal reflux disease) DX:GERD (gastroesophageal reflux disease) High cholesterol DX:High cholest sherwin Stroke ([facility] V24, [facility] V28) DX:Stroke ([facility]) Asthma DX:Asthma Diabetes mellitus ([facility] V 24, [facility] V28) DX:Diabetes mellitus ([facility]) Family History Medical History Relation [...] age to complete this topic Insurance [facility] Care Teams Element Setter Relationship Specialty Start Date End Date Valarie Hudson MD PCP - General Lead Athlete 05/14/19
--- OUTSIDE RECORDS SUMMARY | 2025-05-26 08:09 | XMS_ITS | Encounter Summary ---
Author Organization [facility] Address [address] [place] [address] Care Team Providers Care Adult Psychiatrist Name Role Phone Valarie Hudson MD Primary Care Provider [phone] Encounter Details Date Type Department Care Team (Late st Contact Info) Description 05/29/2024 Lab Requisition [facility] - Main Lab [address] [facility] [place] [id number] Miguelangel Ag MD [address] [facility] [[email or web address]] [address] [place], [place] [id number] Gross hematuria Social History Tobacco Use Types [...] Acute inflammation present. 05/31/2024 9:45 AM EST [facility] Clinical Information Gross hematuria 05/31/2024 9:45 AM EST [facility] Gross Description A. Urine, Voided, : 1 TP cyto with Reflex FISH if Atypical/Susp 05/31/2024 9:45 AM EST [facility] Disclaimer Unless otherwise specified, all tissue is 10% NB formalin fixed and paraffin embedded. 05/31/2024 9:45 AM EST [facility] Tissue Urine specimen from urethra / Unknown 05/27/2024 05/29/2024 11:35 AM EST us Miguelangel Ag MD LAB PATHOLOGY ORDERAB LES Final Result [facility] [address] [place] [address], documented in this encounter Visit Diagnoses Diagnosis Gross hematuria documented in this encounter Care Teams Adult Psychiatrist Relationship Specialty Start Date End Date Valarie Hudson MD PCP - General Public Works Technician 05/14/19 documented as of this encounter
== END ==
LOC: HO.CARD 08:03
PROVIDERS: PCP Internal Medicine; Visit Provider Internal Medicine Cardiovascular Disease
DX: I48.0 Paroxysmal atrial fibrillation (principal)
CPT/HCPCS: 93306

== ENCOUNTER → 2025-05-26 08:06 | Outpatient (BNV) | payer MEDICARE, SELFPAY | PROVIDERS: PCP Internal Medicine; Visit Provider Internal Medicine | DX: I34.81 Nonrheumatic mitral (valve) annulus calcification (principal); I35.1 Nonrheumatic aortic (valve) insufficiency | CPT/HCPCS: 93306 ==

== ENCOUNTER 2025-06-05 13:38 | Outpatient (AMB) | payer MEDICARE, SELFPAY ==
--- NOTE | 2025-06-05 13:43 | A.OFFVIS_ITS ---
Vital Signs 06/05/25 13:45 Height 5 ft 7 in Weight 134 lb 7.712 oz BMI 21.1 BP 120/80 Blood Pressure Location Lt brachial Position Sitting Pulse 97 Intake Visit Reasons: 1 yr followup w/ekg Intake Note: 1 year follow-up with ekg feeling Dietary Clerk Required: No Allergies vancomycin (VANCOMYCIN) Allergy (Intermediate, Verified 04/22/25 11:27) ITCHING empagliflozin (Jardiance) Allergy (Unknown, Verified 04/22/25 11:27) yeast infection levofloxacin Allergy (Unknown, Verified 04/22/25 11:27) tendon rupture linagliptin (Tradjenta) Allergy (Unknown, Verified 04/22/25 11:27) yeast infection penicillin G (Penicillin G) Allergy (Unknown, Verified 04/22/25 11:27) HIVES penicillin V Allergy (Unknown, Verified 04/22/25 11:27) unknown Medication List - Last Reconciled 06/05/25 by Orlando Foster NP apixaban (Eliquis) 5 mg PO BID blood-glucose sensor (DexGrandCamp G7 Sensor device) As directed blood-glucose sensor (FreeStyle Reid 3 Plus Sensor device) Test blood sugar 4 times per day, change sensor every 15 days CPAP (CPAP Machine/Device) CPAP with mask, tubing, filters, water chamber, heated humidifier on 5-16wzV2U famotidine (Pepcid) 20 mg PO BEDTIME flash glucose sensor (FreeStyle Reid 2 Sensor kit) As directed fluticasone propion-salmeterol 250-50 mcg/dose (Advair Diskus) 1 inh inhalation BID FreeStyle Reid 3 Sensor (blood-glucose sensor) As directed to test sugars 3-4 times per day NS insulin degludec (Tresiba FlexTouch U-100 insulin) 15 units (0.15 mL) subcut BEDTIME 90 days ivermectin 1% (Soolantra) 1 appl topical DAILY losartan 25 mg PO DAILY metformin 1,000 mg PO BID metoprolol succinate ER 25 mg PO DAILY metronidazole 0.75% 1 appl topical BEDTIME pantoprazole 40 mg PO DAILY pen needle, diabetic Use to inject insulin once daily rosuvastatin 20 mg PO DAILY sertraline 25 mg PO DAILY tirzepatide (Mounjaro) 10 mg (0.5 mL) subcut QWEEK Ventolin HFA 90 mcg/actuation (albuterol sulfate) 1 inh inhalation QID NS HPI Comments Details: This is a 65-year-old female patient coming in for a annual follow-up visit. Patient with a history of stroke, paroxysmal AFib, hypertension, hyperlipidemia, and diabetes. Today, patient states that she had a syncopal episode back in January where patient has did up fell lightheaded and fainted. Patient's blood pressure at that time was low at 90s over 60s and therefore patient's losartan was reduced. Patient also had a tilt-table test with primary care provider that showed asymptomatic orthostatic hypotension. Patient also states that during that time patient was very dehydrated and had also lost about 15 lb quickly on Mounjaro. Patient today is reporting feeling well overall without any recurrence of dizziness, presyncope, syncope, chest pain, shortness of breath, palpitations, orthopnea, PND, and leg edema. Patient is reporting compliance with all medications. Patient compliant on her Eliquis therapy. Patient does note that patient is going for a panniculectomy in the next month. [facility] Medical History Diabetic nephropathy associated with type 2 diabetes mellitus Failed total right knee replacement Status post placement of implantable loop recorder Paroxysmal atrial fibrillation Ptosis of both upper eyelids Hammertoe of right foot Annual physical exam Cornea disorder Carotid stenosis Cataract JERICHO (obstructive sleep apnea) CVA (cerebral vascular accident) Asthma Hyperlipidemia DM type 2 (diabetes mellitus, type 2) Surgical History Hx of colonoscopy H/O rotator cuff surgery H/O bilateral breast reduction surgery History of arthroscopic knee surgery H/O shoulder surgery Family History Father No problems noted. Mother No problems noted. Social History Housing: House Alcohol intake: current Alcohol intake frequency: a few times a month Patient Tobacco Use Status: Former Tobacco user e-Cigarette/Vaping Use: Never Used service: No Current occupational status: employed Cognitive needs: No Hearing needs: No Vision needs: No Review of Systems Const Denies chills, Denies fatigue, Denies fever(s), Denies frequent falls, Denies weakness, Denies weight gain and Denies weight loss ENT Denies dizziness Card Denies chest pain, Denies leg edema, Denies lightheadedness, Denies palpitations, Denies dyspnea, Denies dyspnea on exertion, Denies orthopnea and Denies other (loss of consciousness) Resp Denies cough, Denies dyspnea and Denies dyspnea on exertion GI Denies hematochezia and Denies change in stool character Musc Denies abnormal gait, Denies muscle weakness, Denies numbness, Denies radiating pain into limb and Denies tingling Neuro Denies abnormal gait, Denies dizziness, Denies frequent falls, Denies numbness, Denies tingling and Denies weakness Endo Denies fatigue and Denies palpitations Physical Exam Vital Signs: Last Vital Signs Pulse 97 06/05/25 13:45 BP 120/80 06/05/25 13:45 BMI result Body Mass Index 21.1 Const General: cooperative, healthy appearing, comfortable and no acute distress Orientation/consciousness: patient oriented x3 HEENT Head: Yes normal to inspection Neck Neck: Yes normal visual inspection, Yes trachea midline and Yes supple Chest Chest palpation & inspection: normal inspection of the chest Resp Effort & Inspection: normal respiratory effort Auscultation: clear to auscultation bilaterally, no crackles, no rales, no rhonchi and no wheezes Cardio Jugular venous distension: no JVD Palpation: normal PMI Rate: regular rate Rhythm: regular rhythm Heart sounds: S1 normal heart sound present, S2 normal heart sound present, no click, no gallops, no murmurs and no rubs Peripheral pulses: Peripheral pulses 2+ throughout GI Inspection: Yes normal to inspection Palpation (GI): Soft to palpation Auscultation: normal bowel sounds Skin General skin exam: no rashes or lesions noted Neuro General: patient oriented x3 Extrem General: Yes normal to inspection, No no pedal edema and No calf tenderness Psych Appearance: grossly normal Mental Status: mental status grossly normal Speech and movement: Normal speech and movement present Office Procedures EKG Details: EKG today showed normal sinus rhythm, rate 97 beats per minute, left anterior fascicular block, nonspecific STT wave, [place], [place]. [address]-[id number], Complete Assessment & Plan Assessment & Plan (1) Paroxysmal atrial fibrillation: Comment: Infrequent paroxysmal AFib asymptomatic, on Eliquis and metoprolol Code(s): I48.0 - Paroxysmal atrial fibrillation Category: Medical Plan: 05/26/2025-echo study showed a normal LV systolic function with the ejection fraction at 69% with mild calcification of the aortic valve, mild aortic regurgitation, and mild mitral annular calcification. History of stroke after which patient had an implantable loop recorder that showed paroxysmal AFib. EKG today showed normal sinus rhythm. Continue with metoprolol for rate control. Continue Eliquis. Kidney function stable on recent labs. (2) HTN (hypertension): Code(s): I10 - Essential (primary) hypertension Category: Medical Plan: Blood pressure is well-controlled. Continue current regimen. Advised on monitoring blood pressures at home. No recurrence in syncopal episode. Advised on adequate hydration. Ideally goal for blood pressure less than 130/80. (3) Hyperlipidemia: Code(s): E78.5 - Hyperlipidemia, unspecified Category: Medical Plan: Patient had reported some chest pain at her last office visit for which patient underwent a stress echo that was abnormal and underwent a cardiac catheterization on 07/02/2024 which showed normal coronary arteries. Continue statin therapy with an LDL goal less than 70. Most recent LDL at 54. (4) DM type 2 (diabetes mellitus, type 2): Comment: Intolerant to Farxiga and Jardiance, caused recurrent candidiasis Code(s): E11.9 - Type 2 diabetes mellitus without complications Category: Medical Plan: Patient lost weight too quick on Mounjaro and recently PCP reduced her weekly dose. Continue diabetes management with an A1c goal less than 7%. Followed by PCP. (5) Preop cardiovascular exam: Code(s): Z01.810 - Encounter for preprocedural cardiovascular examination Plan: Patient has plans for upcoming panniculectomy for which patient can hold Eliquis 48 hours before the procedure and resume after. Patient can proceed with his surgery with the consideration that patient is at a low cardiac risk. Advised on heart healthy diet, orthostasis precautions, adequate hydration, regular exercising, and med compliance. Follow up in [address] Stovall. In the interim, patient will call the office with any concerns or change in symptoms. This note was generated using voice recognition software. While every effort has been made to ensure accuracy and proper reproductive healthcare assistant, there may be occasional errors that could affect the content or meaning of the described symptoms. Orders: Orders AMB EKG-In Office Today Z01.810 - Encounter for preprocedural cardiovascular examination Coding Level of Care Code Est Pt Level 4 (03989) Complex EM visit Add On G2211 Diagnoses Paroxysmal atrial fibrillation I48.0 HTN (hypertension) I10 Hyperlipidemia E78.5 DM type 2 (diabetes mellitus, type 2) E11.9 Preop cardiovascular exam Z01.810 CPT Codes EKG - CPT: 35891-[id number], Complete ([id number]) Time Spent (min) 31 Comment Time spent in reviewing the chart, test results, assessment, counseling and docu mentation.
[2025-06-05 13:45] VITALS: BP 120/80; PULSE 97; BMI 21.1
--- OUTSIDE RECORDS SUMMARY | 2025-06-05 17:01 | XMS_ITS | Clinical Summary ---
Author Organization [facility] Address [address] [place] [phone] Phone Care Team Providers Care Electromechanical Technologist Name Role Phone Valarie Hudson MD Primary Care Provider [phone] Liudmila Khan MD, PhD Unavailable Say Stovall MD Unavailable [phone] Allergies Active Allergy Reactions Criticality Noted Date [...] Hypertensive disorder 03/17/2022 03/02/2023 Proteinuria 03/17/2022 03/02/2023 Encounters Date Type Department Care Team Description 06/03/2025 Telephone [facility] [address] [facility], [address] [place] [address] Martin Kam MD from Last 3 Months Family History Medical History Relation Comments CV [...] patient's age to complete this topic IPV VACCINES Aged Out No longer eligi ble based on patient's age to complete this topic MENINGOCOCCAL VACCINES (ACWY) Aged Out No longer eligible based on patient's age to complete this topic MENINGOCOCCAL VACCINES (B) Aged Out N o longer eligible based on patient's age to complete this topic Medical Devices Implanted Type Area Homoeopath Device Identifier Shelf Expiration Date Model / Serial / Lot Knee Baseplate Sz 4 Tibial Legion Ti Nonporous Cemented Male Tapered Rt - [id number] Implanted:Qty: 1 on 06/27/2023 by Martin Kam MD at [facility] NODATA Right: Knee [employer] [id number] 01/11/2033 [id number] / / [id number] Description:The implant type , laterality (when applicable), size, and expiration date have been visually and verbally confirmed by the Surgeon, Circulating RN and Scrub Personnel. Cement Bone Simplex P Tobramycin 41g Powder And 20ml Ampoule Antibiotic Impregnated Full Dose Bx/10ea - [id number] Implanted:Qty: 1 on 06/27/2023 by Martin Kam MD at [facility] STANDARD Right: Knee [employer] [id number] 09/20/2024 6197-9-010 / / [id number] Description:The implant type , laterality (when applicable), size, and expiration date have been visually and verbally confirmed by the Surgeon, Circulating RN and Scrub Personnel. Cement Bone Simplex P Tobramycin 41g Powder And 20ml Ampoule Antibiotic Impregnated Full Dose Bx/10ea - [id number] Implanted:Qty: 1 on 06/27/2023 by Martin Kam MD at [facility] STANDARD Right: Knee [employer] [id number] 05/23/2024 6197-9-010 / / [id number] Description:The implant type , laterality (when applicable), size, and expiration date have been visually and verbally confirmed by the Surgeon, Circulating RN and Scrub Personnel. Knee Insert 9.0mm Size 3 4 Tibial Legion Crosslinked Polyethylene Dished - [id number] Implanted:Qty: 1 on 06/27/2023 by Martin Kam MD at [facility] Right: Knee [employer] [id number] 12/12/2032 [id number] / / [id number] Description:The implant type , laterality (when applicable), size, and expiration date have been visually and verbally confirmed by the Surgeon, Circulating RN and Scrub Personnel. Knee Insert 7.5mm 32 Patella Taina Ii Resurfacing - [id number] Implanted:Qty: 1 on 06/27/2023 by Martin Kam MD at [facility] Right: Knee [employer] [id number] 07/24/2032 [id number] / / [id number] Description:The implant type , laterality (when applicable), size, and expiration date have been visually and verbally confirmed by the Surgeon, Circulating RN and Scrub Personnel. Knee Implant Sz 4 Component Femoral Legion Oxinium Oxidized Zirconium Narrow Cruciate Retaining Rt N - [id number] Implanted:Qty: 1 on 06/27/2023 by Martin Kam MD at [facility] Right: Knee [employer]ONA [id number] 03/13/2033 [id number] / / [id number] Description:The implant type , laterality (when applicable), [...] EST) SODIUM 138 136 - 145 mmol/L [facility] CHLORIDE 104 95 - 106 mmol/L [facility] POTASSIUM 3.8 3.5 - 5.2 mmol/L [facility] CO2 22 20 - 31 mmol/L [facility] BUN 17 9 - 23 mg/dL [facility] CREATININE 0.72 0.50 - 1.30 mg/dL [facility] GLUCOSE 173(H) 74 - 106 mg/dL [facility] CALCIUM 8.7 8.7 - 10.4 mg/dL [facility] EGFR 93 >60 mL/min/1.7 3m2 [facility] Comment:Estimated glomerular filtration rate calculated using the CKD-EPI refit equation. ANION GAP 12 3 - 17 mmol/L [facility] Blood 06/28/2023 6:03 AM EST 06/28/2023 6:46 AM EST us Wilfredo NATHAN LAB BLOOD BKR ORDERABLE S Final Result [place] [id number] * (ABNORMAL) Hemoglobin A1c (06/11/2019 2:39 PM EST) HEMOGLOBIN A1C 8.5(H) 4.3 - 6.4 % [facility] CALC MEAN BLD GLUC 197 mg/dL [facility] Comment: There is no established normal [...] LAB BLOOD BKR ORD ERABLES Final Result [facility] [address] [place] [address] from Last 3 Months or Most Recently Relevant to Health Maintenance Insurance MEDICARE PPO BLUE REPLACEMENT MEDICARE PPO BLUE REPLACEMENT MEDICARE PPO BLUE REPLACEMENT MEDICARE PPO BLUE REPLACEMENT MEDICARE PPO BLUE REPLACEMENT MEDICARE PPO BLUE REPLACEMENT Advance Directives For more information, please contact: [phone] (9AM - 5PM [facility], Monday-Monday) Documents on File Type Date Recorded Patient Mail Order Biller Expl anation Healthcare Proxy 06/27/2023 10:09 AM Care Teams Electromechanical Technologist Relationship Specialty Start Date End Date Valarie Hudson MD 1963 [place], [place] PCP - General Internal Medicine 04/04/19 Liudmila Khan MD, PhD [address] [place] [id number] Neurology 06/09/23 Say Stovall MD [address] [place] [phone] Cardiology 06/09/23 Additional Source Comments The information contained in this document represents components of the legal health record. It is not the complete legal health record.[facility]
--- OUTSIDE RECORDS SUMMARY | 2025-06-05 17:01 | XMS_ITS | Clinical Summary ---
Author Organization [address] Address [address] [place] [phone] Phone Care Team Providers Care Side Panel Padder Name Role Phone Valarie Hudson MD Primary Care Provider [phone] Surgical History Surgery Date Site/Laterality Comments SECTION PROCEDURE: SECTION SHOULDER SURGERY PROCEDURE:SHOULDER SURGERY BREAST SURGERY PROCEDURE:REDUCTION MAMMAPLASTY KNEE SURGERY PROCEDURE:KNEE SURGERY Medical History Medical History Date Comments Depression DX:Depression Hypertension DX:Hypertension GERD (gastroesophageal reflux disease) DX:GERD (gastroesophageal reflux disease) High cholesterol DX:High cholest sherwin Stroke ([facility] V24, [facility] V28) DX:Stroke ([facility]) Asthma DX:Asthma Diabetes mellitus ([facility] V 24, [facility] V28) DX:Diabetes mellitus ([facility]) Family History Medical History Relation Name Comments [...] Test 07/30/2024 06/11/2019 COVID-19 Vaccine ( - 2024-2 6 season) 2025 Influenza Vaccine (#1) 2025 RSV [...] patient's age to complete this topic Insurance [facility] Care Teams Side Panel Padder Relationship Specialty Start Date End Date Valarie Hudson MD PCP - General Pilot Supervisor 05/14/19
--- OUTSIDE RECORDS SUMMARY | 2025-06-05 17:01 | XMS_ITS | Data Portability ---
Author Organization [place] [facility] Kirt Suarez [place] Address [address] [place] [address] Care Team Providers Care Hose Tubing Backer Name Role Phone SOL MCNAMARA Primary Care [...] weeks to review results and further management. [email or web address] Not available 06/27/2024 09:18:50 11/18/2024 11/18/2024 Slowly [...] may be helpful for control of swelling. Iepe-etg-ijsoxbe anti-inflammatory medications with appropriate GI precautions or [...] Imaging XR, knee, 3 view 2023 024 [place] [facility], [address], [address], [place], [address], 5 09:13:02 Medication Orders Euflexxa 10 mg/mL (mw 2.4-3.6 million) intra-artic ular syringe 2024 025 [email or web address] [id number], [address] [facility], [place], [address], 5 10:59:51 Euflexxa 10 mg/mL (mw 2.4-3.6 million) intra-artic ular syringe 2024 025 Not available 14:24:35 Euflexxa 10 mg/mL (mw 2.4-3.6 million) intra-artic ular syringe 2024 025 [email or web address] [id number], [address] [place], [address], 14:41:32 Patient TargetsNo targets recorded. Patient InstructionsNo instructions recorded. Reason for Referral None Reported. Results Created Date Observation Date Name Description Value Unit Range Abnormal Flag Note LastModifiedBy Organization Detail LastModifiedTime 07/31/19 25 07/30/2024 XR, knee, 3 view No observ ation record ed. [email or web address] [facility] [address] [place] [address], [address], 07/31/2024 11:06:12 09/25/19 25 09/24/2024 MRI, knee, w/o contr ast No observ ation record ed. [email or web address] [facility] [address] [place], [address], 09/26/2024 08:44:01 Result Notes None recorded. Problems Name Problem SNOMED Code Status Onset Date Resolution Date Notes Provider Name and Address Organization Details Recorded Time Problem 84946559 Active No known active problems Not Available [facility] 5 00:39:14 Pain of knee region 9181841771 Active 2016 Acute pain of right knee Not Available [facility] 5 00:39:13 Calcific tendiniti s of left shoulder 33738917033 9108 Active 2016 Calcific tendiniti s of left shoulder Not Available [facility] 5 00:39:14 Full thickness rotator cuff tear 124543345 Active 2017 Complete tear of left rotator cuff Not Available [facility] 5 00:39:13 Partial thickness rotator cuff tear 783832331 Active 2018 Incomplet e tear of left rotator cuff Not Available [facility] 5 00:39:12 Arthritis of knee 897593049 Active 2019 Patellofe moral arthritis of right knee Not Available [facility] 5 00:39:13 Surgical follow-up 233171490 Active 2020 Postop check Not Available [facility] 5 00:39:12 Pain of left knee region 63517895012 4109 Active [address], [place], [address] , [place] [facility] 5 07:55:43 Osteoarth ritis of left knee joint 12027854608 9109 Active [address] [facility], [place], [address] , [place] [facility] 5 07:56:56 Tear of lateral meniscus of knee 107516690 Active [address] [facility], [place], [address] , [facility] 5 06:30:50 Acute meniscal tear, medial 203887188 Active [address] [facility], [place], [address] , [place] [facility] 5 06:30:50 Problem Notes None recorded. Procedures Surgical History Date Name Laterality Status Provider Name and Address Organization Details Recorded Time 5 Euflexxa Knee Inj w/US completed MD [address], [place], [address], [place] [facility] 01/20/2025 06:31:09 5 Euflexxa Knee Inj w/US completed MD [address] [facility], [place], [address], [place] [facility] 01/14/2025 06:42:52 5 Euflexxa Knee Inj w/US completed MD [address], [place], [address], [place] [facility] 12/30/2024 06:43:20 total knee replacement completed Carey Saldana [facility], P 06/27/2024 08:54:55 Shoulder Surgery completed Carey Venegasdley [facility], P 06/27/2024 08:55:11 lumbar spinal fusion [facility] 06/27/2024 08:55:28 Imaging Results None recorded. Procedure Notes None recorded. Medical Equipment None Reported. Allergies Allergen ID Allergen Name Allergen Category Reaction Reaction Severity Criticality Documentation Date Start Date Code Code System Note Provider Name and Address Organization Details Recorded Time Product containin g penicilli n (product) medicatio n Not available Not available Not available 06/27/2024 21088 8001 SNOMED Carey Saldana [facility], [facility], P 4 08:53:10 Vancocin medicatio n Not available Not available Not available 06/27/202446992 8 RxNorm Crystal Les [facility], [facility] 4 08:53:22 Levaquin medicatio n Not available Not available Not available 06/27/2024 47469 2 RxNorm Crystal Les [facility], [facility], P 4 08:53:30 28963 vancomyci n medicatio n Not available Not available Not available 04/15/20252016 66051 RxNorm Not Available [facility] 5 01:28:16 Medications Name Sig [...] Updated DateTime 11/18/2024 170.18 cm 23.6 kg/m2 26330.[address] [facility] 11/18/2024 08:51:03 Date Recorded Body height Body mass index (BMI) Body weight Provider Name and Address Organization Details Last Updated DateTime 12/30/2024 170.18 cm 23.5 kg/m2 44484.[address] [facility] 12/30/2024 14:17:17 Date Recorded Body height Body mass index (BMI) Body weight Provider Name and Address Organization Details Last Updated DateTime 01/20/2025 170.18 cm 23.6 kg/m2 51448.[address] [facility] 01/20/2025 09:00:43 Date Recorded Body height Body mass index (BMI) Body weight Provider Name and Address Organization Details Last Updated DateTime 06/27/2024 170.18 cm 23.5 kg/m2 87310.[address] [facility] 06/27/2024 08:53:40 Social History None recorded. Functional Status Question Answer Note LastModified by Organizat ion Details LastModified Time Do you use any illicit or recreational drugs? No [email or web address] Information not available 06/27/2024 Do you or have you ever used any other forms of tobacco or nicotine? No [email or web address] Information not available 06/27/2024 What is your level of alcohol consumption? None [email or web address] Information not available 06/27/2024 Mental Status None recorded. Family History Relationship Description Onset Age of this Age Resolved Age Notes LastModified by Organization Details LastModified Time Mother History of cancer of unknown primary site [email or web address] Not available 11/2023 08:54:35 Father Diabetes mellitus [...] Anemia N Brain Injury N Heart Attack ([place]) N Osteopenia N Diabetes Y Bleeding Disorder [...] ICD10 Code Diagnosis IMO Codes Diagnosis Note 86170 HARO[address] WATERS [facility] [address] [facility] [address] [place] [address] 06/27/2024 08:39:30 06/27/2024 09:15:42 Pain of left knee region 9929607659 90424 M25.562 [id number] MD INDIGO [address] [address] 11/18/2024 08:35:04 11/18/2024 09:16:57 Osteoarthritis of left knee joint 6908625966 29791 M17.12 0565220 Tear of la teral meniscus of knee 906951575 S83.272A 2986855 Acute meni scal tear, medial 119407606 S83.232A 7407055 801173 MD VERONICA Do [address] [address] 01/20/2025 08:58:06 01/20/2025 11:43:52 Osteoarthritis of left knee joint 3308901240 18382 M17.12 3829599 Tear of la teral meniscus of knee 097681984 S83.272D 6407665 Acute meni scal tear, medial 121677950 S83.232D 0595558 [id number] MD INDIGO [address] [address] 12/30/2024 14:08:05 12/30/2024 14:35:36 Osteoarthritis of left knee joint 1024134157 30288 M17.12 9289993 Tear of la teral meniscus of knee 638779303 S83.272D 5076647 Acute meni scal tear, medial 965392107 S83.232D 0299278 368674 MD INDIGO [address] [address] 01/14/2025 13:11:51 01/14/2025 13:47:40 Osteoarthritis of left knee joint 8120418234 61496 M17.12 3544710 Tear of la teral meniscus of knee 590904083 S83.272D 3572189 Acute meni scal tear, medial 607992661 S83.232D 7635777 Health Concerns Section Related Observation LastModified by [...] subsequently underwent a right knee arthroplasty in [place]. Her current pain is localized to her [...] Ozempic weekly. NOMAN SHARIF PA-C [address], [place], [address], [facility] 06/27/2024 09:19:40 11/18/2024 text/html ROS as [...] subsequently underwent a right knee arthroplasty in [place]. Her current pain is localized to her [...] Bonilla Cisneros MD [address], [place], [address], [facility] 11/18/2024 12:19:04 12/30/2024 text/html ROS as [...] subsequently underwent a right knee arthroplasty in [place]. Her current pain is localized to her [...] Bonilla Cisneros MD [address], [place], [address], [place] [facility], 12/30/2024 14:34:48 01/14/2025 text/html ROS as noted [...] subsequently underwent a right knee arthroplasty in [place]. Her current pain is localized to her [...] Ozempic weekly. MD [address], [place], [address], [place] [facility] 01/14/2025 13:54:27 01/20/2025 text/html ROS as [...] subsequently underwent a right knee arthroplasty in [place]. Her current pain is localized to her [...] Bonilla Cisneros MD [address], [place], [address], [place] [facility] 01/20/2025 09:14:25 OBGyn Episode No OBEpisode recorded.
--- OUTSIDE RECORDS SUMMARY | 2025-06-05 17:01 | XMS_ITS | Encounter Summary ---
Author Organization [facility] Address [address] [place] [address] Phone Care Team Providers Care State Federal Relations Deputy Director Name Role Phone Valarie Hudson MD Primary Care Provider [phone] Liudmila Khan MD, PhD Unavailable Say Stovall MD Unavailable [phone] Encounter Details Date Type Department Care Team ([facility] Contact Info) Description 06/03/2025 Telephone [facility] [address], [address] [place] [address] Martin Kam MD [address] [place] [address], [facility] [address] [place] [address] [email or web address] Social History Tobacco Use Types Packs/Day Years [...] AM EDT documented as of this encounter Progress Notes * Diamante Lin CNP - 06/03/2025 9:51 AM EST LVM advising we typically recommend premedicating the dentist for 2 years following surgery. Left call back information. * Stacey Ramos - 06/03/2025 9:40 AM EST Right tka 06/27/23 ana Patient called and asked if our office can send a clearance letter to her dental office. I explained that I can send out the letter, and that she will have to premedicate until 06/27/25. She explained that the last time she came in, she was told that she does not have to premedicate. She does not mind taking the antibiotic, but she would like to speak to one of our YOSSI's about wether or not she needs to continue. Please get back to her, thank you. documented in this encounter Plan of Treatment Not on file documented as of this encounter Visit Diagnoses Not on filedocumented in this encounter Care Teams State Federal Relations Deputy Director Relationship Specialty Start Date End Date Valarie Hudson MD [address] [place] [address] PCP - General Internal Medicine 04/04/19 Liudmila Khan MD, PhD [address] [place] [address] [email or web address] Neurology 06/09/23 Say Stovall MD [address] [place] [address] Cardiology 06/09/23 documented as of this encounter Additional Source Comments The information contained in this document represents components of the legal health record. It is not the complete legal health record.[facility]
--- OUTSIDE RECORDS SUMMARY | 2025-06-05 17:01 | XMS_ITS | Clinical Summary ---
Author Organization [facility] Address [address] [place] [address] Care Team Providers Care Card Assembler Name Role Phone Valarie Hudson MD Primary Care Provider [phone] Allergies Active Allergy Reactions Criticality Noted Date [...] age to complete this topic Care Teams Card Assembler Relationship Specialty Start Date End Date Valarie Hudson MD [address] [place] [address] PCP - General Professor In Family Studies 05/14/19
--- OUTSIDE RECORDS SUMMARY | 2025-06-05 17:01 | XMS_ITS | Encounter Summary ---
Author Organization [facility] Address [address] [place] [address] Care Team Providers Care Registrar Nurses' Registry Name Role Phone Valarie Hudson MD Primary Care Provider [phone] Encounter Details Date Type Department Care Team (Late st Contact Info) Description 05/29/2024 Lab Requisition [facility] - Main Lab [address] [facility] [place] [address] Miguelangel Ag MD [address] [facility] [address] [place], [place] [id number] Gross hematuria Social History Tobacco Use Types [...] Acute inflammation present. 05/31/2024 9:45 AM EST [facility] Clinical Information Gross hematuria 05/31/2024 [...] Final Result [facility] [address] [place] [address], documented in this encounter Visit Diagnoses Diagnosis Gross hematuria documented in this encounter Care Teams Registrar Nurses' Registry Relationship Specialty Start Date End Date Valarie Hudson MD PCP - General Eradicator 05/14/19 documented as of this encounter
--- OUTSIDE RECORDS SUMMARY | 2025-06-05 17:01 | XMS_ITS | Encounter Summary ---
Author Organization [facility] Address [address] [facility] [address] [place] [address] Phone Care Team Providers Care Butter Liquefier Name Role Phone Valarie Hudson MD Primary Care Provider [phone] Liudmila Khan MD, PhD Unavailable Say Stovall MD Unavailable [phone] Encounter Details Date Type Department Care Team (Late st Contact Info) Description 06/27/2023 Procedure Pass [facility] PERIOPER[facility]IVE [facility]PT [address] [place] [address] Social History Tobacco Use Types [...] 06/27/2023 6:23 PM Lizzeth Arauz RN * [place] Suicide Severity Rating Scale (Screener/Recent Self-Report) Question [...] on filedocumented in this encounter Care Teams Butter Liquefier Relationship Specialty Start Date End Date Valarie Hudson MD [facility] [place] [address] PCP - General Internal Medicine 04/04/19 Liudmila Khan MD, PhD [address] [place] [address] [email or web address] Neurology 06/09/23 Say Stovall MD [address] [place] [address] Cardiology 06/09/23 documented as of this encounter Additional Source Comments The information contained in this document represents components of the legal health record. It is not the complete legal health record.[facility]
--- OUTSIDE RECORDS SUMMARY | 2025-06-05 17:01 | XMS_ITS | Clinical Summary ---
Author Organization [facility] Address [address] [place] [address] Phone Care Team Providers Care Plastic Tool Maker Name Role Phone Unavailable Primary Care Provider [...] Breast Cancer Screening 1960 Colorectal Cancer Screening: Annual FOBT 2007 Colorectal Cancer Screening: Colonoscopy 2007 Colorectal Cancer Screening: Sigmoidoscopy 2007 Pneumococcal Vaccine: 50+ Ye ars (1 of 1 - PCV) 2008 Influenza Vaccine (#1) 2025 Hepatitis B Vaccine Aged Out No longe r eligible based on patient's age to complete this topic Insurance [facility]
== END 2025-06-05 14:10 | disposition home or self-care (01) ==
PROVIDERS: PCP Internal Medicine; Visit Provider Internal Medicine Cardiovascular Disease
DX: I48.0 Paroxysmal atrial fibrillation (principal); I10 Essential (primary) hypertension; E78.5 Hyperlipidemia, unspecified; E11.9 Type 2 diabetes mellitus without complications; Z01.810 Encounter for preprocedural cardiovascular examination
CPT/HCPCS: 93010; 99214; G2211

== ENCOUNTER → 2025-06-05 13:38 | Outpatient (BNVA) | payer MEDICARE, SELFPAY | PROVIDERS: PCP Internal Medicine; Visit Provider Internal Medicine Cardiovascular Disease | DX: Z01.810 Encounter for preprocedural cardiovascular examination (principal); I48.0 Paroxysmal atrial fibrillation; I10 Essential (primary) hypertension; E78.5 Hyperlipidemia, unspecified; E11.9 Type 2 diabetes mellitus without complications | CPT/HCPCS: 93005; 99212 ==

== ENCOUNTER 2025-07-21 08:31 | Outpatient (REF) | payer MEDICARE, SELFPAY ==
--- OUTSIDE RECORDS SUMMARY | 2025-07-21 08:34 | XMS_ITS | Clinical Summary ---
Author Organization [facility] Address [address] [place] [address] Phone Care Team Providers Care Diesel Engine Ii Pipe Fitter Name Role Phone Valarie Hudson MD Primary Care Provider [phone] Liudmila Khan MD, PhD Unavailable Say Stovall MD Unavailable [phone] Allergies Active Allergy Reactions Criticality Noted Date [...] Type Department Care Team Description 06/03/2025 Telephone [facility] [address] [facility], [address] [place] [id number] Martin Kam MD from Last 3 Months [...] 06/11/2019 INFLUENZA VACCINE (#1) 2025 COVID-19 VACCINE (2 6 season) 2025 03/20/2021, 02/26/2021 HEPATITIS A [...] on patient's age to complete this topic Goals Goal Patient Goal Type Associated Problems Recent Progress Patient-Stated? Author Autogenerat ed Goal Care Plan Autogenerated Problem No Trial, [employer] Implanted Type Area Shank Paperer Device Identifier Shelf Expiration Date Model / Serial / Lot Knee Baseplate Sz 4 Tibial Legion Ti Nonporous Cemented Male Tapered Rt - [id number] Implanted:Qty: 1 on 06/27/2023 by Martin Kam MD at [facility] NODATA Right: Knee [employer] [id number] 01/11/2033 [id number] / / [id number] Description:The implant type , laterality (when applicable), size, and expiration date have been visually and verbally confirmed by the Surgeon, Circulating RN and Scrub Personnel. Cement Bone Simplex P Tobramycin 41g Powder And 20ml Ampoule Antibiotic Impregnated Full Dose Bx/10ea - [id number] Implanted:Qty: 1 on 06/27/2023 by Martin Kam MD at [facility] STANDARD Right: Knee [employer] [id number] 09/20/2024 6197-9-010 / / [id number] Description:The implant type , laterality (when applicable), size, and expiration date have been visually and verbally confirmed by the Surgeon, Circulating RN and Scrub Personnel. Cement Bone Simplex P Tobramycin 41g Powder And 20ml Ampoule Antibiotic Impregnated Full Dose Bx/10ea - [id number] Implanted:Qty: 1 on 06/27/2023 by Martin Kam MD at [facility] STANDARD Right: Knee [employer] [id number] 05/23/2024 6197-9-010 / / [id number] Description:The implant type , laterality (when applicable), size, and expiration date have been visually and verbally confirmed by the Surgeon, Circulating RN and Scrub Personnel. Knee Insert 9.0mm Size 3 4 Tibial Legion Crosslinked Polyethylene Dished - [id number] Implanted:Qty: 1 on 06/27/2023 by Martin Kam MD at [facility] Right: Knee [employer] [id number] 12/12/2032 [id number] / / [id number] Description:The implant type , laterality (when applicable), size, and expiration date have been visually and verbally confirmed by the Surgeon, Circulating RN and Scrub Personnel. Knee Insert 7.5mm 32 Patella Taina [employer]ur[employer] - [id number] Implanted:Qty: 1 on 06/27/2023 by Martin Kam MD at [facility] Right: Knee [employer] [id number] 07/24/2032 [id number] / / [id number] Description:The implant type , laterality (when applicable), size, and expiration date have been visually and verbally confirmed by the Surgeon, Circulating RN and Scrub Personnel. Knee Implant Sz 4 Component Femoral Legion Oxinium Oxidized Zirconium Narrow Cruciate Retaining Rt N - [id number] Implanted:Qty: 1 on 06/27/2023 by Martin Kam MD at [facility] Right: Knee CARDONA [id number] 03/13/2033 [id number] / / [id number] Description:The implant type , laterality (when applicable), [...] EST) SODIUM 138 136 - 145 mmol/L [facility] CHLORIDE 104 95 - 106 mmol/L [facility] POTASSIUM 3.8 3.5 - 5.2 mmol/L [facility] CO2 22 20 - 31 mmol/L [facility] BUN 17 9 - 23 mg/dL [facility] CREATININE 0.72 0.50 - 1.30 mg/dL [facility] GLUCOSE 173(H) 74 - 106 mg/dL [facility] CALCIUM 8.7 8.7 - 10.4 mg/dL [facility] EGFR 93 >60 mL/min/1.7 3m2 [facility] Comment:Estimated glomerular filtration rate calculated using the CKD-EPI refit equation. ANION GAP 12 3 - 17 mmol/L [facility] Blood 06/28/2023 6:03 AM EST 06/28/2023 6:46 AM EST Wilfredo NATHAN LAB BLOOD BKR ORDERABLE S Final Result [address] [address] * (ABNORMAL) Hemoglobin A1c (06/11/2019 2:39 PM EST) HEMOGLOBIN A1C 8.5(H) 4.3 - 6.4 % [facility] CALC MEAN BLD GLUC 197 mg/dL [facility] Comment: There is no established normal range [...] 2:39 PM EST 06/11/2019 2:53 PM EST Liudmila Garnett Demetria Welch MD, PhD LAB BLOOD BKR ORD ERABLES Final Result [facility] [address] [place] [address] from Last 3 Months or Most Recently Relevant to Health Maintenance Additional Health Concerns Active Problems Noted Date Diagnosed Date Autogenerated Problem 06/27/2025 Insurance MEDICARE PPO BLUE REPLACEMENT MEDICARE PPO BLUE REPLACEMENT MEDICARE PPO BLUE REPLACEMENT MEDICARE PPO BLUE REPLACEMENT MEDICARE PPO BLUE REPLACEMENT MEDICARE PPO BLUE REPLACEMENT Advance Directives For more information, please contact: [phone] (9AM - 5PM [facility], Monday-Monday) Documents on File Type Date Recorded Patient Driver Engineer Expl anation Healthcare Proxy 06/27/2023 10:09 AM Care Teams Diesel Engine Ii Pipe Fitter Relationship Specialty Start Date End Date Valarie Hudson MD [address] [place] [address] PCP - General Internal Medicine 04/04/19 Liudmila Khan MD, PhD [address] [place] [address] Neurology 06/09/23 Say Stovall MD [address] [place] [address] [place] [address] Cardiology 06/09/23 Additional Source Comments The information contained in this document represents components of the legal health record. It is not the complete legal health record.[facility]
--- OUTSIDE RECORDS SUMMARY | 2025-07-21 08:34 | XMS_ITS | Clinical Summary ---
Author Organization [facility] Address [address] [place] [address] Phone Care Team Providers Care Cycle Touring Guide Name Role Phone Unavailable Primary Care Provider [...] patient's age to complete this topic Insurance [facility]
--- OUTSIDE RECORDS SUMMARY | 2025-07-21 08:34 | XMS_ITS | Clinical Summary ---
Author Organization [address] Address [address] [place] [address] Phone Care Team Providers Care P D Driver Name Role Phone Valarie Hudson MD Primary Care Provider [phone] Surgical History Surgery Date Site/Laterality Comments SECTION PROCEDURE: SECTION SHOULDER SURGERY PROCEDURE:SHOULDER SURGERY BREAST SURGERY PROCEDURE:REDUCTION MAMMAPLASTY KNEE SURGERY PROCEDURE:KNEE SURGERY Medical History Medical History Date Comments Depression DX:Depression Hypertension DX:Hypertension GERD (gastroesophageal reflux disease) DX:GERD (gastroesophageal reflux disease) High cholesterol DX:High cholest sherwin Stroke ([facility] V24, [facility] V28) DX:Stroke ([facility]) Asthma DX:Asthma Diabetes mellitus ([facility] V 24, [facility] V28) DX:Diabetes mellitus ([facility]) Family History Medical History Relation [...] Orientation Straight 06/08/2024 8: 04 PM EST Plan of Treatment Health Maintenance [...] patient's age to complete this topic Insurance [facility] Care Teams P D Driver Relationship Specialty Start Date End Date Valarie Hudson MD PCP - General Pantograph I Engraver 05/14/19
--- OUTSIDE RECORDS SUMMARY | 2025-07-21 08:34 | XMS_ITS | Encounter Summary ---
Author Organization [employer] Address [address] [place] [address] Care Team Providers Care Truck Mechanic Apprentice Name Role Phone Valarie Hudson MD Primary Care Provider [phone] Encounter Details Date Type Department Care Team (Late st Contact Info) Description 05/29/2024 Lab Requisition [facility] - Main Lab [address] [facility] [place] [id number] Miguelangel Ag MD [address] [place], [place] [phone] Gross hematuria Social History Tobacco Use Types [...] Acute inflammation present. 05/31/2024 9:45 AM EST [facility] at 0945 EST Clinical Information Gross hematuria 05/31/2024 9:45 AM EST [facility] Gross Description A. Urine, Voided, : 1 TP cyto with Reflex FISH if Atypical/Susp 05/31/2024 9:45 AM EST [facility] Disclaimer Unless otherwise specified, all tissue is 10% NB formalin fixed and paraffin embedded. 05/31/2024 9:45 AM EST [facility] Tissue Urine specimen from urethra / Unknown 05/27/2024 05/29/2024 11:35 AM EST us Miguelangel Ag MD LAB PATHOLOGY ORDERAB LES Final Result [facility] [address] [place] [address], documented in this encounter Visit Diagnoses Diagnosis Gross hematuria documented in this encounter Care Teams Truck Mechanic Apprentice Relationship Specialty Start Date End Date Valarie Hudson MD PCP - General Conference Translator 05/14/19 documented as of this encounter
--- OUTSIDE RECORDS SUMMARY | 2025-07-21 08:34 | XMS_ITS | Encounter Summary ---
Author Organization [facility] Address [address] [facility] [address] [place] [address] Phone Care Team Providers Care Bail Attacher Name Role Phone Valarie Hudson MD Primary Care Provider [phone] Liudmila Khan MD, PhD Unavailable Say Stovall MD Unavailable [phone] Encounter Details Date Type Department Care Team (Late st Contact Info) Description 06/27/2023 Procedure Pass [facility] PERIOPER[facility]PT [address] [place] [address] Social History Tobacco Use Types [...] AM EDT documented as of this encounter Plan of Treatment Not on file documented as of this encounter Visit Diagnoses Not on filedocumented in this encounter Care Teams Bail Attacher Relationship Specialty Start Date End Date Valarie Hudson MD [address] [place] [address] PCP - General Internal Medicine 04/04/19 Liudmila Khan MD, PhD [address] [place] [address] [email or web address] Neurology 06/09/23 Say Stovall MD [address] [place] [address] Cardiology 06/09/23 documented as of this encounter Additional Source Comments The information contained in this document represents components of the legal health record. It is not the complete legal health record.[facility]
--- OUTSIDE RECORDS SUMMARY | 2025-07-21 08:34 | XMS_ITS | Clinical Summary ---
Author Organization Formerly [facility] Prior to 12/21/[address] [place] [address] Care Team Providers Care Marketing Strategy Lead Name Role Phone Valarie Hudson MD Primary Care Provider [phone] Allergies Active Allergy Reactions Criticality Noted Date [...] age to complete this topic Care Teams Marketing Strategy Lead Relationship Specialty Start Date End Date Valarie Hudson MD [address] [place] [phone] PCP - General Field Operations Technician 05/14/19
--- OUTSIDE RECORDS SUMMARY | 2025-07-21 08:34 | XMS_ITS | Data Portability ---
Author Organization [facility] Kirt Suarez [facility] [place] Address [address] [place] [address] Care Team Providers Care Clay Mine Cutting Machine Operator Name Role Phone SOL MCNAMARA Primary [...] weeks to review results and further management. [email or web address] Not available 06/27/2024 09:18:50 11/18/2024 11/18/2024 Slowly [...] may be helpful for control of swelling. [id number] anti-inflammatory medications with appropriate GI precautions or [...] Imaging XR, knee, 3 view 2023 024 [facility], [address], [place], [address], 5 09:13:02 Medication Orders Euflexxa 10 mg/mL (mw 2.4-3.6 million) intra-artic ular syringe 2024 025 [email or web address] [id number], [address] [facility] [place], [place], [address], 5 10:59:51 Euflexxa 10 mg/mL (mw 2.4-3.6 million) intra-artic ular syringe 2024 025 Not available 14:24:35 Euflexxa 10 mg/mL (mw 2.4-3.6 million) intra-artic ular syringe 2024 025 [email or web address] [id number], [address] [place], [address], 14:41:32 Patient TargetsNo targets recorded. Patient InstructionsNo instructions recorded. Reason for Referral None Reported. Results Created Date Observation Date Name Description Value Unit Range Abnormal Flag Note LastModifiedBy Organization Detail LastModifiedTime 07/31/19 25 07/30/2024 XR, knee, 3 view No observ ation record ed. [email or web address] [facility] [address] [place] [address], [address], 07/31/2024 11:06:12 09/25/19 25 09/24/2024 MRI, knee, w/o contr ast No observ ation record ed. [email or web address] [facility] [address] [place], [address], 09/26/2024 08:44:01 Result Notes None recorded. Problems Name Problem SNOMED Code Status Onset Date Resolution Date Notes Provider Name and Address Organization Details Recorded Time Problem 52605924 Active No known active problems Not Available [facility] 5 00:39:14 Pain of knee region 4482813040 Active 2016 Acute pain of right knee Not Available [facility] 5 00:39:13 Calcific tendiniti s of left shoulder 61701229212 9108 Active 2016 Calcific tendiniti s of left shoulder Not Available [facility] 5 00:39:14 Full thickness rotator cuff tear 116818210 Active 2017 Complete tear of left rotator cuff Not Available [facility] 5 00:39:13 Partial thickness rotator cuff tear 546639630 Active 2018 Incomplet e tear of left rotator cuff Not Available [facility] 5 00:39:12 Arthritis of knee 461323351 Active 2019 [facility] arthritis of right knee Not Available [facility] 5 00:39:13 Surgical follow-up 235857663 Active 2020 Postop check Not Available [facility] 5 00:39:12 Pain of left knee region 97011023491 4109 Active [address], [place], [address] , [place] [facility] 5 07:55:43 Osteoarth ritis of left knee joint 80497059839 9109 Active [address] [facility], [place], [address] , [place] [facility] 5 07:56:56 Tear of lateral meniscus of knee 807588414 Active [address] [facility], [place], [address] , [facility] 5 06:30:50 Acute meniscal tear, medial 826150466 Active [address] [facility], [place], [address] , [place] [facility] 5 06:30:50 Problem Notes None recorded. Procedures Surgical History Date Name Laterality Status Provider Name and Address Organization Details Recorded Time 5 Euflexxa Knee Inj w/US completed MD [address], [place], [address], [facility] 01/20/2025 06:31:09 5 Euflexxa Knee Inj w/US completed MD [address] [facility], [place], [address], [place] [facility] 01/14/2025 06:42:52 5 Euflexxa Knee Inj w/US completed MD [address], [place], [address], [place] [facility] 12/30/2024 06:43:20 total knee replacement completed Carey Saldana [facility], [facility] 06/27/2024 08:54:55 Shoulder Surgery completed Carey Venegasdley [facility], P 06/27/2024 08:55:11 [facility] 06/27/[facility]24 08:55:28 Imaging Results None recorded. Procedure Notes None recorded. Medical Equipment None Reported. Allergies Allergen ID Allergen Name Allergen Category Reaction Reaction Severity Criticality Documentation Date Start Date Code Code System Note Provider Name and Address Organization Details Recorded Time Product containin g penicilli n (product) medicatio n Not available Not available Not available 06/27/2024 64083 8001 SNOMED [facility] 4 08:53:10 Vancocin medicatio n Not available Not available Not available 06/27/202463502 8 RxNorm [facility] 4 08:53:22 Levaquin medicatio n Not available Not available Not available 06/27/2024 89370 2 RxNorm [facility], [facility], P 4 08:53:30 57217 vancomyci n medicatio n Not available Not available Not available 04/15/20252016 67442 RxNorm Not Available [facility] 5 01:28:16 Medications Name Sig Start Date [...] Updated DateTime 11/18/2024 170.18 cm 23.6 kg/m2 [address]117.[address] [facility] 11/18/2024 08:51:03 Date Recorded Body height Body mass index (BMI) Body weight Provider Name and Address Organization Details Last Updated DateTime 12/30/2024 170.18 cm 23.5 kg/m2 79539.[address] [facility] 12/30/2024 14:17:17 Date Recorded Body height Body mass index (BMI) Body weight Provider Name and Address Organization Details Last Updated DateTime 01/20/2025 170.18 cm 23.6 kg/m2 72261.[address] [facility] 01/20/2025 09:00:43 Date Recorded Body height Body mass index (BMI) Body weight Provider Name and Address Organization Details Last Updated DateTime 06/27/2024 170.18 cm 23.5 kg/m2 18655.[address] [facility] 06/27/2024 08:53:40 Social History None recorded. Functional Status Question Answer Note LastModified by Organizat ion Details LastModified Time Do you use any illicit or recreational drugs? No Information not available 06/27/2024 Do you or have you ever used any other forms of tobacco or nicotine? No [email or web address] Information not available 06/27/2024 What is your level of alcohol consumption? None [email or web address] Information not available 06/27/2024 Mental Status None recorded. Family History Relationship Description Onset Age of this Age Resolved Age Notes LastModified by Organization Details LastModified Time Mother History of cancer of unknown primary site [email or web address] Not available 11/2023 08:54:35 Father Diabetes mellitus [email or web address] Not available 2024 08:35:21 Medical History Condition Response Coronary Artery Disease N Gout N Hyperthyroidism N MRSA N Blood Transfusion N Emphysema N Hypothyroidism N Depression N COPD N Pacemaker N Vascular Disease N Gastrointestinal Disease N Anxiety Disorder N Autoimmune disease N Arthritis N Cancer N Stroke Y High Cholesterol Y Neurologic Disorder N Liver Disease N Organ Transplant N Rheumatoid Arthritis N Arrhythmia N Fibromyalgia N Kidney Disease N Allergies/Hayfever Y Adverse Reaction to Anesthesia N Thyroid Problems N Anemia N Brain Injury N Heart Attack (NM) N Osteopenia N Diabetes Y Bleeding Disorder [...] ICD10 Code Diagnosis IMO Codes Diagnosis Note [id number] [address] W[address] [facility] [address] [facility] [address] [place] [address] 06/27/2024 08:39:30 06/27/2024 09:15:42 Pain of left knee region 3005786166 20444 M25.562 [id number] MD INDIGO [address] [address] 11/18/2024 08:35:04 11/18/2024 09:16:57 Osteoarthritis of left knee joint 4096089022 83081 M17.12 2652838 Tear of la teral meniscus of knee 955945226 S83.272A 5984176 Acute meni scal tear, medial 380418122 S83.232A 6984190 [id number] MD VERONICA Do [address] [address] 01/20/2025 08:58:06 01/20/2025 11:43:52 Osteoarthritis of left knee joint 6100069349 79343 M17.12 5873362 Tear of la teral meniscus of knee 488767829 S83.272D 7407351 Acute meni scal tear, medial 269815748 S83.232D 5759723 [id number] MD INDIGO [address] [address] 12/30/2024 14:08:05 12/30/2024 14:35:36 Osteoarthritis of left knee joint 4293331770 84891 M17.12 0352466 Tear of la teral meniscus of knee 649964094 S83.272D 6591018 Acute meni scal tear, medial 278237512 S83.232D 1364064 [id number] MD INDIGO [address] [address] 01/14/2025 13:11:51 01/14/2025 13:47:40 Osteoarthritis of left knee joint 0319237619 70886 M17.12 9268717 Tear of la teral meniscus of knee 867953483 S83.272D 0261743 Acute meni scal tear, medial 238472877 S83.232D [id number] Health Concerns Section Related Observation LastModified by [...] subsequently underwent a right knee arthroplasty in [place]. Her current pain is localized to her [...] NOMAN SHARIF PA-C [address], [place], [address], [facility] 06/27/2024 09:19:40 11/18/2024 text/html ROS as [...] subsequently underwent a right knee arthroplasty in [place]. Her current pain is localized to her [...] Bonilla Cisneros MD [address], [place], [address], [place] [facility] 11/18/2024 12:19:04 12/30/2024 text/html ROS as [...] subsequently underwent a right knee arthroplasty in [place]. Her current pain is localized to her [...] Bonilla Cisneros MD [address], [place], [address], [place] [facility], 12/30/2024 14:34:48 01/14/2025 text/html ROS as noted [...] subsequently underwent a right knee arthroplasty in [place]. Her current pain is localized to her [...] Ozempic weekly. MD [address], [place], [address], [place] [facility] 01/14/2025 13:54:27 01/20/2025 text/html ROS as [...] subsequently underwent a right knee arthroplasty in [place]. Her current pain is localized to her [...] Bonilla Cisneros MD [address], [place], [address], [place] [facility] 01/20/2025 09:14:25 OBGyn Episode No OBEpisode recorded.
[2025-07-21 10:36] LABS: MANUAL DIFF FLAG NO
[2025-07-21 10:41] LABS: Hematocrit 32.1 % (37.0-47.0); Hemoglobin 10.0 g/dl (12.0-16.0); Imm Gran Abs Auto 0.01 X10*3/uL (0.00-0.03); Imm Gran Pct Auto 0.2 % (0.0-0.4); Lymphocytes Absolute Auto 1.4 X10*3/uL (1.2-4.9); Mean Corpuscular HGB Conc 31.2 g/dl (31.0-35.0); Mean Corpuscular Hemoglobin 28.5 pg (27.0-33.0); Mean Corpuscular Volume 91.5 fL (80.0-98.0); NRBC Abs Auto 0.000 X10*3/uL (0.0-0.012); NRBC Pct Auto 0.0 /100WBC (0.0-0.2); Platelet Count 249 X10*3/uL (160-400); Red Blood Count 3.51 X10*6/uL (4.20-5.50); White Blood Count 4.6 X10*3/uL (4.8-10.8)
[2025-07-21 10:49] LABS: Hemoglobin A1C 114.4155 umol/L
[2025-07-21 10:57] LABS: Alanine Aminotransferase 15 U/L (0-31); Albumin Level 4.0 g/dL (3.5-5.0); Alkaline Phosphatase 67 U/L (39-117); Anion Gap 12 (12-20); Aspartate Amino Transferase 19 U/L (5-31); Blood Urea Nitrogen 16 mg/dL (9-16); Calcium 9.2 mg/dL (8.4-10.2); Carbon Dioxide 26 mmol/L (22-29); Chloride 109 mmol/L (96-108); Cholesterol 131 mg/dL (<200); Estimated Glomerular Filt Rate > 60; HDL Cholesterol 55 mg/dL (>40); Potassium 3.6 mmol/L (3.3-5.1); Sodium 143 mmol/L (135-145); Total Protein 6.1 g/dL (6.5-8.0); Triglycerides 61 mg/dL (<150)
[2025-07-21 10:59] LABS: Microalbum/Creatinine Ratio Ur 26.0 ug/mg cr (<30)
== END 2025-07-21 08:32 | disposition home or self-care (01) ==
LOC: HO.HMGCLDS 08:31
PROVIDERS: PCP Internal Medicine; Visit Provider Internal Medicine
DX: I10 Essential (primary) hypertension (principal); E11.9 Type 2 diabetes mellitus without complications
CPT/HCPCS: 36415; 80053; 80061; 82043; 82570; 83036; 85025